=== PATIENT | female | born 1945 | race African-American/Black ===

== ENCOUNTER 2019-04-19 13:11 | Emergency (ER) | payer OTHER ==
[2019-04-19] MEDS ORDERED: ALBUTEROL 2.5 MG/3 ML NEB SOL ONE (14:36)
--- NOTE | 2019-04-19 14:46 | ER ---
Nurse's Notes [facility] Name: Kylah Oliver Age: 74 yrs Sex: Female : 1945 Arrival Date: 04/19/2019 Time: 13:14 Bed 8 Private MD: Diagnosis: Asthma Presentation: 04/19 13:22 Presenting complaint: Patient states: SOB on exertion since this morning. Pt states "I aa5 know it's my asthma flaring up but I haven't been able to get the correct connection for my nebulizer so I couldn't do my breathing treatment at home". Pt also c/o cough today. Denies chest pain. 13:22 Transition of care: patient was not received from another setting of care. Onset of aa5 symptoms was April 19, 2019. Risk Assessment: Do you want to hurt yourself or someone else? Patient reports no desire to harm self or others. Initial Sepsis Screen: Does the patient meet any 2 criteria? No. Patient's initial sepsis screen is negative. Does the patient have a suspected source of infection? No. Patient's initial sepsis screen is negative. Care prior to arrival: None. 13:22 Acuity: KAYLA 3 aa5 13:22 Method Of Arrival: Ambulatory aa5 Historical: - Allergies: 13:22 Imdur; aa5 13:22 Codeine; aa5 - PMHx: 13:22 Asthma; CHF; Hypertension; Atrial Fib; Thyroid problem; aa5 - PSHx: 13:22 Hysterectomy; Cholecystectomy; parathyroid removed; aa5 - Immunization history:: Flu vaccine is up to date. - Social history:: Smoking status: Patient/guardian denies using tobacco. - Ebola Screening: : No symptoms or risks identified at this time. Screenin:22 Abuse screen: Denies threats or abuse. Nutritional screening: No deficits noted. aa5 Tuberculosis screening: No symptoms or risk factors identified. Fall Risk None identified. Assessment: 13:22 General: Appears comfortable, Behavior is calm, cooperative. Pain: Denies pain. Neuro: aa5 Level of Consciousness is awake, alert, obeys commands, Oriented to person, place, time, situation. Cardiovascular: Heart tones S1 S2 present Pulses are 3+ in right radial artery and left radial artery Rhythm is regular. Respiratory: Reports shortness of breath on exertion Airway is patent Respiratory effort is even, unlabored, Respiratory pattern is regular, symmetrical, Breath sounds are clear bilaterally. GI: No signs and/or symptoms were reported involving the gastrointestinal system. : No signs and/or symptoms were reported regarding the genitourinary system. EENT: No signs and/or symptoms were reported regarding the EENT system. Derm: Skin is dry, Skin is normal, Skin temperature is warm. Musculoskeletal: Range of motion: intact in all extremities. 14:45 Reassessment: Pt states feeling better. Pt sitting up in bed. Respirations even an aa5 unlabored, skin is normal/warm/dry. . Respiratory: Breath sounds are clear bilaterally. Vital Signs: 13:22 BP 161 / 85; Pulse 60; Resp 18 S; Temp 98.1(O); Pulse Ox 100% on R/A; Weight 85.73 kg aa5 (R); Height 5 ft. 7 in. (170.18 cm) (R); Pain 0/10; 15:20 BP 131 / 78; Pulse 60; Resp 18 S; Temp 98.0(TE); Pulse Ox 99% on R/A; Pain 0/10; aa5 13:22 Body Mass Index 29.60 (85.73 kg, 170.18 cm) aa5 ED Course: 13:14 Patient arrived in ED. ss4 13:22 Arm band placed on Patient placed in an exam room, on a stretcher. aa5 13:22 Patient has correct armband on for positive identification. Placed in gown. Bed in low aa5 position. Call light in reach. Side rails up X 1. Adult w/ patient. Pulse ox on. NIBP on. 13:23 Charlene Infante, RN is Primary Nurse. aa5 13:24 Triage completed. aa5 13:44 Aroldo Srivastava PA is PHCP. jr8 13:44 Josue Acevedo MD is Attending Physician. jr8 15:30 Patient did not have IV access during this emergency room visit. aa5 15:30 No provider procedures requiring assistance completed. aa5 Administered Medications: 14:23 Drug: Albuterol 2.5 mg Route: Inhalation; aa5 14:45 Follow up: Response: No adverse reaction aa5 Outcome: 14:46 Discharge ordered by . jr8 15:30 Discharged to home ambulatory, with family. aa5 15:30 Condition: improved 15:30 Discharge instructions given to patient, Instructed on discharge instructions, follow up and referral plans. medication usage, Demonstrated understanding of instructions, follow-up care, medications, Prescriptions given X 3. 15:34 Patient left the ED. aa5 Signatures: Charlene Infante RN RN aa5 Aroldo Srivastava PA PA jr8 Isha Galindo ss4 Corrections: (The following items were deleted from the chart) 16:11 13:35 Triage completed. aa5 aa5 16:13 13:45 Reassessment: Pt states feeling better. Pt sitting up in bed. Respirations even aa5 an unlabored, skin is normal/warm/dry. . aa5 16:13 13:45 Respiratory: Breath sounds are clear bilaterally. aa5 aa5
--- NOTE | 2019-04-19 14:47 | EDPHYS ---
Physician Documentation [facility] Name: Kylah Oliver Age: 74 yrs Sex: Female : 1945 Arrival Date: 04/19/2019 Time: 13:14 Bed 8 Private MD: ED Physician Josue Acevedo HPI: 04/19 14:44 This 74 yrs old Black Female presents to ER via Ambulatory with complaints of Breathing jr8 Difficulty. 14:44 The patient has shortness of breath at rest. Onset: The symptoms/episode began/occurred jr8 gradually, 2 day(s) ago. Duration: The symptoms are intermittent. The patient's shortness of breath is aggravated by exertion. Associated signs and symptoms: The patient has no apparent associated signs or symptoms. Severity of symptoms: At their worst the symptoms were very mild in the emergency department the symptoms have improved. The patient has experienced similar episodes in the past, several times. The patient has not recently seen a physician. Came to ED because he she is in need of new nebulizer tubing. Has been having asthma attacks lately and has not been able to utilizer her machine at home. Out of inhaler as well . Historical: - Allergies: 13:22 Imdur; aa5 13:22 Codeine; aa5 - PMHx: 13:22 Asthma; CHF; Hypertension; Atrial Fib; Thyroid problem; aa5 - PSHx: 13:22 Hysterectomy; Cholecystectomy; parathyroid removed; aa5 - Immunization history:: Flu vaccine is up to date. - Social history:: Smoking status: Patient/guardian denies using tobacco. - Ebola Screening: : No symptoms or risks identified at this time. ROS: 14:44 Eyes: Negative for injury, pain, redness, and discharge, ENT: Negative for injury, jr8 pain, and discharge, Neck: Negative for injury, pain, and swelling, Cardiovascular: Negative for chest pain, palpitations, and edema, Abdomen/GI: Negative for abdominal pain, nausea, vomiting, diarrhea, and constipation, Back: Negative for injury and pain, MS/Extremity: Negative for injury and deformity, Skin: Negative for injury, rash, and discoloration, Neuro: Negative for headache, weakness, numbness, tingling, and seizure. 14:44 Respiratory: Positive for cough, shortness of breath, wheezing. Exam: 14:44 Eyes: Pupils equal round and reactive to light, extra-ocular motions intact. Lids and jr8 lashes normal. Conjunctiva and sclera are non-icteric and not injected. Cornea within normal limits. Periorbital areas with no swelling, redness, or edema. ENT: Nares patent. No nasal discharge, no septal abnormalities noted. Tympanic membranes are normal and external auditory canals are clear. Oropharynx with no redness, swelling, or masses, exudates, or evidence of obstruction, uvula midline. Mucous membranes moist. Neck: Trachea midline, no thyromegaly or masses palpated, and no cervical lymphadenopathy. Supple, full range of motion without nuchal rigidity, or vertebral point tenderness. No Meningismus. Cardiovascular: Regular rate and rhythm with a normal S1 and S2. No gallops, murmurs, or rubs. Normal PMI, no JVD. No pulse deficits. Respiratory: Lungs have equal breath sounds bilaterally, clear to auscultation and percussion. No rales, rhonchi or wheezes noted. No increased work of breathing, no retractions or nasal flaring. Abdomen/GI: Soft, non-tender, with normal bowel sounds. No distension or tympany. No guarding or rebound. No evidence of tenderness throughout. Back: No spinal tenderness. No costovertebral tenderness. Full range of motion. Skin: Warm, dry with normal turgor. Normal color with no rashes, no lesions, and no evidence of cellulitis. MS/ Extremity: Pulses equal, no cyanosis. Neurovascular intact. Full, normal range of motion. Neuro: Awake and alert, GCS 15, oriented to person, place, time, and situation. Cranial nerves II-XII grossly intact. Motor strength 5/5 in all extremities. Sensory grossly intact. Cerebellar exam normal. Normal gait. Vital Signs: 13:22 BP 161 / 85; Pulse 60; Resp 18 S; Temp 98.1(O); Pulse Ox 100% on R/A; Weight 85.73 kg aa5 (R); Height 5 ft. 7 in. (170.18 cm) (R); Pain 0/10; 15:20 BP 131 / 78; Pulse 60; Resp 18 S; Temp 98.0(TE); Pulse Ox 99% on R/A; Pain 0/10; aa5 13:22 Body Mass Index 29.60 (85.73 kg, 170.18 cm) aa5 MDM: 13:44 Patient medically screened. jr8 14:44 Data reviewed: vital signs, nurses notes, and as a result, I will discharge patient. jr8 Data interpreted: Pulse oximetry: on room air is 100 %. Interpretation: normal. Counseling: I had a detailed discussion with the patient and/or guardian regarding: the historical points, exam findings, and any diagnostic results supporting the discharge/admit diagnosis, the need for outpatient follow up, a family practitioner, to return to the emergency department if symptoms worsen or persist or if there are any questions or concerns that arise at home. Response to treatment: the patient's symptoms have markedly improved after treatment. 04/19 14:26 Order name: Urine Dipstick--Ancillary (enter results) eb Administered Medications: 14:23 Drug: Albuterol 2.5 mg Route: Inhalation; aa5 14:45 Follow up: Response: No adverse reaction aa5 Disposition: 04/19/19 14:46 Discharged to Home. Impression: Asthma. - Condition is Stable. - Discharge Instructions: Asthma, Acute Bronchospasm. - Prescriptions for Prednisone 20 mg Oral Tablet - take 1 tablet by ORAL route once daily for 5 days; 5 tablet. Albuterol Sulfate 2.5 mg /3 mL (0.083 %) Inhalation Solution for Nebulization - inhale 1 unit by NEBULIZATION route every 8 hours As needed; 1 box. Albuterol Sulfate 90 mcg/actuation - inhale 1-2 puff by INHALATION route every 4-6 hours; 1 Inhaler. - Medication Reconciliation Form, Thank You Letter, Antibiotic Education, Prescription Opioid Use form. - Follow up: Private Physician; When: 5 - 6 days; Reason: Recheck today's complaints, Continuance of care, Re-evaluation by your physician. - Problem is new. - Symptoms have improved. Addendum: 04/21/2019 08:13 Co-signature as Attending Physician, Josue Acevedo MD I agree with the assessment and k dr plan of care. Signatures: Dispatcher [employer] EDSD Josue Acevedo MD MD [facility] Charlene Infante RN RN aa5 Aroldo Srivastava PA PA jr8 Corrections: (The following items were deleted from the chart) 05/26 15:34 14:46 04/19/2019 14:46 Discharged to Home. Impression: Asthma. Condition is Stable. aa5 Forms are Medication Reconciliation Form, Thank You Letter, Antibiotic Education, Prescription Opioid Use. Follow up: Private Physician; When: 5 - 6 days; Reason: Recheck today's complaints, Continuance of care, Re-evaluation by your physician. Problem is new. Symptoms have improved. jr8
[2019-04-19 15:55] LABS: Urine Blood TRACE (NEG); Urine Glucose NEGATIVE (NEG); Urine Protein TRACE (NEG); Urine Specific Gravity 1.015 (1.005-1.030); Urine pH 5.5 (5.0-7.0)
== END 2019-04-19 15:34 | disposition home or self-care (01) ==
LOC: ER 13:11
DX: J45.909 Unspecified asthma, uncomplicated (principal); R06.02 Shortness of breath; I10 Essential (primary) hypertension; I48.91 Unspecified atrial fibrillation; Z88.5 Allergy status to narcotic agent
CPT/HCPCS: 81003; 99284

== ENCOUNTER 2019-06-29 22:04 | Inpatient (IN) | payer OTHER ==
--- OUTSIDE RECORDS SUMMARY | 2019-06-29 22:09 | XMS REPORT | Continuity of Care Document ---
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 left greater than right. Mild bilateral foraminal narrowing. Mild spinal stenosis. C5-C6: Moderate diffuse disc space narrowing. Anterior disc bulging. Broad- based posterior disc bulge/protrusion/osteophyte complex measuring a maximal AP dimension of approximately 3 mm. Uncal vertebra l joint hypertrophy. Mild to moderate facet arthropathy. Moderate to severe bilateral foraminal narrowing most pronounced medially. Mild spinal stenosis. C6-C7: Moderate diffuse disc space narrowing. Anterior disc bulging. Broad- based posterior disc bulge/protrusion/osteophyte complex measuring a maximal AP dimension of approximately 3 mm. Mild facet art hropathy. Moderate narrowing of the medial aspect of the right neural foramen. Moderate to severe left foraminal narrowing most pronounced medially. Mild spinal stenosis. C7-T1: Grade 1 anterolisthesis of C7 on T1. Broad-based posterior disc bulge/ protrusion measuring a maximal AP dimension of approximately 2 mm. Mild facet arthropathy. Mild narrowing of the medial aspec ts of both neural foramen. No significant spinal stenosis. T1-T2 and T2-T3: Broad-based posterior disc bulge/protrusion measuring a maximal AP dimension of approximately 2 mm. No significant foraminal narrowing or spinal stenosis. IMPRESSION: 1. Straightening of the normal cervical lordosis. 2. Grade 1 anterolisthesis of C3 on C4, C4 on C5 and C7 on T1. 3. [place] disc desiccation. 4. Cervical spondylosis with multilevel posterior disc bulging/protrusions, uncal vertebral joint hypertrophy, facet arthropathy, foraminal narrowing and spinal stenosis as described above. 5. Disc space narrowing at C5-C6 and C6-C7. 6. The cervical spinal cord demonstrates normal signal intensity. 7. Chronic sinusitis. 8. Enlarged thyroid gland with multiple lesions, incompletely assessed on this examination. Further evaluation may be obtained with a thyroid ultrasound. 9. Minimal right mastoiditis. SL: 15 Brain wo contrast MRA MRA BRAIN 06/27/2016 [facility] HISTORY: Weakness; COMPARISON: MRI brain dated 06/27/2016 TECHNIQUE: Magnetic resonance angiography time of flight of the [place] was performed without contrast. 3D reconstructed images were created. The petrous, cavernous, and supraclinoid portions of the internal carotid arteries are normal in contour and caliber. The anterior, middle, and posterior cerebral arteries are normal in shape. The basil ar artery is intact. There is no stenosis or branch occlusion. No aneurysm is identified. IMPRESSION: Normal [place]. No intracranial aneurysm or branch occlusion. SL: [id number] Neck wo contrast MRA Patient Name: ANA TREJO 06/27/2016 [facility] : 1945; Age: 71 years y/o Female MR: [id number] Study: Neck wo contrast MRA 06/27/2016 6:21 PM CDT Ordering Physician: Anderson Malloy DO Clinical Indication: Weakness; right sided numbness Comparison: None Technique: Magnetic resonance angiography of the neck was performed without gadolinium contrast with time of flight technique. 3-D maximum intensity projection images were obtained. FINDINGS: No hemodynamically significant stenosis identified to the visualized portions of either carotid or vertebral artery in the neck. There appears to be diffuse enlargement of the thyroid gland with patchy areas of increased signal on the gradient echo images in the superior right thyroid lobe and anterior left thyroid lobe. This is not well evaluated by this study. Recommend correlation with thyroid ultrasound. Any reported ICA stenoses directly reference the distal internal carotid diameter as the denominator for stenosis measurement. (NASCET criteria) SL: [id number]-PC Brain wo contrast MRI MRI BRAIN WITHOUT CONTRAST 06/27/2016 [facility] HISTORY: Right-sided numbness, right upper extremity weakness COMPARISON: CT head dated 06/27/2016 FINDINGS: There is a small focus of right frontotemporal encephalomalacia which corresponds to hypodensity seen on CT brain, likely sequela of prior infarct. Diffusion weighted imaging reveals no acute infarct. There is minimal microvascular chronic ischemic change in the deep white matter. No acute intracranial abnormality such as hemorrhage, hydrocephalus, extra- axial fluid collection, or mass lesion. The T2 vascular flow voids are preserved. Orbits are unremarkable. Moderate to severe diffuse pansinus opacification. IMPRESSION: 1. No acute intracranial abnormality. 2. Small focus of right frontotemporal encephalomalacia, likely old infarct. 3. Mild microvascular chronic ischemic change. 4. Pansinusitis. SL: [id number] Brain wo contrast CT EXAM: CT BRAIN WITHOUT CONTRAST 06/27/2016 [facility] DATE: 06/27/2016 3:53 PM CDT INDICATION: Weakness right sided paresthesias COMPARISON: None. TECHNIQUE: Routine axial CT images of the brain were obtained. IV contrast: None. DLP: mGy-cm FINDINGS: Low-density is present within the right temporal frontal lobe likely reflecting recent infarct. Aviles-white matter distinction is preserved. The ventricles are normal. The basal cisterns and sulci are normal in size. Marked atherosclerotic calcification of the distal internal carotid and vertebral arteries. Mild chronic inflammatory change of the paranasal sinus. Partial opacification of the mastoid air cells. IMPRESSION: 1. Low-density is present within the right temporal frontal lobe likely reflecting recent infarct. No definite acute intracranial hemorrhage detected. Dedicated MRI brain recommended for confirmation. Critical findings were called to Anderson Malloy DO on 06/27/2016 5: 07 PM CDT. If there is further concern for intracranial pathology or acute stroke, MRI of the brain may be performed for complete assessment. SL: [id number] Chest 1view DX Portable chest: The cardiac silhouette is mildly enlarged. There is mild pulmonary venous congestion. There is tracheal deviation to the right at the thoracic inlet consistent with goiter or upper media 06/27/2016 [facility] stinal mass. The lungs and pleural spaces are otherwise clear. There are no acute osseous abnormalities. [id number] Consultation Notes No Data Provided for This Section Discharge Summaries No Data Provided for This Section History and Physicals No Data Provided for This Section Vital Signs Vital Sign Value Date Comments Source Systolic (mm Hg) 134 01/16/2018 [facility] Diastolic (mm Hg) 76 01/16/2018 [facility] Temperature Oral (F) 98.4 F 01/16/2018 [facility] Heart Rate 72 01/16/2018 [facility] Respitory Rate 18 01/16/2018 [facility] Systolic (mm Hg) 137 01/16/2018 [facility] Diastolic (mm Hg) 88 01/16/2018 [facility] Temperature Oral (F) 98.2 F 01/16/2018 [facility] Heart Rate 70 01/16/2018 [facility] Respitory Rate 18 01/16/2018 [facility] Respitory Rate 18 01/16/2018 [facility] Temperature Oral (F) 98.4 F 01/16/2018 [facility] Heart Rate 67 01/16/2018 [facility] Systolic (mm Hg) 127 01/16/2018 [facility] Diastolic (mm Hg) 77 01/16/2018 [facility] BMI Calculated 24.96 01/12/2018 [facility] Weight 72.273 01/12/2018 [facility] Height 170.18 cm 01/12/2018 [facility] Temperature Oral (F) 97.9 F 01/12/2018 [facility] Respitory Rate 16 01/12/2018 [facility] Systolic (mm Hg) 127 01/12/2018 [facility] Diastolic (mm Hg) 68 01/12/2018 [facility] Systolic (mm Hg) 152 01/12/2018 [facility] Diastolic (mm Hg) 70 01/12/2018 [facility] Respitory Rate 18 01/12/2018 [facility] Respitory Rate 20 01/12/2018 [facility] Temperature Oral (F) 97.9 F 01/12/2018 [facility] Systolic (mm Hg) 147 01/12/2018 [facility] Diastolic (mm Hg) 83 01/12/2018 [facility] Temperature Oral (F) 98.1 F 01/12/2018 [facility] Heart Rate 57 01/12/2018 [facility] Weight 86.364 01/12/2018 [facility] BMI Calculated 29.82 01/12/2018 [facility] Height 170.18 cm 01/12/2018 [facility] Systolic (mm Hg) 157 06/29/2016 [facility] Diastolic (mm Hg) 86 06/29/2016 [facility] Heart Rate 54 06/29/2016 [facility] Respitory Rate 16 06/29/2016 [facility] Temperature Oral (F) 97.5 F 06/29/2016 [facility] Systolic (mm Hg) 130 06/29/2016 [facility] Diastolic (mm Hg) 79 06/29/2016 [facility] Heart Rate 54 06/29/2016 [facility] Respitory Rate 16 06/29/2016 [facility] Temperature Oral (F) 97.6 F 06/29/2016 [facility] Respitory Rate 16 06/29/2016 [facility] Heart Rate 59 06/29/2016 [facility] Temperature Oral (F) 97.9 F 06/29/2016 [facility] Systolic (mm Hg) 125 06/29/2016 [facility] Diastolic (mm Hg) 75 06/29/2016 [facility] Height 170.18 cm 06/28/2016 [facility] BMI Calculated 29.66 06/28/2016 [facility] Weight 85.909 06/28/2016 [facility] BMI Calculated 26.64 06/27/2016 [facility] Height 175.26 cm 06/27/2016 [facility] Weight 81.818 06/27/2016 [facility] Weight 86.364 06/22/2016 [facility] BMI Calculated 29.82 06/22/2016 [facility] Height 170.18 cm 06/22/2016 [facility] Encounters Location Location Encounter Encounter Reason Attending ADM DC Status Source Details Type Number For Provider Date Date Visit [facility] [id number] Alex 06/22 06/23 [facility] Norman /2015 [facility] [id number] Darnell 06/27 06/29 [facility] Zachariah /2015 [facility] Out[facility] Diag [id number] Eldon 09/24 09/25 [facility] Gaitz /2015 [facility] [id number] [place] 01/12 01/12 Gus Arias /2017 [facility] Inpatient [id number] Norberto Gan 01/14 01/16 Gus /2017 [facility] Procedures Procedure Code Date Perfomer Comments Source Ablation [id number] [facility] [id number] [facility]ste[facility] [id number] [facility] Ablation [id number] [facility] Breast [id number] [facility] [id number] [facility] [id number] [facility] [id number] [facility] Hysterectomy [id number] [facility] Assessment and Plan Assessment and Plan Date Source Extracted from:Title: Clinical Document 01/16/2018 [facility] Author: Norberto Gan MD Date: 01/16/18 Date of admission: 01/14/2018 Date of discharge: 01/16/2018 Discharge diagnoses 1. Elevated transaminitis 2. Chronic kidney disease stage IV 3. Atrial fibrillation Hospital course Patient presented with abdominal pain and was found to have elevated liver function test. She has had a history of cholecystectomy in the past. Cause for elevated liver function tests has been attribu ankita most likely due to medications particularly recent moderate increase in Tylenol intake recently. EGD was done which did not show any obstructive lesions within the biliary system. She was found to have much Schatzki's ring and some signs arthritis. Patient is instructed to avoid NSAIDs and Tylenol products. She will follow-up with Dr. Giron in approximately 1 week. Patient seen and examine d on the day of discharge. She was incidently found to have large goiter and mild compression on trachea. Patient has a history of hypothyroidism and currently has been off medications. Patient is in structed to follow-up with her primary care physician to recheck her thyroid panel and possibly resuming these medications. Patient has verbalized understanding. Discharge condition fair Discharge to home Activity as tolerated Please see discharge medicine reconcilliation form Renal diet. Extracted from:Title: Clinical Document Author: Danyelle Cantu MD Date: 01/16/18 Progress Daily [facility] Completed: , JAN 16, 2018, 11:44 by Danyelle Cantu MD RM: 105 - 1D, SE C1B ANA TREJO 72y (: 1944) F Attending: Norberto Gan MD Service: Internal Medicine Reason for Admission: SOB Working DRG: Respiratory signs and symptoms Code status: Full Code [Ordered] Current diet: Isolation: No Isolation/Standard Precautions Allergies: codeine, NKDA SUBJECTIVE pain in breast improved OBJECTIVE HEENT NOLBERTO Neck supple RS Equal AE b/l no added sounds CVS S1S2 normal no murmur P/A soft Nontender,not distended BS +ve no mass [employer] AAox3 NO FND Skin rt breast partial thickness wound 100 % pink with drainge moderate looks smaller and healing Ext no edema PP +ve ASSESSMENT and EXAM xrt burn with wound rt breast PLAN and TREATMENT will keep it covered with adaptic 4x4 and monitor Aquaphor to dry skin Advised her to follow up in wound clinic up on d/c DIAGNOSES and PROBLEMS Ready for Discharge (Yes/No)? Lina almanzar necessary (Yes/No): Line still necessary (Yes/No): 24hr Labs 01/16 0853 Glucose Lvl 94 BUN 68 H Creatinine Lvl 2.98 H Sodium Lvl 141 Potassium Lvl 4.5 Chloride Lvl 105 CO2 21 L AGAP 19.5 Calcium Lvl 9.2 eGFR 17 Total Protein 7.3 Albumin Lvl 2.6 L Bili Total 2.0 H Bili Direct 1.4 H Bili Indirect 0.6 Alk Phos 724 H AST 137 H ALT 131 H Globulin 4.7 H A/G Ratio 0.6 L Vitals Tmp(F) Pulse BP RR SpO2 FIO2 01/16 07:55 98.2 70 137/88 18 --- --- 01/16 04:25 98.4 67 127/77 18 --- --- 01/16 00:34 98.1 67 127/64 18 --- --- 01/15 20:10 97.9 64 118/68 18 --- --- 01/15 18:10 ---- 62 136/72 -- 99 --- 24 Hr Tmax: 98.4F (36.89c) at 01/16 04:25 Vital Signs are the last 5 in the past 48 hours. Date Wt(kg) Wt(lb) Ht(cm) Ht(in) Method 01/12 (initial) 72.27 159.00 Measured 01/12 170.18 67.00 Stated I&O Record In Out Bal 01/16 24hr Tot 240 0 240 01/15 24hr Tot 500 0 500 Medications (14) Active Scheduled Meds (11): 01/13/18 amLODIPine 5 mg PO Daily 01/15/18 apixaban (Eliquis) 2.5 mg PO Q12H 01/13/18 aspirin (aspirin 325 mg tablet, enteric coated) 325 mg PO Daily 01/12/18 atorvastatin (Lipitor) 10 mg PO Bedtime 01/13/18 cholecalciferol (Vitamin D3 1000 intl units oral tablet) 1,000 IntlUnit PO Daily 01/12/18 flecainide 50 mg PO Q12H 01/13/18 (Suspended) furosemide (Lasix) 20 mg IVP Daily 01/13/18 metoprolol (Toprol-XL 25 mg oral tablet, extended release) 25 mg PO Daily 01/14/18 non-formulary (patient's own EXEMESTANE 25MG) 1 tab PO Daily 01/14/18 non-formulary (NO nsaids, iv dye, nida-inhib. or arb per Dr Giron) MISC QSHIFT 01/15/18 pantoprazole 40 mg PO Before Breakfast Unscheduled Meds: None PRN Meds (3): 01/14/18 emollients, topical (Aquaphilic topical ointment) 1 appl TOP BID 01/12/18 fluticasone nasal (Flonase 0.05 mg/inh nasal spray) 1 spray NASAL BID 01/13/18 tramadol (tramadol 50 mg oral tablet) 50 mg PO Q12H One Time Meds: None Continuous Infusions: None Extracted from:Title: GI Consult * Author: Nelson Giron MD Date: 01/14/18 Impression and Plan IMPRESSION 1. Transaminitis with cholestasis- no clear evidence of biliary obstruction, no ductal dilation, s/p cholecystectomy - acute Hepatitis panel negative -? medication induced- pt reports history of moderate amount of tylenol consumption 2. Abdominal Pain- intermittenent, assoicated with eating 3. Nausea 4. Breast CA, s/p radiation therapy RECOMMENDATIONS 1. Monitor LFTs 2. Consents for EGD, alternatives risks and complications discussed 3. NPO after MN 4. PPI 5. Avoid NSAIDs. 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 Upon chart review, there is also a hx of pulmonary sarcoidosis, diagnosed in the 1980s, however, patient does not mention this. She presented with 1-2 week hx of SOB. She saw her PCP and was given a Z-pack with minimal improvement in symptoms Endorses orthopnea and a "sick feeling" She is on Xarelto for A fib. Patient was admitted for possible new onset CHF. Her labs reflect CKD, possibly JI and elevated LFTS, which could reflect hepaic congestion. RUQ U/S was unremarkable. CXR did not show pulmonary edema. She was given a dose of lasix in the ED Patient also complains of R breast radiation rock. She changes her dressing 3 times a day, but it is exquisitely tender and oozing as well. Review of Systems: as mentioned in HPI Past Medical History: Cervical spine painful on movement Atrial fibrillation Past Surgical History: Ablation Breast Hysterectomy Family History: Sister: Type 2 diabetes mellitus Grandparent: Type 2 diabetes mellitus Social History: Alcohol Details: Never Tobacco Details: Use: Never smoker. Tobacco smoke exposure: None. Did the Patient Smoke Cigarettes Anytime During the Last 365 Days? No. Cessation Counseling Provided? No. Substance Abuse Details: Use: None. Medications: Medications (14) Active Scheduled Meds (11): 01/13/18 amLODIPine 5 mg PO Daily 01/13/18 aspirin (aspirin 325 mg tablet, enteric coated) 325 mg PO Daily 01/12/18 atorvastatin (Lipitor) 10 mg PO Bedtime 01/13/18 cholecalciferol (Vitamin D3 1000 intl units oral tablet) 1,000 IntlUnit PO Daily 01/13/18 exemestane 25 mg PO Daily 01/12/18 flecainide 50 mg PO Q12H 01/13/18 furosemide (Lasix) 20 mg IVP Daily 01/12/18 heparin 5,000 unit SUB-Q Q8H 01/13/18 losartan 50 mg PO Daily 01/13/18 metoprolol (Toprol-XL 25 mg oral tablet, extended release) 25 mg PO Daily 01/13/18 paricalcitol (paricalcitol 1 mcg oral capsule) 1 microgram PO Daily Unscheduled Meds: None PRN Meds (1): 01/12/18 fluticasone nasal (Flonase 0.05 mg/inh nasal spray) 50 microgram NASAL BID One Time Meds (2): 01/12/18 (Completed) fentaNYL 25 microgram IVP ONCE 01/12/18 (Completed) furosemide (Lasix) 20 mg IVP ONCE Continuous Infusions: None Allergies (2) Active Reaction codeine None documented NKDA None documented Allergies: Physical Exam: Vitals Tmp(F) Pulse BP RR SpO2 FIO2 01/12 13:19 98.2 66 117/75 18 98 --- 24 Hr Tmax: 98.2F (36.78c) at 01/12 13:19 Vital Signs are the last 5 in the past 48 hours. General: Awake, alert, oriented x 3, NAD HEENT: PERRLA, EOMI. MMM and intact without erythema. No conjunctival injection. No scleral icterus. Neck: Supple, full ROM Heart: RRR, normal S1, S2. No murmurs, rubs, gallops Lungs: Clear to auscultation bilaterally. Symmetric chest wall expansion. Abdomen: Soft, non-tender to palpation, non-distended. Bowel sound present in all 4 quadrants. MSK: 5/5 strength in upper and lower extremities bilaterally. No peripheral edema. Skin: R breast desquamation of skin with serosanginous drainage Neuro: 5/5 muscle strength in all 4 extremities. CN II-XII grossly intact. Psych: Appropriate mood and affect. Lines, Tubes, and Drains: 01/12/2018 13:19 Peripheral Lines: Forearm Right 22 gauge Over the needle catheter Labs: Hct: 40.1 % (01/12/18 06:53:25) Hgb: 13.1 g/dL (01/12/18 06:53:25) MCH: 26.7 pg Low (01/12/18 06:53:25) MCHC: 32.7 g/dL (01/12/18 06:53:25) MCV: 81.7 fL (01/12/18 06:53:25) MPV: 8.4 fL (01/12/18 06:53:25) Platelet: 164 K/CMM (01/12/18 06:53:25) RBC: 4.91 M/CMM (01/12/18 06:53:25) RDW: 16.3 % High (01/12/18 06:53:25) WBC: 2.2 K/CMM Low (01/12/18 06:53:25) CO2: 23 mEq/L Low (01/12/18 07:21:07) Chloride Lvl: 108 mEq/L (01/12/18 07:21:07) Sodium Lvl: 138 mEq/L (01/12/18 07:21:07) Glucose Lvl: 95 mg/dL (01/12/18 07:21:07) Calcium Lvl: 9.5 mg/dL (01/12/18 07:21:07) Potassium Lvl: 4.3 mEq/L (01/12/18 07:21:07) BUN: 45 mg/dL High (01/12/18 07:21:07) AGAP: 11.3 mEq/L (01/12/18 07:21:07) Creatinine Lvl: 2.35 mg/dL High (01/12/18 07:21:07) Imaging: Reviewed Assessment/Plan: 1. Shortness of breath 2. CKD 3. R breast wounds 4. A fib 5, Elevated LFTs Plan: -check TTE -low dose IV lasix -continue home meds, Xarelto -wound care nurse consulted -RUQ U/S unremarkable, continue to monitor -if TTE is unrevealing, may need further workup for SOB. Consider CT chest to r/o pulmonary scarring, especially in the setting of prior radiation. Prophylaxis: xarelto Disposition: I anticipate 1 MN Melissa Price MD Hospitalist [facility] Providers Extracted from:Title: Teleneurology Follow up 06/29/2016 J[facility] Author: Haydee Moffett MD Date: 06/29/16 TELEMEDICINE NEUROLOGY - TELEPHONE FOLLOWUP 06/29/16 CC:transeint RS numbness HISTORY OF PRESENT ILLNESS: 71 year old with afib, renal insufficiency, recently diagnosed with breast cancer has not initiated treatment yet, HTN, presents with transient numbness of right side lasting 1 minute. Numbness progress ed over one minute from right thumb up to hand and arm and then including legs , no involvement of face. No neck pain or headache at that time, although she does have h/o cervical spine disease and will get neck pain intermittently and chronically. No LOC, no twitching/convulsions , no incontinence. This has happened before 2001 same numbness in arm and leg on right, was attribuated to C spine disease. HOME MEDS: metoprolol amlodapine Vit D Ana and flonase prn Lipitor 10mg daily had been on aspirin but held for breast surgery since 05/2016 Medications Scheduled Meds (10): 06/27/16 amLODIPine 5 mg PO BID 06/28/16 aspirin (aspirin 81 mg tablet, chewable) 324 mg PO Daily 06/27/16 atorvastatin (Lipitor) 10 mg PO Bedtime 06/28/16 cholecalciferol (Vitamin D3 1000 intl units oral tablet) 1,000 IntlUnit PO Daily 06/28/16 flecainide 50 mg PO Q8H 06/28/16 heparin 5,000 unit SUB-Q Q8H 06/28/16 metoprolol (Toprol-XL 25 mg oral tablet, extended release) 25 mg PO Daily 06/28/16 olmesartan (Benicar) 40 mg PO Daily 06/29/16 paricalcitol (paricalcitol 1 mcg oral capsule) 1 microgram PO Q-M-W-06/28/16 sodium chloride (Saline Flush 0.9%) 10 ml IVP Q12H Vitals and Temp: Vitals Tmp(F) Pulse BP RR SpO2 FIO2 06/28 07:00 97.9 56 144/82 17 99 --- 06/28 06:21 ---- --- ----- 16 96 21% 06/28 03:15 97.7 62 143/73 18 99 --- 06/28 01:15 ---- 66 150/83 -- --- --- 06/27 22:00 ---- --- ----- -- 93 --- 24 Hr Tmax: 97.9F (36.61c) at 06/28 07:00 Vital Signs are the last 5 in the past 48 hours. LABS: normal TSH, LDL 48, A1c 5.8 DIAGNOSTIC TESTS: MRI: no acute findings, chronic right frontal ischemic infarct, no hemorrhage MRA head and neck: no stenosis or large artery occlusion TTE 05/2016: normal EF, nl size atria, no PFO EEG: no seizure activity ASSESSMENT: 71 year old with afib and other vascular risk factors as well as new diagnosis of breast cancer, presents with transient episode of right arm and leg tingling. MRI neg for acute stroke. Likely TIA as pa tient was off of aspirin (TIA workup complete, recent TTE no abnormalities 2015) vs cervical spine disease vs seizure (concern in setting of numbness which travelled up arm over one minute). EEG unremarkable. No indication for AED at this time however patient should follow upwith a neurologist for mcfp monitoring. Cervical spine disease can be worked up as outpatient. PLAN: -Asprin 325mg PO daily. Ideally would anticoagulate due to CHADS2 score of at least 2 however patient has procedures planned for breast cancer workup and so defer to outpatient follow up to initial anti coagulation. Would at least continue aspirin until it is more definitive when the patient will have more procedures. -Continue home dose of Lipitor -Follow up with PCP for coordination of care regarding breast cancer -Patient to follow up with neurologist via PCP, per preference. No further recommendations from neurology. Please feel free to call with any questions. Haydee Moffett MD [facility], Neurology Call center [phone] Extracted from:Title: Teleneurology Consultation Author: Haydee Moffett MD Date: 06/28/16 TELEMEDICINE NEUROLOGY - CONSULTATION Date of Consult: 06/28/16 CC:transeint RS numbness HISTORY OF PRESENT ILLNESS: 71 year old with afib, renal insufficiency, recently diagnosed with breast cancer has not initiated treatment yet, HTN, presents with transient numbness of right side lasting 1 minute yesterday. Numbnes s progressed over one minute from right thumb up to hand and arm and then including legs, no involvement of face. No neck pain or headache at that time, although she does have h/o cervical spine disease and will get neck pain intermittently and chronically. No LOC, no twitching/convulsions, no incontinence This has happened before 2001 same numbness in arm and leg on right, was attribuated to C spine disease. The patient DENIES having had any nausea, vomiting, diplopia or vertigo. Pt also DENIES having neither any ataxia, weakness at arms or legs; describes having NO facial deficits, language difficulties nor reading/writing difficulties. PAST MEDICAL HISTORY: as above PAST SURGICAL HISTORY: hysterectomy, benign parotid tumor resection FAMILY MEDICAL HISTORY: mother and maternal grandmother of strokes age 80s SOCIAL HISTORY: , no tobacco illicit drugs or heavy alcohol HOME MEDS: metoprolol amlodapine Vit D Ana and flonase prn Lipitor 10mg daily had been on aspirin but held for breast surgery since 05/2016 ALLERGIES: codeine PHYSICAL EXAM: Vitals and Temp: Vitals Tmp(F) Pulse BP RR SpO2 FIO2 06/28 07:00 97.9 56 144/82 17 99 --- 06/28 06:21 ---- --- ----- 16 96 21% 06/28 03:15 97.7 62 143/73 18 99 --- 08/04 01:15 ---- 66 150/83 -- --- --- 06/27 22:00 ---- --- ----- -- 93 --- 24 Hr Tmax: 97.9F (36.61c) at 06/28 07:00 Vital Signs are the last 5 in the past 48 hours. AAO x3 , speech is fluent, able to repeat, follow commands and name EOMI, VFFTC, Face symmetric, sensation intact, no dysarthria, tongue midline Motor - no drift throughout Sensation- intact to light touch throughout Coordination: Normal FTN and HTS, no ataxia noted NIH Stroke Scale (NIHSS) 0 1a. Level of Consciousness; 0-alert 1-drowsy 2-stupor 0 1b. LOC Questions month and age; 0-both 1-one 2-neither 0 1c. LOC Commands open/close eyes, ui ux developer/release non-paretic hand; 0-both 1- one 2-neither 0 2. Best Gaze; 0-nl 1-partial 2-forced gaze 0 3. Visual Cordero; 0-No visual loss. 1-Partial hemianopia 2-Complete 3- Bilateral 0 4. Facial Palsy; 0-none 1-minor 2-partial 3-complete 0 5. Motor - R arm; 0-No drift 1-Drift 2-Some antigravity 3-No antigravity 4- No movement 0 6. Motor - R leg; 0-No drift 1-Drift 2-Some antigravity 3-No antigravity 4- No movement 0 7. Motor - L arm; 0-No drift 1-Drift 2-Some antigravity 3-No antigravity 4- No movement 0 8. Motor - L leg; 0-No drift 1-Drift 2-Some antigravity 3-No antigravity 4- No movement 0 9. Limb Ataxia; 0 absent 1 - 1limb 2 - 2 limbs 0 10. Sensory; 0-nl 1-partial loss 2-dense loss 0 11. Best Language; 0-nl 1-mild/mod 2-severe 3-mute 0 12. Dysarthria; 0-nl 1-mild/mod 2-severe x-untestable 0 13. Extinction and Inattention (formerly Neglect); 0-none 1-partial 2- complete TOTAL SCORE 0 Pre-morbid mRS 0 LABS: normal TSH, LDL 48, A1c 5.8 DIAGNOSTIC TESTS: MRI: no acute findings, chronic right frontal ischemic infarct, no hemorrhage MRA head and neck: no stenosis or large artery occlusion TTE 05/2016: normal EF, nl size atria, no PFO ASSESSMENT: 71 year old with afib and other vascular risk factors as well as new diagnosis of breast cancer, presents with transient episode of right arm and leg tingling. MRI neg for acute stroke. Likely TIA as pa tient was off of aspirin (TIA workup complete, recent TTE no abnormalities 2015) vs cervical spine disease vs seizure (concern in setting of numbness which travelled up arm over one minute). Pending E EG. Cervical spine disease can be worked up as outpatient. PLAN: -Asprin 325mg PO daily. Ideally would anticoagulate due to CHADS2 score of at least 2 however patient has procedures planned for breast cancer workup and so defer to outpatient follow up to initial anti coagulation. Would at least continue aspirin until it is more definitive when the patient will have more procedures. -Continue home dose of Lipitor -EEG pending -IF EEG with focal abnormality, would consider MRI with contrast (which can be done as outpatient if patient has neurology follow up) -PT/OT/ST -Follow up with PCP for coordination of care regarding breast cancer -Patient to follow up with neurologist via PCP, per preference. Discussed above with patient and primary nurse. Will continue to follow along please feel free to call with any interim questions. Haydee Moffett MD [facility], Neurology Call center [phone] Plan of Care No Data Provided for This Section Social History Social History Date Source Social History TypeResponse 06/28/2016 [facility] Substance Abuse Use: None. Alcohol Never Smoking Status Never smoker; Exposure to Tobacco Smoke None; Cigarette Smoking Last 365 Days No; Reg Smoking Cessation Counseling No Social History TypeResponse 06/28/2016 [place] Substance Abuse Use: None. Alcohol Never Smoking Status Never smoker; Exposure to Tobacco Smoke None; Cigarette Smoking Last 365 Days No; Reg Smoking Cessation Counseling No entered on: 01/12/18 Social History TypeResponse 06/28/2016 [facility] Substance Abuse Use: None. Alcohol Never Smoking Status Never smoker; Exposure to Tobacco Smoke None; Cigarette Smoking Last 365 Days No; Reg Smoking Cessation Counseling No entered on: 01/12/18 No data available for this 06/23/2016 [facility] section Family History No Data Provided for This Section Advance Directives No Data Provided for This Section Functional Status No Data Provided for This Section
--- OUTSIDE RECORDS SUMMARY | 2019-06-29 22:10 | XMS REPORT | Summary of Care ---
:1945 Author Organization [facility] Address [address] [place] [id number] Encounter HQ Pedror_almita(FIN) [id number] Date(s): 01/12/18 - 01/12/[address] [phone] Encounter Diagnosis Shortness of breath (Final) - 01/20/18 Essential (primary) hypertension (Final) - Discharge Disposition: Acute Care Attending Physician: Sanford Arias MD Vital Signs Most recent to oldest 1 2 3 [Reference Range]: Height 170.18 cm (01/12/18 5:56 AM) Temperature Oral [96.4-99.1 97.9 DegF 97.9 DegF 98.1 DegF DegF] (01/12/18 11:30 AM) (01/12/18 10:30 AM) (01/12/18 5:56 AM) Blood Pressure [90-140/60-90 127/68 mmHg 152/70 mmHg 147/83 mmHg mmHg] (01/12/18 11:30 AM) *HI* *HI* (01/12/18 11:00 AM) (01/12/18 10:30 AM) Respiratory Rate [14-20 16 BRMIN 18 BRMIN 20 BRMIN BRMIN] (01/12/18 11:30 AM) (01/12/18 11:00 AM) (01/12/18 10:30 AM) Peripheral Pulse Rate 57 bpm [60-100 bpm] *LOW* (01/12/18 5:56 AM) Weight 86.364 kg (01/12/18 5:56 AM) Body Mass Index 29.82 m2 (01/12/18 5:56 AM) Problem List Condition Effective Dates Status Health Status Informant Atrial fibrillation(Confirmed) Resolved Breast cancer(Confirmed)1 Active Cervical spine painful on Resolved movement(Confirmed)2 Hypertension(Confirmed) Active Renal disorder(Confirmed)3 Active 1dx in February [id number] disk w/paralysis in 2001, [id number] insufficiency stage 4 Allergies, Adverse Reactions, Alerts Substance Reaction Severity Status codeine1 Severe Active NKDA Active 1Severe nausea/vomiting Medications amLODIPine 5 mg, PO, Daily, 0 Refill(s) Start Date: 01/12/18 Stop Date: 01/16/18 Status: Discontinueddoxycycline hyclate 100 mg, PO, BID, 0 Refill(s) Start Date: 01/12/18 Stop Date: 01/16/18 Status: Discontinuedexemestane 25 mg, PO, Daily, take 1 tablet by mouth after meals once a day., 0 Refill(s) Start Date: 01/12/18 Stop Date: 01/16/18 Status: DiscontinuedfentaNYL 25 microgram, Route: IVP, ONCE, Dosing Weight 86.364, kg, Priority: STAT, Start date: 01/12/18 8:23:00 SALES OPERATIONS COORDINATOR, Stop date: 01/12/18 8:23:00 SALES OPERATIONS COORDINATOR Start Date: 01/12/18 Stop Date: 01/12/18 Status: CompletedLasix 20 mg, Route: IVP, Drug form: INJ, ONCE, Dosing Weight 86.364, kg, Priority: STAT, Start date: 01/12/18 10:05:00 SALES OPERATIONS COORDINATOR, Stop date: 01/12/18 10:05:00 SALES OPERATIONS COORDINATOR Start Date: 01/12/18 Stop Date: 01/12/18 Status: Completedlosartan 50 mg, PO, Daily, 0 Refill(s) Start Date: 01/12/18 Stop Date: 01/16/18 Status: DiscontinuedMultaq 200 mg, PO, BID, 0 Refill(s) Start Date: 01/12/18 Stop Date: 01/16/18 Status: DiscontinuedSaline Flush 0.9% 10 mL, Route: IVP, Drug Form: INJ, Dosing Weight 86.364, kg, PRN, PRN Line Flush , Start date: 01/12/18 6:03:00 SALES OPERATIONS COORDINATOR, Duration: 30 day, Stop date: 02/11/18 7:02: 00 CDT Notes: (Same as: BD Posiflush) Start Date: 01/12/18 Stop Date: 01/12/18 Status: Discontinuedtramadol 50 mg, PO, Q4-6H, PRN Pain, # 20 tab, 0 Refill(s) Start Date: 01/12/18 Stop Date: 01/16/18 Status: DiscontinuedXarelto 15 mg, PO, Daily, 0 Refill(s) Start Date: 01/12/18 Stop Date: 01/16/18 Status: Discontinued Results BLOOD BANK RESULTS Most recent to oldest [Reference Range]: 1 ABO/Rh A POS *Unknown* (01/12/18 6:37 AM) ELECTROLYTES Most recent to oldest [Reference Range]: 1 Sodium Lvl [135-145 mEq/L] 138 mEq/L (01/12/18 6:37 AM) Potassium Lvl [3.5-5.1 mEq/L] 4.3 mEq/L (01/12/18 6:37 AM) Chloride Lvl [95-109 mEq/L] 108 mEq/L (01/12/18 6:37 AM) CO2 [24-32 mEq/L] 23 mEq/L *LOW* (01/12/18 6:37 AM) AGAP [10.0-20.0 mEq/L] 11.3 mEq/L (01/12/18 6:37 AM) CHEM PANEL Most recent to oldest [Reference Range]: 1 Creatinine Lvl [0.50-1.40 mg/dL] 2.35 mg/dL *HI* (01/12/18 6:37 AM) eGFR 23 mL/min/1.73m2 1 *NA* (01/12/18 6:37 AM) BUN [7-22 mg/dL] 45 mg/dL *HI* (01/12/18 6:37 AM) B/C Ratio [6-25] 19 (01/12/18 6:37 AM) Glucose Lvl [70-99 mg/dL] 95 mg/dL (01/12/18 6:37 AM) Total Protein [6.4-8.4 g/dL] 7.2 g/dL (01/12/18 6:37 AM) Albumin Lvl [3.5-5.0 g/dL] 2.7 g/dL *LOW* (01/12/18 6:37 AM) Globulin [2.7-4.2 g/dL] 4.5 g/dL *HI* (01/12/18 6:37 AM) A/G Ratio [0.7-1.6] 0.6 *LOW* (01/12/18 6:37 AM) Calcium Lvl [8.5-10.5 mg/dL] 9.5 mg/dL (01/12/18 6:37 AM) ALT [0-65 unit/L] 148 unit/L *HI* (01/12/18 6:37 AM) AST [0-37 unit/L] 143 unit/L *HI* (01/12/18 6:37 AM) Alk Phos [39-136 unit/L] 700 unit/L *HI* (01/12/18 6:37 AM) Bili Total [0.2-1.3 mg/dL] 1.8 mg/dL *HI* (01/12/18 6:37 AM) Lipase Lvl [73-393 unit/L] 100 unit/L (01/12/18 6:37 AM) 1Result Comment: The eGFR is calculated using the CKD-EPI formula. In most young , healthy individualsthe eGFR will be >90 mL/min/1.73m2. The eGFR declines with age. An eGFR of 60-89 may be normal insome populations, particularly the elderly, for whom the CKD-EPI formula has not been extensively validated. Use of the eGFR is not recommended in the following populations: Individuals with unstable creatinine concentrations, including patients and those with serious co-morbid conditions. Patients with extremes in muscle mass or diet. The data above are obtained from the National Kidney Disease Education Program ( NKDEP) which additionally recommends that when the eGFR is used in patients with extremes of body mass index for purposesof drug dosing, the eGFR should be multiplied by the estimated BMI.CARDIAC ENZYMES Most recent to oldest [Reference Range]: 1 Total CK [12-191 unit/L] 96 unit/L (01/12/18 6:37 AM) CK MB [0.5-3.6 ng/mL] 1.8 ng/mL (01/12/18 6:37 AM) CK MB Index [0.0-2.5] 1.9 (01/12/18 6:37 AM) Troponin-I [0.00-0.40 ng/mL] <0.02 ng/mL (01/12/18 6:37 AM) proBNP [0-125 pg/mL] 3225 pg/mL *HI* (01/12/18 6:37 AM) HEMATOLOGY Most recent to oldest [Reference Range]: 1 WBC [3.7-10.4 K/CMM] 2.2 K/CMM *LOW* (01/12/18 6:37 AM) RBC [4.20-5.40 M/CMM] 4.91 M/CMM (01/12/18 6:37 AM) Hgb [12.0-16.0 g/dL] 13.1 g/dL (01/12/18 6:37 AM) Hct [36.0-48.0 %] 40.1 % (01/12/18 6:37 AM) MCV [80.0-98.0 fL] 81.7 fL (01/12/18 6:37 AM) MCH [27.0-31.0 pg] 26.7 pg *LOW* (01/12/18 6:37 AM) MCHC [32.0-36.0 g/dL] 32.7 g/dL (01/12/18 6:37 AM) RDW [11.5-14.5 %] 16.3 % *HI* (01/12/18 6:37 AM) MPV [7.4-10.4 fL] 8.4 fL (01/12/18 6:37 AM) Platelet [133-450 K/CMM] 164 K/CMM (01/12/18 6:37 AM) Segs [45.0-75.0 %] 51.9 % (01/12/18 6:37 AM) Lymphocytes [20.0-40.0 %] 30.2 % (01/12/18 6:37 AM) Monocytes [2.0-12.0 %] 16.2 % *HI* (01/12/18 6:37 AM) Eosinophils [0.0-4.0 %] 1.0 % (01/12/18 6:37 AM) Basophils [0.0-1.0 %] 0.7 % (01/12/18 6:37 AM) Segs-Bands # [1.5-8.1 K/CMM] 1.2 K/CMM *LOW* (01/12/18 6:37 AM) Lymphocytes # [1.0-5.5 K/CMM] 0.7 K/CMM *LOW* (01/12/18 6:37 AM) Monocytes # [0.0-0.8 K/CMM] 0.4 K/CMM (01/12/18 6:37 AM) D-Dimer 0.39 ug/mL FEU *NA* (01/12/18 10:19 AM) Immunizations Not Given Vaccine Date Status Refusal Reason pneumococcal 13-valent vaccine 06/28/16 Not Given Patient Refuses Procedures Procedure Date Related Diagnosis Body Site Status Ablation Completed Breast Completed Hysterectomy Completed Social History Social History Type Response Substance Abuse Use: None. Alcohol Never Smoking Status Never smoker; Exposure to Tobacco Smoke None; Cigarette Smoking Last 365 Days No; Reg Smoking Cessation Counseling No entered on: 01/12/18 Assessment and Plan No data available for this section
--- OUTSIDE RECORDS SUMMARY | 2019-06-29 22:10 | XMS REPORT | Summary of Care ---
:1945 Author Organization [facility] Address [id number] [place] [id number] Encounter HQ Lisa_almita(FIN) [id number] Date(s): 06/27/16 - 06/29/[address] [phone] Discharge Disposition: Home or Self Care Attending Physician: Darnell Soni MD Admitting Physician: Darnell Soni MD Vital Signs Most recent to oldest [Reference 1 2 3 Range]: Height 170.18 cm 175.26 cm (06/27/16 10:22 PM) (06/27/16 12:48 PM) Temperature Oral [96.4-99.1 97.5 DegF 97.6 DegF 97.9 DegF DegF] (06/29/16 4:00 PM) (06/29/16 12:00 PM) (06/29/16 3:45 AM) Blood Pressure [90-140/60-90 157/86 mmHg 130/79 mmHg 125/75 mmHg mmHg] *HI* (06/29/16 12:00 PM) (06/29/16 3:45 AM) (06/29/16 4:00 PM) Respiratory Rate [14-20 BRMIN] 16 BRMIN 16 BRMIN 16 BRMIN (06/29/16 4:00 PM) (06/29/16 12:00 PM) (06/29/16 7:52 AM) Peripheral Pulse Rate [60-100 54 bpm 54 bpm 59 bpm bpm] *LOW* *LOW* *LOW* (06/29/16 4:00 PM) (06/29/16 12:00 PM) (06/29/16 3:45 AM) Weight 85.909 kg 81.818 kg (06/27/16 10:22 PM) (06/27/16 12:48 PM) Body Mass Index 29.66 m2 26.64 m2 (06/27/16 10:22 PM) (06/27/16 12:48 PM) Problem List Condition Effective Dates Status Health Status Informant Atrial fibrillation(Confirmed) Resolved Breast cancer(Confirmed)1 Active Cervical spine painful on Resolved movement(Confirmed)2 Hypertension(Confirmed) Active 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 (Same as: Tylenol) Start Date: 06/27/16 Stop Date: 06/29/16 Status: Discontinuedalbuterol 0.083% inhalation solution 2.49 mg, 3 mL, Route: NEB, Drug form: SOLN, Q6H, Dosing Weight 81.818, kg, PRN as needed for wheezing, Start date: 06/27/16 19:07:00 CDT, Duration: 30 day, Stop date: 07/27/16 19:06:00 CDT Notes: SEE RT DOCUMENTATION (Same as: Proventil) Start Date: 06/27/16 Stop Date: 06/29/16 Status: DiscontinuedAllegra-D 12 Hour Allergy & Congestion 1 tab, PO, Q12H, 0 Refill(s) Start Date: 06/27/16 Status: OrderedAllegra-D 12 Hour Allergy & Congestion 1 tab, Route: PO, Dosing Weight 85.909, kg, Q12H, Start date: 06/29/16 21:00:00 CDT, Duration: 30 day, Stop date: 07/29/16 9:00:00 CDT Start Date: 06/29/16 Stop Date: 06/29/16 Status: DeletedamLODIPine 5 mg, PO, Daily, 0 Refill(s) Start Date: 06/27/16 Stop Date: 06/29/16 Status: DiscontinuedamLODIPine 5 mg, 1 tab, Route: PO, Drug form: TAB, BID, Dosing Weight 81.818, kg, Start date: 06/27/16 22:57:00CDT, Duration: 30 day, Stop date: 07/27/16 17:00:00 CDT Notes: (Same as: Anat) Start Date: 06/27/16 Stop Date: 06/29/16 Status: DiscontinuedamLODIPine 5 mg, PO, BID, 0 Refill(s) Start Date: 06/27/16 Status: OrderedamLODIPine 5 mg, Route: PO, BID, Dosing Weight 85.909, kg, Start date: 06/29/16 17:00:00 CDT, Duration: 30 day,Stop date: 07/29/16 9:00:00 CDT Start Date: 06/29/16 Stop Date: 06/29/16 Status: Deletedaspirin 325 mg tablet, enteric coated 325 mg=1 tab, PO, Daily, PRN Fever, # 30 tab, 0 Refill(s), Pharmacy: [facility] [id number] Start Date: 06/29/16 Stop Date: 07/29/16 Status: Orderedaspirin 81 mg tablet, chewable 324 mg, Route: CHEW, ONCE, Dosing Weight 81.818, kg, Priority: STAT, Start date : 06/27/16 17:32:00 CDT, Stop date: 06/27/16 17:32:00 CDT Start Date: 06/27/16 Stop Date: 06/27/16 Status: Completedaspirin 81 mg tablet, chewable 81 mg=1 tab, PO, Daily, tab, 0 Refill(s) Start Date: 06/27/16 Stop Date: 06/29/16 Status: Discontinuedaspirin 81 mg tablet, chewable 81 mg, 1 tab, Route: PO, Drug form: CHEWTAB, Daily, Dosing Weight 81.818, kg, Start date: 06/28/16 9:00:00 CDT, Duration: 30 day, Stop date: 07/27/16 9:00:00 CDT Start Date: 06/28/16 Stop Date: 06/27/16 Status: Canceledaspirin 81 mg tablet, chewable 324 mg, 4 tab, Route: PO, Drug form: CHEWTAB, Daily, Dosing Weight 81.818, kg, Start date: 06/28/16 9:00:00 CDT, Duration: 30 day, Stop date: 07/27/16 9:00:00 CDT Notes: Take with food. Start Date: 06/28/16 Stop Date: 06/29/16 Status: Discontinuedaspirin 81 mg tablet, chewable 81 mg, 1 tab, Route: PO, Drug form: CHEWTAB, Daily, Dosing Weight 85.909, kg, Start date: 06/30/16 9:00:00 CDT, Duration: 30 day, Stop date: 07/29/16 9:00:00 CDT Notes: Take with food. Start Date: 06/30/16 Stop Date: 06/29/16 Status: CanceledBenicar 40 mg, 2 tab, Route: PO, Drug form: TAB, Daily, Dosing Weight 81.818, kg, Start date: 06/28/16 9:00:00 CDT, Duration: 30 day, Stop date: 07/27/16 9:00:00 CDT Start Date: 06/28/16 Stop Date: 06/29/16 Status: DiscontinuedBenicar 40 mg oral tablet 40 mg=1 tab, PO, Daily, # 30 tab, 0 Refill(s) Start Date: 06/27/16 Status: Orderedcalcium gluconate + sodium chloride 0.9% INJ 50 mL 1,000 mg, 10 mL, Route: IVPB, ONCE, Dosing Weight 85.909, kg, Start date: 6:45:00 CDT, Stopdate: 06/28/16 6:45:00 CDT Notes: WASTE: F/P - Sink; E - Municipal Trash Bin Start Date: 06/28/16 Stop Date: 06/28/16 Status: CompletedClaritin 10 mg, 1 tab, Route: PO, Drug form: TAB, Q12H, Start date: 06/29/16 21:00:00 CDT , Duration: 30 day, Stop date: 07/29/16 9:00:00 CDT Notes: 1 hr before meals (Same as: Claritin) Start Date: 06/29/16 Stop Date: 06/29/16 Status: Canceleddocusate 100 mg, 1 cap, Route: PO, Drug form: CAP, BID, Dosing Weight 81.818, kg, PRN Constipation, Start date: 06/27/16 22:07:00 CDT, Duration: 30 day, Stop date: 22:06:00 CDT Notes: (Same as: Colace) (Do Not Crush) Start Date: 06/27/16 Stop Date: 06/29/16 Status: Discontinuedflecainide 50 mg, 1 tab, Route: PO, Drug form: TAB, Q8H, Dosing Weight 81.818, kg, Start date: 06/28/16 0:00:00CDT, Duration: 30 day, Stop date: 07/27/16 16:00:00 CDT Notes: (Same as: Tambocor) Start Date: 06/28/16 Stop Date: 06/29/16 Status: Discontinuedflecainide 50 mg oral tablet 50 mg=1 tab, PO, Q12H, # 180 tab, 0 Refill(s) Start Date: 06/27/16 Status: OrderedFlonase 0.05 mg/inh nasal spray 1 spray, NASAL, BID, PRN Congestion, # 16 gm, 0 Refill(s) Start Date: 06/27/16 Status: OrderedFlonase 0.05 mg/inh nasal spray 50 microgram, Route: NASAL, Drug Form: SPRY, Dosing Weight 85.909, kg, BID, PRN Congestion, Start date: 06/29/16 15:18:00 CDT, Duration: 30 day, Stop date: 03/10 15:17:00 CDT Notes: (Same as: Flonase) Start Date: 06/29/16 Stop Date: 06/29/16 Status: Discontinuedheparin 5,000 unit, 1 mL, Route: SUB-Q, Drug form: INJ, Q8H, Dosing Weight 81.818, kg, Start date: 06/28/16 0:00:00 CDT, Duration: 30 day, Stop date: 07/27/16 16:00: 00 CDT Notes: porcine heparin Start Date: 06/28/16 Stop Date: 06/29/16 Status: DiscontinuedLipitor 10 mg, 1 tab, Route: PO, Drug form: TAB, Bedtime, Dosing Weight 81.818, kg, Start date: 06/27/16 21:00:00 CDT, Duration: 30 day, Stop date: 07/26/16 21:00: 00 CDT Notes: (Same As: Lipitor) Start Date: 06/27/16 Stop Date: 06/29/16 Status: DiscontinuedLipitor 10 mg oral tablet 10 mg=1 tab, PO, Bedtime, # 30 tab, 0 Refill(s) Start Date: 06/27/16 Status: OrderedLopressor 12.5 mg, 0.5 tab, Route: PO, Drug form: TAB, ONCE, Dosing Weight 85.909, kg, Start date: 06/28/16 0:57:00 CDT, Stop date: 06/28/16 0:57:00 CDT Notes: (Same as: Lopressor) Start Date: 06/28/16 Stop Date: 06/28/16 Status: Completedmetoprolol 25 mg oral tablet, extended release 25 mg=1 tab, PO, Daily, # 30 tab, 0 Refill(s) Start Date: 06/27/16 Status: Orderedmorphine Sulfate 2 mg, 1 mL, Route: IVP, Drug form: INJ, Q4H, Dosing Weight 81.818, kg, PRN Pain Score 7-10, Start date: 06/27/16 22:07:00 CDT, Duration: 30 day, Stop date: 01/10 22:06:00 CDT Notes: (Same as:MORPhine Sulfate) Start Date: 06/27/16 Stop Date: 06/29/16 Status: Discontinuedondansetron 4 mg, 2 mL, Route: IVP, Drug form: INJ, Q6H, Dosing Weight 81.818, kg, PRN Nausea & Vomiting, Start date: 06/27/16 22:07:00 CDT, Duration: 30 day, Stop date: 07/27/16 22:06:00 CDT Notes: (Same as: Zofran) MEDICATION WASTE Product Size: 4 mgProduct Wasted: ___ mg Start Date: 06/27/16 Stop Date: 06/29/16 Status: Discontinuedparicalcitol 1 mcg oral capsule 1 microgram=1 cap, PO, Daily, takes on MWF, 0 Refill(s) Start Date: 06/27/16 Status: Orderedparicalcitol 1 mcg oral capsule 1 microgram, 1 cap, Route: PO, Drug form: CAP, Q-M-W-F, Dosing Weight 81.818, kg , Start date: 06/29/16 9:00:00 CDT, Duration: 30 day, Stop date: 07/27/16 9:00: 00 CDT Notes: (Same as: Tamplar) Start Date: 06/29/16 Stop Date: 06/29/16 Status: Discontinuedpneumococcal 13-valent vaccine 0.5 mL, Route: IM, Drug Form: INJ, Daily, Start date: 06/28/16 9:00:00 CDT, Duration: 1 doses or times, Stop date: 06/28/16 9:00:00 CDT Notes: Lightly roll vial (DO NOT SHAKE) before administration. (Same as: Prevnar 13) Start Date: 06/28/16 Stop Date: 06/28/16 Status: CompletedProAir HFA 1 - 2 puffs, PO, Q4H, PRN Wheezing / cough / shortness of breath, # 1 ea, 0 Refill(s) Start Date: 06/27/16 Stop Date: 07/22/16 Status: OrderedSaline Flush 0.9% 10 ml, Route: IVP, Drug Form: INJ, Dosing Weight 81.818, kg, PRN, PRN Line Flush , Start date: 06/27/16 22:06:00 CDT, Duration: 30 day, Stop date: 07/27/16 22:05 :00 CDT Notes: preservative free. Start Date: 06/27/16 Stop Date: 06/29/16 Status: DiscontinuedSaline Flush 0.9% 10 ml, Route: IVP, Drug Form: INJ, Dosing Weight 81.818, kg, Q12H, Start date: 06/28/16 9:00:00 CDT,Duration: 30 day, Stop date: 07/27/16 21:00:00 CDT Notes: preservative free. Start Date: 06/28/16 Stop Date: 06/29/16 Status: DiscontinuedSaline Flush 0.9% 10 mL, Route: IVP, Drug Form: INJ, Dosing Weight 81.818, kg, PRN, PRN Line Flush , Start date: 06/27/16 15:53:00 CDT, Duration: 30 day, Stop date: 07/27/16 15:52 :00 CDT Notes: (Same as: BD Posiflush) Start Date: 06/27/16 Stop Date: 06/29/16 Status: Discontinuedsodium chloride 0.9% 1000 ml INJ 1,000 mL 1,000 mL, Rate: 75 ml/hr, Infuse over: 13.3 hr, Route: IV, Dosing Weight 81.818 kg, Total Volume: 1,000, Start date: 06/27/16 22:07:00 CDT, Duration: 30 day, Stop date: 07/27/16 22:06:00 CDT Start Date: 06/27/16 Stop Date: 06/28/16 Status: DiscontinuedSudafed 60 mg, 1 tab, Route: PO, Drug form: TAB, Q12H, Start date: 06/29/16 21:00:00 CDT , Duration: 30 day, Stop date: 07/29/16 9:00:00 CDT Notes: (Same as: Sudafed) Start Date: 06/29/16 Stop Date: 06/29/16 Status: CanceledToprol-XL 25 mg oral tablet, extended release 25 mg, 1 tab, Route: PO, Drug form: ERTAB, Daily, Start date: 06/28/16 9:00:00 CDT, Duration: 30 day, Stop date: 07/27/16 9:00:00 CDT Notes: (Same as: Toprol XL) Do Not Crush Start Date: 06/28/16 Stop Date: 06/29/16 Status: DiscontinuedTylenol 650 mg, 20.3 mL, Route: PO, Drug form: LIQ, QID, Dosing Weight 81.818, kg, PRN Pain Score 1-3, Startdate: 06/27/16 19:07:00 CDT, Duration: 30 day, Stop date: 07/27/16 19:06:00 CDT Notes: Max qzkjtszqznill=[id number]/day (4 gm/day). (Same as: Tylenol) Start Date: 06/27/16 Stop Date: 06/29/16 Status: DiscontinuedVitamin D3 1000 intl units oral tablet 1,000 IntlUnit, 1 tab, Route: PO, Drug form: TAB, Daily, Dosing Weight 81.818, kg, Start date: 06/28/16 9:00:00 CDT, Duration: 30 day, Stop date: 07/27/16 9:00 :00 CDT Notes: Same as : Vitamin D3 Start Date: 06/28/16 Stop Date: 06/29/16 Status: DiscontinuedVitamin D3 1000 intl units oral tablet 1,000 IntlUnit=1 tab, PO, Daily, # 30 tab, 0 Refill(s) Start Date: 06/27/16 Status: Ordered Results ELECTROLYTES Most recent to oldest 1 2 3 [Reference Range]: Sodium Lvl [135-145 mEq/L] 142 mEq/L 147 mEq/L 139 mEq/L (06/29/16 7:23 AM) *HI* (06/27/16 5:20 PM) (06/28/16 5:21 AM) Potassium Lvl [3.5-5.1 mEq/L] 4.4 mEq/L 3.3 mEq/L 4.1 mEq/L (06/29/16 7:23 AM) *LOW* (06/27/16 5:20 PM) (06/28/16 5:21 AM) Chloride Lvl [95-109 mEq/L] 113 mEq/L 119 mEq/L 107 mEq/L *HI* *HI* (06/27/16 5:20 PM) (06/29/16 7:23 AM) (06/28/16 5:21 AM) CO2 [24-32 mEq/L] 24 mEq/L 19 mEq/L 25 mEq/L (06/29/16 7:23 AM) *LOW* (06/27/16 5:20 PM) (06/28/16 5:21 AM) AGAP [10.0-20.0 mEq/L] 9.4 mEq/L 12.3 mEq/L 11.1 mEq/L *LOW* (06/28/16 5:21 AM) (06/27/16 5:20 PM) (06/29/16 7:23 AM) CHEM PANEL Most recent to oldest 1 2 3 [Reference Range]: Creatinine Lvl [0.50-1.40 2.10 mg/dL 1.50 mg/dL 2.26 mg/dL mg/dL] *HI* *HI* *HI* (06/29/16 7:23 AM) (06/28/16 5:21 AM) (06/27/16 5:20 PM) eGFR 27 mL/min/1.73m2 1 40 mL/min/1.73m2 2 24 mL/min/1.73m2 3 *NA* *NA* *NA* (06/29/16 7:23 AM) (06/28/16 5:21 AM) (06/27/16 5:20 PM) BUN [7-22 mg/dL] 31 mg/dL 29 mg/dL 37 mg/dL *HI* *HI* *HI* (06/29/16 7:23 AM) (06/28/16 5:21 AM) (06/27/16 5:20 PM) B/C Ratio [6-25] 15 16 (06/29/16 7:23 AM) (06/27/16 5:20 PM) Glucose Lvl [70-99 mg/dL] 81 mg/dL 68 mg/dL 81 mg/dL (06/29/16 7:23 AM) *LOW* (06/27/16 5:20 PM) (06/28/16 5:21 AM) Total Protein [6.4-8.4 g/dL] 7.4 g/dL 8.6 g/dL (06/29/16 7:23 AM) *HI* (06/27/16 5:20 PM) Albumin Lvl [3.5-5.0 g/dL] 3.4 g/dL 4.1 g/dL *LOW* (06/27/16 5:20 PM) (06/29/16 7:23 AM) Globulin [2.7-4.2 g/dL] 4.0 g/dL 4.5 g/dL (06/29/16 7:23 AM) *HI* (06/27/16 5:20 PM) A/G Ratio [0.7-1.6] 0.8 0.9 (06/29/16 7:23 AM) (06/27/16 5:20 PM) Calcium Lvl [8.5-10.5 mg/dL] 8.9 mg/dL 6.6 mg/dL 4 9.2 mg/dL (06/29/16 7:23 AM) *CRIT* (06/27/16 5:20 PM) (06/28/16 5:21 AM) Magnesium Lvl [1.8-2.4 2.4 mg/dL mg/dL] (06/27/16 11:16 PM) ALT [0-65 unit/L] 14 unit/L 15 unit/L (06/29/16 7:23 AM) (06/27/16:20 PM) AST [0-37 unit/L] 13 unit/L 13 unit/L (06/29/16 7:23 AM) (06/27/16:20 PM) Alk Phos [39-136 unit/L] 71 unit/L 83 unit/L (06/29/16 7:23 AM) (06/27/16:20 PM) Bili Total [0.2-1.3 mg/dL] 0.4 mg/dL 0.4 mg/dL (06/29/16 7:23 AM) (06/27/16 5:20 PM) 1Result Comment: The eGFR is calculated using [...] eGFR should be multiplied by the estimated BMI.2Result Comment: The eGFR is calculated using the CKD-EPI formula. In most young, healthy individualsthe eGFR will be >90 mL/ min/1.73m2. The eGFR declines with age. An eGFR [...] eGFR should be multiplied by the estimated BMI.3Result Comment: The eGFR is calculated using the CKD-EPI formula. In most young, healthy individualsthe eGFR will be >90 mL/ min/1.73m2. The eGFR declines with age. An eGFR [...] eGFR should be multiplied by the estimated BMI.4Result Comment: Critical Result(s) called to Krissy at 06/28/2016 06:02 by tp. Read back OK.CARDIAC ENZYMES Most recent to oldest 1 2 3 [Reference Range]: Total CK [12-191 unit/L] 64 unit/L 63 unit/L 81 unit/L (06/28/16 11:00 AM) (06/28/16 5:21 AM) (06/27/16 11:16 PM) CK MB [0.5-3.6 ng/mL] 1.2 ng/mL 1.1 ng/mL 1.4 ng/mL (06/28/16 11:00 AM) (06/28/16 5:21 AM) (06/27/16 11:16 PM) CK MB Index [0.0-2.5] 1.9 1.7 1.7 (06/28/16 11:00 AM) (06/28/16 5:21 AM) (06/27/16 11:16 PM) Troponin-I [0.00-0.40 ng/mL] <0.02 ng/mL <0.02 ng/mL <0.02 ng/mL (06/28/16 11:00 AM) (06/28/16 5:21 AM) (06/27/16 11:16 PM) LIPIDS Most recent to oldest [Reference Range]: 1 2 3 CHD Risk [3.90-5.80] 1.67 *LOW* (06/28/16:21 AM) Chol [<=199 mg/dL] 139 mg/dL (06/28/16 5:21 AM) Trig [<=149 mg/dL] 39 mg/dL (06/28/16 5:21 AM) HDL [>=61 mg/dL] 83 mg/dL (06/28/16:21 AM) LDL (Calculated) [<=99 mg/dL] 48 mg/dL (06/28/16 5:21 AM) VLDL 8 *NA* (06/28/16:21 AM) SPECIAL CHEMISTRY Most recent to oldest [Reference Range]: 1 2 3 Hgb A1C [<=5.6 %] 5.8 % *HI* (06/28/16 5:21 AM) HEMATOLOGY Most recent to oldest [Reference Range]: 1 2 3 WBC [3.7-10.4 K/CMM] 3.7 K/CMM 4.8 K/CMM (06/28/16 5:21 AM) (06/27/16 5:20 PM) RBC [4.20-5.40 M/CMM] 3.92 M/CMM 4.89 M/CMM *LOW* (06/27/16 5:20 PM) (06/28/16 5:21 AM) Hgb [12.0-16.0 g/dL] 10.3 g/dL 12.8 g/dL *LOW* (06/27/16 5:20 PM) (06/28/16 5:21 AM) Hct [36.0-48.0 %] 32.7 % 41.0 % *LOW* (06/27/16 5:20 PM) (06/28/16 5:21 AM) MCV [80.0-98.0 fL] 83.2 fL 83.8 fL (06/28/16:21 AM) (06/27/16: PM) MCH [27.0-31.0 pg] 26.3 pg 26.2 pg *LOW* *LOW* (06/28/16: AM) (06/27/16: PM) MCHC [32.0-36.0 g/dL] 31.7 g/dL 31.3 g/dL *LOW* *LOW* (06/28/16: AM) (06/27/16: PM) RDW [11.5-14.5 %] 15.2 % 15.3 % *HI* *HI* (06/28/16: AM) (06/27/16: PM) Platelet [133-450 K/CMM] 130 K/CMM 173 K/CMM *LOW* (06/27/16:20 PM) (06/28/16: AM) MPV [7.4-10.4 fL] 7.4 fL 7.5 fL (06/28/16: AM) (06/27/16: PM) Segs [45.0-75.0 %] 46.0 % 55.2 % (06/28/16: AM) (06/27/16: PM) Lymphocytes [20.0-40.0 %] 26.6 % 22.2 % (06/28/16: AM) (06/27/16:20 PM) Monocytes [2.0-12.0 %] 13.0 % 9.7 % *HI* (06/27/16:20 PM) (06/28/16:21 AM) Eosinophils [0.0-4.0 %] 13.4 % 11.9 % *HI* *HI* (06/28/16:21 AM) (06/27/16:20 PM) Basophils [0.0-1.0 %] 1.0 % 1.0 % (06/28/16:21 AM) (06/27/16 5:20 PM) Segs-Bands # [1.5-8.1 K/CMM] 1.7 K/CMM 2.6 K/CMM (06/28/16 5:21 AM) (06/27/16 5:20 PM) Lymphocytes # [1.0-5.5 K/CMM] 1.0 K/CMM 1.1 K/CMM (06/28/16 5:21 AM) (06/27/16 5:20 PM) Monocytes # [0.0-0.8 K/CMM] 0.5 K/CMM 0.5 K/CMM (06/28/16 5:21 AM) (06/27/16 5:20 PM) Eosinophils # [0.0-0.5 K/CMM] 0.5 K/CMM 0.6 K/CMM (06/28/16 5:21 AM) *HI* (06/27/16 5:20 PM) PT [12.0-14.7 seconds] 12.9 seconds (06/27/16 5:20 PM) INR [0.85-1.17] 0.94 (06/27/16 5:20 PM) PTT [22.9-35.8 seconds] 18.4 seconds *LOW* (06/27/16 5:20 PM) Immunizations Not Given Vaccine Date Status Refusal Reason pneumococcal 13-valent vaccine 06/28/16 Not Given Patient Refuses Procedures Procedure Date Related Diagnosis Body Site Ablation Breast Hysterectomy Social History Social History Type Response Substance Abuse Use: None. Alcohol Never Smoking Status Never smoker; Exposure to Tobacco Smoke None; Cigarette Smoking Last 365 Days No; Reg Smoking Cessation Counseling No Assessment and Plan Extracted from: Title: Teleneurology Follow up Author: Haydee Moffett MD Date: 06/29/16 TELEMEDICINE NEUROLOGY - TELEPHONE FOLLOWUP 06/29/16 CC:krystal RS numbness HISTORY OF PRESENT ILLNESS: 71 [...] 1 mcg oral capsule) 1 microgram PO Q-M--06/28/16 sodium chloride (Saline Flush 0.9%) 10 ml [...] neg for acute stroke. Likely TIA as joyce hanna was off of aspirin (TIA workup complete, recent TTE no abnormalities 2015) vs cervical spine disease vs seizure (concern in setting of numbness which travelled up arm over one minute). EEG unremarkable. No indication for AED at this time however patient should follow upwith a neurologist for half-way monitoring. Cervical spine disease can be worked [...] call with any questions. Haydee Moffett MD Senior Software Development Manager, Neurology Call center [phone] Extracted from: Title: Teleneurology Consultation Author: Haydee Moffett MD Date: TELEMEDICINE NEUROLOGY - CONSULTATION Date of Consult: [...] 2-neither 0 1c. LOC Commands open/close eyes, student services counselor/release non-paretic hand; 0-both 1- one 2-neither 0 2. Best Gaze; 0-nl 1-partial 2-forced gaze 0 3. Visual Cordero; 0-No visual loss. 1-Partial hemianopia 2-Complete 3-Bilateral 0 4. Facial Palsy; 0-none 1-minor 2-partial [...] with any interim questions. Haydee Moffett MD Senior Software Development Manager, Neurology Call center [phone]
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
--- OUTSIDE RECORDS SUMMARY | 2019-06-29 22:10 | XMS REPORT | Summary of Care ---
:1945 Author Organization [facility] Address [address] [place] [id number]- Encounter HQ Pedror_almita(FIN) [id number] Date(s): 06/22/16 - 06/22/[address] [address]- [place] Discharge Disposition: Home or Self Care Attending Physician: Alex Austin MD Referring Physician: Alex Austin MD Vital Signs Most recent to oldest [Reference Range]: 1 Height 170.18 cm (06/22/16 8:15 AM) Weight 86.364 kg (06/22/16 8:15 AM) Body Mass Index 29.82 m2 (06/22/16 8:15 AM) Problem List No data available for this section Allergies, Adverse Reactions, Alerts Substance Reaction Severity Status NKDA Active Medications No data available for this section Results No data available for this section Immunizations No data available for this section Procedures No data available for this section Social History No data available for this section Assessment and Plan No data available for this section
--- OUTSIDE RECORDS SUMMARY | 2019-06-29 22:11 | XMS REPORT | Summary of Care ---
:1945 Author Organization [facility] [place] Address [address] [place], [place] [address]- Encounter HQ Encntr_alias(FIN) [id number] Date(s): 09/24/16 - 09/24/16 [facility] [address], [address] [place] [address]- [phone] Discharge Disposition: Home or Self Care Attending Physician: Eldon Mendieta MD Vital Signs No data available for this section Problem List Condition Effective Dates Status Health Status Informant Atrial fibrillation(Confirmed) Resolved Breast cancer(Confirmed)1 Active Cervical spine painful on Resolved movement(Confirmed)2 Hypertension(Confirmed) Active Renal disorder(Confirmed)3 Active 1dx in February [id number] disk w/paralysis in 2001, [id number] insufficiency stage 4 Allergies, Adverse Reactions, Alerts Substance Reaction Severity Status [email or web address] Severe Active NKDA Active 1Severe nausea/vomiting Medications No data available for this section Results No data available for this section Immunizations Not Given Vaccine Date Status Refusal Reason pneumococcal 13-valent vaccine 06/28/16 Not Given Patient Refuses Procedures Procedure Date Related Diagnosis Body Site Ablation Breast Hysterectomy Social History Social History Type Response Substance Abuse Use: None. Alcohol Never Smoking Status Never smoker; Exposure to Tobacco Smoke None; Cigarette Smoking Last 365 Days No; Reg Smoking Cessation Counseling No Assessment and Plan No data available for this section
[2019-06-30] MEDS ORDERED: MECLIZINE HCL 12.5 MG TAB ONE (00:27)
[2019-06-30 00:56] LABS: Absolute Lymphocytes (CBC) 0.6 K/uL (0.7-4.9); Basophils % 1.5 % (0-1.3); Hematocrit 37.9 % (36.0-45.0); Lymphocytes % 12.3 % (15.3-44.8); MPV 8.4 fL (7.6-11.3); RBC Red Blood Cell Count 4.56 M/uL (3.86-4.86)
[2019-06-30 01:19] LABS: ALT/SGPT 17 U/L (12-78); AST/SGOT 17 U/L (15-37); Albumin 3.8 g/dL (3.4-5.0); Alkaline Phosphatase 130 U/L (45-117); BUN Blood Urea Nitrogen 31 mg/dL (7-18); Bicarbonate 27 mmol/L (21-32); Bilirubin Total 0.3 mg/dL (0.2-1.0); Glucose Level 97 mg/dL (74-106); Lipase 77 U/L (73-393); Magnesium 2.6 mg/dL (1.8-2.4); Potassium 4.2 mmol/L (3.5-5.1); Protein, Total 7.7 g/dL (6.4-8.2); Sodium Level 144 mmol/L (136-145); Troponin (Emerg Dept Use Only) < 0.02 ng/mL (0.0-0.045)
[2019-06-30 02:01] LABS: Urine RBC <5 /HPF (NONE SEEN)
[2019-06-30 02:02] LABS: Urine Bacteria 20-50 /HPF (<20); Urine Culture Reflex Order REFLEXED
--- NOTE | 2019-06-30 05:11 | P.HP ---
Certification for Inpatient Patient admitted to: Observation With expected LOS: <2 Midnights Patient will require the following post-hospital care: None Practitioner: I am a practitioner with admitting privileges, knowledge of patient current condition, hospital course, and medical plan of care. Services: Services provided to patient in accordance with Admission requirements found in Title 42 Section 412.3 of the Code of Federal Regulations Patient History Date of Service: 06/30/19 Primary Care Provider: MARIANELA Luu Reason for admission: Dizziness, right arm numbness, left foot numbness History of Present Illness: 74-year-old female presented with multiple complaints including dizziness, right arm numbness and left foot numbness. Patient with history of chronic renal disease stage IV, atrial fibrillation on chronic anti coagulation, congestive heart failure, hyperlipidemia and history of breast cancer. Patient reported dizziness last night. This occurred around 6:00 p.m.. She started to have some dizziness as she was reaching out to take a picture down. When this occurred she started to have some right arm numbness and left foot numbness as well. She denied any chest pain, shortness of breath. She was off- balance slightly. She came to the ER for further evaluation. In the ER CT head and neck unremarkable as per ER physician. White count 5.0, hemoglobin 11.9. Troponin unremarkable. Sodium 144, potassium 4.2, BUN of 31, creatinine 2.25 with a GFR of 26. Glucose 97. Patient had asymptomatic bacteriuria. Due to her complaints patient was admitted for observation to further evaluate. When I saw the patient ER, she appeared comfortable. Patient without AFib at this time. Blood pressure stable. Patient reports having her PCP in [place], [place]. She also has her beauty advisor there. Several months ago she reported having a stress test and Holter monitor done which was unremarkable. This was done at [facility]. Patient did report that she may have over exerted herself yesterday. She saw her PCP at that time. Thereafter she went to [facility] and walked a good distance while shopping. Home medications list reviewed: Yes - Past Medical/Surgical History Diabetic: No -: Hypertension -: Hyperlipidemia -: Atrial fibrillation on chronic anti coagulation therapy -: CHF likely systolic -: Chronic renal disease stage IV -: History breast cancer -: Hysterectomy -: Parotid tumor removal -: Right breast lumpectomy -: Left breast lumpectomy Psychosocial/ Personal History: Patient is . - Family History Family History: Reviewed- Non-Contributory - Social History Smoking Status: Never smoker Alcohol use: No CD- Drugs: No Caffeine use: Yes Place of Residence: Home Review of Systems General: As per HPI Eyes: Unremarkable ENT: Unremarkable Respiratory: Unremarkable Cardiovascular: Light Headedness, As per HPI Gastrointestinal: Unremarkable Genitourinary: Unremarkable Musculoskeletal: Unremarkable Integumentary: Unremarkable Neurological: Numbness, As per HPI Lymphatics: Unremarkable Physical Examination - Physical Exam General: Alert, In no apparent distress, Oriented x3, Cooperative HEENT: Atraumatic, Normocephalic, PERRLA, Mucous membr. moist/pink Neck: Supple, No Thyromegaly Respiratory: Clear to auscultation bilaterally, Normal air movement Cardiovascular: Normal pulses, Regular rate/rhythm Gastrointestinal: Normal bowel sounds, Soft and benign, Non-distended, No tenderness, No masses, No rebound, No guarding Musculoskeletal: No erythema, No tenderness, No warmth Integumentary: No tenderness/swelling, No erythema, No warmth, No cyanosis Neurological: Normal speech, Normal strength at 5/5 x4 extr, Normal tone, Normal affect, Other (Mild numbness to the bottom of her left foot.) - Studies Laboratory Data (last 24 hrs) 06/30/19 00:40: Sodium 144, Potassium 4.2, BUN 31 H, Creatinine 2.25 H, Glucose 97, Magnesium 2.6 H, Total Bilirubin 0.3, AST 17, ALT 17, Alkaline Phosphatase 130 H, Lipase 77 06/30/19 00:40: WBC 5.0, Hgb 11.9 L, Hct 37.9, Plt Count 161 Assessment and Plan - Plan Impression: Presyncope etiology unknown Left foot numbness and right arm numbness suspect neuropathy Chronic atrial fibrillation on chronic anti coagulation therapy Hypertension Hyperlipidemia Chronic systolic CHF Chronic renal disease stage IV Asymptomatic bacteriuria Plan: Presyncope etiology unknown: Patient will be admitted for further evaluation. Will continue telemetry and cardiac enzymes. Will order echocardiogram, carotid Doppler and MRI of brain. Will consult cardiology for further evaluation. Will have physical therapy assess ambulation. Will continue with her home medication including Norvasc 5 mg daily, metoprolol XR 25 mg daily, Xarelto 15 mg daily, Crestor 10 mg daily, and Lasix 20 mg daily. If workup unremarkable likely discharge later today if cleared by cardiology. Daytime hospitalist team to continue management. Left foot numbness and right arm numbness suspect neuropathy: Will have physical therapy assess ambulation. Will continue as recommended above. Fall precautions in place. Chronic atrial fibrillation on chronic anti coagulation therapy: Continue with home medication of Xarelto 15 mg daily and metoprolol XR 25 mg daily. Hypertension: Continue with home medication of Norvasc 5 mg daily and metoprolol XR 25 mg daily. Will adjust accordingly. Hyperlipidemia: Continue home medication of Crestor mg daily. Will check fasting lipid panel. Chronic systolic CHF: This appears stable. Will continue with Lasix 20 mg daily. Will obtain echocardiogram. Chronic renal disease stage IV: This appears chronic. Will recommend nephrology evaluation as an outpatient. Asymptomatic bacteriuria: Urine shows some bacteria. She is without any symptoms. No need for treatment at this time. Discharge Plan: Home Plan to discharge in: 24 Hours - Advance Directives Does patient have a Living Will: No Does patient have a Durable POA for Healthcare: No - Code Status/Comfort Care Code Status Assessed: Yes (Patient is full code) Time Spent Managing Pts Care (In Minutes): 55
--- NOTE | 2019-06-30 05:14 | ER ---
Nurse's Notes [facility] Name: Kylah Oliver Age: 74 yrs Sex: Female : 1945 Arrival Date: 06/29/2019 Time: 22:09 Bed 30 Private MD: Diagnosis: Syncope and collapse;Chronic kidney disease (CKD) Presentation: 06/29 22:18 Presenting complaint: Patient states: dizziness after standing at 1800. pt c/o numbness ak1 to outside of left foot started tonight. pt with numbness to right bicep X2 months and tightness to right side of neck X2 months. pt with shuffling gait to wheelchair in lobby. Transition of care: patient was not received from another setting of care. Onset of symptoms was June 29, 2019. Risk Assessment: Do you want to hurt yourself or someone else? Patient reports no desire to harm self or others. Initial Sepsis Screen: Does the patient meet any 2 criteria? No. Patient's initial sepsis screen is negative. Does the patient have a suspected source of infection? No. Patient's initial sepsis screen is negative. Care prior to arrival: None. 22:18 Method Of Arrival: Ambulatory ak1 22:18 Acuity: KAYLA 3 ak1 Triage Assessment: 22:18 General: Appears in no apparent distress. Behavior is calm, cooperative. ak1 Historical: - Allergies: 22:21 Codeine; ak1 22:21 Imdur; ak1 22:21 Lyrica; ak1 - PMHx: 22:21 Asthma; Atrial Fib; CHF; Hypertension; Thyroid problem; breast cancer; ak1 - PSHx: 22:21 Hysterectomy; Cholecystectomy; parathyroid removed; shunts to left arm; ak1 - Immunization history:: Adult Immunizations unknown. - Social history:: Smoking status: Patient/guardian denies using tobacco. - Ebola Screening: : No symptoms or risks identified at this time. Screenin:06 Abuse screen: Denies threats or abuse. Denies injuries from another. Nutritional mg2 screening: No deficits noted. Tuberculosis screening: No symptoms or risk factors identified. Fall Risk Ambulatory Aid- None/Bed Rest/Nurse Assist (0 pts). Assessment: 23:11 General: Appears in no apparent distress. comfortable, Behavior is calm, cooperative. mg2 Pain: Denies pain. Neuro: Level of Consciousness is awake, alert, obeys commands, Oriented to person, place, time, situation, Reports dizziness, since 6 pm numbness in right foot and right arm. Cardiovascular: Capillary refill < 3 seconds Patient's skin is warm and dry. Respiratory: Airway is patent Respiratory effort is even, unlabored, Respiratory pattern is regular, symmetrical. GI: No signs and/or symptoms were reported involving the gastrointestinal system. : No signs and/or symptoms were reported regarding the genitourinary system. EENT: No signs and/or symptoms were reported regarding the EENT system. Derm: Skin is intact, is healthy with good turgor, Skin is pink, warm \T\ dry. normal. Musculoskeletal: Circulation, motion, and sensation intact. Capillary refill < 3 seconds. 06/30 00:15 Reassessment: Patient appears in no apparent distress at this time. Patient and/or rr5 family updated on plan of care and expected duration. Pain level reassessed. Patient is alert, oriented x 3, equal unlabored respirations, skin warm/dry/pink. 01:10 Reassessment: Patient appears in no apparent distress at this time. Patient is alert, rr5 oriented x 3, equal unlabored respirations, skin warm/dry/pink. awaiting for result. 02:10 Reassessment: assisted went to restroom dragging left leg noted. rr5 02:15 Reassessment: Patient appears in no apparent distress at this time. Patient is alert, rr5 oriented x 3, equal unlabored respirations, skin warm/dry/pink. sent to CT via wheelchair. vitally stable. 04:38 Reassessment: Patient and/or family updated on plan of care and expected duration. Pain bb level reassessed. Patient is alert, oriented x 3, equal unlabored respirations, skin warm/dry/pink. pt resting quietly, IV site intact, with no erythema or edema noted. Dr Giron at bedside for discussion of findings and recommendation pt to be admitted for observation. Pt and family verbalized understanding of and agree to plan of care, awaiting room assignment. 05:44 Reassessment: Patient is alert, oriented x 3, equal unlabored respirations, skin bb warm/dry/pink. IV site intact with no erythema or edema noted, report called to Esthela DE LA ROSA for [id number]. Vital Signs: 06/29 22:18 BP 174 / 75; Pulse 66; Resp 16; Temp 98.1; Pulse Ox 100% on R/A; Weight 88.45 kg (R); ak1 Height 5 ft. 6 in. (167.64 cm) (R); Pain 0/10; 23:13 BP 154 / 86; Pulse 59; Resp 18; Pulse Ox 100% on R/A; mg2 06/30 00:00 BP 155 / 75; Pulse 65; Resp 19; Pulse Ox 98% on R/A; rr5 01:00 BP 148 / 79; Pulse 74; Resp 17; Pulse Ox 100% on R/A; rr5 02:00 BP 161 / 81; Pulse 71; Resp 17; Pulse Ox 98% ; rr5 04:39 BP 152 / 79; Pulse 71; Resp 16 S; Temp 98.3(O); Pulse Ox 100% on R/A; bb 06/29 22:18 Body Mass Index 31.47 (88.45 kg, 167.64 cm) ak1 ED Course: 06/29 22:09 Patient arrived in ED. cl3 22:18 Arm band placed on Patient placed in waiting room, Patient notified of wait time. ak1 22:20 Triage completed. ak1 22:48 Nate Valenzuela, ESTRELLA is Primary Nurse. mg2 23:12 Patient has correct armband on for positive identification. security monitor on. Pulse mg2 ox on. NIBP on. Door closed. Warm blanket given. 23:24 Bhupinder Giron MD is Attending Physician. ps1 06/30 00:40 Inserted saline lock: 22 gauge in right antecubital area, using aseptic technique. rr5 Blood collected. 02:42 CT Head Brain wo Cont In Process Unspecified. EDMS 02:[address] In Process Unspecified. EDMS 04:40 No provider procedures requiring assistance completed. Patient admitted, IV remains in bb place. 05:13 Bhupinder Giron MD is Hospitalizing Provider. ps1 05:13 Shawn Barber DO is Hospitalizing Provider. ps1 Administered Medications: 00:30 Drug: Meclizine 25 mg Route: PO; rr5 01:26 Follow up: Response: No adverse reaction rr5 Outcome: 04:40 Instructed on the need for admit. bb 05:13 Decision to Hospitalize by Provider. ps1 05:44 Admitted to Tele accompanied by nurse, via wheelchair, room 424, with chart, Report bb called to Esthela DE LA ROSA 05:44 Condition: stable 05:54 Patient left the ED. jeri Signatures: Dispatcher [employer] Nu Calle RN RN bb Barb Warner RN RN ak1 Bhupinder Giron MD MD ps1 Nate Valenzuela RN RN mg2 Tommy Nickerson RN RN rr5 Keshia Beltran cl3 Corrections: (The following items were deleted from the chart) 05:44 04:39 BP 152 / 79; Pulse 71bpm; Resp 16bpm; Spontaneous; Pulse Ox 100% RA; bb jeri
--- NOTE | 2019-06-30 05:14 | EDPHYS ---
Physician Documentation [facility] Name: Kylah Oliver Age: 74 yrs Sex: Female : 1945 Arrival Date: 06/29/2019 Time: 22:09 Bed 30 Private MD: ED Physician Bhupinder Giron HPI: 06/30 04:27 This 74 yrs old Black Female presents to ER via Ambulatory with complaints of Numbness ps1 Of Arm, Dizziness. 04:27 pt has multiple medical problems. Notably CKD. Chronic. Not on dialysis. Had near ps1 syncopal event tonight while reaching over her head. She then sat down and then upon getting up again felt as though she was going to pass out. She has a history of CHF, afib. No CP or palpitations. . Historical: - Allergies: 06/29 22:21 Codeine; ak1 22:21 Imdur; ak1 22:21 Lyrica; ak1 - PMHx: 22:21 Asthma; Atrial Fib; CHF; Hypertension; Thyroid problem; breast cancer; ak1 - PSHx: 22:21 Hysterectomy; Cholecystectomy; parathyroid removed; shunts to left arm; ak1 - Immunization history:: Adult Immunizations unknown. - Social history:: Smoking status: Patient/guardian denies using tobacco. - Ebola Screening: : No symptoms or risks identified at this time. ROS: 06/30 04:27 Constitutional: Negative for fever, chills, and weight loss, Eyes: Negative for injury, ps1 pain, redness, and discharge, ENT: Negative for injury, pain, and discharge, Cardiovascular: Negative for chest pain, palpitations, and edema, Respiratory: Negative for shortness of breath, cough, wheezing, and pleuritic chest pain, Abdomen/GI: Negative for abdominal pain, nausea, vomiting, diarrhea, and constipation, MS/Extremity: Negative for injury and deformity, Skin: Negative for injury, rash, and discoloration, Psych: Negative for depression, anxiety, suicide ideation, homicidal ideation, and hallucinations. Neuro: Positive for near syncope. Exam: 04:27 Constitutional: This is a well developed, well nourished patient who is awake, alert, ps1 and in no acute distress. Head/Face: Normocephalic, atraumatic. Eyes: Pupils equal round and reactive to light, extra-ocular motions intact. Lids and lashes normal. Conjunctiva and sclera are non-icteric and not injected. Chest/axilla: Normal chest wall appearance and motion. Nontender with no deformity. No lesions are appreciated. Cardiovascular: Regular rate and rhythm. No gallops, murmurs, or rubs. Normal PMI, no JVD. No pulse deficits. Respiratory: Lungs have equal breath sounds bilaterally, clear to auscultation and percussion. No rales, rhonchi or wheezes noted. No increased work of breathing, no retractions or nasal flaring. Abdomen/GI: Soft, non-tender, with normal bowel sounds. No distension or tympany. No guarding or rebound. No evidence of tenderness throughout. Skin: Warm, dry with normal turgor. Normal color with no rashes, no lesions, and no evidence of cellulitis. MS/ Extremity: Pulses equal, no cyanosis. Neurovascular intact. Full, normal range of motion. Neuro: Awake and alert, GCS 15, oriented to person, place, time, and situation. Cranial nerves II-XII grossly intact. Sensory grossly intact. Vital Signs: 06/29 22:18 BP 174 / 75; Pulse 66; Resp 16; Temp 98.1; Pulse Ox 100% on R/A; Weight 88.45 kg (R); ak1 Height 5 ft. 6 in. (167.64 cm) (R); Pain 0/10; 23:13 BP 154 / 86; Pulse 59; Resp 18; Pulse Ox 100% on R/A; mg2 06/30 00:00 BP 155 / 75; Pulse 65; Resp 19; Pulse Ox 98% on R/A; rr5 01:00 BP 148 / 79; Pulse 74; Resp 17; Pulse Ox 100% on R/A; rr5 02:00 BP 161 / 81; Pulse 71; Resp 17; Pulse Ox 98% ; rr5 04:39 BP 152 / 79; Pulse 71; Resp 16 S; Temp 98.3(O); Pulse Ox 100% on R/A; bb 06/29 22:18 Body Mass Index 31.47 (88.45 kg, 167.64 cm) ak1 MDM: 06/29 23:45 Patient medically screened. ps1 06/30 00:20 Order name: CBC with Diff; Complete Time: 01:10 ps1 06/30 00:20 Order name: Lipase; Complete Time: 01:51 ps1 06/30 00:20 Order name: Magnesium; Complete Time: 01:51 ps1 06/30 00:20 Order name: Troponin (emerg Dept Use Only); Complete Time: 01:51 ps1 06/30 00:20 Order name: CMP; Complete Time: 01:51 ps1 06/30 01:26 Order name: Urine Microscopic Only; Complete Time: 02:05 rr5 06/29 23:28 Order name: EKG - Nurse/Tech; Complete Time: 23:28 mg2 08 00:20 Order name: EKG; Complete Time: 00:26 ps1 08 00:20 Order name: Cardiac monitoring; Complete Time: 00:25 ps1 06/30 00:53 Order name: Neck Angio CT ps1 06/30 00:53 Order name: CT Head Brain wo Cont ps1 06/30 02:04 Order name: Urine Culture EDMS 08 00:20 Order name: IV Saline Lock; Complete Time: 00:41 ps1 06/30 00:20 Order name: Labs collected and sent; Complete Time: 00:41 ps1 06/30 00:20 Order name: NPO; Complete Time: 00:25 ps1 06/30 00:20 Order name: O2 Per Protocol; Complete Time: 00:25 ps1 06/30 00:20 Order name: O2 Sat Monitoring; Complete Time: 00:25 ps1 06/30 00:20 Order name: Urine Dipstick-Ancillary (obtain specimen); Complete Time: 01:27 ps1 EC:22 Rate is 63 beats/min. Rhythm is regular. QRS [place] is Normal. DE interval is normal. QRS ps1 interval is prolonged. QT interval is normal. No Q waves. T waves are Normal. No ST changes noted. Clinical impression: RBBB, NSR. Administered Medications: 06/30 00:30 Drug: Meclizine 25 mg Route: PO; rr5 01:26 Follow up: Response: No adverse reaction rr5 Disposition: 06/30/19 05:13 Hospitalization ordered by Shawn Barber for Observation. Preliminary diagnosis are Syncope and collapse, Chronic kidney disease (CKD). - Bed requested for Telemetry/MedSurg (observation). - Status is Observation. bb - Condition is Stable. - Problem is new. - Symptoms have improved. UTI on Admission? No Signatures: Dispatcher [employer] EDMS Francine Hernandez RN RN mw Nu Moser RN RN bb Barb Warner RN RN ak1 Bhupinder Giron MD MD ps1 Nate Valenzuela RN RN mg2 Tommy Nickerson, RN RN rr5 Corrections: (The following items were deleted from the chart) 00:25 00:18 EKG - Nurse/Tech ordered. ps1 rr5 05:16 05:13 Hospitalization Ordered by Shawn Barber DO for Observation. Preliminary mw diagnosis is Syncope and collapse; Chronic kidney disease (CKD). Bed requested for Telemetry/MedSurg (observation). Status is Observation. Condition is Stable. Problem is new. Symptoms have improved. UTI on Admission? No. ps1 05:54 05:16 06/30/2019 05:13 Hospitalization Ordered by Shawn Barber DO for Observation. bb Preliminary diagnosis is Syncope and collapse; Chronic kidney disease (CKD). Bed requested for Telemetry/MedSurg (observation). Status is Observation. Condition is Stable. Problem is new. Symptoms have improved. UTI on Admission? No. mw
[2019-06-30] MEDS ORDERED: CETIRIZINE HCL 5 MG TABLET PO PRN (06:16)
[2019-06-30] MEDS ORDERED: ACETAMINOPHEN 500 MG TAB PO PRN (06:16)
[2019-06-30] MEDS ORDERED: METOPROLOL XL 25 MG TAB PO SCH (06:16)
[2019-06-30] MEDS ORDERED: ONDANSETRON 4 MG/2 ML VIAL IV PRN (06:16)
--- NOTE | 2019-06-30 07:35 | EKG ---
Test Date: 2019-06-29 Test Time: 23:22:18 Gas Brazer: MG MEASUREMENT RESULTS: Intervals: Rate: 63 AL: 128 QRSD: 142 QT: 482 QTc: 493 Moran: P: 58 AL: 128 QRS: -14 T: 4 INTERPRETIVE STATEMENTS: Normal sinus rhythm Right bundle branch block Abnormal ECG No previous ECG available for comparison Electronically Signed On 06-30-19 07:33:44 CDT by Diallo Theodore
[2019-06-30 08:00] LABS: CKMB Creatine Kinase MB 1.9 ng/mL (0.3-3.6); Creatine Phosphokinase 143 U/L (26-192); HDL Cholesterol 105 mg/dL (40-60); LDL Cholesterol, Calculated 59 (<130); Troponin I < 0.02 ng/mL (0.0-0.045)
[2019-06-30] MEDS ORDERED: FUROSEMIDE 20 MG TABLET PO SCH (09:00)
[2019-06-30] MEDS ORDERED: ANASTROZOLE 1 MG TAB PO SCH (09:00)
[2019-06-30] MEDS ORDERED: AMLODIPINE 5 MG TAB PO SCH (09:00)
--- NOTE | 2019-06-30 10:16 | RAD REPORT ---
EXAM DESCRIPTION: CT - Head Brain Wo Cont - 06/30/2019 6:11 am CLINICAL HISTORY: Near syncope COMPARISON: None available TECHNIQUE: Axial CT of the head obtained from the skull apex to the skull base without contrast. FINDINGS: No acute intracranial hemorrhage identified. No mass, mass effect, shift of the midline, a bnormal extra-axial fluid collection or CT evidence of acute ischemic change identified. The ventricu lar system and sulcal spaces are age appropriate. Scattered areas of hypodensity throughout the sup ratentorial white matter are nonspecific and may be related to chronic small vessel ischemic change. Minimal mucosal thickening of the paranasal sinuses. Mastoid air cells are well aerated. No skull f racture identified. Visualized orbits and globes are unremarkable. Atherosclerotic calcification of the intracranial internal carotid arteries. DLP: 896.8 mGy-cm IMPRESSION: 1. No acute intracranial abnormality by CT criteria. This exam was performed according to our departmental dose-optimization program, which includes autom ated exposure control, adjustment of the mA and/or kV according to patient size and/or use of iterati ve reconstruction technique. Electronically signed by: Jose F Blum 06/30/2019 3:37 AM CDT Due to temporary technical issues with the PACS/Fluency reporting system, reports are being signed by the in house radiologist as a courtesy to ensure prompt reporting. The interpreting radiologist is f ully responsible for the content of the report.
--- NOTE | 2019-06-30 10:18 | RAD REPORT ---
EXAM DESCRIPTION: CT - Neck Angio - 06/30/2019 6:11 am CLINICAL HISTORY: 74 years, Female, near syncope with neck extension COMPARISON: None. TECHNIQUE: Axial CTA images of the neck obtained following the uncomplicated intravenous administrat ion of 90 mL Omnipaque 350. 3-D/MIP reformatted images available. DLP: 344.2 mGycm FINDINGS: CTA head: In the anterior circulation, the intracranial internal carotid arteries have normal course and calibe r. The internal carotid arteries bifurcate into widely patent A1 and M1 segments of the anterior and middle cerebral arteries respectively. No evidence of flow-limiting stenosis, aneurysm, occlusion, or dissection in the anterior circulation. The anterior communicating artery is patent. In the posterior circulation, the intracranial vertebral arteries combine to form a widely patent bas ilar artery. The basilar artery bifurcates into widely patent P1 segments of the posterior cerebral a rtery. No evidence of stenosis, aneurysm, occlusion, or dissection in the posterior circulation. No definite acute intracranial abnormality identified. No acute abnormality of the osseous calvarium. Paranasal sinuses and mastoid air cells are well aerated. CTA NECK: The origin of the carotid arteries are not identified on this study. The right common carotid artery is widely patent and bifurcates into widely patent internal and exter nal carotid arteries. 0% stenosis by NASCET criteria. No evidence of occlusion or dissection. Mild no nflow-limiting atherosclerotic plaque at the carotid bulb. The left common carotid artery is widely patent and bifurcates into widely patent internal and training executive al carotid arteries. 0% stenosis by NASCET criteria. No evidence of occlusion or dissection. The cervical vertebral arteries are widely patent throughout their course. No evidence of occlusion, stenosis, or dissection. Enlarged heterogeneous thyroid. No apical pneumothorax. No acute osseous abnormalities. Multilevel de generative disc height narrowing, endplate spondylosis, uncovertebral spurring, and facet arthropathy throughout the visualized cervical spine. Atherosclerotic calcification of the visualized intracranial internal carotid arteries. No definite a bnormalities identified in the visualized intracranial vasculature however this study is not optimize d for visualization of these structures. Mucosal thickening of the paranasal sinuses. Mastoid air errol ls are relatively well aerated. IMPRESSION: 1. No evidence of stenosis, occlusion, or dissection involving the cervical carotid or v ertebral arteries. 2. Heterogeneous and enlarged thyroid. Recommend thyroid US. Reference: J Am April Radiol. 2015 Dec;12(2): 143-50 This exam was performed according to our departmental dose-optimization program, which includes autom ated exposure control, adjustment of the mA and/or kV according to patient size and/or use of iterati ve reconstruction technique. Electronically signed by: Jose F Blum 06/30/2019 4:16 AM CDT Due to temporary technical issues with the PACS/Fluency reporting system, reports are being signed by the in house radiologist as a courtesy to ensure prompt reporting. The interpreting radiologist is f ully responsible for the content of the report.
--- NOTE | 2019-06-30 10:34 | RAD REPORT ---
EXAM DESCRIPTION: MRI - Brain Wo Cont - 06/30/2019 9:47 am CLINICAL HISTORY: Syncope, right arm numbness, left foot numbness and weakness COMPARISON: CT head June 30 TECHNIQUE: Sagittal T1-weighted images were obtained along with axial PD, heavily T2-weighted and T2 -FLAIR images. Axial DWI and ADC mapping sequences were also obtained along with coronal heavily T2-w eighted images. FINDINGS: There is a small 6 x 2 mm focus of hyperintense signal on diffusion-weighted imaging at th e boundary between the posterior limb internal capsule on the right at the lateral margin of the thal amus. There is corresponding diminished signal on ADC mapping. Minimal hyperintense signal on T2 weig hted sequencing. This is a nonhemorrhagic acute CVA. This is in close proximity to sensory motor fibe rs in the posterior limb of the internal capsule and could explain left extremity CVA symptoms. No left-sided infarction changes that would explain acute right-sided symptoms. T2/IR signal abnormal ities present in the deep periventricular white matter adjacent to the occipital horn left lateral ve ntricle. This would be subacute to chronic ischemic change but not likely causing any extremity sympt oms in this location. There is T2/ IR signal abnormality involving the cortex along a sulcus in the right frontal parietal junction. This has a faint correlate on diffusion weighted sequencing but no ADC mapping hypointense signal. No volume loss. This could be an area of subacute infarction. There is no associated cortical edema or sulcal effacement. Scattered chronic ischemic changes are present in the cerebral white matter mild in degree. Atrophy i s minimal. There is no edema or shift of midline structures. No extra-axial fluid collections. Wisdom-matter/whit e matter junction is preserved. Signal voids are seen as a normal finding in the major intracranial v essels. No globe or orbital content abnormality. No sella or supra sella abnormality. Mastoid air cells and paranasal sinuses are clear. IMPRESSION: A small 6 x 2 millimeter focus of nonhemorrhagic acute CVA is present at the boundary be tween the posterior limb internal capsule and thalamus in the right cerebral hemisphere. This could explain acute onset of left extremity sensory motor symptoms. Cortical signal abnormality in the right cerebral frontal parietal junction. This could also explain right-sided symptoms that would be subacute to chronic. Subacute to chronic ischemic injury in the deep periventricular white matter adjacent to the occipita l horn left lateral ventricle. In this location, this would not explain right extremity symptoms. Minimal cerebral atrophy and minimal chronic ischemic change in the white matter of each cerebral hem isphere.
--- NOTE | 2019-06-30 10:51 | RAD REPORT ---
EXAM DESCRIPTION: US - CP - 06/30/2019 9:15 am CLINICAL HISTORY: Syncope COMPARISON: CT angio June 30 TECHNIQUE: Real-time sonographic evaluation of both carotid systems was performed. Wisdom scale and Do ppler interrogation were performed with waveform tracing bilaterally. FINDINGS: Normal high resistance waveforms are noted in both external carotid arteries. The common c arotid arteries and internal carotid arteries show normal low resistance waveforms. No significant plaque formation is seen. Peak systolic and end diastolic velocity values and the ICA/ CCA ratios are in the non-hemodynamically significant range. No dissection findings. Internal carotid arteries are tortuous. Antegrade flow seen in both vertebral arteries. Velocity values and ratios were recorded and are retained in the patient's imaging records. Incidental note made of an enlarged heterogeneous thyroid gland. No clearly distinguishable nodules. This is not a dedicated thyroid ultrasound study. IMPRESSION: No significant atherosclerotic changes noted. No evidence of a hemodynamically significant stenosis. Enlarged heterogeneous thyroid gland incompletely assessed on this study. Follow-up thyroid ultrasoun d study can be performed as clinical findings warrant.
--- NOTE | 2019-06-30 13:38 | CON ---
Date of Consultation: 06/30/[address] Roberts's service on 06/30/2019. Reason For Consultation: Presyncope, hypertension, dizziness, and arm pain. History Of Present Illness: Ms. Oliver is a 74-year-old black woman. She has a history of renal insu fficiency with a creatinine of 2.25. She has a shunt in her left arm, but no hemodialysis. Has had a history of breast cancer that is cured, hypothyroidism, hypertension, asthma, atrial fibrillation, congestive heart failure that is diastolic. She came in with an episode of dizziness and lightheaded ness when she actually bent down to hand her friend a picture. She complained of spinning sensation. Did not really have any chest pain per se. She has a right arm numbness, pain, that feels like a b and, that has been continuous for few days. Did not have any actual syncope. Denied PND, orthopnea, pedal edema, or palpitation. Denied any actual chest pain. Denied any nausea or vomiting or diapho resis. Denied any recent fever or chills or trauma. Allergies: SHE IS ALLERGIC TO CODEINE, NITROGLYCERIN, AND LYRICA. Review of Systems: Negative. Social History: Negative. Family History: Noncontributory. Medications: At home include amlodipine, metoprolol, and Xarelto. Physical Examination: General: She is very pleasant. No acute distress. Vital Signs: Stable. Sinus rhythm. Blood pressure was 152/79. HEENT: Negative. Neck: Supple with no bruit. Chest: Clear. CARDIAC: Reveals a regular rhythm and rate with an S4 gallop. Abdomen: Benign, but obese. Extremities: Revealed no clubbing, cyanosis, or edema. Skin: Dry and intact. Neurological: She was nonfocal. Pulses were present bilaterally in the distal extremities. Diagnostic Data: Her creatinine was 2.25. EKG showed LVH, nonspecific changes. Chest x-ray was neg ative. MRA of the carotid artery is pending. MRI of the brain is pending. Echocardiogram is pendin g. Impression And Plan: 1.Episodes of dizziness that could very well be orthostatic hypotension or benign positional vertigo . I doubt we are dealing with any cardiac issues. 2.Atypical right arm pain. She recently had a stress test that was negative in [place]. 3.Hypertension. 4.Atrial fibrillation, on metoprolol and Xarelto. 5.Chronic renal disease with a creatinine of 2.25, that is stable and no dialysis yet. 6.Chronic diastolic congestive heart failure, stable. 7.Asthma. 8.Hypothyroidism. 9.History of breast cancer that is cured. 10.Status post left arm arteriovenous shunt, in preparation for dialysis. We will wait and see what the echocardiogram, MRA of the carotid arteries, and MRI of the brain shows before making final deci sions. As stated earlier, I do not think this is a cardiac issue and I doubt that she has had a stro ke. If her above workup is negative, she can go home today. TERESA/MAGALY Voice ID: [id number] Report ID: [id number]
--- NOTE | 2019-06-30 14:13 | ECHO ---
HEIGHT: 5 ft 6 in WEIGHT: 193 lb 4.8 oz DATE OF STUDY: 06/30/[address]: Shawn Barber DO 2-DIMENSIONAL: YES M.MODE: YES DOPPLER: YES COLOR FLOW: YES TDS: NO PORTABLE: NO DEFINITY: NO BUBBLE STUDY: NO DIAGNOSIS: PRE SYNCOPE CARDIAC HISTORY: CATHERIZATION: NO SURGERY: NO PROSTHETIC VALVE: NO PACEMAKER: NO MEASUREMENTS (cm) DIASTOLIC (NORMALS) SYSTOLIC (NORMALS) IVSd 1.0 (0.6-1.2) LA Diam (1.9-4.0) LVEF 70% LVIDd 4.2 (3.5-5.7) LVIDs 2.6 (2.0-3.5) %FS 39% LVPWd 1.2 (0.6-1.2) Ao Diam 2.7 (2.0-3.7) 2 DIMENSIONAL ASSESSMENT: RIGHT ATRIUM: NORMAL LEFT ATRIUM: NORMAL RIGHT VENTRICLE: NORMAL LEFT VENTRICLE: NORMAL TRICUSPID VALVE: NORMAL MITRAL VALVE: MITRAL ANNULAR CALICIFICATION PULMONIC VALVE: NORMAL AORTIC VALVE: NORMAL PERICARDIAL EFFUSION: NONE AORTIC ROOT: NORMAL LEFT VENTRICULAR WALL MOTION: NORMAL DOPPLER/COLOR FLOW: MILD TRICUSPID REGURGITATION. COMMENTS: NORMAL LEFT VENTRICULAR SIZE AND FUNCTION. NO WALL MOTION ABNORMALITY. NO EFFUSION. MITRAL ANNULAR CALICIFICATION. TECHNOLOGIST: Brenna MATTHEWS
[2019-06-30] MEDS ORDERED: ASPIRIN EC 325 MG TABLET PO SCH (14:55)
[2019-06-30 16:15] LABS: Creatine Phosphokinase 176 U/L (26-192); Troponin I < 0.02 ng/mL (0.0-0.045)
[2019-06-30] MEDS ORDERED: RIVAROXABAN 15 MG TABLET PO SCH (17:00)
[2019-06-30] MEDS ORDERED: ROSUVASTATIN 10 MG TAB PO SCH (21:00)
--- NOTE | 2019-07-01 06:54 | DS ---
Date of Discharge: 06/30/2019 Consultants: Dr. Monte with Cardiology Discharge Diagnoses: 1. Presyncope. 2. Left foot numbness and right arm numbness. 3. Acute cerebrovascular accident. 4. Chronic atrial fibrillation, on Xarelto. 5. Hypertension. 6. Mixed hyperlipidemia. 7. Chronic systolic heart failure. 8. Chronic kidney disease, stage 4. 9. Asymptomatic bacteriuria. Hospital Course: The patient is a 74-year-old female who was admitted to the hospital for multiple complaints including dizziness, right arm heaviness, left lower extremity numbness, and tingling. The patient was outside the window for treatment with tPA. Her symptoms had somewhat improved. She was worked up for possible CVA. Her initial head CT and neck CTA were negative. MRI of the brain was done, which showed an acute CVA in the right frontoparietal junction as well as the border of the posterior limb internal capsule and thalamus in the right cerebral hemisphere. Patient was also found to have some subacute to chronic ischemic injury adjacent to the occipital horn, the left lateral ventricle, and some cortical signal abnormality in the right cerebral frontoparietal junction. Neurology was not available for consultation; therefore, the patient was transferred to [facility], accepted by neurologist, Dr. Esposito. The patient was seen by Cardiology, Dr. Monte for presyncopal episode. The patient does have atrial fibrillation and is anticoagulated. Echocardiogram was ordered. Carotid artery ultrasound did not show any hemodynamically significant stenosis. The patient's symptoms were still present. She was then transferred to [facility] once bed is available. Physical Examination: GENERAL: Awake, alert, and oriented x3. Elderly female, obese. CV: S1, S2. RESPIRATORY: Moving air well bilaterally. ABDOMEN: Abdomen is soft, nontender, nondistended. Positive bowel sounds. EXTREMITIES: No clubbing, cyanosis, or edema. NEURO: Strength is 5/5 bilateral upper extremities, 4/5 left upper extremity, 5 /5 right lower extremity. Speech is normal. No facial asymmetry. Decreased sensation to light touch in the left lower extremity. Total time spent transferring patient was 47 minutes. TO Voice ID: [id number] Report ID: [id number] [facility]
== END 2019-06-30 17:27 | disposition short-term general hospital (02) | DRG 65 ==
LOC: ER 22:04 → ERHOLD 06-30 04:56 → 4TH 06-30 05:49 → OBSVTOIN 06-30 14:07
PROVIDERS: ADMIT Family Medicine; ATTEND Family Medicine
DX: I63.9 Cerebral infarction, unspecified (principal); I13.0 Hypertensive heart and chronic kidney disease with heart failure and stage 1 through stage 4 chronic kidney disease, or unspecified chronic kidney disease; N18.4 Chronic kidney disease, stage 4 (severe); I50.22 Chronic systolic (congestive) heart failure; R20.2 Paresthesia of skin; R55 Syncope and collapse; G62.9 Polyneuropathy, unspecified; I48.2 Chronic atrial fibrillation; E78.5 Hyperlipidemia, unspecified; R82.71 Bacteriuria; E03.9 Hypothyroidism, unspecified; Z79.01 Long term (current) use of anticoagulants; Z85.3 Personal history of malignant neoplasm of breast
CPT/HCPCS: 36415; 70450; 70498; 70551; 80053; 80061; 81015; 82550; 82553; 83690; 83735; 84439; 84443; 84484; 85025; 87086; 87088; 93005; 93306; 93880; 99285; G0378; Q9967

== ENCOUNTER 2022-07-13 08:24 | Emergency (ER) | payer OTHER ==
--- OUTSIDE RECORDS SUMMARY | 2022-07-13 08:35 | XMS REPORT | Continuity of Care Document ---
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 03:41: Zofran) [place] 00 MEDICATION WASTE Product Size: 4 mg Product Wasted: ___ mg 11/26 NS No 1,000 mL, Memori a 1,000 mL 2-20 Rate: 70 l 16:06: ml/hr, Gus 00 Infuse over: 14.3 hr, Route: IV, Dosing Weight 72.273 kg, Total Volume: 1,000, Start date: 01/14/18 10:06:00 ASSET PROTECTION MANAGER, Duration: 22 hr, Stop date: 01/15/18 8:05:00 ASSET PROTECTION MANAGER, 1.86, m2 patient's No patient's Mem oria own 2-20 own l EXEMESTANE 15:00: EXEMESTANE H ermann 25MG 00 25MG, 1 tab, Drug form: MISC, Route: PO, Daily, 01/14/18 9:00:00 ASSET PROTECTION MANAGER, Duration: 30 day, Stop date: 02/12/18 9:00:00 CDT NO No NO Memoria nsaids, iv 2-20 nsaids, iv l dye, 14:00: dye, Gus nida-inhib. 00 nida-inhib. or arb per or arb per Dr Giron Dr Giron, ATTN:ESTRELLA - EDITH, Drug form: MISC, Route: MISC, TC, 01/14/18 8:00:00 ASSET PROTECTION MANAGER, Duration: 30 day, Stop date: 02/13/18 0:00:00 CDT Aquaphilic No Notes: Memor ia topical 2-20 (Same as: l ointment 13:59: Aquaphor) Herm yuridia tramadol No Notes: Not Mem oria hydrochlori 2-20 to exceed l de 50 MG 00:20: 400mg/day. Her mcmanus Oral Tablet 00 (Same As: Ultram) Acetaminoph No Notes: Zachary justino en 325 MG / 2-19 (Same as: l Hydrocodone 22:52: [place] Laura nn Bitartrate 00 325/5) Do 5 MG Oral not exceed Tablet 4gm/day of [[place] acetaminop 5/325] hen. Xarelto No Notes: Memoria 2-19 (Same as: l 15:00: Xarelto) Gus Administer with food paricalcito No 1 Memori a l 0.001 MG 2-19 microgram, l Oral 15:00: 1 cap, [place] Capsule 00 Route: PO, Drug form: CAP, Daily, Dosing Weight 72.273, kg, Start date: 01/13/18 9:00:00 ASSET PROTECTION MANAGER, Duration: 30 day, Stop date: 02/11/18 9:00:00 CDT 24 HR No Notes: Memoria Metoprolol 2-19 (Same as: l Tartrate 25 15:00: Toprol XL) [place] MG Extended 00 Do Not Release Crush Tablet [Toprol] Losartan No Notes: Memoria 2-19 (Same as: l 15:00: Cozaar) [place] exemestane No 25 mg, Memor ia 2-19 Route: PO, l 15:00: Daily, [place] 00 Dosing Weight 72.273, kg, Start date: 01/13/18 9:00:00 ASSET PROTECTION MANAGER, Duration: 30 day, Stop date: 02/11/18 9:00:00 CDT Vitamin D3 No Notes: Memor ia 1000 intl 2-19 Same as : l units oral 15:00: Vitamin D3 H ermann tablet 00 Aspirin 325 No Notes: (Do Memoria MG Enteric 2-19 Not Crush) l Coated 15:00: Do not [place] Tablet 00 crush or chew. Amlodipine No Notes: Memor ia 2-19 (Same as: l 15:00: Norvasc) Gus 00 Lasix No Notes: Memoria 2-19 (Same as: l 15:00: Lasix) [place] *ATTN RN No *ATTN RN Memor ia please 2-19 please l bring pt 06:00: bring pt Laura nn home med to 00 home med pharmacy to to be labeled* pharmacy to be labeled*, *ATTN RN, Drug form: MISC, Route: MISC, QSHIFT, 01/13/18 0:00:00 ASSET PROTECTION MANAGER, Duration: 30 day, Stop date: 02/11/18 16:00:00 CDT Flecainide No Notes: Memor ia 2-19 (Same as: l 03:00: Tambocor) [place] Lipitor No Notes: Memoria 2-19 (Same As: l 03:00: Lipitor) [place] Zofran No Notes: Memoria 2-19 (Same as: l 01:32: Zofran) [place] MEDICATION WASTE Product Size: 4 mg Product Wasted: ___ mg Fluticasone No Notes: Zachary justino propionate 2-18 (Same as: l 0.05 22:11: Flonase) [place] MG/ACTUAT 00 Metered Dose Nasal [place] [Flonase] heparin No Notes: Memoria 2-18 porcine l 22:00: heparin [place] 00 exemestane No 25 mg, PO, M emoria 2-18 Daily, l 19:35: take 1 [place] 00 tablet by mouth after meals once a day., 0 Refill(s) Tramadol No 50 mg, PO, Mem oria 2-18 Q4-6H, PRN l 19:35: Pain, # 20 [place] 00 tab, 0 Refill(s) doxycycline No 100 mg, Mem oria hyclate 2-18 PO, BID, 0 l 19:35: Refill(s) Losartan No 50 mg, PO, Mem oria 2-18 Daily, 0 l 19:28: Refill(s) Amlodipine No 5 mg, PO, Me moria 2-18 Daily, 0 l 19:28: Refill(s) Multaq No 200 mg, Memoria 2-18 PO, BID, 0 l 19:28: Refill(s) Xarelto No 15 mg, PO, Zachary justino 2-18 Daily, 0 l 19:28: Refill(s) Lasix No 20 mg, Memoria 2-18 Route: l 16:05: IVP, Drug form: INJ, ONCE, Dosing Weight 86.364, kg, Priority: STAT, Start date: 01/12/18 10:05:00 ASSET PROTECTION MANAGER, Stop date: 01/12/18 10:05:00 ASSET PROTECTION MANAGER Fentanyl No 25 Memoria 2-18 microgram, l 14:23: Route: IVP, ONCE, Dosing Weight 86.364, kg, Priority: STAT, Start date: 01/12/18 8:23:00 ASSET PROTECTION MANAGER, Stop date: 01/12/18 8:23:00 ASSET PROTECTION MANAGER Saline No Notes: Memoria Flush 0.9% 2-18 (Same as: l 12:03: BD Posiflush) Aspirin 81 No Notes: Memor ia MG Chewable 06-30 Take with l Tablet 14:00: food. Sudafed No Notes: Memoria 8-06 (Same as: l 02:00: Sudafed) Claritin No Notes: 1 Memor ia 8-06 hr before l 02:00: meals (Same as: Claritin) Ana-D No 1 tab, Memori a 12 Hour 8-06 Route: PO, l Allergy & 02:00: Dosing Joey Weight 85.909, kg, Q12H, Start date: 06/29/16 21:00:00 CDT, Duration: 30 day, Stop date: 07/29/16 9:00:00 CDT Amlodipine No 5 mg, Memori a 06-29 Route: PO, l 22:00: BID, Gus Dosing Weight 85.909, kg, Start date: 06/29/16 17:00:00 CDT, Duration: 30 day, Stop date: 07/29/16 9:00:00 CDT Aspirin 325 Yes 325 mg = 1 Memoria MG Enteric 06-29 tab, PO, l Coated 20:30: Daily, PRN Laura nn Tablet 00 Fever, # 30 tab, 0 Refill(s), [address] Notes: Memoria 0.05 mg/inh 06-29 (Same as: l nasal spray 20:18: Flonase) [place] rmann 00 paricalcito No Notes: Zachary justino l 0.001 MG 06-29 (Same as: l Oral 14:00: Zemplar) Gus Capsule 00 Streptococc No Notes: Zachary justino us 06-28 Lightly l pneumoniae 14:00: roll vial He rmann serotype 1 00 (DO NOT capsular SHAKE) antigen before diphtheria administra [id number] tion. protein (Same as: conjugate Prevnar vaccine / 13) Streptococc us pneumoniae serotype 14 capsular antigen diphtheria [id number] protein conjugate vaccine / Streptococc us pneumoniae serotype 18C capsular antigen d Vitamin D3 No Notes: Memor ia 1000 intl 06-28 Same as : l units oral 14:00: Vitamin D3 H ermann tablet 00 Saline No Notes: Memoria Flush 0.9% 06-28 preservati l 14:00: ve free. [place] 00 Benicar No 40 mg, 2 Memori a 06-28 tab, l 14:00: Route: PO, [place] Drug form: TAB, Daily, Dosing Weight 81.818, kg, Start date: 06/28/16 9:00:00 CDT, Duration: 30 day, Stop date: 07/27/16 9:00:00 CDT 24 HR No Notes: Memoria Metoprolol 06-28 (Same as: l Tartrate 25 14:00: Toprol XL) Gus MG Extended 00 Do Not Release Crush Tablet [Toprol] Aspirin 81 No 81 mg, 1 Mem oria MG Chewable 06-28 tab, l Tablet 14:00: Route: PO, Laura Drug form: CHEWTAB, Daily, Dosing Weight 81.818, kg, Start date: 06/28/16 9:00:00 CDT, Duration: 30 day, Stop date: 07/27/16 9:00:00 CDT Calcium No Notes: Memoria Gluconate 06-28 WASTE: F/P l 11:45: - Sink; E [place] [facility] Lopressor No Notes: Memori a 06-28 (Same as: l 05:57: Lopressor) heparin No Notes: Memoria 06-28 porcine l 05:00: heparin Flecainide No Notes: Memor ia 06-28 (Same as: l 05:00: Tambocor) Amlodipine Yes 5 mg, PO, Me moria 06-28 BID, 0 l 03:59: Refill(s) Amlodipine No Notes: Memor ia 06-28 (Same as: l 03:57: Norvasc) Sodium No 1,000 mL, Memori a Chloride 06-28 Rate: 75 l 0.154 03:07: ml/hr, Gus MEQ/ML 00 Infuse Injectable over: 13.3 Solution hr, Route: IV, Dosing Weight 81.818 kg, Total Volume: 1,000, Start date: 06/27/16 22:07:00 CDT, Duration: 30 day, Stop date: 07/27/16 22:06:00 CDT Acetaminoph No Notes: Do M emoria en 06-28 not exceed l 03:07: 4 gm/day. Gus 00 (Same as: Tylenol) Ondansetron No Notes: Zachary justino 06-28 (Same as: l 03:07: Zofran) MEDICATION WASTE Product Size: 4 mg Product Wasted: ___ mg Morphine No Notes: Memoria 06-28 (Same l 03:07: as:MORPhin [place] 00 e Sulfate) Docusate No Notes: Memoria 06-28 (Same as: l 03:07: Colace) [place] 00 (Do Not Crush) Saline No Notes: Memoria Flush 0.9% 06-28 preservati l 03:06: ve free. Gus 00 Lipitor No Notes: Memoria 06-28 (Same As: l 02:00: Lipitor) Tylenol No Notes: Max Zachary justino 06-28 acetaminop l 00:07: hen = [place] 4000mg/day (4 gm/day). (Same as: Tylenol) Albuterol No Notes: SEE Me moria 0.83 MG/ML 06-28 RT l Inhalant 00:07: DOCUMENTAT Her mcmanus Solution 00 ION (Same as: Proventil) Flonase Yes 1 spray, Memori a 0.05 mg/inh 06-27 NASAL, l nasal spray 22:48: BID, PRN He rm 00 Congestion , # 16 gm, 0 Refill(s) Ana-D Yes 1 tab, PO, Me moria 12 Hour 06-27 Q12H, 0 l Allergy & 22:48: Refill(s) Her mcmanus Congestion 00 ProAir HFA Yes 1 - 2 Memori a - puffs, PO, l 22:48: Q4H, PRN Wheezing / cough / shortness of breath, # 1 ea, 0 Refill(s) Vitamin D3 Yes 1,000 Memori a 1000 intl 06-27 IntlUnit = l units oral 22:47: 1 tab, PO, H ermann tablet 00 Daily, # 30 tab, 0 Refill(s) Amlodipine No 5 mg, PO, Me moria 8-03 Daily, 0 l 22:46: Refill(s) [place] 00 paricalcito Yes 1 Memori a l 0.001 MG 06-27 microgram l Oral 22:46: = 1 cap, [place] Capsule 00 PO, Daily, takes on MWF, 0 Refill(s) atorvastati Yes 10 mg = 1 M emoria n 10 MG 8-03 tab, PO, l Oral Tablet 22:46: Bedtime, # [place] [Lipitor] 00 30 tab, 0 Refill(s) Olmesartan Yes 40 mg = 1 Me moria medoxomil 8-03 tab, PO, l 40 MG Oral 22:45: Daily, # Her mcmanus Tablet 00 30 tab, 0 [Benicar] Refill(s) metoprolol Yes 25 mg = 1 Me moria 25 mg oral 8-03 tab, PO, l tablet, 22:45: Daily, # Joey n extended 00 30 tab, 0 release Refill(s) flecainide Yes 50 mg = 1 Me moria 50 mg oral 8-03 tab, PO, l tablet 22:44: Q12H, # [place] 00 180 tab, 0 Refill(s) Aspirin 81 No 81 mg = 1 Me moria MG Chewable 06-27 tab, PO, l Tablet 22:44: Daily, Gus 00 tab, 0 Refill(s) Aspirin 81 No 324 mg, Zachary justino MG Chewable 06-27 Route: l Tablet 22:32: CHEW, Gus 00 ONCE, Dosing Weight 81.818, kg, Priority: STAT, Start date: 06/27/16 17:32:00 CDT, Stop date: 06/27/16 17:32:00 CDT Saline No Notes: Memoria Flush 0.9% 06-27 (Same as: l 20:53: BD [place] 00 Posiflush) albuterol albuterol No albuterol [place] sulfate HFA sulfate HFA sulfate Family 90 90 HFA 90 Practic mcg/actuati mcg/actuati mcg/actuat e on aerosol on aerosol ion inhaler inhaler aerosol Inhale 1 Inhale 1 inhaler inhalation inhalation Inhale 1 every 4-6 every 4-6 inhalation hours by hours by every 4-6 inhalation inhalation hours by route as route as inhalation needed. needed. route as needed. amlodipine amlodipine No 1 Q1D amlodipine [place] 10 mg 10 mg 10 mg Family tablet Take tablet Take tablet Practic 1 tablet 1 tablet Take 1 e every day every day tablet by oral by oral every day route in route in by oral the the route in morning. morning. the morning. B12 Active B12 Active No B12 Active [facility] 1,000 mcg 1,000 mcg 1,000 mcg Family chewable chewable chewable Pra ctic tablet Take tablet Take tablet e by oral by oral Take by route. route. oral route. Baby Baby No 1 Q1D Baby [place] Aspirin 81 Aspirin 81 Aspirin 81 Family mg chewable mg chewable mg P ractic tablet Chew tablet Chew chewable e 1 tablet 1 tablet tablet every day every day Chew 1 by oral by oral tablet route. route. every day by oral route. Flonase Flonase No Flonase [facility] [facility] Allergy Allergy Allergy Family Relief as Relief as Relief as Practic needed needed needed e furosemide furosemide No furosemide [facility] 20 mg 20 mg 20 mg Family tablet Take tablet Take tablet Practic 1 tablet 1 tablet Take 1 e every day every day tablet by oral by oral every day route in route in by oral the the route in morning. morning. the morning. lactulose lactulose No 1packet Q1D lactulose [facility] 10 gram 10 gram (s) 10 gram Family oral packet oral packet oral P ractic Take 1 Take 1 packet e packet packet Take 1 every day every day packet by oral by oral every day route. route. by oral route. metoprolol metoprolol metoprolol [facility] succinate succinate succinate [facility] ER 50 mg ER 50 mg ER 50 mg Pra ctic tablet,exte tablet,exte tablet,ext e nded nded ended release 24 release 24 release 24 hr Take 1 hr Take 1 hr Take 1 tablet by tablet by tablet by oral route. oral route. oral route. rosuvastati rosuvastati No rosuvastat [facility] n 10 mg n 10 mg in 10 mg Famil y tablet Take tablet Take tablet Practic 10 mg every 10 mg every Take 10 mg e day by oral day by oral every day route at route at by oral bedtime. bedtime. route at bedtime. Xarelto 15 Xarelto 15 No Xarelto 15 [place] mg tablet mg tablet mg tablet Family 15 mg by 15 mg by 15 mg by Pra ctic oral route. oral route. oral e route. Zyrtec as Zyrtec as No Zyrtec as [place] needed needed needed Family Practic e Immunizations Ordered Immunization Filled Immunization Date Status Commen ts Source Name Name COVID-19, mRNA, COVID-19, mRNA, 2022-03-20 Completed [facility] LNP-S, PF, 100 LNP-S, PF, 100 00:00:00 Practi ce mcg/0.5 mL dose mcg/0.5 mL dose (Moderna) (Moderna) influenza, influenza, 2021-08-25 Completed [facility] Family injectable, injectable, 00:00:00 Practice quadrivalent quadrivalent COVID-19, mRNA, COVID-19, mRNA, 2021-08-25 Completed [facility] LNP-S, PF, 100 LNP-S, PF, 100 00:00:00 Practi ce mcg/0.5 mL dose mcg/0.5 mL dose (Moderna) (Moderna) COVID-19, mRNA, COVID-19, mRNA, 2021-01-24 Completed [facility] LNP-S, PF, 100 LNP-S, PF, 100 00:00:00 Practi ce mcg/0.5 mL dose mcg/0.5 mL dose (Moderna) (Moderna) COVID-19, mRNA, COVID-19, mRNA, 2020-12-20 Completed [facility] LNP-S, PF, 100 LNP-S, PF, 100 00:00:00 Practi ce mcg/0.5 mL dose mcg/0.5 mL dose (Moderna) (Moderna) influenza, high-dose, influenza, high-dose, 2020-09-01 Completed [facility] Family quadrivalent quadrivalent 00:00:00 Practice influenza, influenza, 2019-10-19 Completed [facility] injectable, injectable, 00:00:00 Practice quadrivalent quadrivalent Pneumococcal 2019-02-[address] [facility] Conjugate (Prevnar) 00:00:00 [facility] 13-Valent pneumococcal pneumococcal 2019-02-19 Completed [facility] johnna conjugate PCV 13 conjugate PCV 13 00:00:00 Pr actice Influenza TIV (IM) 2018-09-[address] [facility] 00:00[facility]00 [facility] influenza, seasonal, influenza, seasonal, 2018-09-13 Completed [facility] injectable, injectable, 00:00:00 Practice preservative free preservative free Pneumococcal 2018-08-[address] [facility] Polysaccharide 00:00:00 Medical Ce nter (Pneumovax) pneumococcal pneumococcal 2018-08-15 Completed [facility] polysaccharide PPV23 polysaccharide PPV23 00:00:00 Practice Hep A-Hep B Hep A-Hep B 2018-06-20 Completed [facility] 00:00:00 Practice pneumococcal pneumococcal 2016-10-30 Completed [facility] johnna conjugate PCV 13 conjugate PCV 13 00:00:00 Pr actice Vital Signs Vital Name Observation Time Observation Value Comments Source Systolic blood 2022-04-18 01:00:00 175 mm[Hg] Univer sity of pressure [facility] Diastolic blood 2022-04-18 01:00:00 95 mm[Hg] Unive rsity [facility] Heart rate 2022-04-18 01:00:00 62 /min [facility] Respiratory rate 2022-04-18 01:00:00 20 /min [facility] Oxygen saturation in 2022-04-18 01:00:00 99 /min [facility] Arterial blood by [facility] Pulse oximetry Branch Body temperature 2022-04-17 23:16:00 35.78 [facility] [facility] 2022-04-17 23:16:00 167.6 cm [facility] Body weight 2022-04-17 23:16:00 83.915 kg [facility] BMI 2022-04-17 23:16:00 29.86 kg/m2 [facility] BP Diastolic 2022-03-22 00:00:00 82 mm[Hg] [facility] Height 2022-03-22 00:00:00 66 [in_i] [facility] BMI (Body Mass 2022-03-22 00:00:00 29.9 kg/m2 [facility] BP Systolic 2022-03-22 00:00:00 131 mm[Hg] [facility] Body Weight 2022-03-22 00:00:00 185 [lb_av] [facility] BP Diastolic 2022-03-02 00:00:00 86 mm[Hg] [facility] Height 2022-03-02 00:00:00 66 [in_i] [facility] BMI (Body Mass 2022-03-02 00:00:00 30.2 kg/m2 [facility] BP Systolic 2022-03-02 00:00:00 155 mm[Hg] [facility] Body Weight 2022-03-02 00:00:00 187 [lb_av] [facility] BP Diastolic 2022-01-08 00:00:00 70 mm[Hg] [facility] Height 2022-01-08 00:00:00 66 [in_i] [facility] BMI (Body Mass 2022-01-08 00:00:00 30.8 kg/m2 [facility] BP Systolic 2022-01-08 00:00:00 143 mm[Hg] [facility] Body Weight 2022-01-08 00:00:00 191 [lb_av] [facility] BP Diastolic 2022-01-01 00:00:00 83 mm[Hg] [facility] Height 2022-01-01 00:00:00 66 [in_i] [facility] BMI (Body Mass 2022-01-01 00:00:00 30.7 kg/m2 [facility] BP Systolic 2022-01-01 00:00:00 150 mm[Hg] [facility] Body Weight 2022-01-01 00:00:00 190 [lb_av] [facility] BP Diastolic 2021-12-18 00:00:00 99 mm[Hg] [facility] Height 2021-12-18 00:00:00 66 [in_i] [facility] BMI (Body Mass 2021-12-18 00:00:00 31.3 kg/m2 [facility] BP Systolic 2021-12-18 00:00:00 174 mm[Hg] [facility] Body Weight 2021-12-18 00:00:00 194.2 [lb_av] [facility] BP Diastolic 2021-11-28 00:00:00 80 mm[Hg] [facility] Height 2021-11-28 00:00:00 66 [in_i] [facility] BMI (Body Mass 2021-11-28 00:00:00 31.3 kg/m2 [facility] BP Systolic 2021-11-28 00:00:00 140 mm[Hg] [facility] Body Weight 2021-11-28 00:00:00 194 [lb_av] [facility] BP Diastolic 2021-11-06 00:00:00 81 mm[Hg] [facility] Height 2021-11-06 00:00:00 66 [in_i] [facility] BMI (Body Mass 2021-11-06 00:00:00 31.3 kg/m2 [facility] BP Systolic 2021-11-06 00:00:00 144 mm[Hg] [facility] Body Weight 2021-11-06 00:00:00 194 [lb_av] [facility] Height 2021-10-26 00:00:00 66 [in_i] [facility] BMI (Body Mass 2021-10-26 00:00:00 31.5 kg/m2 [facility] Body Weight 2021-10-26 00:00:00 195 [lb_av] [facility] BP Diastolic 2021-07-25 00:00:00 75 mm[Hg] [facility] Height 2021-07-25 00:00:00 66 [in_i] [facility] BMI (Body Mass 2021-07-25 00:00:00 31.2 kg/m2 [facility] BP Systolic 2021-07-25 00:00:00 137 mm[Hg] [facility] Body Weight 2021-07-25 00:00:00 193 [lb_av] [facility] BP Diastolic 2021-07-19 00:00:00 84 mm[Hg] [facility] Height 2021-07-19 00:00:00 66 [in_i] [facility] BMI (Body Mass 2021-07-19 00:00:00 31.6 kg/m2 [facility] BP Systolic 2021-07-19 00:00:00 138 mm[Hg] [facility] Body Weight 2021-07-19 00:00:00 195.8 [lb_av] [facility] BP Diastolic 2021-05-22 00:00:00 73 mm[Hg] [facility] Height 2021-05-22 00:00:00 66 [in_i] [facility] BMI (Body Mass 2021-05-22 00:00:00 31.1 kg/m2 [facility] BP Systolic 2021-05-22 00:00:00 127 mm[Hg] [facility] Body Weight 2021-05-22 00:00:00 192.4 [lb_av] [facility] WEIGHT 2021-05-13 21:30:00 88.905 kg WEIGHT 2021-05-13 21:30:00 88.905 kg BP Diastolic 2021-04-17 00:00:00 83 mm[Hg] [facility] Height 2021-04-17 00:00:00 66 [in_i] [facility] BMI (Body Mass 2021-04-17 00:00:00 30.8 kg/m2 [facility] BP Systolic 2021-04-17 00:00:00 163 mm[Hg] [facility] Body Weight 2021-04-17 00:00:00 191 [lb_av] [facility] BP Diastolic 2021-02-14 00:00:00 86 mm[Hg] [facility] Height 2021-02-14 00:00:00 66 [in_i] [facility] BMI (Body Mass 2021-02-14 00:00:00 31.5 kg/m2 [facility] BP Systolic 2021-02-14 00:00:00 155 mm[Hg] [facility] Body Weight 2021-02-14 00:00:00 195 [lb_av] [facility] BP Diastolic 2020-11-01 00:00:00 86 mm[Hg] [facility] Height 2020-11-01 00:00:00 66 [in_i] [facility] BMI (Body Mass 2020-11-01 00:00:00 31.3 kg/m2 [facility] BP Systolic 2020-11-01 00:00:00 156 mm[Hg] [facility] Body Weight 2020-11-01 00:00:00 194 [lb_av] [facility] BP Diastolic 2020-09-20 00:00:00 76 mm[Hg] [facility] Height 2020-09-20 00:00:00 66 [in_i] [facility] BMI (Body Mass 2020-09-20 00:00:00 31.3 kg/m2 [facility] BP Systolic 2020-09-20 00:00:00 130 mm[Hg] [facility] Body Weight 2020-09-20 00:00:00 194 [lb_av] [facility] BP Diastolic 2020-06-20 00:00:00 80 mm[Hg] [facility] Height 2020-06-20 00:00:00 66 [in_i] [facility] BMI (Body Mass 2020-06-20 00:00:00 31.2 kg/m2 [facility] BP Systolic 2020-06-20 00:00:00 120 mm[Hg] [facility] Body Weight 2020-06-20 00:00:00 193 [lb_av] [facility] BP Diastolic 2020-01-28 00:00:00 76 mm[Hg] [facility] Height 2020-01-28 00:00:00 66 [in_i] [facility] BMI (Body Mass 2020-01-28 00:00:00 31.2 kg/m2 [facility] BP Systolic 2020-01-28 00:00:00 137 mm[Hg] [facility] Body Weight 2020-01-28 00:00:00 193 [lb_av] [facility] BP Diastolic 2019-10-27 00:00:00 80 mm[Hg] [facility] Height 2019-10-27 00:00:00 66 [in_i] [facility] BMI (Body Mass 2019-10-27 00:00:00 31.5 kg/m2 [facility] BP Systolic 2019-10-27 00:00:00 126 mm[Hg] [facility] Body Weight 2019-10-27 00:00:00 195 [lb_av] [facility] BP Diastolic 2019-08-27 00:00:00 68 mm[Hg] [facility] Height 2019-08-27 00:00:00 66 [in_i] [facility] BMI (Body Mass 2019-08-27 00:00:00 31.1 kg/m2 [facility] BP Systolic 2019-08-27 00:00:00 102 mm[Hg] [facility] Body Weight 2019-08-27 00:00:00 192.6 [lb_av] [facility] Systolic blood 2019-08-14 21:28:00 135 mm[Hg] [facility] pressure Medicine Diastolic blood 2019-08-14 21:28:00 78 mm[Hg] [facility] Medicine Heart rate 2019-08-14 21:28:00 64 /min [facility] Body temperature 2019-08-14 21:28:00 36.67 [place] [facility] Respiratory rate 2019-08-14 21:28:00 16 /min [facility] Body height 2019-08-14 21:28:00 170.2 cm [facility] Body weight 2019-08-14 21:28:00 87.544 kg [facility] BMI 2019-08-14 21:28:00 30.23 kg/m2 [facility] Systolic blood 2019-08-14 21:28:00 135 mm[Hg] [facility] Heart pressure Medicine Diastolic blood 2019-08-14 21:28:00 78 mm[Hg] [facility] Medicine Heart rate 2019-08-14 21:28:00 64 /min [facility] Body temperature 2019-08-14 21:28:00 36.67 [facility] Respiratory rate 2019-08-14 21:28:00 16 /min [facility] [place] Body height 2019-08-14 21:28:00 170.2 cm [facility] Body weight 2019-08-14 21:28:00 87.544 kg [facility] BMI 2019-08-14 21:28:00 30.23 kg/m2 [facility] Systolic blood 2019-08-13 16:44:00 152 mm[Hg] [facility] Heart pressure Medicine Diastolic blood 2019-08-13 16:44:00 80 mm[Hg] [facility] Medicine Heart rate 2019-08-13 16:44:00 62 /min [facility] Respiratory rate 2019-08-13 16:44:00 18 /min [facility] Body height 2019-08-13 16:44:00 170.2 cm [facility] Body weight 2019-08-13 16:44:00 86.728 kg [facility] BMI 2019-08-13 16:44:00 29.95 kg/m2 [facility] Oxygen saturation in 2019-08-13 16:44:00 98 /min [facility] Heart Arterial blood by Medicine Pulse oximetry Systolic blood 2019-08-13 16:44:00 152 mm[Hg] [facility] Heart pressure Medicine Diastolic blood 2019-08-13 16:44:00 80 mm[Hg] [facility] Medicine Heart rate 2019-08-13 16:44:00 62 /min [facility] Respiratory rate 2019-08-13 16:44:00 18 /min [facility] Body height 2019-08-13 16:44:00 170.2 cm [facility] Body weight 2019-08-13 16:44:00 86.728 kg [facility] BMI 2019-08-13 16:44:00 29.95 kg/m2 [facility] Oxygen saturation in 2019-08-13 16:44:00 98 /min [facility] Heart Arterial blood by Medicine Pulse oximetry BP Diastolic 2019-08-05 00:00:00 74 mm[Hg] [facility] Height 2019-08-05 00:00:00 66 [in_i] [facility] BMI (Body Mass 2019-08-05 00:00:00 31 kg/m2 [facility] BP Systolic 2019-08-05 00:00:00 128 mm[Hg] [facility] Body Weight 2019-08-05 00:00:00 191.8 [lb_av] [facility] BP Diastolic 2019-07-16 00:00:00 70 mm[Hg] [facility] Height 2019-07-16 00:00:00 66 [in_i] [facility] BMI (Body Mass 2019-07-16 00:00:00 31 kg/m2 [facility] BP Systolic 2019-07-16 00:00:00 110 mm[Hg] [facility] Body Weight 2019-07-16 00:00:00 192 [lb_av] [facility] BP Diastolic 2019-06-17 00:00:00 70 mm[Hg] [facility] Height 2019-06-17 00:00:00 66 [in_i] [facility] BMI (Body Mass 2019-06-17 00:00:00 30.8 kg/m2 [facility] BP Systolic 2019-06-17 00:00:00 130 mm[Hg] [facility] Body Weight 2019-06-17 00:00:00 190.8 [lb_av] [facility] Systolic blood 2021-05-13 23:02:00 168 mm[Hg] [facility] Diastolic blood 2021-05-13 23:02:00 71 mm[Hg] [facility] Heart rate 2021-05-13 23:02:00 71 /min [facility] Respiratory rate 2021-05-13 23:02:00 20 /min [facility] Oxygen saturation in 2021-05-13 23:02:00 100 /min [facility] Arterial blood by Medical Ce nter Pulse oximetry Body temperature 2021-05-13 21:30:00 36.72 Yuko [facility] Body weight 2021-05-13 21:30:00 88.905 kg [facility] BMI 2021-05-13 21:30:00 30.70 kg/m2 [facility] Systolic (mm Hg) 2018-01-16 17:46:00 [facility] [place] Diastolic (mm Hg) 2018-01-16 17:46:00 [facility] [place] Temperature Oral (F) 2018-01-16 17:46:00 98.4 F [facility] [place] Heart Rate 2018-01-16 17:46:00 [facility] Respitory Rate 2018-01-16 17:46:00 [facility] Systolic (mm Hg) 2018-01-16 13:55:00 Zachary [facility] [place] Diastolic (mm Hg) 2018-01-16 13:55:00 [facility] [place] Temperature Oral (F) 2018-01-16 13:55:00 98.2 F [facility] [place] Heart Rate 2018-01-16 13:55:00 [facility] Respitory Rate 2018-01-16 13:55:00 [facility] Respitory Rate 2018-01-16 10:25:00 [facility] Temperature Oral (F) 2018-01-16 10:25:00 98.4 F [facility] [place] Heart Rate 2018-01-16 10:25:00 [facility] [place] Systolic (mm Hg) 2018-01-16 10:25:00 Zachary [facility] Diastolic (mm Hg) 2018-01-16 10:25:00 [facility] [place] BMI Calculated 2018-01-12 20:57:00 [facility] [place] Weight 2018-01-12 20:57:00 [facility] Height 2018-01-12 20:57:00 170.18 cm [facility] [place] Temperature Oral (F) 2018-01-12 17:30:00 97.9 F [facility] [place] Respitory Rate 2018-01-12 17:30:00 [facility] [place] Systolic (mm Hg) 2018-01-12 17:30:00 Zachary [facility] Diastolic (mm Hg) 2018-01-12 17:30:00 [facility] Systolic (mm Hg) 2018-01-12 17:00:00 Zach[facility] Diastolic (mm Hg) 2018-01-12 17:00:00 Mem [facility] Respitory Rate 2018-01-12 17:00:00 [facility] Respitory Rate 2018-01-12 16:30:00 [facility] Temperature Oral (F) 2018-01-12 16:30:00 97.9 F [facility] Systolic (mm Hg) 2018-01-12 16:30:00 [facility] [place] Diastolic (mm Hg) 2018-01-12 16:30:00 Mem [facility] Temperature Oral (F) 2018-01-12 11:56:00 98.1 F [facility] [place] Heart Rate 2018-01-12 11:56:00 [facility] Weight 2018-01-12 11:56:00 [facility] BMI Calculated 2018-01-12 11:56:00 [facility] Height 2018-01-12 11:56:00 170.18 cm [facility] Systolic (mm Hg) 2016-06-29 21:00:00 [facility] [place] Diastolic (mm Hg) 2016-06-29 21:00:00 [facility] [place] Heart Rate 2016-06-29 21:00:00 [facility] Respitory Rate 2016-06-29 21:00:00 [facility] [place] Temperature Oral (F) 2016-06-29 21:00:00 97.5 F [facility] Systolic (mm Hg) 2016-06-29 17:00:00 [facility] Diastolic (mm Hg) 2016-06-29 17:00:00 Mem [facility] Heart Rate 2016-06-29 17:00:00 [facility] [place] Respitory Rate 2016-06-29 17:00:00 [facility] [place] Temperature Oral (F) 2016-06-29 17:00:00 97.6 F [facility] [place] Respitory Rate 2016-06-29 12:52:00 [facility] Heart Rate 2016-06-29 08:45:00 [facility] Temperature Oral (F) 2016-06-29 08:45:00 97.9 F [facility] [place] Systolic (mm Hg) 2016-06-29 08:45:00 Zachary riasintia Gus Diastolic (mm Hg) 2016-06-29 08:45:00 Mem orial [facility] Height 2016-06-28 03:22:00 170.18 cm [facility] BMI Calculated 2016-06-28 03:22:00 [facility] Weight 2016-06-28 03:22:00 [facility] [place] BMI Calculated 2016-06-27 17:48:00 [facility] [place] Height 2016-06-27 17:48:00 175.26 cm [facility] [place] Weight 2016-06-27 17:48:00 [facility] Weight 2016-06-22 13:15:00 [facility] BMI Calculated 2016-06-22 13:15:00 [facility] Height 2016-06-22 13:15:00 170.18 cm [facility] Procedures Procedure Date / Time Performing Clinician Source Performed COMP. METABOLIC PANEL 2022-04-17 23:56:00 BledsoePhilip monge [facility] ([id number]) [facility] [place] CBC WITH DIFF 2022-04-17 23:56:00 Philip Bledsoe [facility] NOTICE OF PRIVACY 2022-04-17 22:58:46 Doctor Unassigned, [facility] PRACTICES [facility] CONSENT/REFUSAL FOR 2022-04-17 22:58:23 Doctor Unassigned, [facility] DIAGNOSIS AND TREATMENT [facility] [place] spirometry, pre and post 2021-07-19 00:00:00 [facility] bronchodilation Practice COMPREHENSIVE METABOLIC 2021-05-13 22:12:00 Chris Leone [facility] PANEL Center CBC W/PLT COUNT & AUTO 2021-05-13 22:12:[address] [facility] DIFFERENTIAL Center B-TYPE NATRIURETIC FACTOR 2021-05-13 22:12:00 Chris Leone [facility] (BNP) Center RAPID TROPONIN I 2021-05-13 22:12:00 Chris Leone [facility] CBC W/PLT COUNT & AUTO 2021-05-13 22:12:00 Chris Leone I [facility] Center XR CHEST 2 VIEWS 2021-05-13 22:05:00 Chris Leone [facility] Colonoscopy & Polypectomy 2019-12-03 00:00:[address] [facility] bone density 2019-10-27 00:00:00 [facility] francisco javier Practice Biopsy of Thyroid 2019-06-12 00:00:00 [facility] Thomas oropeza [facility] Cancer Surgery 2019-04-25 00:00:00 [facility] ly Practice Breast Surgery 2016-09-25 00:00:00 [facility] ly Practice Breast Surgery 2015-11-25 00:00:00 [facility] Practice Cardiac Ablation Using 2004-11-25 00:00:00 [place] [facility] Fluoroscopy Guidance Practice Shunt Accessory 2003-11-25 00:00:00 [facility] Practice Parotidectomy 1998-11-25 00:00:00 [facility] Practice Hysterectomy 1968-11-25 00:00:00 [facility] Practice Cholecystectomy 1967-11-25 00:00:00 [facility] Practice Bilateral Tubal Ligation 1965-11-25 00:00:[address] [facility] Ablation [facility] Breast [facility] Hysterectomy [facility] Eye [facility] Gastrointestinal Surgery [facility] Hysterectomy (Total) [facility] Thyroid Surgery [facility] Tubal Ligation [facility] Plan of Care Planned Activity Planned Date Details Comments Source Future Scheduled 2021-07-26 INFLUENZA VACCINE (#1) [facility] 00:[facility]:00 [code = INFLUENZA VACCINE Ma dical Center (#1)] Future Scheduled 2020-11-[address] [facility] 00:00:00 (12+) [code = DEPRESSION Med ical Center SCREENING (12+)] Future Scheduled 2020-11-25 FALLS RISK SCREENING [facility] 00:00:00 [code = FALLS RISK Medical C enter SCREENING] Future Scheduled 2012-11-26 MEDICARE ANNUAL WELLNESS [facility] 00:00:00 (YEAR 2 or FIRST YEAR if Med ical Center no IPPE) [code = MEDICARE ANNUAL WELLNESS (YEAR 2 or FIRST YEAR if no IPPE)] Future Scheduled 1994 SHINGLES VACCINES ([address] [facility] 00:00:00 2) [code = [facility] VACCINES (1 of 2)] Future Scheduled 1963 DTAP/TDAP/TD VACCINES ([address] [facility] 00:00:00 - Tdap) [code = Medical Cent er DTAP/TDAP/TD VACCINES (1 - Tdap)] Future Scheduled 1956 COVID-19 VACCINE (1) [facility] 00:00:00 [code = COVID-19 VACCINE [facility] (1)] Future Scheduled ELECTROCARDIOGRAM [employer] [facility] COMPLETE [code = 02065] of M edicine Future Scheduled COLON CANCER SCREENING: [facility] College Test COLONOSCOPY [code = COLON of Medicine CANCER SCREENING: COLONOSCOPY] Future Scheduled MAMMOGRAM ANNUAL [code = [employer] [facility] MAMMOGRAM ANNUAL] of Medicin e Future Scheduled MEDICARE AWV [code = [place] [employer] [facility] MEDICARE AWV] of Medicine Future Scheduled TETANUS SHOT (ADULT) [place] [employer] Test [code = TETANUS SHOT of Medi cine (ADULT)] Future Scheduled BMI FOLLOW UP PLAN [code [employer] [facility] = BMI FOLLOW UP PLAN] of Med icine Future Scheduled FALL SCREEN [code = FALL [facility] College Test SCREEN] of Medicine Future Scheduled OSTEOPOROSIS SCREENING [employer] [facility] [code = OSTEOPOROSIS of Medi cine SCREENING] Future Scheduled PREVNAR >= 65 (PCV13) [employer] [facility] [code = PREVNAR >= 65 of Med icine (PCV13)] Future Scheduled FLU VACCINE > 6 MONTHS [employer] [facility] [code = FLU VACCINE > 6 of edicine MONTHS] Future Scheduled COLON CANCER SCREENING: [facility] Test COLONOSCOPY [code = COLON of Medicine CANCER SCREENING: COLONOSCOPY] Future Scheduled MAMMOGRAM ANNUAL [code = [facility] Test MAMMOGRAM ANNUAL] of Medicin e Future Scheduled MEDICARE AWV [code = [place] [employer] Test MEDICARE AWV] of Medicine Future Scheduled TETANUS SHOT (ADULT) [place] [employer] Test [code = TETANUS SHOT of Medi cine (ADULT)] Future Scheduled BMI FOLLOW UP PLAN [code [employer] [facility] = BMI FOLLOW UP PLAN] of Med icine Future Scheduled FALL SCREEN [code = FALL [facility] College Test SCREEN] of Medicine Future Scheduled OSTEOPOROSIS SCREENING [employer] [facility] [code = OSTEOPOROSIS of Medi cine SCREENING] Future Scheduled PREVNAR >= 65 (PCV13) [employer] Test [code = PREVNAR >= 65 of Med icine (PCV13)] Future Scheduled FLU VACCINE > 6 MONTHS [employer] [facility] [code = FLU VACCINE > 6 of M edicine MONTHS] Future Appointment 2023-03-22 Jair Nichols [facility] 11:45:[address], [place] [address] Future Appointment 2022-09-20 Jair Nichols [facility] 11:45:[address], [place] [address] Instructions [facility] Encounters Start End Encounter Admission Attending Care Care Encounter Source Date/Time Date/Time Type Type Clinicians Facility Department ID 2022-01-03 Inpatient Liya [facility] [id number] [facility] 11:00:00 Tiago 50 2021-09-20 Inpatient Liya [facility] [id number] [facility] 10:30:00 Tiago 45 2021-08-30 Inpatient [facility] [id number] [facility] 14:25:00 13392 [facility] 2020-04-21 Inpatient Liya [facility] MAMMO [id number] 09:02:00 Liya [facility] 2022-07-16 2022-07-[address] YEUNG [id number] 11:30:00 11:30:00 TAY Zhuol brian 2022-07-13 2022-07-[address] YEUNG [id number] 00:00:00 00:00:00 TAY Alanisybol brian 2022-07-12 2022-07-[address] CROSS [id number] 00:00:00 00:00:00 MAMIE torres 2022-07-11 2022-07-[address] YEUNG [id number] 00:00:00 00:00:00 TAY Seybol brian 2022-07-09 2022-07-09 [place] [address], [facility] [id number] 14:00:00 16:00:00 Chair MEDICAL [id number] Se ybold AND [id number] DIAGNOSTI [id number] C CENTER 0 2022-07-09 2022-07-[address] CROSS [id number] 00:00:00 00:00:00 MAMIE Seybol d 2022-07-09 2022-07-[address] RODRIGUEZ [id number] Ct 00:00:00 00:00:00 KARIN Seybol d 2022-07-07 2022-07-07 Office BETSEY Berrios DONN [id number] 11:15:00 11:30:00 Visit Suzi Israel MEDICAL 350.1.13.13 Seybold DIAGNOSTI 1.2.7.2.686 [place] [id number] 2022-07-06 2022-07-[address] CROSS [id number] 00:00:00 00:00:00 MAMIE Seybol d 2022-07-04 2022-07-[address] RODRIGUEZ [id number] 14:15:00 14:15:00 Seybol d 2022-07-04 2022-07-04 Outpatient 2, RTC CT RODRIGUEZ [id number] [address] 12:00:00 12:00:00 Seybol d 2022-07-03 2022-07-[address] CROSS [id number] 00:00:00 00:00:00 MAMIE Seybol d 2022-07-03 2022-07-03 Outpatient ANDREW BRENDA RODRIGUEZ [id number] 00:00:00 00:00:00 Seybol d 2022-07-02 2022-07-[address] RODRIGUEZ [id number] 12:55:00 12:55:00 Seybol d 2022-07-02 2022-07-[address] RODRIGUEZ [id number] 12:15:00 12:15:00 Seybol d 2022-07-02 2022-07-[address] RODRIGUEZ [id number] 11:55:00 11:55:00 Seybol d 2022-07-02 2022-07-02 Office EV Yeung [id number] 10:30:00 11:15:00 Visit Tay Ferguson 350.1.13.13 S eybold [id number] [id number] 2022-06-27 2022-06-[address] BROWN [id number] 00:00:00 00:00:00 TRIANDA Seybol d 2022-06-22 2022-06-[address] BROWN [id number] 00:00:00 00:00:00 TRIANDA Seybol d 2022-06-21 2022-06-[address] YEUNG [id number] 00:00:00 00:00:00 TAY Seybol d 2022-06-20 2022-06-[address] PAZ [id number] 14:00:00 14:00:00 JINU Seybol d 2022-06-20 2022-06-[address] YEUNG [id number] 00:00:00 00:00:00 TAY Seybol d 2022-06-06 2022-06-06 Office Anjana EV [id number] 11:15:00 11:30:00 Visit Tay Ferguson 350.1.13.13 S eybold [id number] [id number] 2022-06-04 2022-06-[address] LYONS [id number] 00:00:00 00:00:00 MONICA Zhuo ld 2022-05-21 2022-05-21 Outpatient Maryann VFP VFP [id number] [facility] 00:00:00 00:00:00 [id number] Family Practic e 2022-04-17 2022-04-17 Emergency [facility] [id number] Univers 18:17:00 21:01:00 Philip MEJIA 350.1.13.10 i ty of [place] 4.2.7.2.686 [facility] [id number] [facility] 084 Branch 2022-04-17 2022-04-17 Emergency X LADI, [facility] ERT [id number] Univers 18:17:00 21:01:00 PHILIP de león of [facility] 2022-04-17 2022-04-17 Orders Doctor KENYA [id number] [place] [address] 00:00:00 00:00:00 Only Unassigned, NORBERTO 350.1.13.10 ity of [facility] [id number] [facility] [id number] [facility] 009 Branch 2022-04-12 2022-04-12 Outpatient Mohamud-Gor_M_ VFP VFP [id number] [facility] 00:00:00 00:00:00 MARLENY Family Practic e 2022-04-05 2022-04-05 Outpatient Mohamud-Gor_M VFP VFP [id number] [facility] 08:29:00 08:29:00 [id number] Family Practic e 2022-03-23 2022-03-23 Outpatient Mohamud-Gor_M VFP VFP [id number] [facility] 06:16:00 06:16:00 [id number] Family Practic e 2022-03-23 2022-03-23 Outpatient Mohamud-Gor_M VFP VFP [id number] [facility] 06:16:00 06:16:00 [id number] Family Practic e 2022-03-22 2022-03-22 Outpatient Mohamud-Gor_M VFP VFP [id number] [facility] 04:00:00 04:00:00 [id number] Family Practic e 2022-03-22 2022-03-22 Rachael O VFP [place] - [id number] [facility] 00:00:00 00:00:00 Nori [facility] Dora mcintyre MD: [id number] Medical - Prac tic Shadow VM_GABRIELU_Jay e [address]atinum [facility], [address], [place] [address] , Ph. 2022-03-19 2022-03-19 Outpatient Mohamud-Gor_M VFP VFP [id number] [facility] 04:38:00 04:38:00 Family Practic e 2022-03-06 2022-03-06 Outpatient Mohamud-Gor_M VFP VFP [id number] [facility] 11:41:00 11:41:00 [id number] Family Practic e 2022-03-06 2022-03-06 Outpatient Mohamud-Gor_M_ VFP VFP [id number] [facility] 11:41:00 11:41:00 MARLENY 32726 Family Practic e 2022-03-06 2022-03-06 Outpatient Mohamud-Gor_M_ VFP VFP [id number] [facility] 11:41:00 11:41:00 MARLENY [id number] Family Practic e 2022-03-02 2022-03-02 Outpatient Mohamud-Gor_M VFP VFP [id number] [facility] 04:24:00 04:24:00 Family Practic e 2022-03-02 2022-03-02 Ronnalyn VFP [place] - [id number] [facility] 00:00:00 00:00:00 Amrik, [facility] Famil y 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 2022-02-27 2022-02-[address] [facility] [id number] [address] [place] [address] 00:00:00 00:00:[address] KRIS [address] 2022-01-18 2022-01-18 Outpatient Mohamud-Gor_M VFP VFP [id number] [facility] 12:15:00 12:15:00 Family Practic e 2022-01-18 2022-01-18 Outpatient Mohamud-Gor_M VFP VFP [id number] [facility] 12:15:00 12:15:00 Family Practic e 2022-01-18 2022-01-18 Outpatient Mohamud-Gor_M_ VFP VFP [id number] [facility] 12:15:00 12:15:00 MARLENY [id number] Family Practic e 2022-01-10 2022-01-10 Outpatient Mohamud-Gor_M_ VFP VFP [id number] [facility] 03:48:00 03:48:00 SERENAGDNU Family Practic e 2022-01-09 2022-01-09 Outpatient Mohamud-Gor_M VFP VFP [id number] [facility] 06:43:00 06:43:00 Family Practic e 2022-01-08 2022-01-08 Outpatient Mohamud-Gor_M VFP VFP [id number] [facility] 11:40:00 11:40:00 Family Practic e 2022-01-08 2022-01-08 Ronnalyn VFP [place] - [id number] [facility] 00:00:00 00:00:00 Amrik, [facility] F[facility] y RADIO BOARD OPERATOR ANNOUNCER: [id number] Medical - Prac tic Shadow VM_HOU_Shad e [facility] [address] [address] , Ph. 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 2021-12-28 2021-12-28 Terese VFP [place] - [id number] V illage 00:00:00 00:00:00 Corona: [facility] Family [id number], VM_HOU_Care e [address], [place] [address] , Ph. 2021-12-21 2021-12-21 Outpatient Mohamud-Gor_M VFP VFP [id number] [facility] 12:11:00 12:11:00 Family Practic e 2021-12-19 2021-12-19 Outpatient Mohamud-Gor_M VFP VFP [id number] [facility] 05:08:00 05:08:00 Family Practic e 2021-12-19 2021-12-19 Outpatient Mohamud-Gor_M_ VFP VFP [id number] [facility] 05:08:00 05:08:00 MARLENY Family Practic e 2021-12-18 2021-12-18 Outpatient Mohamud-Gor_M VFP VFP [id number] [facility] 05:17:00 05:17:00 Family Practic e 2021-12-18 2021-12-18 Avni Keith VFP [place] - [id number] [facility] 00:00:00 00:00:00 MD Manuela: [facility] y [address] [facility]_HOU_East e , [address], ([facility]) [place] [address] , Ph. 2021-12-13 2021-12-13 Terese VFP [place] - [id number] V illage 00:00:00 00:00:00 Pranay: [facility] [id number] [facility], VM_HOU_Care e [address], [place] [address] , Ph. 2021-12-01 2021-12-01 Outpatient Mohamud-Gor_M VFP VFP [id number] [facility] 12:05:00 12:05:00 Family Practic e 2021-12-01 2021-12-01 Outpatient Mohamud-Gor_M_ VFP VFP [id number] [facility] 12:05:00 12:05:00 MARLENY Family Practic e 2021-11-28 2021-11-28 Outpatient Mohamud-Gor_M VFP VFP [id number] [facility] 05:14:00 05:14:00 Family Practic e 2021-11-28 2021-11-28 Carol VFP [place] - [id number] [facility] 00:00:00 [facility]:00[facility], RADIO BOARD OPERATOR ANNOUNCER: Medical - Pra ctic [id number] [address] VM_HOU_Bray e Lana s [facility], Suite ([facility]) [address], [place] [address] , Ph. 2021-11-21 2021-11-21 Outpatient Mohamud-Gor_M VFP VFP [id number] [facility] 05:07:00 05:07:00 [id number] Family Practic e 2021-11-16 2021-11-16 Outpatient Mohamud-Gor_M_ VFP VFP [id number] [facility] 01:38:00 01:38:00 MARLENY [id number] Family Practic e 2021-11-09 2021-11-09 Terese VFP [place] - [id number] V illage 00:00:00 00:00:00 Pranay: [facility] [address] Maryann Medical - Prac tic [facility], VM_HOU_Care e [address], [place] [address] , Ph. 2021-11-07 2021-11-07 Outpatient Mohamud-Gor_M VFP VFP [id number] [facility] 05:32:00 05:32:00 [id number] Family Practic e 2021-11-07 2021-11-07 Outpatient Mohamud-Gor_M_ VFP VFP 493 [facility]202 [facility] 05:32:00 05:32:00 MARLENY [id number] Family Practic e 2021-11-06 2021-11-06 Outpatient Mohamud-Gor_M VFP VFP [id number] [facility] 03:45:00 03:45:00 [id number] Family Practic e 2021-11-06 2021-11-06 Rachael O VFP [place] - [id number] [facility] 00:00:00 00:00:00 Nori [facility] Dora mcintyre MD: [id number] Medical - Prac tic Shadow VM_HOU_Shad e [address], [address], [place] [address] , Ph. 2021-10-26 2021-10-26 Outpatient Sudireddy_R VFP VFP 493 [facility]202 [facility] 03:44:00 03:44:00 [id number] Family Practic e 2021-10-26 2021-10-26 Outpatient Mohamud-Gor_M_ VFP VFP [address] [place] [address] 03:44:00 03:44:00 MARLENY 06308 Family Practic e 2021-10-26 2021-10-26 Kerrieyn VFP [place] - [id number] [facility] 00:00:00 00:00:00 Bela Rowley y RADIO BOARD OPERATOR ANNOUNCER: 6122 Medical [facility] VM_HOU_East e [address], [address] [place] [address], ([facility]) [place] [address] , Ph. 2021-10-25 2021-10-25 Outpatient Sudireddy_R VFP VFP [address] [place] [address] 06:48:00 06:48:00 00131 Family Practic e 2021-10-12 2021-10-12 Terese VFP [place] - [id number] V illage 00:00:00 00:00:00 Pranay: [facility] Family [address] [place] [address], VM_HOU_Care e [address], [place] [address] , Ph. 2021-10-03 2021-10-03 Outpatient Mohamud-Gor_M_ VFP VFP [address] [place] [address] 01:16:00 01:16:00 MARLENY 07411 Family Practic e 2021-10-03 2021-10-03 Outpatient Sudireddy_R VFP VFP [address] [place] [address] 01:16:00 01:16:00 99164 Family Practic e 2021-09-21 2021-09-21 Terese VFP [place] - [id number] V illage 00:00:00 00:00:00 [facility] Family [address] [place] [address], VM_HOU_Care e [address], [place] [address] , Ph. 2021-08-30 2021-08-30 Emergency EM George, [facility] TRAY [id number] 37386 [facility] 14:25:00 15:54:00 Nickie Zelaya [facility] 2021-07-31 2021-07-31 Outpatient Sudireddy_R VFP VFP [address] [place] [address] 06:45:00 06:45:00 26885 Family Practic e 2021-07-312021-07-31 Outpatient Cade-Cesar_M_ VFP VFP 493 [facility] 06:45:00 06:45:00 [facility] 65518 Family Practic e 2021-07-26 2021-07-26 Outpatient Mohamud-Cesar_M_ VFP VFP 493 [facility] 02:57:00 02:57:00 [facility] 50906 Family Practic e 2021-07-25 2021-07-25 Outpatient Sudireddy_R VFP VFP 493 [facility] 01:44:00 01:44:00 80454 Family Practic e 2021-07-25 2021-07-25 Rachael O VFP [place] - [id number] [facility] 00:00:00 00:00:00 [facility] Dora mcintyre MD: [id number] Medical - Prac tic Shadow VM_HOU_Shad e [facility], [address] [address] , Ph. 2021-07-20 2021-07-20 Outpatient Sudireddy_R VFP VFP [address] [place] [address] 03:44:00 03:44:00 96749 Family Practic e 2021-07-20 2021-07-20 Outpatient Sudireddy_R VFP VFP [address] [place] [address] 03:44:00 03:44:00 21505 Family Practic e 2021-07-20 2021-07-20 Outpatient Mohamud-Cesar_M_ VFP VFP [address] [place] [address] 03:44:00 03:44:00 [facility] 37310 Family Practic e 2021-07-19 2021-07-19 Outpatient Sudireddy_R VFP VFP [address] [place] [address] 04:20:00 04:20:00 01284 Family Practic e 2021-07-19 2021-07-19 Deidra N VFP [place] - [id number] V illage 00:00:00 00:00:00 SUDHEER Colindres: [facility] [address] Medical - Practi c Shadow VM_HOU_Shad e [facility], [facility] [address] [address] , Ph. 2021-06-30 2021-06-30 Outpatient Sudireddy_R VFP VFP 493 [facility] 11:40:00 11:40:00 08989 Family Practic e 2021-06-13 2021-06-13 Outpatient Sudireddy_R VFP VFP 493 [facility] 06:35:00 06:35:00 09224 Family Practic e 2021-05-24 2021-05-24 Outpatient Adejumo_K VFP VFP [id number] [facility] 08:33:00 08:33:00 40103 Family Practic e 2021-05-22 2021-05-22 Outpatient Adejumo_K VFP VFP [id number] [facility] 04:54:00 04:54:00 77296 Family Practic e 2021-05-22 2021-05-22 Rachael O VFP [place] - [id number] [facility] 00:00:00 00:00:00 [facility] Fami francisco javier MD: [id number] Medical - Prac tic Shadow VM_HOU_Shad e [employer] ow [facility], [address], [place] [address] , Ph. 2021-05-18 2021-05-18 Terese VFP [place] - [id number] V illage 00:00:00 00:00:00 Pranay: [facility] Family [address], VM_HOU_Care e [address], [place] [address] , Ph. 2021-05-17 2021-05-17 Outpatient Adejumo_K VFP VFP [id number] [facility] 12:21:00 12:21:00 94885 Family Practic e 2021-05-13 2021-05-13 Emergency ER Vasu Chris [facility] [id number] [facility] 21:46:00 23:06:00 [facility] 2021-05-13 2021-05-13 Emergency ER SLE Emergency [id number] [facility] 21:12:00 21:12:00 2021-05-13 2021-05-13 Travel [facility] [id number] [facility] 00:00:[facility] 00:00:00 [facility] 2021-04-20 2021-04-20 Outpatient Cade-Cesar_M_ VFP VFP 493 [facility] 11:10:00 11:10:00 [facility] 26197 Family Practic e 2021-04-20 2021-04-20 Outpatient Mohamud-Gor_M_ VFP VFP 493 [facility] 11:10:00 11:10:00 [facility] 33574 Family Practic e 2021-04-17 2021-04-17 Outpatient Adejumo_K VFP VFP [id number] [facility] 01:24:00 01:24:00 53298 Family Practic e 2021-04-17 2021-04-17 Rachael O VFP [place] - [id number] [facility] 00:00:00 00:00:00 Nori, [facility] Dora mcintyre MD: 04129 Medical - Prac tic Shadow VM_DEEP_Inobrian e [facility], [address], [place] [address] , Ph. 2021-04-11 2021-04-11 Outpatient Adejumo_K VFP VFP [id number] [facility] 01:08:00 01:08:00 92691 Family Practic e 2021-04-11 2021-04-11 Outpatient Mohamud-Gor_M_ VFP VFP 493 [facility] 01:08:00 01:08:00 [facility] 34897 Family Practic e 2021-03-06 2021-03-06 Outpatient Adejumo_K VFP VFP [id number] [facility] 04:41:00 04:41:00 44458 Family Practic e 2021-02-28 2021-02-28 Outpatient Adejumo_K VFP VFP [id number] [facility] 09:44:00 09:44:00 94018 Family Practic e 2021-02-16 2021-02-16 Outpatient Adejumo_K VFP VFP [id number] [facility] 09:59:00 09:59:00 64693 Family Practic e 2021-02-16 2021-02-16 Outpatient Mohamud-Gor_M_ VFP VFP 493 [facility] 09:59:00 09:59:00 SERENA 83450 Family Practic e 2021-02-14 2021-02-14 Outpatient Adejumo_K VFP VFP [id number] [facility] 03:51:00 03:51:00 94411 Family Practic e 2021-02-14 2021-02-14 Rachael O VFP [place] - [id number] [facility] 00:00:00 00:00:00 [facility] Nawafariadne mcintyre MD: 06136 Medical - Prac tic Shadow [facility], [address] [address] , Ph. 2020-12-07 2020-12-07 Outpatient Liya, [facility] [id number] [facility] 11:30:00 11:30:00 Tiago 99 2020-11-02 2020-11-02 Outpatient Mohamud-Gor_M_ VFP VFP [address] [place] [address] 10:07:00 10:07:00 [facility] 78508 Family Practic e 2020-11-02 2020-11-02 Outpatient Mohamud-Gor_M_ VFP VFP [address] [place] [address] 10:07:00 10:07:00 SERENA 13426 Family Practic e 2020-11-01 2020-11-01 Outpatient Mohamud-Gor_M_ VFP VFP [address] [place] [address] 12:52:00 12:52:00 [facility] 44790 Family Practic e 2020-11-01 2020-11-01 Rachael O VFP [place] - [id number] [facility] 00:00:00 00:00:00 [facility] Nawafariadne mcintyre MD: 6122 Medical - Pract ic [place] VM_HOU_East e , [place] [address], ([facility]) [place] [address] , Ph. 2020-10-28 2020-10-28 Outpatient Adejumo_K VFP VFP [id number] [facility] 02:51:00 02:51:00 88120 Family Practic e 2020-10-28 2020-10-28 Outpatient Mohamud-Gor_M_ VFP VFP [address] [place] [address] 02:51:00 02:51:00 SERENA 31059 Family Practic e 2020-09-30 2020-09-30 Outpatient Adejumo_K VFP VFP [address] [place] [address] 03:57:00 03:57:00 47319 Family Practic e 2020-09-30 2020-09-30 Outpatient Mohamud-Gor_M_ VFP VFP [address] [place] [address] 03:57:00 03:57:00 WAG 69573 Family Practic e 2020-09-20 2020-09-20 Outpatient Adejumo_K VFP VFP [address] [place] [address] 03:35:00 03:35:00 31183 Family Practic e 2020-09-20 2020-09-20 Outpatient Adejumo_K VFP VFP [address] [place] [address] 03:35:00 03:35:00 82160 Family Practic e 2020-09-20 2020-09-20 Ariane VFP [place] - [id number] [facility] 00:00:00 00:00:00 [facility], Medical - Pract henrik MD: [id number] JENNIF[address]_Ha[address] [facility], [address] [place] [address] , Ph. 2020-08-05 2020-08-05 Outpatient Adejumo_K VFP VFP [address] [place] [address] 12:58:00 12:58:00 11333 Family Practic e 2020-06-26 2020-06-26 Outpatient Adejumo_K VFP VFP [address] [place] [address] 02:40:00 02:40:00 51499 Family Practic e 2020-06-24 2020-06-24 Outpatient Mohamud-Gor_M_ VFP VFP [address] [place] [address] 08:16:00 08:16:00 HARPAL 85135 Family Practic e 2020-06-24 2020-06-24 Outpatient Mohamud-Gor_M_ VFP VFP [address] [place] [address] 08:16:00 08:16:00 WAG 26658 Family Practic e 2020-06-20 2020-06-20 Outpatient Adejumo_K VFP VFP [address] [place] [address] 04:31:00 04:31:00 82282 Family Practic e 2020-06-20 2020-06-20 Ariane VFP [place] - [id number] [facility] 00:00:00 00:00:00 [facility] Medical - Pract henrik MD: [address] [facility], [address], [place] [address] , Ph. 2020-06-17 2020-06-17 Outpatient Adejumo_K VFP VFP [id number] [facility] 11:28:00 11:28:00 83115 Family Practic e 2020-03-05 2020-03-05 Outpatient Cade-Cesar_M_ VFP VFP [address] [place] [address] 11:47:00 11:47:00 [facility] 92324 Family Practic e 2020-02-01 2020-02-01 Outpatient Mohamud-Gor_M_ VFP VFP [address] [place] [address] 01:34:00 01:34:00 [place] [address] Family Practic e 2020-01-28 2020-01-28 Outpatient Cade-Cesar_M_ VFP VFP [address] [place] [address] 04:33:00 04:33:00 [facility] 41233 Family Practic e 2020-01-28 2020-01-28 Rachael O VFP [place] - [id number] [facility] 00:00:00 00:00:00 [facility] Dora mcintyre MD: 6122 Medical - Pract ic [facility]_HOU_East e , [place] [address], ([place] [address] , Ph. 2020-01-01 2020-01-01 Outpatient Adejumo_K VFP VFP [address] 01:18:00 01:18:00 39150 Family Practic e 2019-12-23 2019-12-23 Outpatient Adejumo_K VFP VFP [address] 09:21:00 09:21:00 59862 Family Practic e 2019-12-04 2019-12-06 [facility] [id number] 17:05:38 05:59:59 Message r Primary 01 [facility] 2019-10-27 2019-10-27 Ariane VFP [place] - [id number] [facility] 00:00:00 00:00:00 [facility] Adonis, Medical - Pract henrik MD: [address] [facility], [place] [address], [place] [address] , Ph. 2019-08-27 2019-08-27 [facility] [place] - [id number] [facility] 00:00:00 00:00:00 [facility] Family Adonis, Family Practic MD: 18720 Practice - e [facility] [address], [place] [address] , Ph. 2019-08-14 2019-08-14 Office Mansoor, BCM [id number] [facility] 15:44:22 16:49:58 Visit Darren K AMBULATOR [id number] College Y 0.2.7.2.686 of [id number] [facility] 335 e 2019-08-14 2019-08-14 Office Husseingregory, BCM [id number] 15:44:22 16:49:58 Visit Darren K AMBULATOR [id number] Y 0.2.7.2.686 [id number] [facility] 2019-08-13 2019-08-13 Office Yariel, BCM 1.2.840.[id number] [place] [address] 10:42:04 11:02:04 Visit Isabel AMBULATOR 350.1.13.21 College Y 0.2.7.2.686 of [id number] [facility] 315 e 2019-08-13 2019-08-13 Office Yariel, BCM [id number] 10:42:04 11:02:04 Visit Isabel AMBULATOR 350.1.13.21 Y 0.2.7.2.686 [id number] [facility] 2019-08-05 2019-08-05 [facility] [place] - [id number] [facility] 00:00:00 00:00:00 [facility] Family Adonis, Family Practic MD: 9430 Melba - rachel Sylvester [facility] [address], [place] [address] , Ph. 2019-07-16 2019-07-16 [facility] [place] - [id number] [facility] 00:00:00 00:00:00 [facility] Adonis, Family Practic : 9430 Practice - e [place], [facility] [address], [place] [address] , Ph. 2019-06-17 2019-06-17 Ariane [facility] [place] - [id number] [facility] 00:00:00 00:00:00 [facility] Adonis, Family Practic MD: 9430 Practice - e [place], [facility] [address], [place] [address] , Ph. 2018-01-14 2018-01-16 Inpatient nullFlavo [facility] [id number] Memoria 18:30:00 19:41:[address] [facility] 2018-01-12 2018-01-12 Emergency nullFlavo [facility] [address]7400 Memoria 11:30:00 18:30:00 r Gus 02 [facility] 2017-11-04 2017-11-04 Outpatient [facility] [id number] [address] 09:08:00 09:08:00 [facility] 2017-08-08 2017-08-08 Outpatient [facility] [id number] [address] 12:11:00 12:11:00 [facility] 2016-09-24 2016-09-25 Outpt Diag nullFlavo [facility] [address]992 [id number] Memoria 22:24:00 04:59:00 Services r [facility] 00 [facility] 2016-06-27 2016-06-29 Inpatient nullFlavo [facility] [address]74[address] 99029 Memoria 17:47:00 22:27:00 r [place] 01 [facility] 2016-06-22 2016-06-23 Outpatient nullFlavo [facility] 3429 [id number] Memoria 13:07:00 04:59:00 r [place] 00 [facility] Results Test Description Test Time Test Comments Results Result Comments Source COMP. METABOLIC PANEL (32877) 2022-04-18 00:19:41 Test Item Value Reference Range Interpretation Comme nts NA (test code = 5139127708) 140 mmol/L 135-145 K (test code = 4300567518) 4.5 mmol/L 3.5-5.0 CL (test code = 0735982169) 106 mmol/L 98-108 CO2 TOTAL (test code = 9293697877) 24 mmol/L 23-31 AGAP (test code = 8870259330) 2-16 BUN (test code = 5034011399) 31 mg/dL 7-23 H GLUCOSE (test code = 2664204329) 116 mg/dL 70-110 H CREATININE (test code = 2.17 mg/dL 0.50-1.04 H 2573121478) TOTAL BILI (test code = 0.5 mg/dL 0.1-1.6 9107512304) CALCIUM (test code = 4146228657) 9.3 mg/dL 8.6-10.6 T PROTEIN (test code = 0012980150) 7.0 g/dL 6.3-8.2 ALBUMIN (test code = 9895685701) 4.2 g/dL 3.5-5.0 ALK PHOS (test code = 5928702444) 74 U/L 34-122 ALTv (test code = 1742-6) 11 U/L 5-35 AST(SGOT) (test code = 1513060641) 22 U/L 13-40 eGFR (test code = 8732826012) mL/min/1.73m2 MARIVEL (test code = MARIVEL) Association of Glomerular Filtration Rate (GFR) and Staging of Kidney Disease* + +-------- + ------+| GFR (mL/min/1.73 m2) ?| With Kidney Damage ?| ?Without Kidney Damage+ +-- + +| ?>90 ?| ?Stage one ?| ? Normal ?+ +------- + -------+| ?60-89 ?| ?Stage two ?| ? Decreased GFR ? + +-------- + ------+| ?30-59 ?| ?Stage three ?| ? Stage three ? + +-------- + ------+| ?15-29 ?| ?Stage four ? | ? Stage four ?+ +------- + -------+| ?<15 (or dialysis) ? ?| ?Stage five ? | ? Stage five ?+ +------- + -------+ *Each stage assumes the associated GFR level has been in effect for at least three months. ?Stages 1 to 5, with or without kidney disease, indicate chronic kidney disease. Notes: Determination of stages one and two (with eGFR >59mL/min/1.73 m2) requires estimation of kidney damage for at least three months as defined by structural or functional abnormalities of the kidney, manifested by either:Pathological abnormalities or Markers of kidney damage (including abnormalities in the composition of the blood or urine or abnormalities in imaging tests). Lab Interpretation (test code = Abnormal 04281-6) [facility] WITH [id number] 00:15:00 Test Item Value Reference Range Interpretation Comments WBC (test code = See_Comment L [Automated 6690-2) message] The sy stem which generated this result transmitted reference range : 4.30 - 11.10 10*3/?L. The reference range was not used to interpret this result as normal/abnormal . RBC (test code = See_Comment [Automated 789-8) message] The sy stem which generated this result transmitted reference range : 3.93 - 5.25 10*6/?L. The reference range was not used to interpret this result as normal/abnormal . HGB (test code = 11.3 g/dL 11.6-15.0 L 718-7) HCT (test code = 37.3 % 35.7-45.2 4544-3) MCV (test code = 82.3 fL 80.6-95.5 787-2) MCH (test code = 24.9 pg 25.9-32.8 L 785-6) MCHC (test code = 30.3 g/dL 31.6-35.1 L 786-4) RDW-SD (test code = 46.3 fL 39.0-49.9 93903-9) RDW-CV (test code = 15.4 % 12.0-15.5 788-0) PLT (test code = See_Comment [Automated 777-3) message] The sy stem which generated this result transmitted reference range : 166 - 358 10*3/ ?L. The reference r heidi was not used to interpret this result as normal/abnormal . MPV (test code = 10.8 fL 9.5-12.9 39063-0) NRBC/100 WBC (test See_Comment [Automat ed code = 1284228649) message] The system which generated this result transmitted reference range : 0.0 - 10.0 /100 WBCs. The refer ence range was not u sed to interpret th is result as normal/abnormal . NRBC x10^3 (test code <0.01 See_Comment [Auto mated = 6242103378) message] The s ystem which generated this result transmitted reference range : 10*3/?L. The reference range was not used to interpret this result as normal/abnormal . GRAN MAT (NEUT) % 43.1 % (test code = 770-8) IMM GRAN % (test code 0.00 % = 9326715217) LYMPH % (test code = 34.8 % 736-9) MONO % (test code = 11.8 % 5905-5) EOS % (test code = 9.3 % 713-8) BASO % (test code = 1.0 % 706-2) GRAN MAT x10^3(ANC) 1.72 10*3/uL 1.88-7.09 L (test code = 2008832078) IMM GRAN x10^3 (test <0.03 0.00-0.06 code = 4420824909) LYMPH x10^3 (test code 1.39 10*3/uL 1.32-3.29 = 731-0) MONO x10^3 (test code 0.47 10*3/uL 0.33-0.92 = 742-7) EOS x10^3 (test code = 0.37 10*3/uL 0.03-0.39 711-2) BASO x10^3 (test code 0.04 10*3/uL 0.01-0.07 = 704-7) Lab Interpretation Abnormal (test code = 87994-8) [facility] W Auto Differential panel - Blood 2021-11-07 00:00:00 Test Item Value Reference Range Interpretation Comments WBC (test code = WBC) 4.64 x10*3/?L 4.00-11.00 RBC (test code = RBC) 4.85 10*12/L 3.93-5.22 hemoglobin (test code = 12.00 g/dL 11.20-15.70 hemoglobin) hematocrit (test code = 41.2 % 34.1-44.9 hematocrit) MCV (test code = MCV) 84.9 fL 80.0-100.0 MCH (test code = MCH) 24.7 pg 25.6-32.2 L MCHC (test code = MCHC) 29.1 g/dL 32.2-35.5 L RDW-SD (test code = RDW-SD) 48.9 fL 36.4-46.3 H platelet count (test code = 192.0 k/uL 150.0-400.0 platelet count) MPV (test code = MPV) 11.8 fL 7.5-11.5 H neut% (test code = neut%) 57.2 % 34.0-71.1 lymph% (test code = lymph%) 22.8 % 19.3-51.7 mon% (test code = mon%) 11.2 % 4.7-12.5 eos% (test code = eos%) 8.0 % 0.7-5.8 H baso% (test code = baso%) 0.4 % 0.1-1.2 neut# (test code = neut#) 2.7 x10*3/?L 1.6-6.1 lymph# (test code = lymph#) 1.1 x10*3/?L 1.2-3.7 L mon# (test code = mon#) 0.5 x10*3/?L 0.2-0.9 eos# (test code = eos#) 0.37 x10*3/?L 0.04-0.36 H baso# (test code = baso#) 0.02 x10*3/?L 0.01-0.08 [facility], [id number] 00:00:00 Test Item Value Reference Range Interpretation Comments ferritin (test code = ferritin) 140.46 NG/mL 4.63-204.00 iron, total (test code = iron, 52 mcg/dL 45-160 total) transferrin (test code = 223 mg/dL 173-360 transferrin) total iron binding capacity 319 mcg/dL 250-450 (calculated) (test code = total iron binding capacity (calculated)) % saturation (test code = % 16.3 % 11.0-50.0 saturation) [facility] - [id number] 00:00:00 Test Item Value Reference Range Interpretation Comments WBC (test code = WBC) 4.64 x10*3/?L 4.00-11.00 RBC (test code = RBC) 4.85 10*12/L 3.93-5.22 hemoglobin (test code = 12.00 g/dL 11.20-15.70 hemoglobin) hematocrit (test code = 41.2 % 34.1-44.9 hematocrit) MCV (test code = MCV) 84.9 fL 80.0-100.0 MCH (test code = MCH) 24.7 pg 25.6-32.2 L MCHC (test code = MCHC) 29.1 g/dL 32.2-35.5 L RDW-SD (test code = RDW-SD) 48.9 fL 36.4-46.3 H platelet count (test code = 192.0 k/uL 150.0-400.0 platelet count) MPV (test code = MPV) 11.8 fL 7.5-11.5 H neut% (test code = neut%) 57.2 % 34.0-71.1 lymph% (test code = lymph%) 22.8 % 19.3-51.7 mon% (test code = mon%) 11.2 % 4.7-12.5 eos% (test code = eos%) 8.0 % 0.7-5.8 H baso% (test code = baso%) 0.4 % 0.1-1.2 neut# (test code = neut#) 2.7 x10*3/?L 1.6-6.1 lymph# (test code = lymph#) 1.1 x10*3/?L 1.2-3.7 L mon# (test code = mon#) 0.5 x10*3/?L 0.2-0.9 eos# (test code = eos#) 0.37 x10*3/?L 0.04-0.36 H baso# (test code = baso#) 0.02 x10*3/?L 0.01-0.08 [facility] + TIBC + ferritin, [id number] 00:00:00 Test Item Value Reference Range Interpretation Comments ferritin (test code = ferritin) 140.46 NG/mL 4.63-204.00 iron, total (test code = iron, 52 mcg/dL 45-160 total) transferrin (test code = 223 mg/dL 173-360 transferrin) total iron binding capacity 319 mcg/dL 250-450 (calculated) (test code = total iron binding capacity (calculated)) % saturation (test code = % 16.3 % 11.0-50.0 saturation) [facility] Auto Differential panel - [id number] 00:00:00 Test Item Value Reference Range Interpretation Comments WBC (test code = WBC) 4.64 x10*3/?L 4.00-11.00 RBC (test code = RBC) 4.85 10*12/L 3.93-5.22 hemoglobin (test code = 12.00 g/dL 11.20-15.70 hemoglobin) hematocrit (test code = 41.2 % 34.1-44.9 hematocrit) MCV (test code = MCV) 84.9 fL 80.0-100.0 MCH (test code = MCH) 24.7 pg 25.6-32.2 L MCHC (test code = MCHC) 29.1 g/dL 32.2-35.5 L RDW-SD (test code = RDW-SD) 48.9 fL 36.4-46.3 H platelet count (test code = 192.0 k/uL 150.0-400.0 platelet count) MPV (test code = MPV) 11.8 fL 7.5-11.5 H neut% (test code = neut%) 57.2 % 34.0-71.1 lymph% (test code = lymph%) 22.8 % 19.3-51.7 mon% (test code = mon%) 11.2 % 4.7-12.5 eos% (test code = eos%) 8.0 % 0.7-5.8 H baso% (test code = baso%) 0.4 % 0.1-1.2 neut# (test code = neut#) 2.7 x10*3/?L 1.6-6.1 lymph# (test code = lymph#) 1.1 x10*3/?L 1.2-3.7 L mon# (test code = mon#) 0.5 x10*3/?L 0.2-0.9 eos# (test code = eos#) 0.37 x10*3/?L 0.04-0.36 H baso# (test code = baso#) 0.02 x10*3/?L 0.01-0.08 [facility] [id number] 00:00:00 Test Item Value Reference Range Interpretation Comments ferritin (test code = ferritin) 140.46 NG/mL 4.63-204.00 iron, total (test code = iron, 52 mcg/dL 45-160 total) transferrin (test code = 223 mg/dL 173-360 transferrin) total iron binding capacity 319 mcg/dL 250-450 (calculated) (test code = total iron binding capacity (calculated)) % saturation (test code = % 16.3 % 11.0-50.0 saturation) [facility] - [id number] 00:00:00 Test Item Value Reference Range Interpretation Comments WBC (test code = WBC) 4.64 x10*3/?L 4.00-11.00 RBC (test code = RBC) 4.85 10*12/L 3.93-5.22 hemoglobin (test code = 12.00 g/dL 11.20-15.70 hemoglobin) hematocrit (test code = 41.2 % 34.1-44.9 hematocrit) MCV (test code = MCV) 84.9 fL 80.0-100.0 MCH (test code = MCH) 24.7 pg 25.6-32.2 L MCHC (test code = MCHC) 29.1 g/dL 32.2-35.5 L RDW-SD (test code = RDW-SD) 48.9 fL 36.4-46.3 H platelet count (test code = 192.0 k/uL 150.0-400.0 platelet count) MPV (test code = MPV) 11.8 fL 7.5-11.5 H neut% (test code = neut%) 57.2 % 34.0-71.1 lymph% (test code = lymph%) 22.8 % 19.3-51.7 mon% (test code = mon%) 11.2 % 4.7-12.5 eos% (test code = eos%) 8.0 % 0.7-5.8 H baso% (test code = baso%) 0.4 % 0.1-1.2 neut# (test code = neut#) 2.7 x10*3/?L 1.6-6.1 lymph# (test code = lymph#) 1.1 x10*3/?L 1.2-3.7 L mon# (test code = mon#) 0.5 x10*3/?L 0.2-0.9 eos# (test code = eos#) 0.37 x10*3/?L 0.04-0.36 H baso# (test code = baso#) 0.02 x10*3/?L 0.01-0.08 [facility], [id number] 00:00:00 Test Item Value Reference Range Interpretation Comments ferritin (test code = ferritin) 140.46 NG/mL 4.63-204.00 iron, total (test code = iron, 52 mcg/dL 45-160 total) transferrin (test code = 223 mg/dL 173-360 transferrin) total iron binding capacity 319 mcg/dL 250-450 (calculated) (test code = total iron binding capacity (calculated)) % saturation (test code = % 16.3 % 11.0-50.0 saturation) [facility] 2000 [facility] - Serum or Plasma 2021-07-26 11:37:00 Test Item Value Reference Range Interpretation Comments ALT (test code = ALT) 8 U/L 0-55 AST (test code = AST) 19 U/L 5-34 BUN (test code = BUN) 33.4 mg/dL 9.8-25.0 H alk phos (test code = alk 98 unit/L 40-150 phos) glucose (test code = 87 mg/dL 70-99 glucose) albumin (test code = 4.2 g/dL 3.4-5.1 albumin) creatinine (test code = 2.16 mg/dL 0.57-1.11 H creatinine) eGFR non- 22 mL/min/1.73m2 A (test code = eGFR non-) total bilirubin (test code = 0.5 mg/dL 0.2-1.2 total bilirubin) eGFR - 27 mL/min/1.73m2 A (test code = eGFR - ) sodium (test code = sodium) 142 mEq/L 135-145 potassium (test code = 4.4 mEq/L 3.5-5.3 potassium) chloride (test code = 108 mmol/L 98-110 chloride) total protein (test code = 7.7 g/dL 6.1-8.2 total protein) calcium (test code = 10.1 mg/dL 8.4-10.4 calcium) CO2 (test code = CO2) 24.5 mmol/L 20.0-32.0 anion gap (test code = anion 10 calc gap) [facility]/Hemoglobin.total in [id number] 11:33:00 Test Item Value Reference Range Interpretation Comments Hemoglobin A1c/Hemoglobin.total in 5.7 % 1.0-5.7 Blood (test code = 4548-4) average blood glucose (calculation) 117 mg/dL (test code = average blood glucose (calculation)) [facility] Auto Differential panel - [id number] 11:17:00 Test Item Value Reference Range Interpretation Comments WBC (test code = WBC) 3.70 x10*3/?L 4.00-11.00 L RBC (test code = RBC) 5.27 10*12/L 3.93-5.22 H hemoglobin (test code = 13.00 g/dL 11.20-15.70 hemoglobin) hematocrit (test code = 44.3 % 34.1-44.9 hematocrit) MCV (test code = MCV) 84.1 fL 80.0-100.0 MCH (test code = MCH) 24.7 pg 25.6-32.2 L MCHC (test code = MCHC) 29.3 g/dL 32.2-35.5 L RDW-SD (test code = RDW-SD) 48.2 fL 36.4-46.3 H platelet count (test code = 179.0 k/uL 150.0-400.0 platelet count) MPV (test code = MPV) 11.1 fL 7.5-11.5 neut% (test code = neut%) 50.5 % 34.0-71.1 lymph% (test code = lymph%) 33.5 % 19.3-51.7 mon% (test code = mon%) 9.2 % 4.7-12.5 eos% (test code = eos%) 5.7 % 0.7-5.8 baso% (test code = baso%) 0.8 % 0.1-1.2 neut# (test code = neut#) 1.9 x10*3/?L 1.6-6.1 lymph# (test code = lymph#) 1.2 x10*3/?L 1.2-3.7 mon# (test code = mon#) 0.3 x10*3/?L 0.2-0.9 eos# (test code = eos#) 0.21 x10*3/?L 0.04-0.36 baso# (test code = baso#) 0.03 x10*3/?L 0.01-0.08 [facility] CenterParathyrin.intact [Mass/volume] in Serum or Plasma 2021-05-23 20:53:00 Test Item Value Reference Range Interpretation Comments parathyroid hormone, intact (test 90 pg/mL 14-64 H code = parathyroid hormone, intact) [facility]Basic [facility] 2000 panel - Serum or [id number] 15:47:00 Test Item Value Reference Range Interpretation Comments BUN (test code = BUN) 31.3 mg/dL 9.8-25.0 H glucose (test code = 80 mg/dL 70-99 glucose) creatinine (test code = 2.50 mg/dL 0.57-1.11 H creatinine) eGFR non- 19 mL/min/1.73m2 A (test code = eGFR non-) eGFR - 23 mL/min/1.73m2 A (test code = eGFR - ) sodium (test code = sodium) 141 mEq/L 135-145 potassium (test code = 4.4 mEq/L 3.5-5.3 potassium) chloride (test code = 108 mmol/L 98-110 chloride) calcium (test code = 9.4 mg/dL 8.4-10.4 calcium) CO2 (test code = CO2) 26.0 mmol/L 20.0-32.0 anion gap (test code = anion 7 calc gap) [facility] CenterUrinalysis complete W Reflex Culture panel - Urine 2021-05-23 06:38:00 Test Item Value Reference Range Interpretation Comments color (test code = yellow yellow color) appearance (test code clear clear = appearance) specific gravity 1.009 1.001-1.035 (test code = specific gravity) pH (test code = pH) > or = 8.5 5.0-8.0 A glucose (test code = negative negative glucose) bilirubin (test code negative negative = bilirubin) ketones (test code = negative negative ketones) occult blood (test negative negative code = occult blood) protein (test code = 1+ negative A protein) nitrite (test code = negative negative nitrite) leukocyte esterase negative negative (test code = leukocyte esterase) WBC (test code = WBC) none seen See_Comment [Auto mated message] The system [employer] generated this result transmitted ref erence range: < or = 5 . The reference range was not used to int erpret this result as normal/abnormal . RBC (test code = RBC) none seen See_Comment [Auto mated message] The system [employer] generated this result transmitted ref erence range: < or = 2 . The reference range was not used to int erpret this result as normal/abnormal . squamous epithelial 6-10 See_Comment A [Automa ankita message] cells (test code = The syste m which squamous epithelial generate d this result cells) transmitted ref erence range: < or = 5 . The reference range was not used to int erpret this result as normal/abnormal . bacteria (test code = none seen none seen bacteria) hyaline cast (test none seen none seen code = hyaline cast) [facility] CenterBacteria identified in Urine by [id number] 06:38:00Reflexive Urine CultureVillGreater Regional HealthCBC with platelet count + automated [id number] 22:50:00 Test Item Value Reference Range Interpretation Comments WBC (test code = 6690-2) 3.0 See_Comment L [A utomated message] The system [employer] generated this result transmitted ref erence range: 4.0 - 10 .0 K/L. The refe rence range was not u sed to interpret this result as normal/abnor mal. RBC (test code = 789-8) 4.65 See_Comment [Au tomated message] The system [employer] generated this result transmitted ref erence range: 4.00 - 5 .00 M/L. The refe rence range was not u sed to interpret this result as normal/abnor mal. MCHC (test code = 786-4) 31.5 See_Comment L [A utomated message] The system [employer] generated this result transmitted ref erence range: 32.0 - 3 6.0 GM/DL. The refe rence range was not u sed to interpret this result as normal/abnor mal. Hematocrit (test code = 37.4 % 36.0-45.0 4544-3) MCV (test code = 787-2) 80.6 fL 82.0-99.0 L MCH (test code = 785-6) 25.3 pg 27.0-33.0 L RDW (test code = 788-0) 16.3 % 10.3-14.2 H Platelets (test code = 181 See_Comment [Aut omated message] 777-3) The system [employer] generated this result transmitted ref erence range: 150 - 43 0 K/CU MM. The referen ce range was not u sed to interpret this result as normal/abnor mal. MPV (test code = 8.6 fL 6.5-10.5 79892-9) % Neutros (test code = 40 % 429) % Lymphs (test code = 37 % 430) % Monos (test code = 12 % 431) % Eos (test code = 432) 6 % % Baso (test code = 437) 6 % # Neutros (test code = 1.19 See_Comment L [Aut omated message] 670) The system [employer] generated this result transmitted ref erence range: 1.80 - 8 .00 K/L. The refe rence range was not u sed to interpret this result as normal/abnor mal. # Lymphs (test code = 1.08 See_Comment L [Auto mated message] 414) The system [employer] generated this result transmitted ref erence range: 1.48 - 4 .50 K/L. The refe rence range was not u sed to interpret this result as normal/abnor mal. # Monos (test code = 0.34 See_Comment [Autom ated message] 415) The system [employer] generated this result transmitted ref erence range: 0.00 - 1 .30 K/L. The refe rence range was not u sed to interpret this result as normal/abnor mal. # Eos (test code = 416) 0.18 See_Comment [Au tomated message] The system [employer] generated this result transmitted ref erence range: 0.00 - 0 .50 K/L. The refe rence range was not u sed to interpret this result as normal/abnor mal. # Baso (test code = 417) 0.17 See_Comment [A utomated message] The system [employer] generated this result transmitted ref erence range: 0.00 - 0 .20 K/L. The refe rence range was not u sed to interpret this result as normal/abnor mal. Lab Interpretation (test Abnormal code = 60225-4) [facility]2021-[facility]-13 22:50:00 Test Item Value Reference Range Interpretation Comments Rapid Troponin I (test <0.05 See_Comment \\Tria ge Meter [id number]\\ code = 1483) [Automated mess age] The system [employer] generated this result transmitted ref erence range: <0.05 ng /mL. The reference r heidi was not used to interpret this result as normal/abnor mal. Lab Interpretation (test Normal code = 28095-0) [facility] W/PLT COUNT & AUTO [id number] 22:50:00 Test Item Value Reference Range Interpretation Comments WHITE BLOOD CELL COUNT (BEAKER) 3.0 K/ L 4.0-10.0 L (test code = 775) RED BLOOD CELL COUNT (BEAKER) 4.65 M/ L 4.00-5.00 (test code = 761) HEMOGLOBIN (BEAKER) (test code = 11.8 GM/DL 12.0-15.0 L 410) HEMATOCRIT (BEAKER) (test code = 37.4 % 36.0-45.0 411) MEAN CORPUSCULAR VOLUME (BEAKER) 80.6 fL 82.0-99.0 L (test code = 753) MEAN CORPUSCULAR HEMOGLOBIN 25.3 pg 27.0-33.0 L (BEAKER) (test code = 751) MEAN CORPUSCULAR HEMOGLOBIN CONC 31.5 GM/DL 32.0-36.0 L (BEAKER) (test code = 752) RED CELL DISTRIBUTION WIDTH 16.3 % 10.3-14.2 H (BEAKER) (test code = 412) PLATELET COUNT (BEAKER) (test 181 K/CU MM 150-430 code = 756) MEAN PLATELET VOLUME (BEAKER) 8.6 fL 6.5-10.5 (test code = 754) NEUTROPHILS RELATIVE PERCENT 40 % (BEAKER) (test code = 429) LYMPHOCYTES RELATIVE PERCENT 37 % (BEAKER) (test code = 430) MONOCYTES RELATIVE PERCENT 12 % (BEAKER) (test code = 431) EOSINOPHILS RELATIVE PERCENT 6 % (BEAKER) (test code = 432) BASOPHILS RELATIVE PERCENT 6 % (BEAKER) (test code = 437) NEUTROPHILS ABSOLUTE COUNT 1.19 K/ L 1.80-8.00 L (BEAKER) (test code = 670) LYMPHOCYTES ABSOLUTE COUNT 1.08 K/ L 1.48-4.50 L (BEAKER) (test code = 414) MONOCYTES ABSOLUTE COUNT (BEAKER) 0.34 K/ L 0.00-1.30 (test code = 415) EOSINOPHILS ABSOLUTE COUNT 0.18 K/ L 0.00-0.50 (BEAKER) (test code = 416) BASOPHILS ABSOLUTE COUNT (BEAKER) 0.17 K/ L 0.00-0.20 (test code = 417) RAPID TROPONIN [id number] 22:50:00 Test Item Value Reference Range Interpretation Comments RAPID TROPONIN I < ng/mL <0.05 \\Triage Met er [id number]\\ (BEAKER) (test code = 1483) B-type natriuretic [id number] 22:40:00 Test Item Value Reference Range Interpretation Comments BNP (test code = 07166-5) 441 pg/mL 0-100 H \\T riage Meter [id number]\\ Lab Interpretation (test Abnormal code = 88717-6) [facility] (BNP[facility]2021-05-13 22:40:00 Test Item Value Reference Range Interpretation Comments B-TYPE NATRIURETIC 441 pg/mL 0-100 H \\Triage M eter PEPTIDE (BEAKER) (test M7847 1\\ code = 700) Comprehensive metabolic [id number] 22:37:00 Test Item Value Reference Range Interpretation Comments Protein, Total (test 7.3 See_Comment [Autom ated code = 2885-2) message] The system which generated this result transmitted reference range : 6.0 - 8.5 gm/dL . The reference r heidi was not used to interpret this result as normal/abnormal . Albumin (test code = 4.2 g/dL 3.5-5.0 82685-2) Alkaline Phosphatase 117 U/L 30-115 H (test code = 6768-6) Total Bilirubin (test 0.4 mg/dL 0.1-1.2 code = 1975-2) Sodium (test code = 140 meq/L 957-591 7253-2) Potassium (test code = 4.3 meq/L 3.6-5.5 2823-3) Chloride (test code = 107 meq/L 98-106 H 2075-0) CO2 (test code = 29 meq/L 24-32 2028-9) BUN (test code = 32 mg/dL 10-26 H 3094-0) Creatinine (test code = 2.54 mg/dL 0.50-1.20 H 2160-0) Glucose (test code = 122 mg/dL 70-110 H 2345-7) Calcium (test code = 9.4 mg/dL 8.5-10.5 05351-7) AST (test code = 23 U/L 5-40 1920-8) ALT (test code = 11 U/L 5-50 1742-6) EGFR (test code = 22 mL/min/1.73 [place] [address]-3) NOT ACCURATE CREATININE CLEARANCE IN PREDICTING GLOMERULAR FILTRATION RATE . ESTIMATED GFR I S NOT APPLICABLE FOR DIALYSIS PATIEN TS. Lab Interpretation Abnormal (test code = 70883-2) [facility] [id number] 22:37:00 Test Item Value Reference Range Interpretation Comments TOTAL PROTEIN 7.3 gm/dL 6.0-8.5 (BEAKER) (test code = 770) ALBUMIN (BEAKER) 4.2 g/dL 3.5-5.0 (test code = 1145) ALKALINE PHOSPHATASE 117 U/L 30-115 H (BEAKER) (test code = 346) BILIRUBIN TOTAL 0.4 mg/dL 0.1-1.2 (BEAKER) (test code = 377) SODIUM (BEAKER) (test 140 meq/L 135-148 code = 381) POTASSIUM (BEAKER) 4.3 meq/L 3.6-5.5 (test code = 379) CHLORIDE (BEAKER) 107 meq/L 98-106 H (test code = 382) CO2 (BEAKER) (test 29 meq/L 24-32 code = 355) BLOOD UREA NITROGEN 32 mg/dL 10-26 H (BEAKER) (test code = 354) CREATININE (BEAKER) 2.54 mg/dL 0.50-1.20 H (test code = 358) GLUCOSE RANDOM 122 mg/dL 70-110 H (BEAKER) (test code = 652) CALCIUM (BEAKER) 9.4 mg/dL 8.5-10.5 (test code = 697) AST (SGOT) (BEAKER) 23 U/L 5-40 (test code = 353) ALT (SGPT) (BEAKER) 11 U/L 5-50 (test code = 347) EGFR (BEAKER) (test 22 mL/min/1.73 ESTIMA ANKITA GFR IS code = 1092) sq m NOT ACCURATE CREATININE CLEARANCE IN PREDICTING GLOMERULAR FILTRATION RATE . ESTIMATED GFR I S NOT APPLICABLE FOR DIALYSIS PATIEN TS. RAD, CHEST, 2 [id number] 22:37:00Referring: Dr. Sho Allen for exam:- >SHORTNESS OF BREATHShould this be performed at the bedside?->No [facility] : 1945 Sex: FFINAL REPORT CLINICAL HISTORY: Shortness of breath Two views of the chest are submitted. COMPARISON:08/31/2019 The cardiac silhouette is at the upper limits of normal for size. Thereis atherosclerotic calcification of the elongated aorta. There is no focal consolidation, pleural effusion, pneumothorax or evidence of overt pulmonary edema. There is no acute bony abnormality. Surgical clips overlie the left axilla. IMPRESSION: No acute abnormality. Signed: Maribell Matos MDReport Verified Date/Time: 05/13/2021 22:37:16 MG Bone Density Dexa [id number] 12:55:13Patient: ANA OLIVER Date/Time06/06/2020 12:18 CDTReason for ExamM85.50 Z79.811ReportLocation code: R 16HISTORY: M85.50 Z79.811COMPARISON: 11/04/2017FINDINGS:Right femoral neck bone mineral density: 0.7918 g/cm2, ( previously 0.8414 g/cm2), T score is -1.82, Z-score is not available. According to WHO classification, findings are osteopenic.Right hip total bone mineral de nsity: 0.7635 g/cm2 ( previously 0.7955 g/cm2) , T score is -2.27, Z-score is not available. According to WHO classification, findings are osteopenic.Lumbar spine total bone mineral density: 1.187 g/cm2 ( previously 1.209 g/cm2), , T score is -1.08, Z-score is not available. According to WHO classification, findings are osteopenic.Impression:Bone mineralization by WHO Classification is osteopenia, the fracture risk is increased.Compared to the 2017 exam, there is decreased bone density measured at all sites.The World Health Organization established that osteoporosis occurs at -2.5 SD below peak bone mass. In addition, osteopenia occurs at -1.0 SD to -2.5 SD below peak bone mass. Low bone mass is the single most accurate predictor for fracture risk. Final Dictated by: MD Abraham, Rosita FDictated DT/TM: 06/06/2020 12:53 pmSigned by: MD Rosario Eniola FSigned (Electronic Signature): 06/06/2020 12:55 pmMG Mammo Digital Diagnostic [id number] 13:51:32Patient: ANA OLIVER Date/Time09/30/2019 12:15 CSTReason for ExamC50.311 C50.412ReportClinical history: History of bilateral breast cancer status post bilateral lumpectomy.Location: R16.FINDINGS: A 3-D digital bilateral diagnostic mammogram is performed and interpreted with computer aided detection . Comparison is made with previous studies, most recent dated September 29, 2018. There are scattered fibroglandular densities within the breasts. There are stable post lumpectomy changes bilaterally. Persistent mild cutaneous thickening is seen of the left breast. There are benign-appearing calcifications.IMPRESSION:1. There is no mammographic evidence of malignancy in thispatient status post bilateral lumpectomy. Bilateral breast ultrasound performed today demonstrates benign findings.2. BI-RADS 2-benign findings. Normal screening interval. Final Dictated by: MD Pool, SharonandDictated DT/TM: 09/30/2019 12:27 pmSigned by: MD Pool, SharonandSigned (Electronic Signature): 09/30/2019 1:51 pmUS Breast Complete [id number] 13:50:33Patient: ANA OLIVER Date/Time09/30/2019 13:12 CSTReason for ExamC50.311 C50.412ReportCLINICAL HISTORY: History of bilateral breast cancer status post bilateral lumpectomyLocation: R16.FINDINGS: A unilateral left breast ultrasound examination is performed utilizing real time clark scale sonographic evaluation. The entire breast including all four quadrants , left axilla,and retroareolar region are evaluated.Comparison is made with previous study dated September 29, 2018 as well as previous mammograms including mammogram performed today.Diffuse superficial edema of the left breast is again noted as on the prior study. No focal cystic or solid lesions.IMPRESSION:1. Thereis diffuse stable superficial edema of the left breast.2. BI-RADS 2-benign findings. Normal screening interval.CLINICAL HISTORY: History of bilateral breast cancer status post bilateral lumpectomyLocation: R16.FINDINGS: A unilateral right breast ultrasound examination is performed utilizing real time clark scale sonographic evaluation. The entire breast including all four quadrants , right axilla, andretroareolar region are evaluated.Comparison is made with previous study dated September 29, 2018 as well as previous mammograms including mammogram performed today. 5 mm cyst at the 9:00 axis I cm from the nipple measures smaller compared to the prior study. No other cystic or solid lesions are identified.IMPRESSION:1. 5 mm cyst at the 9:00 axis of the right breast measures smaller compared to the previous study.2. BI- RADS 2-benign findings. Normal screening interval. Final Dictated by: MD Pool, SharonandDictated DT/TM: 09/30/2019 1:46 pmSigned by: MD Pool, RolandSigned (Electronic Signature): 09/30/2019 1:50 pmUS Breast Complete Left 2019-09-30 13:50:33Patient: ANA OLIVER Date/Time09/30/2019 13:12 CSTReason for ExamC50.311 C50.412ReportCLINICAL HISTORY: History of bilateral breast cancer status post bilateral lumpectomy Location: R16.FINDINGS: A unilateral left breast ultrasound examination is performed utilizing real time clark scale sonographic evaluation. The entire breast including all four quadrants , left axilla,and retroareolar region are evaluated.Comparison is made with previous study dated September 29, 2018 as well as previous mammograms including mammogram performed today.Diffuse superficial edema of the left breast is again noted as on the prior study. No focal cystic or solid lesions.IMPRESSION:1. Thereis diffuse stable superficial edema of the left breast.2. BI-RADS 2-benign findings. Normal screening interval.CLINICAL HISTORY: History of bilateral breast cancer status post bilateral lumpectomyLocation: R16.FINDINGS: A unilateral right breast ultrasound examination is performed utilizing real time clark scale sonographic evaluation. The entire breast including all four quadrants , right axilla, andretroareolar region are evaluated.Comparison is made with previous study dated September 29, 2018 as well as previous mammograms including mammogram performed today. 5 mm cyst at the 9:00 axis I cm from the nipple measures smaller compared to the prior study. No other cystic or solid lesions are identified.IMPRESSION:1. 5 mm cyst at the 9:00 axis of the right breast measures smaller compared to the prev ious study.2. BI-RADS 2-benign findings. Normal screening interval. Final Dictated by: MD Pool, SharonandDictated DT/TM: 09/30/2019 1:46 pmSigned by: MD Pool, RolandSigned (Electronic Signature): 09/30/2019 1:50 pmRAPID TROPONIN [id number] 11:13:00 Test Item Value Reference Range Interpretation Comments RAPID TROPONIN I (BEAKER) (test code < ng/mL <0.05 = 1483) RAPID [id number] 11:13:00 Test Item Value Reference Range Interpretation Comments RAPID CKMB (BEAKER) (test code = 1.1 ng/mL 0.0-4.3 1482) RAPID [id number] 11:13:00 Test Item Value Reference Range Interpretation Comments RAPID MYOGLOBIN (BEAKER) (test code 260 ng/mL <107 H = 2237) B-TYPE NATRIURETIC FACTOR (BNP)2019-08-31 11:09:00 Test Item Value Reference Range Interpretation Comments B-TYPE NATRIURETIC PEPTIDE (BEAKER) 250 pg/mL 0-100 H (test code = 700) [id number] 11:09:00 Test Item Value Reference Range Interpretation Comments PROTIME (BEAKER) (test code = 12.7 seconds 9.8-12.0 H 759) INR (BEAKER) (test code = 370) 1.2 <=5.9 PARTIAL THROMBOPLASTIN TIME 29.5 seconds 25.8-34.5 (BEAKER) (test code = 760) RECOMMENDED COUMADIN/WARFARIN INR THERAPY RANGESSTANDARD DOSE: 2.0 - 3.0 Includes: PROPHYLAXIS for venous thrombosis, systemic embolization; TREATMENT for venous thrombosis and/or pulmonary embolus.HIGH RISK: Target INR is 2.5-3.5 for patients with mechanical heart valves.BASIC METABOLIC [id number] 11:05:00 Test Item Value Reference Range Interpretation Comments SODIUM (BEAKER) 142 meq/L 135-148 (test code = 381) POTASSIUM (BEAKER) 4.0 meq/L 3.6-5.5 (test code = 379) CHLORIDE (BEAKER) 109 meq/L 98-106 H (test code = 382) CO2 (BEAKER) (test 28 meq/L 24-32 code = 355) BLOOD UREA NITROGEN 31 mg/dL 10-26 H (BEAKER) (test code = 354) CREATININE (BEAKER) 2.36 mg/dL 0.50-1.20 H (test code = 358) GLUCOSE RANDOM 91 mg/dL 70-110 (BEAKER) (test code = 652) CALCIUM (BEAKER) 10.0 mg/dL 8.5-10.5 (test code = 697) EGFR (BEAKER) (test 24 mL/min/1.73 ESTIMA ANKITA GFR IS code = 1092) sq m NOT ACCURATE CREATININE CLEARANCE IN PREDICTING GLOMERULAR FILTRATION RATE . ESTIMATED GFR I S NOT APPLICABLE FOR DIALYSIS PATIEN TS. [id number] 11:05:00 Test Item Value Reference Range Interpretation Comments MAGNESIUM (BEAKER) (test code = 2.4 mg/dL 1.5-3.0 627) CBC W/PLT COUNT & AUTO [id number] 10:56:00 Test Item Value Reference Range Interpretation Comments WHITE BLOOD CELL COUNT (BEAKER) 3.8 K/ L 4.0-10.0 L (test code = 775) RED BLOOD CELL COUNT (BEAKER) 4.45 M/ L 4.00-5.00 (test code = 761) HEMOGLOBIN (BEAKER) (test code = 11.6 GM/DL 12.0-15.0 L 410) HEMATOCRIT (BEAKER) (test code = 35.9 % 36.0-45.0 L 411) MEAN CORPUSCULAR VOLUME (BEAKER) 80.7 fL 82.0-99.0 L (test code = 753) MEAN CORPUSCULAR HEMOGLOBIN 26.0 pg 27.0-33.0 L (BEAKER) (test code = 751) MEAN CORPUSCULAR HEMOGLOBIN CONC 32.3 GM/DL 32.0-36.0 (BEAKER) (test code = 752) RED CELL DISTRIBUTION WIDTH 15.5 % 10.3-14.2 H (BEAKER) (test code = 412) PLATELET COUNT (BEAKER) (test 180 K/CU MM 150-430 code = 756) MEAN PLATELET VOLUME (BEAKER) 8.1 fL 6.5-10.5 (test code = 754) NEUTROPHILS RELATIVE PERCENT 47 % (BEAKER) (test code = 429) LYMPHOCYTES RELATIVE PERCENT 33 % (BEAKER) (test code = 430) MONOCYTES RELATIVE PERCENT 11 % (BEAKER) (test code = 431) EOSINOPHILS RELATIVE PERCENT 9 % (BEAKER) (test code = 432) BASOPHILS RELATIVE PERCENT 0 % (BEAKER) (test code = 437) NEUTROPHILS ABSOLUTE COUNT 1.79 K/ L 1.80-8.00 L (BEAKER) (test code = 670) LYMPHOCYTES ABSOLUTE COUNT 1.24 K/ L 1.48-4.50 L (BEAKER) (test code = 414) MONOCYTES ABSOLUTE COUNT (BEAKER) 0.42 K/ L 0.00-1.30 (test code = 415) EOSINOPHILS ABSOLUTE COUNT 0.32 K/ L 0.00-0.50 (BEAKER) (test code = 416) BASOPHILS ABSOLUTE COUNT (BEAKER) 0.02 K/ L 0.00-0.20 (test code = 417) RAD, CHEST, 2 [id number] 10:40:00Referring: Dr. Sho Allen for exam:->dyspneaFINAL REPORT INDICATION: dyspnea COMPARISON: February 19, 2019 TECHNIQUE: Frontal and lateral views of the chest. FINDINGS: Lungs and pleura: Clear lungs. No effusion.Heart and mediastinum: Normal heart size. Unremarkable mediastinal contours.Osseous structures: No acute abnormality.Additional findings: None. IMPRESSION: No acute intrathoracic abnormality. Signed: JR Garcias Robert MDReport Verified Date/Time: 08/31/2019 10:40:09 Reading Location: [facility] Reading Room BASIC METABOLIC [id number] 08:07:00 Test Item Value Reference Range Interpretation Comments SODIUM (BEAKER) 144 meq/L 136-145 (test code = 381) POTASSIUM (BEAKER) 3.9 meq/L 3.5-5.1 Specimen slightly (test code = 379) hemolyzed CHLORIDE (BEAKER) 109 meq/L 98-107 H (test code = 382) CO2 (BEAKER) (test 26 meq/L 22-29 code = 355) BLOOD UREA NITROGEN 27 mg/dL 7-21 H (BEAKER) (test code = 354) CREATININE (BEAKER) 2.05 mg/dL 0.57-1.25 H Specimen slightly (test code = 358) hemolyzed GLUCOSE RANDOM 73 mg/dL 70-105 (BEAKER) (test code = 652) CALCIUM (BEAKER) 9.2 mg/dL 8.4-10.2 (test code = 697) EGFR (BEAKER) (test 29 mL/min/1.73 ESTIMA ANKITA GFR IS code = 1092) sq m NOT ACCURATE CREATININE CLEARANCE IN PREDICTING GLOMERULAR FILTRATION RATE . ESTIMATED GFR I S NOT APPLICABLE FOR DIALYSIS PATIEN TS. CBC W/PLT COUNT & AUTO [id number] 07:48:00 Test Item Value Reference Range Interpretation Comments WHITE BLOOD CELL COUNT (BEAKER) 3.7 10*3/uL 3.5-10.5 (test code = 775) RED BLOOD CELL COUNT (BEAKER) 4.37 10*6/uL 3.93-5.22 (test code = 761) HEMOGLOBIN (BEAKER) (test code = 11.5 g/dL 11.2-15.7 410) HEMATOCRIT (BEAKER) (test code = 37.3 % 34.1-44.9 411) MEAN CORPUSCULAR VOLUME (BEAKER) 85.4 fL 79.4-94.8 (test code = 753) MEAN CORPUSCULAR HEMOGLOBIN 26.3 pg 25.6-32.2 (BEAKER) (test code = 751) MEAN CORPUSCULAR HEMOGLOBIN CONC 30.8 g/dL 32.2-35.5 L (BEAKER) (test code = 752) RED CELL DISTRIBUTION WIDTH 14.8 % 11.7-14.4 H (BEAKER) (test code = 412) PLATELET COUNT (BEAKER) (test 183 10*3/uL 150-450 code = 756) MEAN PLATELET VOLUME (BEAKER) 11.0 fL 9.0-12.3 (test code = 754) NEUTROPHILS RELATIVE PERCENT 44 % (BEAKER) (test code = 429) LYMPHOCYTES RELATIVE PERCENT 36 % (BEAKER) (test code = 430) MONOCYTES RELATIVE PERCENT 13 % (BEAKER) (test code = 431) EOSINOPHILS RELATIVE PERCENT 7 % (BEAKER) (test code = 432) BASOPHILS RELATIVE PERCENT 1 % (BEAKER) (test code = 437) NEUTROPHILS ABSOLUTE COUNT 1.61 10*3/uL 1.56-6.13 (BEAKER) (test code = 670) LYMPHOCYTES ABSOLUTE COUNT 1.32 10*3/uL 1.18-3.74 (BEAKER) (test code = 414) MONOCYTES ABSOLUTE COUNT 0.47 10*3/uL 0.24-0.36 H (BEAKER) (test code = 415) EOSINOPHILS ABSOLUTE COUNT 0.25 10*3/uL 0.04-0.36 (BEAKER) (test code = 416) BASOPHILS ABSOLUTE COUNT 0.03 10*3/uL 0.01-0.08 (BEAKER) (test code = 417) IMMATURE GRANULOCYTES-RELATIVE 0 % 0-1 PERCENT (BEAKER) (test code = 2801) COMPREHENSIVE METABOLIC [id number] 06:08:00 Test Item Value Reference Range Interpretation Comments TOTAL PROTEIN 6.7 gm/dL 6.0-8.3 (BEAKER) (test code = 770) ALBUMIN (BEAKER) 4.1 g/dL 3.5-5.0 (test code = 1145) ALKALINE PHOSPHATASE 105 U/L 40-150 (BEAKER) (test code = 346) BILIRUBIN TOTAL 0.4 mg/dL 0.2-1.2 (BEAKER) (test code = 377) SODIUM (BEAKER) (test 143 meq/L 136-145 code = 381) POTASSIUM (BEAKER) 3.6 meq/L 3.5-5.1 (test code = 379) CHLORIDE (BEAKER) 108 meq/L 98-107 H (test code = 382) CO2 (BEAKER) (test 26 meq/L 22-29 code = 355) BLOOD UREA NITROGEN 23 mg/dL 7-21 H (BEAKER) (test code = 354) CREATININE (BEAKER) 2.27 mg/dL 0.57-1.25 H (test code = 358) GLUCOSE RANDOM 92 mg/dL 70-105 (BEAKER) (test code = 652) CALCIUM (BEAKER) 9.2 mg/dL 8.4-10.2 (test code = 697) AST (SGOT) (BEAKER) 9 U/L 5-34 (test code = 353) ALT (SGPT) (BEAKER) 15 U/L 6-55 (test code = 347) EGFR (BEAKER) (test 25 mL/min/1.73 ESTIMA ANKITA GFR IS code = 1092) sq m NOT ACCURATE CREATININE CLEARANCE IN PREDICTING GLOMERULAR FILTRATION RATE . ESTIMATED GFR I S NOT APPLICABLE FOR DIALYSIS PATIEN TS. CBC W/PLT COUNT & AUTO [id number] 05:50:00 Test Item Value Reference Range Interpretation Comments WHITE BLOOD CELL COUNT (BEAKER) 4.3 K/ L 3.5-10.5 (test code = 775) RED BLOOD CELL COUNT (BEAKER) 4.65 M/ L 3.93-5.22 (test code = 761) HEMOGLOBIN (BEAKER) (test code = 12.1 GM/DL 11.2-15.7 410) HEMATOCRIT (BEAKER) (test code = 39.9 % 34.1-44.9 411) MEAN CORPUSCULAR VOLUME (BEAKER) 85.8 fL 79.4-94.8 (test code = 753) MEAN CORPUSCULAR HEMOGLOBIN 26.0 pg 25.6-32.2 (BEAKER) (test code = 751) MEAN CORPUSCULAR HEMOGLOBIN CONC 30.3 GM/DL 32.2-35.5 L (BEAKER) (test code = 752) RED CELL DISTRIBUTION WIDTH 15.1 % 11.7-14.4 H (BEAKER) (test code = 412) PLATELET COUNT (BEAKER) (test 174 K/CU MM 150-450 code = 756) MEAN PLATELET VOLUME (BEAKER) 9.9 fL 9.4-12.3 (test code = 754) NEUTROPHILS RELATIVE PERCENT 52 % (BEAKER) (test code = 429) LYMPHOCYTES RELATIVE PERCENT 28 % (BEAKER) (test code = 430) MONOCYTES RELATIVE PERCENT 12 % (BEAKER) (test code = 431) EOSINOPHILS RELATIVE PERCENT 7 % (BEAKER) (test code = 432) BASOPHILS RELATIVE PERCENT 1 % (BEAKER) (test code = 437) NEUTROPHILS ABSOLUTE COUNT 2.27 K/ L 1.56-6.13 (BEAKER) (test code = 670) LYMPHOCYTES ABSOLUTE COUNT 1.20 K/ L 1.18-3.74 (BEAKER) (test code = 414) MONOCYTES ABSOLUTE COUNT (BEAKER) 0.52 K/ L 0.24-0.36 H (test code = 415) EOSINOPHILS ABSOLUTE COUNT 0.31 K/ L 0.04-0.36 (BEAKER) (test code = 416) BASOPHILS ABSOLUTE COUNT (BEAKER) 0.02 K/ L 0.01-0.08 (test code = 417) IMMATURE GRANULOCYTES-RELATIVE 0 % 0-1 PERCENT (BEAKER) (test code = 2801) [id number] 11:42:00 Test Item Value Reference Range Interpretation Comments RPR SCREEN (BEAKER) (test code = Nonreactive Nonreactive 420) HEMOGLOBIN [id number] 06:14:00 Test Item Value Reference Range Interpretation Comments HEMOGLOBIN A1C (BEAKER) (test code = 6.1 % 4.3-6.1 368) VITAMIN B12 AND [id number] 02:44:00 Test Item Value Reference Range Interpretation Comments VITAMIN B12 (BEAKER) (test code = 402 pg/mL 213-816 774) FOLATE (BEAKER) (test code = 362) 10.7 ng/mL >=7.0 TSH/FREE T4 IF [id number] 22:51:00 Test Item Value Reference Range Interpretation Comments THYROID STIMULATING HORMONE 1.02 uIU/mL 0.35-4.94 (BEAKER) (test code = 772) BASIC METABOLIC [id number] 22:34:00 Test Item Value Reference Range Interpretation Comments SODIUM (BEAKER) 141 meq/L 136-145 (test code = 381) POTASSIUM (BEAKER) 3.9 meq/L 3.5-5.1 (test code = 379) CHLORIDE (BEAKER) 106 meq/L 98-107 (test code = 382) CO2 (BEAKER) (test 24 meq/L 22-29 code = 355) BLOOD UREA NITROGEN 29 mg/dL 7-21 H (BEAKER) (test code = 354) CREATININE (BEAKER) 2.28 mg/dL 0.57-1.25 H (test code = 358) GLUCOSE RANDOM 132 mg/dL 70-105 H (BEAKER) (test code = 652) CALCIUM (BEAKER) 10.2 mg/dL 8.4-10.2 (test code = 697) EGFR (BEAKER) (test 25 mL/min/1.73 ESTIMA ANKITA GFR IS code = 1092) sq m NOT ACCURATE CREATININE CLEARANCE IN PREDICTING GLOMERULAR FILTRATION RATE . ESTIMATED GFR I S NOT APPLICABLE FOR DIALYSIS PATIEN TS. LIPID [id number] 22:31:00 Test Item Value Reference Range Interpretation Comments TRIGLYCERIDES (BEAKER) (test code = 52 mg/dL 540) CHOLESTEROL (BEAKER) (test code = 178 mg/dL 631) HDL CHOLESTEROL (BEAKER) (test code 87 mg/dL = 976) LDL CHOLESTEROL CALCULATED (BEAKER) 81 mg/dL (test code = 633) Triglyceride Reference Range: Low Risk <150 Borderline 150-199 High Risk 200- 499 Very High Risk >=500Cholesterol Reference Range: Low Risk <200 Borderline 200-239 High Risk >240HDL Cholesterol Reference Range: Low Risk >=60 High Risk <40LDL Cholesterol Reference Range: Optimal <100 Near Optimal 100-129 Borderline 130-159 High 160-189 Very High >=190CBC W/PLT COUNT & AUTO [id number] 22:15:00 Test Item Value Reference Range Interpretation Comments WHITE BLOOD CELL COUNT (BEAKER) 4.6 K/ L 3.5-10.5 (test code = 775) RED BLOOD CELL COUNT (BEAKER) 4.57 M/ L 3.93-5.22 (test code = 761) HEMOGLOBIN (BEAKER) (test code = 11.8 GM/DL 11.2-15.7 410) HEMATOCRIT (BEAKER) (test code = 38.2 % 34.1-44.9 411) MEAN CORPUSCULAR VOLUME (BEAKER) 83.6 fL 79.4-94.8 (test code = 753) MEAN CORPUSCULAR HEMOGLOBIN 25.8 pg 25.6-32.2 (BEAKER) (test code = 751) MEAN CORPUSCULAR HEMOGLOBIN CONC 30.9 GM/DL 32.2-35.5 L (BEAKER) (test code = 752) RED CELL DISTRIBUTION WIDTH 15.0 % 11.7-14.4 H (BEAKER) (test code = 412) PLATELET COUNT (BEAKER) (test 170 K/CU MM 150-450 code = 756) MEAN PLATELET VOLUME (BEAKER) 10.4 fL 9.4-12.3 (test code = 754) NUCLEATED RED BLOOD CELLS 0 /100 WBC 0-0 (BEAKER) (test code = 413) NEUTROPHILS RELATIVE PERCENT 61 % (BEAKER) (test code = 429) LYMPHOCYTES RELATIVE PERCENT 24 % (BEAKER) (test code = 430) MONOCYTES RELATIVE PERCENT 10 % (BEAKER) (test code = 431) EOSINOPHILS RELATIVE PERCENT 4 % (BEAKER) (test code = 432) BASOPHILS RELATIVE PERCENT 0 % (BEAKER) (test code = 437) NEUTROPHILS ABSOLUTE COUNT 2.79 K/ L 1.56-6.13 (BEAKER) (test code = 670) LYMPHOCYTES ABSOLUTE COUNT 1.11 K/ L 1.18-3.74 L (BEAKER) (test code = 414) MONOCYTES ABSOLUTE COUNT (BEAKER) 0.47 K/ L 0.24-0.36 H (test code = 415) EOSINOPHILS ABSOLUTE COUNT 0.18 K/ L 0.04-0.36 (BEAKER) (test code = 416) BASOPHILS ABSOLUTE COUNT (BEAKER) 0.02 K/ L 0.01-0.08 (test code = 417) IMMATURE GRANULOCYTES-RELATIVE 0 % 0-1 PERCENT (BEAKER) (test code = 2801) US, [id number] 12:07:00Referring: Dr. Sho Allen for Exam:- >thyroid noduleFINAL REPORT EXAM: Thyroid UltrasoundINDICATION: thyroid nodule COMPARISON: Thyroid ultrasound 06/07/2012 TECHNIQUE: Transverse and sagittal images were obtained of the thyroid gland. FINDINGS: Thyroid gland:Size: Right lobe: 6.8 x 3.5 x 3.6 cm, increased in sizeLeft lobe: 7.5 x 3.4 x 3.9 cm, increased in size Isthmus: 1.3 cm, increased in sizeAppearance: Heterogeneous echotexturewithout increased vascularityMasses/Nodules: Right lobe: 4.7 x 3.2 x 4.3 cm solid (2 pts) nodule in the mid/inferior pole with smooth margin (0 pts), [id number]-zitm-wljj (0 pts), isoechoic (1 pt), and no calcifications (0 pts). Previously 2.0 cm. TR3c (>2.5 cm), Mildly Suspicious: FNA. Left lobe: 1 x 0.7 x 0.9 cm solid (2 pts) nodule in the superior pole with smooth margin (0 pts), qnuak-sjct-jiux (0 pts), hypoechoic (2 pts), and no calcifications (0 pts). Previously 3.0 cm. TR4b (1.0- 1.5 cm), Moderately Suspicious: Follow at 1, 2, 3, 5 years. Parathyroid:No focal parathyroid masses. 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 TR3c (>2.5 cm), Mildly Suspicious: FNA. A 1 cm left upper lobe nodule. TR4b (1.0-1.5 cm), Moderately Suspicious: Follow at 1, 2, 3, 5 years. TI-RADS Lexicon:TR1, Benign: No FNATR2, Not Suspicious: No FNA.TR3a (<1.5 cm): No follow-up.TR3b (1.5-2.5 cm), Mildly Suspicious: Follow at 1, 3, 5 years.TR3c (>2.5 cm), Mildly Suspicious: FNA.TR4a (<1.0 cm): No follow-up.TR4b (1.0-1.5 cm), Moderately Suspicious: Follow at 1, 2, 3, 5 years.TR4c (>1.5 cm), Moderately Suspicious: FNA.TR5a (<0.5 cm): No follow-up.TR5b (0.5-1.0 cm), Highly Suspicious: Follow at 1, 2, 3, 4, 5 years.TR5c (>1.0 cm), Highly Suspicious: FNA.*Rebiopsy if new suspicious features *No recommendation at this time for significant interval growth. Nodule Characteristics:*Benign features: cystic, hyperechoic, comet-tail artifact, complete halo*Minor suspicious features: solid, hypoechoic, other calcifications*Major suspicious features: microcalcifications, marked hypoechoic (less than strap muscle), suspicious lymph nodes, taller than wide, lobulated or ill-defined margins. Literature:ACR Thyroid Imaging, Reporting and Data System (TI-RADS): WhitePaper of the ACR TI-RADS Committee. J Am April Radiol 2017. Signed: Lora Collier MDReportVerified Date/Time: 03/12/2019 12:07:28 Reading Location: [facility] Reading Room [address] [place] [address] RAD, CHEST, 2 VIEWS 2019-02-19 15:02:00Referring: Dr. Sho Allen for Exam:->hx of atrial fibFINAL REPORT TECHNIQUE: Frontal and lateral views of the chest. INDICATION: hx of atrial fib. COMPARISON: Radiograph from 01/24/2018. FINDINGS: LINES/TUBES: None. LUNGS: The lungs are well inflated and clear. No consolidation or pulmonary edema. PLEURA: No pleural effusion or pneumothorax. HEART AND MEDIASTINUM: The cardiomediastinal silhouette is mildly enlarged. Mild calcification of the aortic arch. SOFT TISSUES AND BONES: Prior left axillary dissection. IMPRESSION: Mild cardiomegaly. No acute intrathoracic abnormality. Signed: Alessandra Arceo MDReport Verified Date/Time: 02/19/2019 15:02:54 Reading Location: [address] Radiology Reading Room PET, CARDIAC PERFUSION MULTIPLE STUDIES, REST AND [id number] 16:15:00Referring: Dr. Sho Zapata Reason for Exam:- >Atherosclerotic heart disease of [place] coronary artery with unspecified angina pectoris [I25.119] Chest pain, unspecified [R07.9]FINAL REPORT PROCEDURE: Rest/Stress MYOCARDIAL PERFUSION PET with regadenoson\\XA 9\\ CPT CODE: 62368 INDICATION: atherosclerotic heart disease of [place] coronary artery with unspecified angina pectoris HISTORY: Cardiac risk factors: Hypertension, hyperlipidemia. Other cardiovascularhistory: Cardia myopathy, atrial fibrillation. Recent cardiac symptoms: Syncope. Current cardiovascular- related medications: Multaq, Xarelto, metoprolol, Lasix, Norvasc, rosuvastatin. PROTOCOL: Limitedlow-dose CT imaging was performed for attenuation correction. 40.1 mCi of Rb-82 chloride was injected iv at rest, and gated PET (positron emission tomography) images were obtained. Subsequently, 40.0 mCi of Rb-82 chloride was injected iv at expected peak pharmacologic effect, and gated PET images wereobtained. PRELIMINARY STRESS TEST DATA FROM NONINVASIVE CARDIOLOGY: Pharmacologic stress was by 10-second iv infusion of 0.4 mg of regadenoson. Radiotracer was injected 30 seconds after start of stress. Heart rate was 71 beats/min at rest and 83 beats/min (56% of MPHR) at tracer injection. BP was 112/72 mmHg at rest and 188/38 mmHg at tracer injection. Stress was stopped for predetermined endpoint. The patient experienced dyspnea; treatment was not required. Preliminary ECG evaluation revealed sinusrhythm at rest and no ischemic changes with stress. (Final ECG interpretation and other stress and mo nitoring data are reported separately by Cardiology.) IMAGING FINDINGS: Study quality is good. Images obtained after rest and stress injections show normal LV activity. LV and RV volumes appear normal.Gated images obtained at rest and with stress show normal LV wall motion and thickening. LVEF at rest is 65%. LVEF at stress is 66%. IMPRESSION: 1. Normal study. 2. Appropriate pharmacologic stress. 3.Normal myocardial perfusion. 4. Normal resting LV function. No deterioration of function is noted with pharmacologic stress. 5. Normal extracardiac tracer distribution. 6. Compared to previous [facility] study on 21 February 2018, no changes noted. Signed: Suzi Davis MDReport Verified Date/Time: 12/10/201816:15:01 Reading Location: [address] Reading Room [facility] METABOLIC [id number] 14:38:00 Test Item Value Reference Range Interpretation Comments SODIUM (BEAKER) 143 meq/L 136-145 (test code = 381) POTASSIUM (BEAKER) 4.4 meq/L 3.5-5.1 (test code = 379) CHLORIDE (BEAKER) 108 meq/L 98-107 H (test code = 382) CO2 (BEAKER) (test 30 meq/L 22-29 H code = 355) BLOOD UREA NITROGEN 40 mg/dL 7-21 H (BEAKER) (test code = 354) CREATININE (BEAKER) 2.48 mg/dL 0.57-1.25 H (test code = 358) GLUCOSE RANDOM 83 mg/dL 70-105 (BEAKER) (test code = 652) CALCIUM (BEAKER) 9.9 mg/dL 8.4-10.2 (test code = 697) EGFR (BEAKER) (test 23 mL/min/1.73 ESTIMA ANKITA GFR IS code = 1092) sq m NOT ACCURATE CREATININE CLEARANCE IN PREDICTING GLOMERULAR FILTRATION RATE . ESTIMATED GFR I S NOT APPLICABLE FOR DIALYSIS PATIEN TS. HEPATIC FUNCTION [id number] 14:25:00 Test Item Value Reference Range Interpretation Comments TOTAL PROTEIN (BEAKER) (test code = 7.4 gm/dL 6.0-8.3 770) ALBUMIN (BEAKER) (test code = 1145) 4.0 g/dL 3.5-5.0 BILIRUBIN TOTAL (BEAKER) (test code 0.5 mg/dL 0.2-1.2 = 377) BILIRUBIN DIRECT (BEAKER) (test 0.2 mg/dL 0.1-0.5 code = 706) ALKALINE PHOSPHATASE (BEAKER) (test 135 U/L 40-150 code = 346) AST (SGOT) (BEAKER) (test code = 33 U/L 5-34 353) ALT (SGPT) (BEAKER) (test code = 25 U/L 6-55 347) CBC W/PLT COUNT & AUTO [id number] 13:35:00 Test Item Value Reference Range Interpretation Comments WHITE BLOOD CELL COUNT (BEAKER) 3.6 K/ L 3.5-10.5 (test code = 775) RED BLOOD CELL COUNT (BEAKER) 4.33 M/ L 3.93-5.22 (test code = 761) HEMOGLOBIN (BEAKER) (test code = 11.7 GM/DL 11.2-15.7 410) HEMATOCRIT (BEAKER) (test code = 38.8 % 34.1-44.9 411) MEAN CORPUSCULAR VOLUME (BEAKER) 89.6 fL 79.4-94.8 (test code = 753) MEAN CORPUSCULAR HEMOGLOBIN 27.0 pg 25.6-32.2 (BEAKER) (test code = 751) MEAN CORPUSCULAR HEMOGLOBIN CONC 30.2 GM/DL 32.2-35.5 L (BEAKER) (test code = 752) RED CELL DISTRIBUTION WIDTH 14.4 % 11.7-14.4 (BEAKER) (test code = 412) PLATELET COUNT (BEAKER) (test 168 K/CU MM 150-450 code = 756) MEAN PLATELET VOLUME (BEAKER) 11.1 fL 9.4-12.3 (test code = 754) NUCLEATED RED BLOOD CELLS 0 /100 WBC 0-0 (BEAKER) (test code = 413) NEUTROPHILS RELATIVE PERCENT 57 % (BEAKER) (test code = 429) LYMPHOCYTES RELATIVE PERCENT 22 % (BEAKER) (test code = 430) MONOCYTES RELATIVE PERCENT 16 % (BEAKER) (test code = 431) EOSINOPHILS RELATIVE PERCENT 4 % (BEAKER) (test code = 432) BASOPHILS RELATIVE PERCENT 1 % (BEAKER) (test code = 437) NEUTROPHILS ABSOLUTE COUNT 2.08 K/ L 1.56-6.13 (BEAKER) (test code = 670) LYMPHOCYTES ABSOLUTE COUNT 0.80 K/ L 1.18-3.74 L (BEAKER) (test code = 414) MONOCYTES ABSOLUTE COUNT (BEAKER) 0.58 K/ L 0.24-0.36 H (test code = 415) EOSINOPHILS ABSOLUTE COUNT 0.14 K/ L 0.04-0.36 (BEAKER) (test code = 416) BASOPHILS ABSOLUTE COUNT (BEAKER) 0.02 K/ L 0.01-0.08 (test code = 417) IMMATURE GRANULOCYTES-RELATIVE 0 % 0-1 PERCENT (BEAKER) (test code = 2801) MG Mammo Digital Diagnostic [id number] 14:58:31Patient: VARSHA OLIVERN REX Date/Time09/29/2018 11:28 CSTReason for ExamC50.4 12ReportLocation R 16EXAMS:- BILATERAL MAMMOGRAM WITH CAD, DIAGNOSTIC- LEFT BREAST ULTRASOUND COMPLETE- RIGHT BREAST ULTRASOUND COMPLETEHISTORY: 73 year-old female who presents for reevaluation. Right breast cancer status post partial mastectomy and radiation 2015. Left breast cancer status post partial mastectomy and radiation 2016.COMPARISON: Multiple mammograms dating as far back as 08/30/2011 mostrecent prior dated 05/12/2018MAMMOGRAM:CC , ML AND MLO views of both breasts. Spot compression CC andMLO views of both breasts.The breasts are heterogeneously dense which may obscure small masses.No evidence of new dominant mass, asymmetry, architectural distortion or suspicious microcalcifications is seen.Diffuse skin and trabecular thickening involving the left breast persists.ULTRASOUND:Technique:Complete survey of the left breast with survey of the left axilla obtained. Complete survey of the right breast with survey of the right axilla obtained. Real-time images of breasts performed by the radiologist as well.Left breast: Diffuse skin thickening. Diffuse edema interspersed between the fibroglandular tissues. No discrete mass. Stable 2:00 axis scar. No axillary lymphadenopathy.Right breast: Stable cyst at the 9:00 axis 1 cm from the nipple measures 7 x 3 x 4 mm. No discrete mass or lymphadenopathy.PHYSICAL EXAM:Diffuse skin discoloration involve both breast. Patchy areas of hypopigmentation involve both breasts (post radiation changes). Left breast is edematous.IMPRESSION:1. No mammographic or mammographic evidence of malignancy in either breast.2. Persistent interstitial edema throughout the left breast. Patient states this is improving. Compatible with posttreatment change.RECOMMENDATIONS: FOLLOW-UP MAMMOGRAM AND BILATERAL BREAST ULTRASOUND IN ONE YEAR IN THE ABSENCE OF CLINICAL FINDINGS.Exam Date/Time09/29/2018 11:28 CSTReportBI-RADS CATEGORY: 2: Benign Final Dictated by: Nicki Almaraz MD, Eniola FDictated DT/TM: 09/29/2018 2:46 pmSigned by: Nicki Almaraz MD, EniolaFSigned (Electronic Signature): 09/29/2018 2:58 pmUS Breast Complete [id number] 14:58:31Patient: ANA OLIVER Date/Time09/29/2018 13:34 CSTReason for ExamC50.412ReportLocation R 16EXAMS:- BILATERAL MAMMOGRAM WITH CAD, DIAGNOSTIC- LEFT BREAST ULTRASOUND COMPLETE- RIGHT BREAST ULTRASOUND COMPLETEHISTORY: 73 year-old female who presents for reevaluation. Right breast cancer status post partial mastectomy and radiation 2015. Left breast cancer status post partial mastectomy and radiation 2017.COMPARISON: Multiple mammograms dating as far back as 08/30/2011 mostrecent prior dated 05/12/2018MAMMOGRAM:CC , ML AND MLO views of both breasts. Spot compression CC andMLO views of both breasts.The breasts are heterogeneously dense which may obscure small masses.No evidence of new dominant mass, asymmetry, architectural distortion or suspicious microcalcifications is seen.Diffuse skin and trabecular thickening involving the left breast persists.ULTRASOUND:Technique:Complete survey of the left breast with survey of the left axilla obtained. Complete survey of the right breast with survey of the right axilla obtained. Real-time images of breasts performed by the radiologist as well.Left breast: Diffuse skin thickening. Diffuse edema interspersed between the fibroglandular tissues. No discrete mass. Stable 2:00 axis scar. No axillary lymphadenopathy.Right breast: Stable cyst at the 9:00 axis 1 cm from the nipple measures 7 x 3 x 4 mm. No discrete mass or lymphadenopathy.PHYSICAL EXAM:Diffuse skin discoloration involve both breast. Patchy areas of hypopigmentation involve both breasts (post radiation changes). Left breast is edematous.IMPRESSION:1. No mammographic or mammographic evidence of malignancy in either breast.2. Persistent interstitial edema throughout the left breast. Patient states this is improving. Compatible with posttreatment change.RECOMMENDATIONS: FOLLOW-UP MAMMOGRAM AND BILATERAL BREAST ULTRASOUND IN ONE YEAR IN THE ABSENCE OF CLINICAL FINDINGS.Exam Date/Time09/29/2018 13:34 CSTReportBI-RADS CATEGORY: 2: Benign Final Dictated by: Nicki Almaraz MD, Rosita FDictated DT/TM: 09/29/2018 2:46 pmSigned by: Nicki Almaraz MD, EthanaFSigned (Electronic Signature): 09/29/2018 2:58 pmUS Breast Complete [id number] 14:58:31Patient: ANA OLIVER Date/Time09/29/2018 13:34 CSTReason for ExamC50.412ReportLocation R 16EXAMS:- BILATERAL MAMMOGRAM WITH CAD, DIAGNOSTIC- LEFT BREAST ULTRASOUND COMPLETE- RIGHT BREAST ULTRASOUND COMPLETEHISTORY: 73 year-old female who presents for reevaluation. Right breast cancer status post partial mastectomy and radiation 2016. Left breast cancer status post partial mastectomy and radiation 2017.COMPARISON: Multiple mammograms dating as far back as 08/30/2011 mostrecent prior dated 05/12/2018MAMMOGRAM:CC , ML AND MLO views of both breasts. Spot compression CC andMLO views of both breasts.The breasts are heterogeneously dense which may obscure small masses.No evidence of new dominant mass, asymmetry, architectural distortion or suspicious microcalcifications is seen.Diffuse skin and trabecular thickening involving the left breast persists.ULTRASOUND:Technique:Complete survey of the left breast with survey of the left axilla obtained. Complete survey of the right breast with survey of the right axilla obtained. Real-time images of breasts performed by the radiologist as well.Left breast: Diffuse skin thickening. Diffuse edema interspersed between the fibroglandular tissues. No discrete mass. Stable 2:00 axis scar. No axillary lymphadenopathy.Right breast: Stable cyst at the 9:00 axis 1 cm from the nipple measures 7 x 3 x 4 mm. No discrete mass or lymphadenopathy.PHYSICAL EXAM:Diffuse skin discoloration involve both breast. Patchy areas of hypopigmentation involve both breasts (post radiation changes). Left breast is edematous.IMPRESSION:1. No mammographic or mammographic evidence of malignancy in either breast.2. Persistent interstitial edema throughout the left breast. Patient states this is improving. Compatible with posttreatment change.RECOMMENDATIONS: FOLLOW-UP MAMMOGRAM AND BILATERAL BREAST ULTRASOUND IN ONE YEAR IN THE ABSENCE OF CLINICAL FINDINGS.Exam Date/Time09/29/2018 13:34 CSTReportBI-RADS CATEGORY: 2: Benign Final Dictated by: Nicki Almaraz MD, Rosita FDictated DT/TM: 09/29/2018 2:46 pmSigned by: Nicki Almaraz MD, Aliviaigned (Electronic Signature): 09/29/2018 2:58 pmUS Breast Limited [id number] 10:34:11Patient: ANA OLIVER Date/Time05/12/2018 09:47 CDTReason for ExamC50.412ReportMG Mammo Digital Diagnostic Left, US Breast Limited LeftC50.412.Dictation Location: [id number] Information: 73-year-old female with history of left breast cancer diagnosed in 2016 status post lumpectomy and radiation therapy, presents for follow- upTechnique: Left digital mammogram with computer assisted diagnosis. Left CC, MLO, XCCL, ML views were obtained. Left CC and ML spot compression views were obtained.Comparison: Prior mammograms dating back to 04/10/2016Findings:The breasts are heterogeneously dense, which may obscure small masses. Scar markers were placed on the left breast, overlying stable postsurgical changes. There is left breast skin thickening and trabecular prominence compatiblewith postradiation changes. There are a few scattered benign type calcifications in the left breast.There are no suspicious masses or microcalcifications.Left breast ultrasound:Subsequent left breast ultrasound was performed utilizing a high frequency linear array transducer and targeted to the areasof concern.- 4:00, 5 cm from the nipple, postsurgical scar- Skin thickeningIMPRESSION:Stable post treatment changes in the left breast. The patient is due for annual bilateral mammogram and complete bilateral breast ultrasound July 2018.The patient was informed of the findings and recommendationsat the time of the examination.ACR BI-RADS CATEGORY: 3-PROBABLY BENIGNRECOMMENDATION: FOLLOW UP BILATERAL MAMMOGRAM AND BILATERAL BREAST ULTRASOUND 2017. Final Dictated by: MD Heard Daisha ADictated DT/TM: 05/12/2018 9:59 amSigned by: MD Heard Daisha ASigned (Electronic Signature): 05/12/2018 10:34 amMG Mammo Digital Diagnostic [id number] 10:34:11Patient: ANA OLIVER Date/Time05/12/2018 08:14 CDTReason for ExamC50.412ReportMG Mammo Digital Diagnostic Left, US Breast Limited LeftC50.412.Dictation Location: [id number] Information: 73-year-old female with history of left breast cancer diagnosed in 2016 status post lumpectomy and radiation therapy, presents for follow-upTechnique: Left digital mammogram with computer assisted diagnosis. Left CC, MLO, XCCL, ML views were obtained. Left CC and ML spot compression views were obtained.Comparison: Prior mammograms dating back to 04/10/2016Findings:The breasts are heterogeneously dense, which may obscure small masses. Scar markers were placed on the left breast, overlying stable postsurgical changes. There is left breast skin thickening and trabecular prominence compatiblewith postradiation changes. There are a few scattered benign type calcifications in the left breast.There are no suspicious masses or microcalcifications.Left breast ultrasound:Subsequent left breast ultrasound was performed utilizing a high frequency linear array transducer and targeted to the areasof concern.- 4:00, 5 cm from the nipple, postsurgical scar- Skin thickeningIMPRESSION:Stable post treatment changes in the left breast. The patient is due for annual bilateral mammogram and complete bilateral breast ultrasound July 2018.The patient was informed of the findings and recommendationsat the time of the examination.ACR BI-RADS CATEGORY: 3-PROBABLY BENIGNRECOMMENDATION: FOLLOW UP BILATERAL MAMMOGRAM AND BILATERAL BREAST ULTRASOUND 2017. Final Dictated by: MD Heard Daisha ADictated DT/TM: 05/12/2018 9:59 amSigned by: MD Heard Daisha ASigned (Electronic Signature): 05/12/2018 10:34 amHEPATIC FUNCTION [id number] 10:25:00 Test Item Value Reference Range Interpretation Comments TOTAL PROTEIN (BEAKER) (test code = 7.0 gm/dL 6.0-8.3 770) ALBUMIN (BEAKER) (test code = 1145) 3.7 g/dL 3.5-5.0 BILIRUBIN TOTAL (BEAKER) (test code 1.2 mg/dL 0.2-1.2 = 377) BILIRUBIN DIRECT (BEAKER) (test 0.8 mg/dL 0.1-0.5 H code = 706) ALKALINE PHOSPHATASE (BEAKER) (test 289 U/L 40-150 H code = 346) AST (SGOT) (BEAKER) (test code = 67 U/L 5-34 H 353) ALT (SGPT) (BEAKER) (test code = 59 U/L 6-55 H 347) TISSUE [id number] 15:39:00Surgical Pathology Report Case: [id number] Authorizing Provider: Angela Pederson MD Collected: 03/31/2018 1605 Ordering Location: [facility] Radiology Angio Received: 03/31/2018 1605 Pathologist: Jamey Mccullough MD Specimen: Biopsy, Liver LIVER, TRANSJUGULAR NEEDLE BIOPSIES- CHOLESTATIC HEPATITIS- MILD STEATOSIS- SEE COMMENT Signing Pathologist Direct Phone Line: [phone] signed by Jamey Mccullough MD on 04/07/2018 at 3:39 PMThe liver biopsy shows a biliary pattern of injury. This could be secondary to drug induced liver injury or due to biliary obstruction. Per EPIC note, the patient is on exemastane, which has been reported to cause cholestatic hepatitis (see reference). Clinical correlation is recommended. Griffin T, et al. Severe prolonged cholestatic hepatitis caused by exemestane. Breast Cancer Res Treat. 2009;121(3):789-91.91280, 82721 A6Rsfzsrah liver enzymes Transjugular liver biopsy Received in formalin labeled with the patient's information only are three light-mclaughlin cores of soft tissue ranging in length from 1.5 cm to 2.0 cm, entirely submitted in cassette A1. DB/ew Section shows multiple variably sized cores of liver parenchyma with greater than 10 portal tracts andis adequate for evaluation. The portal tracts show cholangiolar proliferation with associated neutrophilic infiltration and mild to moderate chronic lymphoplasmacytic inflammation. No significant interface hepatitis is noted. The bile ducts are preserved and show focally marked bile duct damage and neutrophilic infiltration. Rare focus of lymphocytic cholangitis is seen. Rare portal lipogranuloma is seen. The lobules show focal bile infarcts. There is mild steatosis, predominantly small droplet typeinvolving about about 10% of liver parenchyma. No ballooning degeneration is seen. Iron stain is negative. No hyaline globules are seen on PASD stain. Trichrome stain shows mild portal fibrosis.Specialstains: trichrome, reticulin, iron and PAS with diastaseMADHU, TRANSCATHETER [id number] 11:45:00Referring: Dr. Sho ZapataSpecify Organ:- >LiverReason for Exam:->Mixed pattern of liver enzyme elevation. Suspected DILI or sarcoidosisFINAL REPORT Transjugular liver biopsy. History: Mixed pattern of liver enzyme elevation. Modality: Fluoroscopy. SEDATION: Moderate sedation was administered 1 mg of Versed and 50 mcg of fentanyl IV was used for moderate sedation monitored under my direction. Total intraservice time of sedation was 30 minutes. The patient's vital signs were monitored throughout the procedure and recorded in the patient's medical record by the nurse sedation. Heel Varnisher: Dread Prajapati MD. Football Pad Repairer: Jovany Aguilar DO. Approach: Right internal jugular vein Estimated blood loss: < 5 cc. Specimen: 3 19-gauge core specimens placed within formalin and sent to pathology. Reference air kerma (Ka, r): 111 mGy Fluoroscopy time: 7.1 min Technique: Informed written consent was obtained. Discussion of risks, benefits, and alternatives were made with the patient. The patient expressed understandin g and agreed to proceed. A universal timeout was performed prior to starting the procedure. All elements maximal sterile barrier technique was utilized for this procedure, including utilization of sterile scrub solution for skin prep, a large sterile sheet to cover the areas of the patient that were not prepped, and hand hygiene, mask, head covering, and sterile gown for performing radiologist and scrub technologist. Ultrasound evaluation showed a patent and compressible right right internal jugularvein, which was punctured under direct real-time ultrasound guidance with a micropuncture needle. Anultrasound image was saved to PACS. A 0.018 inch wire was placed through the needle into the right atrium. A 4 Swiss micropuncture sheath was placed. A 0.035 inch J-wire was placed through the micropuncture sheath and the sheath was exchanged for a 9 Swiss sheath. A 5 Swiss angled tip catheter was used to select the right hepatic vein. Venogram was performed. Pressures were obtained through the catheter with measurements as follows: wedged hepatic - 11 mmHg, free hepatic - 8, and right atrium - 1. A long metal reinforced 7 Swiss sheath was placed through the 9 Swiss sheath into the right hepatic vein. A long 19-gauge core biopsy needle was then placed through sheath with 3 core samples obtained within the liver. The needle and sheath were removed. Hemostasis was obtained with manual compression. The patient tolerated the procedure well and left the department in the same condition. Findings: Venogram demonstrates patent right hepatic vein and intrahepatic IVC. Impression: Successful, uncomplicated transjugular liver biopsy, using fluoroscopic guidance and conscious sedation. HVPG 3 mmHg. Signed: Dread Prajapati MDReport Verified Date/Time: 04/04/2018 11:45:58 Reading Location: [facility] Diagnostic Imaging Reading Room - [place] [id number] 1120 U/S, ABDOMINAL, [id number] 17:50:00Referring: Dr. Sho Allen for Exam:->abnormal liver enzyme, rule out bile duct dilatationFINAL REPORT Abdominal ultrasound dated 03/31/2018 Clinical information:abnormal liver enzyme, rule out bile duct dilatation Comment: Real-time transabdominal ultrasound was performed. Liver is normal in size and measures 14.9 cm in length. The echogenicity of the liver is normal. No focal lesion is noted in the liver. Spleen is normal in size without focal abnormality. Gallbladderis surgically absent. No biliary dilatation is seen. Common bile duct measures 6 mm in diameter. Main portal vein measures 11 mm in diameter. Pancreas is visualized and unremarkable. Right kidney measures 7.7 x 4.4 x 4.1 cm. Left kidney measures 8.5 x 3.8 x 3.6 cm. Echogenicity of both kidney is increased. No hydronephrosis or solid mass seen in either kidney. No cyst is seen in the either kidney. Noascites is present in the abdomen. Abdominal aorta is normal in caliber. IVC and Hepatic veins are pa tent. Impression: 1. Small echogenic kidneys suggestive of renal parenchymal disease. 2. Status postcholecystectomy.3. Otherwise unremarkable abdominal ultrasound. Signed: Micha Reaves MDReport Verified Date/Time: 03/31/2018 17:50:37 Reading Location: [facility] [id number] Ultrasound Reading Room COMPREHENSIVE METABOLIC PANEL 2018-03-31 09:56:00 Test Item Value Reference Range Interpretation Comments TOTAL PROTEIN 7.3 gm/dL 6.0-8.3 (BEAKER) (test code = 770) ALBUMIN (BEAKER) 3.8 g/dL 3.5-5.0 (test code = 1145) ALKALINE PHOSPHATASE 295 U/L 40-150 H (BEAKER) (test code = 346) BILIRUBIN TOTAL 1.7 mg/dL 0.2-1.2 H (BEAKER) (test code = 377) SODIUM (BEAKER) (test 141 meq/L 136-145 code = 381) POTASSIUM (BEAKER) 4.1 meq/L 3.5-5.1 (test code = 379) CHLORIDE (BEAKER) 104 meq/L 98-107 (test code = 382) CO2 (BEAKER) (test 23 meq/L 22-29 code = 355) BLOOD UREA NITROGEN 50 mg/dL 7-21 H (BEAKER) (test code = 354) CREATININE (BEAKER) 2.92 mg/dL 0.57-1.25 H (test code = 358) GLUCOSE RANDOM 79 mg/dL 70-105 (BEAKER) (test code = 652) CALCIUM (BEAKER) 9.8 mg/dL 8.4-10.2 (test code = 697) AST (SGOT) (BEAKER) 49 U/L 5-34 H (test code = 353) ALT (SGPT) (BEAKER) 77 U/L 6-55 H (test code = 347) EGFR (BEAKER) (test 19 mL/min/1.73 ESTIMA ANKITA GFR IS code = 1092) sq m NOT ACCURATE CREATININE CLEARANCE IN PREDICTING GLOMERULAR FILTRATION RATE . ESTIMATED GFR I S NOT APPLICABLE FOR DIALYSIS PATIEN TS. PT/[id number] 09:43:00 Test Item Value Reference Range Interpretation Comments PROTIME (BEAKER) (test code = 13.4 seconds 11.7-14.7 759) INR (BEAKER) (test code = 370) 1.0 <=5.9 PARTIAL THROMBOPLASTIN TIME 25.6 seconds 22.5-36.0 (BEAKER) (test code = 760) RECOMMENDED COUMADIN/WARFARIN INR THERAPY RANGESSTANDARD DOSE: 2.0 - 3.0 Includes: PROPHYLAXIS for venous thrombosis, systemic embolization; TREATMENT for venous thrombosis and/or pulmonary embolus.HIGH RISK: Target INR is 2.5-3.5 for patients with mechanical heart valves.PLATELET [id number] 09:27:00 Test Item Value Reference Range Interpretation Comments PLATELET COUNT (BEAKER) (test 188 K/CU MM 150-450 code = 756) MITOCHONDRIA M2 ANTIBODY (IGG)2018-03-31 09:02:00 Test Item Value Reference Range Interpretation Comments SCAN RESULT (test code = 3073020) HEPATITIS B SURFACE [id number] 19:58:00 Test Item Value Reference Range Interpretation Comments HEPATITIS B SURFACE ANTIBODY < mIU/mL <8.0 (BEAKER) (test code = 647) HEPATITIS B SURFACE [id number] 19:56:00 Test Item Value Reference Range Interpretation Comments HEPATITIS B SURFACE ANTIGEN (2) Nonreactive Nonreactive (BEAKER) (test code = 2585) IRON, TIBC, % SAT. (WITHOUT FERRITIN)2018-03-24 19:30:00 Test Item Value Reference Range Interpretation Comments IRON (BEAKER) (test code = 547) 113 ug/dL 40-160 TOTAL IRON BINDING CAPACITY 366 ug/dL 250-450 (BEAKER) (test code = 769) IRON % SATURATION (2) (BEAKER) 31 % 20-55 (test code = 2590) CARCINOEMBRYONIC ANTIGEN (CEA)2018-03-24 18:06:00 Test Item Value Reference Range Interpretation Comments CARCINOEMBRYONIC ANTIGEN (BEAKER) 4.8 ng/mL 0.0-5.0 (test code = 685) [id number] 18:06:00 Test Item Value Reference Range Interpretation Comments FERRITIN (BEAKER) (test code = 361) 257 ng/mL 5-275 ALPHA FETOPROTEIN (AFP), TUMOR [id number] 17:44:00 Test Item Value Reference Range Interpretation Comments ALPHA-FETOPROTEIN (BEAKER) (test 2.0 ng/mL <10.0 code = 1094) HEPATITIS B CORE ANTIBODY, [id number] 17:44:00 Test Item Value Reference Range Interpretation Comments HEPATITIS B CORE TOTAL ANTIBODY Nonreactive Nonreactive (BEAKER) (test code = 497) HEPATITIS A ANTIBODY, [id number] 17:44:00 Test Item Value Reference Range Interpretation Comments HEPATITIS A IGG ANTIBODY (BEAKER) Nonreactive Nonreactive (test code = 2797) [id number] 17:40:00 Test Item Value Reference Range Interpretation Comments ALPHA-1 ANTITRYPSIN (BEAKER) 152.80 mg/dL 90.00-200.00 (test code = 502) COMPREHENSIVE METABOLIC [id number] 17:31:00 Test Item Value Reference Range Interpretation Comments TOTAL PROTEIN 7.7 gm/dL 6.0-8.3 (BEAKER) (test code = 770) ALBUMIN (BEAKER) 3.9 g/dL 3.5-5.0 (test code = 1145) ALKALINE PHOSPHATASE 287 U/L 40-150 H (BEAKER) (test code = 346) BILIRUBIN TOTAL 1.7 mg/dL 0.2-1.2 H (BEAKER) (test code = 377) SODIUM (BEAKER) (test 143 meq/L 136-145 code = 381) POTASSIUM (BEAKER) 4.5 meq/L 3.5-5.1 (test code = 379) CHLORIDE (BEAKER) 104 meq/L 98-107 (test code = 382) CO2 (BEAKER) (test 27 meq/L 22-29 code = 355) BLOOD UREA NITROGEN 59 mg/dL 7-21 H (BEAKER) (test code = 354) CREATININE (BEAKER) 3.21 mg/dL 0.57-1.25 H (test code = 358) GLUCOSE RANDOM 84 mg/dL 70-105 (BEAKER) (test code = 652) CALCIUM (BEAKER) 10.0 mg/dL 8.4-10.2 (test code = 697) AST (SGOT) (BEAKER) 117 U/L 5-34 H (test code = 353) ALT (SGPT) (BEAKER) 107 U/L 6-55 H (test code = 347) EGFR (BEAKER) (test 17 mL/min/1.73 ESTIMA ANKITA GFR IS code = 1092) sq m NOT ACCURATE CREATININE CLEARANCE IN PREDICTING GLOMERULAR FILTRATION RATE . ESTIMATED GFR I S NOT APPLICABLE FOR DIALYSIS PATIEN TS. GAMMA GLUTAMYL TRANSFERASE (GGT)2018-03-24 17:29:00 Test Item Value Reference Range Interpretation Comments GAMMA GLUTAMYL TRANSFERASE (BEAKER) 1161 U/L 9-64 H (test code = 364) BILIRUBIN, [id number] 17:29:00 Test Item Value Reference Range Interpretation Comments BILIRUBIN DIRECT (BEAKER) (test 1.2 mg/dL 0.1-0.5 H code = 706) [id number] 17:13:00 Test Item Value Reference Range Interpretation Comments PARTIAL THROMBOPLASTIN TIME 22.9 seconds 22.5-36.0 (BEAKER) (test code = 760) PROTHROMBIN [id number] 17:12:00 Test Item Value Reference Range Interpretation Comments PROTIME (BEAKER) (test code = 21.6 seconds 11.7-14.7 H 759) INR (BEAKER) (test code = 370) 1.9 <=5.9 RECOMMENDED COUMADIN/WARFARIN INR THERAPY RANGESSTANDARD DOSE: 2.0 - 3.0 Includes: PROPHYLAXIS for venous thrombosis, systemic embolization; TREATMENT for venous thrombosis and/or pulmonary embolus.HIGH RISK: Target INR is 2.5-3.5 for patients with mechanical heart valves.CBC W/PLT COUNT & AUTO [id number] 17:03:00 Test Item Value Reference Range Interpretation Comments WHITE BLOOD CELL COUNT (BEAKER) 4.5 K/ L 3.5-10.5 (test code = 775) RED BLOOD CELL COUNT (BEAKER) 4.42 M/ L 3.93-5.22 (test code = 761) HEMOGLOBIN (BEAKER) (test code = 12.0 GM/DL 11.2-15.7 410) HEMATOCRIT (BEAKER) (test code = 39.8 % 34.1-44.9 411) MEAN CORPUSCULAR VOLUME (BEAKER) 90.0 fL 79.4-94.8 (test code = 753) MEAN CORPUSCULAR HEMOGLOBIN 27.1 pg 25.6-32.2 (BEAKER) (test code = 751) MEAN CORPUSCULAR HEMOGLOBIN CONC 30.2 GM/DL 32.2-35.5 L (BEAKER) (test code = 752) RED CELL DISTRIBUTION WIDTH 14.3 % 11.7-14.4 (BEAKER) (test code = 412) PLATELET COUNT (BEAKER) (test 282 K/CU MM 150-450 code = 756) MEAN PLATELET VOLUME (BEAKER) 10.5 fL 9.4-12.3 (test code = 754) NUCLEATED RED BLOOD CELLS 0 /100 WBC 0-0 (BEAKER) (test code = 413) NEUTROPHILS RELATIVE PERCENT 67 % (BEAKER) (test code = 429) LYMPHOCYTES RELATIVE PERCENT 17 % (BEAKER) (test code = 430) MONOCYTES RELATIVE PERCENT 14 % (BEAKER) (test code = 431) EOSINOPHILS RELATIVE PERCENT 0 % (BEAKER) (test code = 432) BASOPHILS RELATIVE PERCENT 1 % (BEAKER) (test code = 437) NEUTROPHILS ABSOLUTE COUNT 3.04 K/ L 1.56-6.13 (BEAKER) (test code = 670) LYMPHOCYTES ABSOLUTE COUNT 0.75 K/ L 1.18-3.74 L (BEAKER) (test code = 414) MONOCYTES ABSOLUTE COUNT (BEAKER) 0.63 K/ L 0.24-0.36 H (test code = 415) EOSINOPHILS ABSOLUTE COUNT 0.02 K/ L 0.04-0.36 L (BEAKER) (test code = 416) BASOPHILS ABSOLUTE COUNT (BEAKER) 0.04 K/ L 0.01-0.08 (test code = 417) IMMATURE GRANULOCYTES-RELATIVE 1 % 0-1 PERCENT (BEAKER) (test code = 2801) BASIC METABOLIC [id number] 14:56:00 Test Item Value Reference Range Interpretation Comments SODIUM (BEAKER) 141 meq/L 136-145 (test code = 381) POTASSIUM (BEAKER) 3.4 meq/L 3.5-5.1 L (test code = 379) CHLORIDE (BEAKER) 100 meq/L 98-107 (test code = 382) CO2 (BEAKER) (test 23 meq/L 22-29 code = 355) BLOOD UREA NITROGEN 55 mg/dL 7-21 H (BEAKER) (test code = 354) CREATININE (BEAKER) 3.97 mg/dL 0.57-1.25 H (test code = 358) GLUCOSE RANDOM 84 mg/dL 70-105 (BEAKER) (test code = 652) CALCIUM (BEAKER) 9.8 mg/dL 8.4-10.2 (test code = 697) EGFR (BEAKER) (test 13 mL/min/1.73 ESTIMA ANKITA GFR IS code = 1092) sq m NOT ACCURATE CREATININE CLEARANCE IN PREDICTING GLOMERULAR FILTRATION RATE . ESTIMATED GFR I S NOT APPLICABLE FOR DIALYSIS PATIEN TS. Specimen slightly ictericB-TYPE NATRIURETIC FACTOR (BNP)2018-02-27 14:49:00 Test Item Value Reference Range Interpretation Comments B-TYPE NATRIURETIC PEPTIDE (BEAKER) 308 pg/mL 0-100 H (test code = 700) [id number] 14:41:00 Test Item Value Reference Range Interpretation Comments MAGNESIUM (BEAKER) (test code = 2.4 mg/dL 1.6-2.6 627) PET, CARDIAC PERFUSION MULTIPLE STUDIES, REST AND [id number] 16:14:00 Reason for exam:->chronic chest pain, SOB, cardiac sarcoidosis and Heart failureFINAL REPORT PROCEDURE: Rest/Stress MYOCARDIAL PERFUSION PET with regadenoson\\XA9\\ CPT CODE: 07603 INDICATION: Chest pain HISTORY: Cardiac risk factors: Hypertension, hyperlipidemia, CKD. Other cardiovascular history: CAD, cardiac sarcoidosis, atrial fibrillation, VT status post ablation. Recent cardiac symptoms: Heart failure. Current cardiovascular- related medications: Norvasc,Cozaar, metoprolol, Lasix, Xarelto. PROTOCOL: Limited low-dose CT imaging was performed for attenuation correction. 40.2 mCi of Rb-82 chloride was injected iv at rest, and gated PET (positron emission t omography) images were obtained. Subsequently, 40.1 mCi of Rb-82 chloride was injected iv at expected peak pharmacologic effect, and gated PET images were obtained. PRELIMINARY STRESS TEST DATA FROM NONINVASIVE CARDIOLOGY: Pharmacologic stress was by 10-second iv infusion of 0.4 mg of regadenoson. Radi otracer was injected 30 seconds after start of stress. Heart rate was 107 beats/min at rest and 114 beats/min (77% of MPHR) at tracer injection. BP was 138/67 mmHg at rest and 92/42 mmHg at tracer injection. Stress was stopped for predetermined endpoint. The patient experienced dyspnea, lightheadedness; treatment was 125 mg IV aminophylline. Preliminary ECG evaluation revealed sinus bradycardia with right bundle branch block at rest and no ischemic changes with stress. (Final ECG interpretation and other stress and monitoring data are reported separately by Cardiology.) IMAGING FINDINGS: Study quality is fair with reconstruction artifact. Images obtained after rest and stress injections show normal LV activity. LV and RV volumes appear normal. Gated images obtained at rest and with stress show normal LV wall motion and thickening. LVEF at rest is 52%. LVEF at stress is 56%. IMPRESSION: 1. Normalstudy. 2. Appropriate pharmacologic stress. 3. Normal myocardial perfusion. 4. Normal resting LV func tion. No deterioration of function is noted with pharmacologic stress. 5. Normal extracardiac tracerdistribution. 6. The previous [facility] SPECT study on June 19, 2002, was also reported normal. NONINVASIVE RISK STRATIFICATION: The above findings are considered low risk (<1% annual mortality rate) based on the following criterion:- Normal or small myocardial perfusion defect at rest or with stress(JACC. 2012;59(9):857-22.) Signed: John Serna MDReport Verified Date/Time: 02/21/2018 16:14:33 Reading Location: [address] Reading [facility] HEMOGLOBIN [id number] 11:29:00 Test Item Value Reference Range Interpretation Comments HEMOGLOBIN A1C (BEAKER) (test code = 5.4 % 4.3-6.1 368) CBC W/PLT COUNT & AUTO [id number] 07:33:00 Test Item Value Reference Range Interpretation Comments WHITE BLOOD CELL COUNT (BEAKER) 2.7 K/ L 3.5-10.5 L (test code = 775) RED BLOOD CELL COUNT (BEAKER) 4.13 M/ L 3.93-5.22 (test code = 761) HEMOGLOBIN (BEAKER) (test code = 11.1 GM/DL 11.2-15.7 L 410) HEMATOCRIT (BEAKER) (test code = 36.6 % 34.1-44.9 411) MEAN CORPUSCULAR VOLUME (BEAKER) 88.6 fL 79.4-94.8 (test code = 753) MEAN CORPUSCULAR HEMOGLOBIN 26.9 pg 25.6-32.2 (BEAKER) (test code = 751) MEAN CORPUSCULAR HEMOGLOBIN CONC 30.3 GM/DL 32.2-35.5 L (BEAKER) (test code = 752) RED CELL DISTRIBUTION WIDTH 15.9 % 11.7-14.4 H (BEAKER) (test code = 412) PLATELET COUNT (BEAKER) (test 214 K/CU MM 150-450 code = 756) MEAN PLATELET VOLUME (BEAKER) 10.8 fL 9.4-12.3 (test code = 754) NUCLEATED RED BLOOD CELLS 0 /100 WBC 0-0 (BEAKER) (test code = 413) IMMATURE GRANULOCYTES-RELATIVE 1 % 0-1 PERCENT (BEAKER) (test code = 2801) (MANUAL DIFFERENTIAL)2018-02-21 07:33:00 Test Item Value Reference Range Interpretation Comments NEUTROPHILS - REL (DIFF) (BEAKER) 66 % (test code = 1359) LYMPHOCYTES - REL (DIFF) (BEAKER) 10 % (test code = 1360) MONOCYTES - REL (DIFF) (BEAKER) 14 % (test code = 1361) EOSINOPHILS - REL (DIFF) (BEAKER) 9 % (test code = 1362) BASOPHILS - REL (DIFF) (BEAKER) 1 % (test code = 1363) NEUTROPHILS - ABS (DIFF) (BEAKER) 1.78 K/ L 1.80-8.00 L (test code = 1365) LYMPHOCYTES - ABS (DIFF) (BEAKER) 0.27 K/ L 1.48-4.50 L (test code = 1366) MONOCYTES - ABS (DIFF) (BEAKER) 0.38 K/ L 0.00-1.30 (test code = 1367) EOSINOPHILS - ABS (DIFF) (BEAKER) 0.24 K/ L 0.00-0.50 (test code = 1368) BASOPHILS - ABS (DIFF) (BEAKER) 0.03 K/ L 0.00-0.20 (test code = 1369) TOTAL COUNTED (BEAKER) (test code = 100 1351) WBC MORPHOLOGY (BEAKER) (test code Normal = 487) PLT MORPHOLOGY (BEAKER) (test code Normal = 486) RBC MORPHOLOGY (BEAKER) (test code Normal = 762) CALCIUM, [id number] 07:29:00 Test Item Value Reference Range Interpretation Comments CALCIUM IONIZED (BEAKER) (test 1.04 mmol/L 1.12-1.27 L code = 698) PH, BLOOD (BEAKER) (test code = 7.36 1810) TSH/FREE T4 IF [id number] 06:36:00 Test Item Value Reference Range Interpretation Comments THYROID STIMULATING HORMONE 1.01 uIU/mL 0.35-4.94 (BEAKER) (test code = 772) COMPREHENSIVE METABOLIC [id number] 06:25:00 Test Item Value Reference Range Interpretation Comments TOTAL PROTEIN 6.6 gm/dL 6.0-8.3 (BEAKER) (test code = 770) ALBUMIN (BEAKER) 3.3 g/dL 3.5-5.0 L (test code = 1145) ALKALINE PHOSPHATASE 378 U/L 40-150 H (BEAKER) (test code = 346) BILIRUBIN TOTAL 1.9 mg/dL 0.2-1.2 H (BEAKER) (test code = 377) SODIUM (BEAKER) (test 141 meq/L 136-145 code = 381) POTASSIUM (BEAKER) 4.0 meq/L 3.5-5.1 (test code = 379) CHLORIDE (BEAKER) 107 meq/L 98-107 (test code = 382) CO2 (BEAKER) (test 22 meq/L 22-29 code = 355) BLOOD UREA NITROGEN 39 mg/dL 7-21 H (BEAKER) (test code = 354) CREATININE (BEAKER) 2.95 mg/dL 0.57-1.25 H (test code = 358) GLUCOSE RANDOM 99 mg/dL 70-105 (BEAKER) (test code = 652) CALCIUM (BEAKER) 9.6 mg/dL 8.4-10.2 (test code = 697) AST (SGOT) (BEAKER) 71 U/L 5-34 H (test code = 353) ALT (SGPT) (BEAKER) 70 U/L 6-55 H (test code = 347) EGFR (BEAKER) (test 19 mL/min/1.73 ESTIMA ANKITA GFR IS code = 1092) sq m NOT ACCURATE CREATININE CLEARANCE IN PREDICTING GLOMERULAR FILTRATION RATE . ESTIMATED GFR I S NOT APPLICABLE FOR DIALYSIS PATIEN TS. URIC [id number] 06:21:00 Test Item Value Reference Range Interpretation Comments URIC ACID (BEAKER) (test code = 9.3 mg/dL 2.6-7.2 H 773) [id number] 06:21:00 Test Item Value Reference Range Interpretation Comments PHOSPHORUS (BEAKER) (test code = 4.4 mg/dL 2.3-4.7 604) LIPID [id number] 06:21:00 Test Item Value Reference Range Interpretation Comments TRIGLYCERIDES (BEAKER) (test code = 80 mg/dL 540) CHOLESTEROL (BEAKER) (test code = 292 mg/dL 631) HDL CHOLESTEROL (BEAKER) (test code 75 mg/dL = 976) LDL CHOLESTEROL CALCULATED (BEAKER) 201 mg/dL (test code = 633) Triglyceride Reference Range: Low Risk <150 Borderline 150-199 High Risk 200- 499 Very High Risk >=500Cholesterol Reference Range: Low Risk <200 Borderline 200-239 High Risk >240HDL Cholesterol Reference Range: Low Risk >=60 High Risk <40LDL Cholesterol Reference Range: Optimal <100 Near Optimal 100-129 Borderline 130-159 High 160-189 Very High >=190MAGNESIUM 2018-02-21 06:10:00 Test Item Value Reference Range Interpretation Comments MAGNESIUM (BEAKER) 2.5 mg/dL 1.6-2.6 Specimen slightly (test code = 627) hemolyzed HEPATITIS PANEL, [id number] 00:50:00 Test Item Value Reference Range Interpretation Comments HEPATITIS A IGM ANTIBODY (BEAKER) Nonreactive Nonreactive (test code = 498) HEPATITIS B CORE IGM ANTIBODY Nonreactive Nonreactive (BEAKER) (test code = 645) HEPATITIS C ANTIBODY (BEAKER) Nonreactive Nonreactive (test code = 367) HEPATITIS B SURFACE ANTIGEN (2) Nonreactive Nonreactive (BEAKER) (test code = 2585) U/S, RENAL, [id number] 12:30:00Reason for Exam:->n17.9Reason for Exam:->n18.4FINAL REPORT TECHNIQUE: Grayscale ultrasound of the kidneys and bladder. INDICATION: 72-year-old woman with acute on chronic kidney failure. COMPARISON: Abdomen ultrasound 02/25/2014, abdomen and pelvis CT 03/15/2011. FINDINGS: RIGHT KIDNEY: The right kidney is mildly echogenic and me asures 9.4 cm. Cortical thickness measures 1 cm. No solid mass lesions. 1.1 x 1.1 x 1.1 cm cyst in the upper pole. No hydronephrosis. Renal artery and vein are patent. LEFT KIDNEY: The left kidney is mildly echogenic and measures 8 cm. Cortical thickness measures 1.1 cm. No solid mass lesions. No hydronephrosis. Renal artery and vein are patent. BLADDER: Unremarkable. IMPRESSION:No hydronephrosis. Medical renal disease bilaterally. Signed: Kuldip Vragas MDReport Verified Date/Time: 02/13/2018 12:30:24 Reading Location: [address] Radiology Reading Room URINALYSIS W/ [id number] 13:46:00 Test Item Value Reference Range Interpretation Comments COLOR (BEAKER) (test code = Yellow 470) CLARITY (BEAKER) (test code = Clear 469) SPECIFIC GRAVITY UA (BEAKER) 1.010 1.001-1.035 (test code = 468) PH UA (BEAKER) (test code = 6.0 5.0-8.0 467) PROTEIN UA (BEAKER) (test code Trace Negative A = 464) GLUCOSE UA (BEAKER) (test code Negative Negative = 365) KETONES UA (BEAKER) (test code Negative Negative = 371) BILIRUBIN UA (BEAKER) (test Negative Negative code = 462) BLOOD UA (BEAKER) (test code = Trace Negative A 461) NITRITE UA (BEAKER) (test code Negative Negative = 465) LEUKOCYTE ESTERASE UA (BEAKER) Trace Negative A (test code = 466) UROBILINOGEN UA (BEAKER) (test 0.2 mg/dL 0.2-1.0 code = 463) BACTERIA (BEAKER) (test code = None Seen 517) RBC UA-MANUAL (BEAKER) (test None Seen /HPF code = 1659) WBC UA-MANUAL (BEAKER) (test <5 /HPF code = 1661) SQUAMOUS EPITHELIAL MANUAL <5 /HPF (BEAKER) (test code = 1663) SOURCE(BEAKER) (test code = 2795) CBC W/PLT COUNT & AUTO [id number] 06:22:00 Test Item Value Reference Range Interpretation Comments WHITE BLOOD CELL COUNT 2.3 K/ L 4.0-10.0 L (BEAKER) (test code = 775) RED BLOOD CELL COUNT 3.69 M/ L 4.00-5.00 L (BEAKER) (test code = 761) HEMOGLOBIN (BEAKER) 10.1 GM/DL 12.0-15.0 L (test code = 410) HEMATOCRIT (BEAKER) 30.4 % 36.0-45.0 L (test code = 411) MEAN CORPUSCULAR VOLUME 82.2 fL 82.0-99.0 (BEAKER) (test code = 753) MEAN CORPUSCULAR 27.4 pg 27.0-33.0 HEMOGLOBIN (BEAKER) (test code = 751) MEAN CORPUSCULAR 33.4 GM/DL 32.0-36.0 HEMOGLOBIN CONC (BEAKER) (test code = 752) RED CELL DISTRIBUTION 16.1 % 10.3-14.2 H WIDTH (BEAKER) (test code = 412) PLATELET COUNT (BEAKER) 203 K/CU MM 150-430 (test code = 756) MEAN PLATELET VOLUME 8.6 fL 6.5-10.5 (BEAKER) (test code = 754) NEUTROPHILS RELATIVE % Manual diff needed PERCENT (BEAKER) (test code = 429) LYMPHOCYTES RELATIVE % Manual diff needed PERCENT (BEAKER) (test code = 430) MONOCYTES RELATIVE % Manual di ff needed PERCENT (BEAKER) (test code = 431) EOSINOPHILS RELATIVE % Manual diff needed PERCENT (BEAKER) (test code = 432) BASOPHILS RELATIVE % Manual di ff needed PERCENT (BEAKER) (test code = 437) NEUTROPHILS ABSOLUTE K/ L 1.80-8.00 COUNT (BEAKER) (test code = 670) LYMPHOCYTES ABSOLUTE K/ L 1.48-4.50 COUNT (BEAKER) (test code = 414) MONOCYTES ABSOLUTE K/ L 0.00-1.30 COUNT (BEAKER) (test code = 415) EOSINOPHILS ABSOLUTE K/ L 0.00-0.50 COUNT (BEAKER) (test code = 416) BASOPHILS ABSOLUTE K/ L 0.00-0.20 COUNT (BEAKER) (test code = 417) (MANUAL DIFFERENTIAL)2018-01-25 06:22:00 Test Item Value Reference Range Interpretation Comments NEUTROPHILS - REL (DIFF) (BEAKER) 63 % (test code = 1359) LYMPHOCYTES - REL (DIFF) (BEAKER) 19 % (test code = 1360) MONOCYTES - REL (DIFF) (BEAKER) 12 % (test code = 1361) EOSINOPHILS - REL (DIFF) (BEAKER) 6 % (test code = 1362) NEUTROPHILS - ABS (DIFF) (BEAKER) 1.45 K/ L 1.80-8.00 L (test code = 1365) LYMPHOCYTES - ABS (DIFF) (BEAKER) 0.44 K/ L 1.48-4.50 L (test code = 1366) MONOCYTES - ABS (DIFF) (BEAKER) 0.28 K/ L 0.00-1.30 (test code = 1367) EOSINOPHILS - ABS (DIFF) (BEAKER) 0.14 K/ L 0.00-0.50 (test code = 1368) TOTAL COUNTED (BEAKER) (test code = 100 1351) WBC MORPHOLOGY (BEAKER) (test code Normal = 487) PLT MORPHOLOGY (BEAKER) (test code Normal = 486) ANISOCYTOSIS (BEAKER) (test code = 1+ few 961) TROPONIN [id number] 06:02:00 Test Item Value Reference Range Interpretation Comments TROPONIN I (BEAKER) (test code = 397) < ng/mL 0.00-0.15 Troponin I (TnI) levels must be interpreted in the context of the presenting symptoms and the clinical findings. Elevated TnI levels indicate myocardial damage, but are not specific for ischemic heart disease. Elevated TnI levels are seen in patients with other cardiac conditions (including myocarditis and congestive heart failure), and slight TnI elevations occur in patients with other conditions, including sepsis, renal failure, acidosis, acute neurological disease, and persistent tachyarrhythmia.CREATINE KINASE (CK), TOTAL AND MB 2018-01-25 06:01:00 Test Item Value Reference Range Interpretation Comments CREATINE KINASE TOTAL (BEAKER) 48 U/L 25-235 (test code = 380) CREATINE KINASE-MB (BEAKER) (test 1.3 ng/mL 0.0-4.9 code = 750) CREATINE KINASE-MB INDEX (BEAKER) 2.7 % (test code = 395) CK-MB Reference Range:<5 Normal5-10 Borderline>10 AbnormalBASIC METABOLIC [id number] 05:53:00 Test Item Value Reference Range Interpretation Comments SODIUM (BEAKER) 144 meq/L 135-148 (test code = 381) POTASSIUM (BEAKER) 4.0 meq/L 3.6-5.5 (test code = 379) CHLORIDE (BEAKER) 111 meq/L 98-106 H (test code = 382) CO2 (BEAKER) (test 22 meq/L 20-29 code = 355) BLOOD UREA NITROGEN 20 mg/dL 10-26 (BEAKER) (test code = 354) CREATININE (BEAKER) 2.30 mg/dL 0.50-1.20 H (test code = 358) GLUCOSE RANDOM 81 mg/dL 70-110 (BEAKER) (test code = 652) CALCIUM (BEAKER) 9.5 mg/dL 8.5-10.5 (test code = 697) EGFR (BEAKER) (test 25 mL/min/1.73 ESTIMA ANKITA GFR IS code = 1092) sq m NOT ACCURATE CREATININE CLEARANCE IN PREDICTING GLOMERULAR FILTRATION RATE . ESTIMATED GFR I S NOT APPLICABLE FOR DIALYSIS PATIEN TS. CBC W/PLT COUNT & AUTO [id number] 22:57:00 Test Item Value Reference Range Interpretation Comments WHITE BLOOD CELL COUNT (BEAKER) 2.7 K/ L 4.0-10.0 L (test code = 775) RED BLOOD CELL COUNT (BEAKER) 3.86 M/ L 4.00-5.00 L (test code = 761) HEMOGLOBIN (BEAKER) (test code = 10.6 GM/DL 12.0-15.0 L 410) HEMATOCRIT (BEAKER) (test code = 32.0 % 36.0-45.0 L 411) MEAN CORPUSCULAR VOLUME (BEAKER) 82.9 fL 82.0-99.0 (test code = 753) MEAN CORPUSCULAR HEMOGLOBIN 27.3 pg 27.0-33.0 (BEAKER) (test code = 751) MEAN CORPUSCULAR HEMOGLOBIN CONC 32.9 GM/DL 32.0-36.0 (BEAKER) (test code = 752) RED CELL DISTRIBUTION WIDTH 15.0 % 10.3-14.2 H (BEAKER) (test code = 412) PLATELET COUNT (BEAKER) (test 186 K/CU MM 150-430 code = 756) MEAN PLATELET VOLUME (BEAKER) 8.8 fL 6.5-10.5 (test code = 754) (MANUAL DIFFERENTIAL)2018-01-24 22:57:00 Test Item Value Reference Range Interpretation Comments NEUTROPHILS - REL (DIFF) (BEAKER) 77 % (test code = 1359) LYMPHOCYTES - REL (DIFF) (BEAKER) 13 % (test code = 1360) MONOCYTES - REL (DIFF) (BEAKER) 8 % (test code = 1361) EOSINOPHILS - REL (DIFF) (BEAKER) 2 % (test code = 1362) NEUTROPHILS - ABS (DIFF) (BEAKER) 2.08 K/ L 1.80-8.00 (test code = 1365) LYMPHOCYTES - ABS (DIFF) (BEAKER) 0.35 K/ L 1.48-4.50 L (test code = 1366) MONOCYTES - ABS (DIFF) (BEAKER) 0.22 K/ L 0.00-1.30 (test code = 1367) EOSINOPHILS - ABS (DIFF) (BEAKER) 0.05 K/ L 0.00-0.50 (test code = 1368) TOTAL COUNTED (BEAKER) (test code = 100 1351) WBC MORPHOLOGY (BEAKER) (test code Normal = 487) PLT MORPHOLOGY (BEAKER) (test code Normal = 486) RBC MORPHOLOGY (BEAKER) (test code Normal = 762) [id number] 22:13:00 Test Item Value Reference Range Interpretation Comments PROTIME (BEAKER) (test code = 10.1 seconds 9.3-12.0 759) INR (BEAKER) (test code = 370) 0.9 <=5.9 PARTIAL THROMBOPLASTIN TIME 25.4 seconds 23.0-35.0 (BEAKER) (test code = 760) RECOMMENDED COUMADIN/WARFARIN INR THERAPY RANGESSTANDARD DOSE: 2.0 - 3.0 Includes: PROPHYLAXIS for venous thrombosis, systemic embolization; TREATMENT for venous thrombosis and/or pulmonary embolus.HIGH RISK: Target INR is 2.5-3.5 for patients with mechanical heart valves.RAD, CHEST, 1 VIEW, NON [id number] 22:11:00Reason for exam:->SHORTNESS OF BREATHShould this be performed at the bedside?->NoFINAL REPORT Exam: Chest one view. Clinical history: SHORTNESS OF BREATH Comparison: Chest radiograph 02/25/2014. Technique: A single frontal view of the chest was obtained. Findings: The heart is mildly enlarged. The aorta is uncoiled. There is no focal pulmonary consolidation, pleu ral effusion or pneumothorax. There is no pulmonary edema. There are surgical clips in the left axilla. Impression:No focal pulmonary consolidation.Mild cardiomegaly. Uncoiled aorta. Signed: Kimi Sanders MDReport Verified Date/Time: 01/24/2018 22:11:24 Reading Location: [address] Reading Room B-TYPE NATRIURETIC FACTOR (BNP)2018-01-24 22:09:00 Test Item Value Reference Range Interpretation Comments B-TYPE NATRIURETIC PEPTIDE (BEAKER) 917 pg/mL 0-100 H (test code = 700) TROPONIN [id number] 22:06:00 Test Item Value Reference Range Interpretation Comments TROPONIN I (BEAKER) (test code = 397) < ng/mL 0.00-0.15 Troponin I (TnI) levels must be interpreted in the context of the presenting symptoms and the clinical findings. Elevated TnI levels indicate myocardial damage, but are not specific for ischemic heart disease. Elevated TnI levels are seen in patients with other cardiac conditions (including myocarditis and congestive heart failure), and slight TnI elevations occur in patients with other conditions, including sepsis, renal failure, acidosis, acute neurological disease, and persistent tachyarrhythmia.CREATINE KINASE (CK), TOTAL AND MB 2018-01-24 22:05:00 Test Item Value Reference Range Interpretation Comments CREATINE KINASE TOTAL (BEAKER) 61 U/L 25-235 (test code = 380) CREATINE KINASE-MB (BEAKER) (test 1.3 ng/mL 0.0-4.9 code = 750) CREATINE KINASE-MB INDEX (BEAKER) 2.1 % (test code = 395) CK-MB Reference Range:<5 Normal5-10 Borderline>10 AbnormalBASIC METABOLIC [id number] 21:57:00 Test Item Value Reference Range Interpretation Comments SODIUM (BEAKER) 141 meq/L 135-148 (test code = 381) POTASSIUM (BEAKER) 4.7 meq/L 3.6-5.5 Specimen slightly (test code = 379) hemolyzed CHLORIDE (BEAKER) 110 meq/L 98-106 H (test code = 382) CO2 (BEAKER) (test 21 meq/L 20-29 code = 355) BLOOD UREA NITROGEN 22 mg/dL 10-26 (BEAKER) (test code = 354) CREATININE (BEAKER) 2.50 mg/dL 0.50-1.20 H Specimen slightly (test code = 358) hemolyzed GLUCOSE RANDOM 131 mg/dL 70-110 H (BEAKER) (test code = 652) CALCIUM (BEAKER) 9.3 mg/dL 8.5-10.5 (test code = 697) EGFR (ANTIONE) (test 23 mL/min/1.73 ESTIMA ANKITA GFR IS code = 1092) sq m NOT ACCURATE CREATININE CLEARANCE IN PREDICTING GLOMERULAR FILTRATION RATE . ESTIMATED GFR I S NOT APPLICABLE FOR DIALYSIS PATIEN CHEM [id number] 14:53:00 Test Item Value Reference Range Interpretation Comments eGFR (test code = eGFR) 17 [facility]2018-02-22 14:53:00 Test Item Value Reference Range Interpretation Comments Potassium Lvl (test code = Potassium 4.5 3.5-5.1 Lvl) [facility]2018-02-22 14:53:00 Test Item Value Reference Range Interpretation Comments Chloride Lvl (test code = Chloride Lvl) 105 95-109 [facility] [id number] 14:53:00 Test Item Value Reference Range Interpretation Comments Sodium Lvl (test code = Sodium Lvl) 141 135-145 [facility] [id number] 14:53:00 Test Item Value Reference Range Interpretation Comments Creatinine Lvl (test code = Creatinine 2.98 0.50-1.40 Lvl) [facility]2018-02-22 14:53:00 Test Item Value Reference Range Interpretation Comments BUN (test code = BUN) 68 7-22 [facility]2018-02-22 14:53:00 Test Item Value Reference Range Interpretation Comments Calcium Lvl (test code = Calcium Lvl) 9.2 8.5-10.5 [facility] [id number] 14:53:00 Test Item Value Reference Range Interpretation Comments AGAP (test code = AGAP) 19.5 10.0-20.0 [facility]2018-02-22 14:53:00 Test Item Value Reference Range Interpretation Comments Glucose Lvl (test code = Glucose Lvl) 94 70-99 [facility] [id number] 14:53:00 Test Item Value Reference Range Interpretation Comments CO2 (test code = CO2) 21 24-32 [facility] [id number] 14:53:00 Test Item Value Reference Range Interpretation Comments Alk Phos (test code = Alk Phos) 724 39-136 [facility] [id number] 14:53:00 Test Item Value Reference Range Interpretation Comments AST (test code = AST) 137 See_Comment [Auto mated message] The system which ge nerated this result transmit ankita reference range : <=37. The reference range was not used to interpr et this result as js l/abnormal. [facility]2018-02-22 14:53:00 Test Item Value Reference Range Interpretation Comments Total Protein (test code = Total 7.3 6.4-8.4 Protein) [facility]2018-02-22 14:53:00 Test Item Value Reference Range Interpretation Comments Albumin Lvl (test code = Albumin Lvl) 2.6 3.5-5.0 [place] [id number] 14:53:00 Test Item Value Reference Range Interpretation Comments ALT (test code = ALT) 131 See_Comment [Auto mated message] The system which ge nerated this result transmit ankita reference range : <=65. The reference range was not used to interpr et this result as js l/abnormal. [facility]2018-02-22 14:53:00 Test Item Value Reference Range Interpretation Comments Bili Indirect (test 0.6 See_Comment [Automa ankita message] The code = Bili Indirect) system which generated this result tra nsmitted reference range : <=1.0. The reference r heidi was not used to int erpret this result as normal/abnormal . [facility]2018-02-22 14:53:00 Test Item Value Reference Range Interpretation Comments A/G Ratio (test code = A/G Ratio) 0.6 1 0.7-1.6 [facility]2018-02-22 14:53:00 Test Item Value Reference Range Interpretation Comments Bili Direct (test code 1.4 See_Comment [Aut omated message] The = Bili Direct) system which generated this result tra nsmitted reference range : <=0.3. The reference r heidi was not used to int erpret this result as js l/abnormal. [facility]2018-02-22 14:53:00 Test Item Value Reference Range Interpretation Comments Bili Total (test code = Bili Total) 2.0 0.2-1.3 [facility]2018-02-22 14:53:00 Test Item Value Reference Range Interpretation Comments Globulin (test code = Globulin) 4.7 2.7-4.2 [facility]2018-02-21 11:00:00 Test Item Value Reference Range Interpretation Comments eGFR (test code = eGFR) 16 [facility]2018-02-21 11:00:00 Test Item Value Reference Range Interpretation Comments Sodium Lvl (test code = Sodium Lvl) 139 135-145 [facility]2018-02-21 11:00:00 Test Item Value Reference Range Interpretation Comments Creatinine Lvl (test code = Creatinine 3.23 0.50-1.40 Lvl) [facility]2018-02-21 11:00:00 Test Item Value Reference Range Interpretation Comments Potassium Lvl (test code = Potassium 4.4 3.5-5.1 Lvl) [facility]2018-02-21 11:00:00 Test Item Value Reference Range Interpretation Comments Chloride Lvl (test code = Chloride Lvl) 107 95-109 [facility]2018-02-21 11:00:00 Test Item Value Reference Range Interpretation Comments Glucose Lvl (test code = Glucose Lvl) 85 70-99 [facility]2018-02-21 11:00:00 Test Item Value Reference Range Interpretation Comments BUN (test code = BUN) 73 7-22 [facility]2018-02-21 11:00:00 Test Item Value Reference Range Interpretation Comments CO2 (test code = CO2) 23 24-32 [facility]2018-02-21 11:00:00 Test Item Value Reference Range Interpretation Comments Calcium Lvl (test code = Calcium Lvl) 8.9 8.5-10.5 [facility]2018-02-21 11:00:00 Test Item Value Reference Range Interpretation Comments AGAP (test code = AGAP) 13.4 10.0-20.0 [facility]2018-02-20 10:52:00 Test Item Value Reference Range Interpretation Comments A/G Ratio (test code = A/G Ratio) 0.6 1 0.7-1.6 [facility]2018-02-20 10:52:00 Test Item Value Reference Range Interpretation Comments Bili Indirect (test 0.8 See_Comment [Automa ankita message] The code = Bili Indirect) system which generated this result tra nsmitted reference range : <=1.0. The reference r heidi was not used to int erpret this result as normal/abnormal . [facility]2018-02-20 10:52:00 Test Item Value Reference Range Interpretation Comments Bili Total (test code = Bili Total) 1.8 0.2-1.3 [facility]2018-02-20 10:52:00 Test Item Value Reference Range Interpretation Comments Alk Phos (test code = Alk Phos) 682 39-136 [facility]2018-02-20 10:52:00 Test Item Value Reference Range Interpretation Comments Globulin (test code = Globulin) 4.1 2.7-4.2 [facility]2018-02-20 10:52:00 Test Item Value Reference Range Interpretation Comments Bili Direct (test code 1.0 See_Comment [Aut omated message] The = Bili Direct) system which generated this result tra nsmitted reference range : <=0.3. The reference r heidi was not used to int erpret this result as js l/abnormal. [facility]2018-02-20 10:52:00 Test Item Value Reference Range Interpretation Comments AST (test code = AST) 121 See_Comment [Auto mated message] The system which ge nerated this result transmit ankita reference range : <=37. The reference range was not used to interpr et this result as js l/abnormal. [facility]2018-02-20 10:52:00 Test Item Value Reference Range Interpretation Comments Total Protein (test code = Total 6.5 6.4-8.4 Protein) [facility]2018-02-20 10:52:00 Test Item Value Reference Range Interpretation Comments ALT (test code = ALT) 129 See_Comment [Auto mated message] The system which ge nerated this result transmit ankita reference range : <=65. The reference range was not used to interpr et this result as js l/abnormal. [facility]2018-02-20 10:52:00 Test Item Value Reference Range Interpretation Comments Albumin Lvl (test code = Albumin Lvl) 2.4 3.5-5.0 [facility]2018-02-20 10:34:00 Test Item Value Reference Range Interpretation Comments eGFR (test code = eGFR) 13 [facility]2018-02-20 10:34:00 Test Item Value Reference Range Interpretation Comments CO2 (test code = CO2) 22 24-32 [facility]2018-02-20 10:34:00 Test Item Value Reference Range Interpretation Comments Calcium Lvl (test code = Calcium Lvl) 9.3 8.5-10.5 [facility]2018-02-20 10:34:00 Test Item Value Reference Range Interpretation Comments Potassium Lvl (test code = Potassium 4.3 3.5-5.1 Lvl) [facility]2018-02-20 10:34:00 Test Item Value Reference Range Interpretation Comments Chloride Lvl (test code = Chloride Lvl) 105 95-109 [facility]2018-02-20 10:34:00 Test Item Value Reference Range Interpretation Comments Sodium Lvl (test code = Sodium Lvl) 141 135-145 [facility]2018-02-20 10:34:00 Test Item Value Reference Range Interpretation Comments Creatinine Lvl (test code = Creatinine 3.74 0.50-1.40 Lvl) [facility]2018-02-20 10:34:00 Test Item Value Reference Range Interpretation Comments BUN (test code = BUN) 76 7-22 [facility]2018-02-20 10:34:00 Test Item Value Reference Range Interpretation Comments Glucose Lvl (test code = Glucose Lvl) 93 70-99 [facility]2018-02-20 10:34:00 Test Item Value Reference Range Interpretation Comments AGAP (test code = AGAP) 18.3 10.0-20.0 [id number] 10:34:00 Test Item Value Reference Range Interpretation Comments MCHC (test code = MCHC) 32.2 32.0-36.0 [facility] [id number] 10:34:00 Test Item Value Reference Range Interpretation Comments RDW (test code = RDW) 16.4 11.5-14.5 [facility] [id number] 10:34:00 Test Item Value Reference Range Interpretation Comments Platelet (test code = Platelet) 152 133-450 [facility] [id number] 10:34:00 Test Item Value Reference Range Interpretation Comments MPV (test code = MPV) 8.4 7.4-10.4 [facility] [id number] 10:34:00 Test Item Value Reference Range Interpretation Comments RBC (test code = RBC) 4.64 4.20-5.40 [facility] [id number] 10:34:00 Test Item Value Reference Range Interpretation Comments WBC (test code = WBC) 2.5 3.7-10.4 [facility] [id number] 10:34:00 Test Item Value Reference Range Interpretation Comments MCV (test code = MCV) 82.1 80.0-98.0 [facility] Cent[id number] 10:34:00 Test Item Value Reference Range Interpretation Comments Hgb (test code = Hgb) 12.3 12.0-16.0 [facility] [id number] 10:34:00 Test Item Value Reference Range Interpretation Comments Hct (test code = Hct) 38.1 36.0-48.0 [facility] CenterRevpjcnFATOSWPXQP2627-54-25 10:34:00 Test Item Value Reference Range Interpretation Comments MCH (test code = MCH) 26.4 pg 27.0-31.0 [facility] CenterCjwubshEGULKHIUDL6076-99-60 10:34:00 Test Item Value Reference Range Interpretation Comments Monocytes (test code = Monocytes) 28.7 2.0-12.0 [facility] CenterZvohwcjOCMFEUGAFE8734-45-89 10:34:00 Test Item Value Reference Range Interpretation Comments Eosinophils (test code = 2.8 See_Comment [A utomated message] The Eosinophils) system which ge nerated this result tra nsmitted reference range : <=4.0. The reference r heidi was not used to int erpret this result as normal/abnormal . [facility] CenterRlbytfgDIOUCLQPNB4103-90-82 10:34:00 Test Item Value Reference Range Interpretation Comments Basophils (test code = 0.9 See_Comment [Aut omated message] The Basophils) system which ge nerated this result tra nsmitted reference range : <=1.0. The reference r heidi was not used to int erpret this result as normal/abnormal . [facility] CenterDwwcngnANJRWVXFNQ6355-23-70 10:34:00 Test Item Value Reference Range Interpretation Comments Segs-Bands # (test code = Segs-Bands #) 1.2 1.5-8.1 [facility] CenterXzwdqvxOOOJQQKRAI0650-58-15 10:34:00 Test Item Value Reference Range Interpretation Comments Lymphocytes # (test code = Lymphocytes 0.5 1.0-5.5 #) [facility] CenterUrngtjjFOCHQFWCYW4749-40-82 10:34:00 Test Item Value Reference Range Interpretation Comments Eosinophils # (test code 0.1 See_Comment [A utomated message] The = Eosinophils #) system whic h generated this result tra nsmitted reference range : <=0.5. The reference r heidi was not used to int erpret this result as normal/abnormal . [facility] CenterFeitdxxPCCUYAUKPC4560-04-58 10:34:00 Test Item Value Reference Range Interpretation Comments Monocytes # (test code 0.7 See_Comment [Aut omated message] The = Monocytes #) system which generated this result tra nsmitted reference range : <=0.8. The reference r heidi was not used to int erpret this result as normal/abnormal . [facility] CenterYoifoihWAPJKJZJBB7964-94-17 10:34:00 Test Item Value Reference Range Interpretation Comments Segs (test code = Segs) 48.3 45.0-75.0 [facility] CenterIxwtnpgSZCFWUKTYA4902-71-93 10:34:00 Test Item Value Reference Range Interpretation Comments Lymphocytes (test code = Lymphocytes) 19.3 20.0-40.0 [facility] AND [id number] 10:02:55 Test Item Value Reference Range Interpretation Comments UA Leuk Est (test code Trace *ABN*(01/14/18 = UA Leuk Est) 4:02 AM) [facility] [id number] 10:02:55 Test Item Value Reference Range Interpretation Comments UA Sq Epi (test code = UA Sq Occasional /LPF Epi) [facility] AND [id number] 10:02:55 Test Item Value Reference Range Interpretation Comments UA RBC (test code = 1 See_Comment [Automa ankita message] The UA RBC) system which ge nerated this result transmit ankita reference range : <=2. The reference range was not used to interpr et this result as js l/abnormal. [facility] AND [id number] 10:02:55 Test Item Value Reference Range Interpretation Comments UA WBC (test code = 5 See_Comment [Automa ankita message] The UA WBC) system which ge nerated this result transmit ankita reference range : <=5. The reference range was not used to interpr et this result as js l/abnormal. [facility] AND [id number] 10:02:55 Test Item Value Reference Range Interpretation Comments UA Bacteria (test code = UA Occasional /HPF Bacteria) [facility] AND [id number] 10:02:55 Test Item Value Reference Range Interpretation Comments UA Color (test code = UA Color) Barb [facility] AND [id number] 10:02:55 Test Item Value Reference Range Interpretation Comments UA Spec Grav (test code = UA Spec 1.014 1 Grav) [facility] AND [id number] 10:02:55 Test Item Value Reference Range Interpretation Comments UA pH (test code = UA pH) 5.0 1 5.0-8.0 [facility] AND [id number] 10:02:55 Test Item Value Reference Range Interpretation Comments UA Turbidity (test code = Clear (01/14/18 4:02 UA Turbidity) AM) [facility] AND [id number] 10:02:55 Test Item Value Reference Range Interpretation Comments UA Protein (test code = UA Protein) 30 mg/dL [facility] AND [id number] 10:02:55 Test Item Value Reference Range Interpretation Comments UA Glucose (test code = UA Negative mg/dL Glucose) [facility] AND [id number] 10:02:55 Test Item Value Reference Range Interpretation Comments UA Bili (test code = Negative *NA*(01/14/18 UA Bili) 4:02 AM) [facility] AND [id number] 10:02:55 Test Item Value Reference Range Interpretation Comments UA Ketones (test code = UA Negative mg/dL Ketones) [facility] AND [id number] 10:02:55 Test Item Value Reference Range Interpretation Comments UA Blood (test code = Negative (01/14/18 4:02 UA Blood) AM) [facility] AND [id number] 10:02:55 Test Item Value Reference Range Interpretation Comments UA Nitrite (test code Negative (01/14/18 4:02 = UA Nitrite) AM) [facility] AND [id number] 10:02:55 Test Item Value Reference Range Interpretation Comments UA Urobilinogen (test code = UA 4.0 0.1-1.0 Urobilinogen) [facility] [id number] 10:02:55 Test Item Value Reference Range Interpretation Comments U Sodium (test code = U Sodium) 23 [facility]2018-02-20 10:02:55 Test Item Value Reference Range Interpretation Comments U Creatinine (test code = U 163.00 Creatinine) [facility]2018-02-19 10:05:00 Test Item Value Reference Range Interpretation Comments Magnesium Lvl (test code = Magnesium 2.5 1.8-2.4 Lvl) [facility]2018-02-19 10:05:00 Test Item Value Reference Range Interpretation Comments Phosphorus (test code = Phosphorus) 4.3 2.5-4.5 [facility]2018-02-19 10:05:00 Test Item Value Reference Range Interpretation Comments B/C Ratio (test code = B/C Ratio) 19 1 6-25 [facility]2018-02-19 10:05:00 Test Item Value Reference Range Interpretation Comments Globulin (test code = Globulin) 3.7 2.7-4.2 [facility]2018-02-19 10:05:00 Test Item Value Reference Range Interpretation Comments Albumin Lvl (test code = Albumin Lvl) 2.6 3.5-5.0 [facility]2018-02-19 10:05:00 Test Item Value Reference Range Interpretation Comments Total Protein (test code = Total 6.3 6.4-8.4 Protein) [facility]2018-02-19 10:05:00 Test Item Value Reference Range Interpretation Comments Bili Total (test code = Bili Total) 2.4 0.2-1.3 [facility]2018-02-19 10:05:00 Test Item Value Reference Range Interpretation Comments Alk Phos (test code = Alk Phos) 613 39-136 [facility]2018-02-19 10:05:00 Test Item Value Reference Range Interpretation Comments AST (test code = AST) 109 See_Comment [Auto mated message] The system which ge nerated this result transmit ankita reference range : <=37. The reference range was not used to interpr et this result as js l/abnormal. [facility]2018-02-19 10:05:00 Test Item Value Reference Range Interpretation Comments ALT (test code = ALT) 126 See_Comment [Auto mated message] The system which ge nerated this result transmit ankita reference range : <=65. The reference range was not used to interpr et this result as js l/abnormal. [facility]2018-02-19 10:05:00 Test Item Value Reference Range Interpretation Comments A/G Ratio (test code = A/G Ratio) 0.7 1 0.7-1.6 [facility] CenterQccmyclDAWWTGXANZ5500-25-51 10:05:00 Test Item Value Reference Range Interpretation Comments MPV (test code = MPV) 8.7 7.4-10.4 [facility] CenterEadqxsvFCEDERAZMN0964-01-04 10:05:00 Test Item Value Reference Range Interpretation Comments MCH (test code = MCH) 26.7 pg 27.0-31.0 [facility] CenterBqhifjgATBJUXVSEE2866-21-26 10:05:00 Test Item Value Reference Range Interpretation Comments Platelet (test code = Platelet) 149 133-450 [facility] CenterCfpdnucKUAPOAUTDB2887-40-77 10:05:00 Test Item Value Reference Range Interpretation Comments MCHC (test code = MCHC) 32.7 32.0-36.0 [facility] CenterXielifcYFNKRQQTJJ9056-38-32 10:05:00 Test Item Value Reference Range Interpretation Comments RDW (test code = RDW) 16.2 11.5-14.5 [facility] CenterLacjwmaPHGJVCMDUC1424-88-34 10:05:00 Test Item Value Reference Range Interpretation Comments Hct (test code = Hct) 39.0 36.0-48.0 [facility] CenterLxjnkuzAYJSWWOWSG2139-75-78 10:05:00 Test Item Value Reference Range Interpretation Comments MCV (test code = MCV) 81.5 80.0-98.0 [facility] CenterCzujfcoKKBRFOUWRJ2065-51-58 10:05:00 Test Item Value Reference Range Interpretation Comments WBC (test code = WBC) 2.7 3.7-10.4 [facility] CenterZsfmihoIGXPNHYPCJ5526-95-96 10:05:00 Test Item Value Reference Range Interpretation Comments Hgb (test code = Hgb) 12.8 12.0-16.0 [facility] CenterSwbknqvUDXVHPMCTJ4201-70-70 10:05:00 Test Item Value Reference Range Interpretation Comments RBC (test code = RBC) 4.79 4.20-5.40 [facility] CenterAfyigvjNTLZQJOFTC2068-47-08 10:05:00 Test Item Value Reference Range Interpretation Comments Lymphocytes (test code = Lymphocytes) 14.8 20.0-40.0 [facility] CenterWujxyjrFWREASSYCQ5123-41-15 10:05:00 Test Item Value Reference Range Interpretation Comments Plt Morph (test code = Normal (01/13/18 4:05 Plt Morph) AM) [facility] CenterOfivqgwZMWJLRQQXR7493-28-50 10:05:00 Test Item Value Reference Range Interpretation Comments Segs (test code = Segs) 50.8 45.0-75.0 [facility] CenterIhzblnyEZZVLKZDVV1679-27-17 10:05:00 Test Item Value Reference Range Interpretation Comments RBC Morph (test code = Normal (01/13/18 4:05 RBC Morph) AM) [facility] CenterYitogfmDCIEUAFHZE6944-74-58 10:05:00 Test Item Value Reference Range Interpretation Comments Eosinophils # (test code 0.1 See_Comment [A utomated message] The = Eosinophils #) system whic h generated this result tra nsmitted reference range : <=0.5. The reference r heidi was not used to int erpret this result as normal/abnormal . [facility] CenterZpgasqpETPZNAUOWX6098-38-01 10:05:00 Test Item Value Reference Range Interpretation Comments Monocytes # (test code 0.8 See_Comment [Aut omated message] The = Monocytes #) system which generated this result tra nsmitted reference range : <=0.8. The reference r heidi was not used to int erpret this result as normal/abnormal . [facility] CenterQrpiysnDVLBRMVPWY0794-05-11 10:05:00 Test Item Value Reference Range Interpretation Comments Segs-Bands # (test code = Segs-Bands #) 1.4 1.5-8.1 [facility] CenterGikyyorYYFUUGUURI1438-37-01 10:05:00 Test Item Value Reference Range Interpretation Comments Basophils (test code = 1.1 See_Comment [Aut omated message] The Basophils) system which ge nerated this result tra nsmitted reference range : <=1.0. The reference r heidi was not used to int erpret this result as normal/abnormal . [facility] FallsBemkscfVKUAFSZTIP4875-82-37 10:05:00 Test Item Value Reference Range Interpretation Comments Eosinophils (test code = 2.3 See_Comment [A utomated message] The Eosinophils) system which ge nerated this result tra nsmitted reference range : <=4.0. The reference r heidi was not used to int erpret this result as normal/abnormal . [facility] FallsFnxelmpZLPHFSTPUJ5076-72-68 10:05:00 Test Item Value Reference Range Interpretation Comments Monocytes (test code = Monocytes) 31.0 2.0-12.0 [facility] FallsLqhknbqVBNMRIKTNL2246-60-31 10:05:00 Test Item Value Reference Range Interpretation Comments Lymphocytes # (test code = Lymphocytes 0.4 1.0-5.5 #) [facility] FallsVtthsvtKMODRKTNPY2932-60-21 10:05:00 Test Item Value Reference Range Interpretation Comments Hep Bs Ag (test code Negative *NA*(01/13/18 = Hep Bs Ag) 4:05 AM) [facility]ps[facility]vtFMGPKGRWAE4473-36-56 10:05:00 Test Item Value Reference Range Interpretation Comments Hep C Ab (test code = Negative *NA*(01/13/18 Hep C Ab) 4:05 AM) [facility]neYliwqybINZEUKIXSX9535-41-06 10:05:00 Test Item Value Reference Range Interpretation Comments Hep B Core IgM (test Negative *NA*(01/13/18 code = Hep B Core 4:05 AM) IgM) [facility]nePtokzwkCEVIJHXJAA6154-19-04 10:05:00 Test Item Value Reference Range Interpretation Comments Hep A IgM (test code Negative *NA*(01/13/18 = Hep A IgM) 4:05 AM) [facility]neBzgywiqMBVHWRVEKO7092-00-83 16:19:00 Test Item Value Reference Range Interpretation Comments D-Dimer (test code = D-Dimer) 0.39 [facility] YYSIADZ2328-71-97 12:37:00 Test Item Value Reference Range Interpretation Comments ABO/Rh (test code = ABO/Rh) A POS [facility]neannCARDIAC [id number] 12:37:00 Test Item Value Reference Range Interpretation Comments CK MB (test code = CK MB) 1.8 0.5-3.6 [facility] [employer]2018-02-18 12:37:00 Test Item Value Reference Range Interpretation Comments Troponin-I (test code no gt See_Comment [Auto mated message] The = Troponin-I) system which g enerated this result transmit ankita reference range : <=0.40. The reference r heidi was not used to interpr et this result as js l/abnormal. [facility] [employer]2018-02-18 12:37:00 Test Item Value Reference Range Interpretation Comments Total CK (test code = Total CK) 96 12-191 [facility] [employer]2018-02-18 12:37:00 Test Item Value Reference Range Interpretation Comments CK MB Index (test 1.9 1 See_Comment [Automate d message] The code = CK MB Index) system [facility] generated this result transmit ankita reference range : <=2.5. The reference range was not used to interpr et this result as js l/abnormal. [facility] [employer]2018-02-18 12:37:00 Test Item Value Reference Range Interpretation Comments proBNP (test code = 3225 See_Comment [Automa ankita message] The proBNP) system which ge nerated this result tra nsmitted reference range : <=125. The reference r heidi was not used to int erpret this result as js l/abnormal. [employer]2018-02-18 12:37:00 Test Item Value Reference Range Interpretation Comments eGFR (test code = eGFR) 23 [facility] [employer]2018-02-18 12:37:00 Test Item Value Reference Range Interpretation Comments Globulin (test code = Globulin) 4.5 2.7-4.2 [facility] [employer]2018-02-18 12:37:00 Test Item Value Reference Range Interpretation Comments A/G Ratio (test code = A/G Ratio) 0.6 1 0.7-1.6 [facility] [employer]2018-02-18 12:37:00 Test Item Value Reference Range Interpretation Comments B/C Ratio (test code = B/C Ratio) 19 1 6-25 [facility] [employer]2018-02-18 12:37:00 Test Item Value Reference Range Interpretation Comments AGAP (test code = AGAP) 11.3 10.0-20.0 [facility]8-02-18 12:37:00 Test Item Value Reference Range Interpretation Comments Alk Phos (test code = Alk Phos) 700 39-136 [facility]2018-02-18 12:37:00 Test Item Value Reference Range Interpretation Comments Bili Total (test code = Bili Total) 1.8 0.2-1.3 [facility]2018-02-18 12:37:00 Test Item Value Reference Range Interpretation Comments AST (test code = AST) 143 See_Comment [Auto mated message] The system which ge nerated this result transmit ankita reference range : <=37. The reference range was not used to interpr et this result as js l/abnormal. [facility]2018-02-18 12:37:00 Test Item Value Reference Range Interpretation Comments ALT (test code = ALT) 148 See_Comment [Auto mated message] The system which ge nerated this result transmit ankita reference range : <=65. The reference range was not used to interpr et this result as js l/abnormal. [facility]2018-02-18 12:37:00 Test Item Value Reference Range Interpretation Comments Chloride Lvl (test code = Chloride Lvl) 108 95-109 [facility]2018-02-18 12:37:00 Test Item Value Reference Range Interpretation Comments Glucose Lvl (test code = Glucose Lvl) 95 70-99 [facility]2018-02-18 12:37:00 Test Item Value Reference Range Interpretation Comments Potassium Lvl (test code = Potassium 4.3 3.5-5.1 Lvl) [facility]2018-02-18 12:37:00 Test Item Value Reference Range Interpretation Comments Creatinine Lvl (test code = Creatinine 2.35 0.50-1.40 Lvl) [facility]2018-02-18 12:37:00 Test Item Value Reference Range Interpretation Comments BUN (test code = BUN) 45 7-22 [facility]2018-02-18 12:37:00 Test Item Value Reference Range Interpretation Comments Sodium Lvl (test code = Sodium Lvl) 138 135-145 [facility]2018-02-18 12:37:00 Test Item Value Reference Range Interpretation Comments CO2 (test code = CO2) 23 24-32 [facility]2018-02-18 12:37:00 Test Item Value Reference Range Interpretation Comments Calcium Lvl (test code = Calcium Lvl) 9.5 8.5-10.5 [facility]2018-02-18 12:37:00 Test Item Value Reference Range Interpretation Comments Total Protein (test code = Total 7.2 6.4-8.4 Protein) [facility]2018-02-18 12:37:00 Test Item Value Reference Range Interpretation Comments Albumin Lvl (test code = Albumin Lvl) 2.7 3.5-5.0 [facility]2018-02-18 12:37:00 Test Item Value Reference Range Interpretation Comments Lipase Lvl (test code = Lipase Lvl) 100 73-393 [facility] CenterAohmdykCGDREKHTRH4429-98-42 12:37:00 Test Item Value Reference Range Interpretation Comments MPV (test code = MPV) 8.4 7.4-10.4 [facility] CenterFsbyozhKCBDBLSWIH1797-96-55 12:37:00 Test Item Value Reference Range Interpretation Comments RBC (test code = RBC) 4.91 4.20-5.40 [facility] CenterYyxadrtLJDKKTTBXD8254-01-18 12:37:00 Test Item Value Reference Range Interpretation Comments WBC (test code = WBC) 2.2 3.7-10.4 [facility] CenterEvhjeezWNGBUQKPGB4359-11-60 12:37:00 Test Item Value Reference Range Interpretation Comments Hct (test code = Hct) 40.1 36.0-48.0 [facility] CenterCrdnozhGKRTABDESX8711-78-16 12:37:00 Test Item Value Reference Range Interpretation Comments Hgb (test code = Hgb) 13.1 12.0-16.0 [facility] CenterYzhafecCBCCAJDZYZ5247-35-59 12:37:00 Test Item Value Reference Range Interpretation Comments MCH (test code = MCH) 26.7 pg 27.0-31.0 [facility] CenterIbfundcYKLXCNURGB2490-91-16 12:37:00 Test Item Value Reference Range Interpretation Comments MCV (test code = MCV) 81.7 80.0-98.0 [facility] CenterHfxxkbhPVUUXATAZR8224-54-43 12:37:00 Test Item Value Reference Range Interpretation Comments Platelet (test code = Platelet) 164 133-450 [facility] CenterQittnewYILNELVMQA7750-58-65 12:37:00 Test Item Value Reference Range Interpretation Comments RDW (test code = RDW) 16.3 11.5-14.5 [facility] CenterGqzwbzfDHIONJGDAP6730-70-37 12:37:00 Test Item Value Reference Range Interpretation Comments MCHC (test code = MCHC) 32.7 32.0-36.0 [facility] CenterEeuecfpAXFQHJERQO8008-90-88 12:37:00 Test Item Value Reference Range Interpretation Comments Monocytes (test code = Monocytes) 16.2 2.0-12.0 [facility] CenterHzzxwevFRQYDKAWPA7007-12-53 12:37:00 Test Item Value Reference Range Interpretation Comments Eosinophils (test code = 1.0 See_Comment [A utomated message] The Eosinophils) system which ge nerated this result tra nsmitted reference range : <=4.0. The reference r heidi was not used to int erpret this result as normal/abnormal . [facility] CenterEvhxnygDDMUESZEBK9845-65-54 12:37:00 Test Item Value Reference Range Interpretation Comments Basophils (test code = 0.7 See_Comment [Aut omated message] The Basophils) system which ge nerated this result tra nsmitted reference range : <=1.0. The reference r heidi was not used to int erpret this result as normal/abnormal . [facility] CenterKojxtgfVFYWUHVIMB7615-78-70 12:37:00 Test Item Value Reference Range Interpretation Comments Segs (test code = Segs) 51.9 45.0-75.0 [facility] CenterXyhdxewZPMJPDLWBZ1468-12-54 12:37:00 Test Item Value Reference Range Interpretation Comments Lymphocytes (test code = Lymphocytes) 30.2 20.0-40.0 [facility] CenterIthkacbIGGGUYBWQW6258-45-72 12:37:00 Test Item Value Reference Range Interpretation Comments Lymphocytes # (test code = Lymphocytes 0.7 1.0-5.5 #) [facility] CenterVgmuxfhHWLWVWMXYZ2021-18-57 12:37:00 Test Item Value Reference Range Interpretation Comments Monocytes # (test code 0.4 See_Comment [Aut omated message] The = Monocytes #) system which generated this result tra nsmitted reference range : <=0.8. The reference r heidi was not used to int erpret this result as normal/abnormal . [facility] CenterHbcqooeAEYNDBRAEB5568-28-52 12:37:00 Test Item Value Reference Range Interpretation Comments Segs-Bands # (test code = Segs-Bands #) 1.2 1.5-8.[address] [facility] BONE DENSITY (DXA)-[id number] 10:03:39Location code: [place] 16HISTORY: C50.412: MALIG NEOPLASM OF UPPER-OUTER QUADRANT OF LEFT FEMALEBREASTCOMPARISON: 01/19/2014FINDINGS: Right femoral neck bone mineral density: 0.841 g/cm2, T score is -1.5,Z-score is not available. According to WHO classification, findings areosteopenic.Right hip total bone mineral density: 0.795 g/cm2, T score is -2.0,Z-score is not available. According to WHO classification, findings areosteopenic.Lumbar spine total bone mineral density: 1.209 g/cm2, T score is -0.9,Z-score is not available. According to WHO classification, findings arenormal. Impression:Bone mineralization by WHO Classification is osteopenia. Total bonemineral density has increased in the right hip and decreased in thelumbar spine compared to the prior exam in 2013.The World Health Organization established that osteoporosis occurs at-2.5 SD below peak bone mass. In addition, osteopenia occurs at -1.0 SDto -2.5 SD below peak bone mass. Low bone mass is the single mostaccurate predictor for fracture risk.[facility] XR EXAM BREAST [id number] 15:18:07M[facility] XR EXAM BREAST SPECIMENLOCATION: R16 INDICATION: D48.62: NEOPLASM OF UNCERTAIN BEHAVIOR OF LEFT BREASTCOMPARISON: NoneFINDINGS AND IMPRESSION:Specimen radiography demonstrates an intact wire and the biopsy clip ofinterest. Please see the operative report for additional details.MAMM PERQ DEV BREAST 1ST DOYLZD-[id number] 09:27:44 [facility] MAMMO DIAGNOSTIC UNI W/CAD-RIGHT, MAMM PERQ DEV BREAST 1STSTRTCT- RIGHTLOCATION: R16 HISTORY: Thepatient is referred for localization of a biopsy clip in the rightbreast.Informed consent was obtained which included a discussion of risks andbenefits.Using mammographic guidance, aseptic technique and local anesthesia with1% lidocaine, a 9 cm Kopans wire was placed in the right breast, using amedialapproach. Mammographic views (including CC and ML projections)confirm appropriate positioning. The patient tolerated the procedurewithout difficulty. Post localization images were delivered to Dr.Elizabeth Bustamante prior to surgery.IMPRESSION: Right breast localization.[facility] MAMMO DIAGNOSTIC UNI W/PMT-[id number] 09:27:44MAM MAMMO DIAGNOSTIC UNI W/CAD-RIGHT, MAMM PERQ DEV BREAST 1STSTRTCT-RIGHTLOCATION: R16 HISTORY: The patient is referred for localization of a biopsy clip in the rightbreast.Informed consent was obtained which included a discussion of risks andbenefits.Using mammographic guidance, aseptic technique and local anesthesia with1% lidocaine, a 9 cm Kopans wire was placed in the right breast, using amedialapproach. Mammographic views (including CC and ML projections)confirm appropriate positioning. The patient tolerated the procedurewithout difficulty. Post localization images were delivered to Dr.Elizabeth Bustamante prior to surgery.IMPRESSION: Right breast localization.US BREAST [id number] 16:11:37MAM MAMMO DIAGNOSTIC MARYANN W/CAD, US BREAST COMPLETE-LEFT, US BREASTCOMPLETE-[id number]: MALIG NEOPLASM OF UPPER-OUTER QUADRANT OF LEFT FEMALE BREAST.Dictation Location: [id number] Information: 72-year-old female with history of left breastcancer status post lumpectomy and radiation therapy as well as high riskright breast biopsy (Intraductal papilloma with atypia)Technique: Bilateral digital mammogram with computer assisted diagnosis. Bilateral CC, MLO and ML views were obtained. A supplemental leftXCCL. Left CC and ML spot compression views were obtained.Comparison: Prior mammograms dating back to 04/10/2016 view was obtainedFindings: The breasts are heterogeneously dense, which may obscure small masses. A scar marker was placed on the upper outer left breast, overlyingpost surgical changes. There is skin thickening and significanttrabecular prominence throughout the left breast compatible with postradiation changes. Redemonstrated is a biopsy clip in the lower innerright breast, in the region of biopsy-proven papilloma with atypia. Additional stable nodules are noted in the right breast.Bilateral breast ultrasound:Subsequent bilateral breast ultrasound was performed utilizing a highfrequency linear array transducer. All 4 quadrants, axilla, andretroareolar of both breasts were evaluated. RIGHT BREAST:- 4:00, 10 cm from the nipple, 9 x 5 x 7 mm complicated cyst within theskin- 5:00, 3 cm from the nipple, previously noted biopsy-proven papillomawith atypia is not well visualized- 9:00, 1 cm from the nipple, 8 x 3 x 4 mm simple cyst- 9:00, 5 cm from the nipple, focally dilated duct- Axilla, lymph node morphology- Retroareolar, mildly dilated ductLEFT BREAST:- Subcutaneous edema and extensive skin thickening.IMPRESSION: 1. Post treatment changes in the left breast. Follow-up left mammogramand left breast ultrasound is recommended in 6 months to ensurestability.2. Biopsy-proven papillomawith atypia in the right breast at 5:00, 3cm from the nipple. Surgical excision is recommended.Findings and recommendations were discussed with Dr. Tiago antoine on 08/08/2017 at 4:00 PM.ACR BI-RADS CATEGORY: 4a-SUSPICIOUS RECOMMENDATION: SURGICAL CONSULTATION FOR RIGHT BREAST ATYPICALPAPILLOMA. FOLLOW-UP LEFT MAMMOGRAM AND LEFT BREAST ULTRASOUND IN 6MONTHS.US BREAST [id number] 16:11:37MAM MAMMO DIAGNOSTIC MARYANN W/CAD, US BREAST COMPLETE-LEFT, US BREASTCOMPLETE-[id number]: MALIG NEOPLASM OF UPPER-OUTER QUADRANT OF LEFT FEMALE BREAST.Dictation Location: [id number] Information: 72-year-old female with history of left breastcancer status post lumpectomy and radiation therapy as well as high riskright breast biopsy (Intraductal papilloma with atypia)Technique: Bilateral digital mammogram with computer assisted diagnosis. Bilateral CC, MLO and ML views were obtained. A supplemental lef tXCCL. Left CC and ML spot compression views were obtained.Comparison: Prior mammograms dating back to 04/10/2016 view was obtainedFindings: The breasts are heterogeneously dense, which may obscure small masses. A scar marker was placed on the upper outer left breast, overlyingpost surgical changes. There is skin thickening and significanttrabecular prominence throughout the left breast compatible with postradiation changes. Redemonstrated is a biopsy clip in the lower innerright breast, in the region of biopsy-proven papilloma with atypia. Additional stable nodules are noted in the right breast.Bilateral breast ultrasound:Subsequent bilateral breast ultrasound was performed utilizing a highfrequency linear array transducer. All 4 quadrants, axilla, andretroareolar of both breasts were evaluated. RIGHT BREAST:- 4:00, 10 cm from the nipple, 9 x 5 x 7 mm complicated cyst within theskin- 5:00, 3 cm from the nipple, previously noted biopsy-proven papillomawith atypia is not well visualized- 9:00, 1 cm from the nipple, 8 x 3 x 4 mm simple cyst- 9:00, 5 cm from the nipple, focally dilated duct- Axilla, lymph node morphology- Retroareolar, mildly dilated ductLEFT BREAST:- Subcutaneous edema and extensive skin thickening.IMPRESSION: 1. Post treatment changes in the left breast. Follow-up left mammogramand left breast ultrasound is recommended in 6 months to ensurestability.2. Biopsy-proven papillomawith atypia in the right breast at 5:00, 3cm from the nipple. Surgical excision is recommended.Findings and recommendations were discussed with Dr. Tiago antoine on 08/08/2017 at 4:00 PM.ACR BI-RADS CATEGORY: 4a- SUSPICIOUS RECOMMENDATION: SURGICAL CONSULTATION FOR RIGHT BREAST ATYPICALPAPIL CORRIE. FOLLOW-UP LEFT MAMMOGRAM AND LEFT BREAST ULTRASOUND IN 6MONTHS.[facility] MAMMO DIAGNOSTIC MARYANN [id number] 16:11:37MAM MAMMO DIAGNOSTIC MARYANN W/CAD, US BREAST COMPLETE-LEFT, US BREASTCOMPLETE-[id number]: MALIG NEOPLASM OF UPPER-OUTER QUADRANT OF LEFT FEMALE BREAST.Dictation Location: [id number] Information: 72-year-old female with history of left breastcancer status post lumpectomy and radiation therapy as well as high riskright breast biopsy (Intraductal papilloma with atypia)Technique: Bilateral digital mammogram with computer assisted diagnosis. Bilateral CC, MLO and ML views were obtained. A supplemental lef tXCCL. Left CC and ML spot compression views were obtained.Comparison: Prior mammograms dating back to 04/10/2016 view was obtainedFindings: The breasts are heterogeneously dense, which may obscure small masses. A scar marker was placed on the upper outer left breast, overlyingpost surgical changes. There is skin thickening and significanttrabecular prominence throughout the left breast compatible with postradiation changes. Redemonstrated is a biopsy clip in the lower innerright breast, in the region of biopsy-proven papilloma with atypia. Additional stable nodules are noted in the right breast.Bilateral breast ultrasound:Subsequent bilateral breast ultrasound was performed utilizing a highfrequency linear array transducer. All 4 quadrants, axilla, andretroareolar of both breasts were evaluated. RIGHT BREAST:- 4:00, 10 cm from the nipple, 9 x 5 x 7 mm complicated cyst within theskin- 5:00, 3 cm from the nipple, previously noted biopsy-proven papillomawith atypia is not well visualized- 9:00, 1 cm from the nipple, 8 x 3 x 4 mm simple cyst- 9:00, 5 cm from the nipple, focally dilated duct- Axilla, lymph node morphology- Retroareolar, mildly dilated ductLEFT BREAST:- Subcutaneous edema and extensive skin thickening.IMPRESSION: 1. Post treatment changes in the left breast. Follow-up left mammogramand left breast ultrasound is recommended in 6 months to ensurestability.2. Biopsy-proven papillomawith atypia in the right breast at 5:00, 3cm from the nipple. Surgical excision is recommended.Findings and recommendations were discussed with Dr. Tiago antoine on 08/08/2017 at 4:00 PM.ACR BI-RADS CATEGORY: 4a- SUSPICIOUS RECOMMENDATION: SURGICAL CONSULTATION FOR RIGHT BREAST ATYPICALPAPIL CORRIE. FOLLOW-UP LEFT MAMMOGRAM AND LEFT BREAST ULTRASOUND IN 6MONTHS.CHEM PANEL 2016-06-29 12:23:49 Test Item Value Reference Range Interpretation Comments A/G Ratio (test code = A/G Ratio) 0.8 0.7-1.6 [facility] TIKI.VN [id number] 12:23:49 Test Item Value Reference Range Interpretation Comments eGFR (test code = eGFR) 27 [facility] TIKI.VN [id number] 12:23:49 Test Item Value Reference Range Interpretation Comments Globulin (test code = Globulin) 4.0 2.7-4.2 [facility] TIKI.VN [id number] 12:23:49 Test Item Value Reference Range Interpretation Comments Potassium Lvl (test code = Potassium 4.4 3.5-5.1 Lvl) [facility]2016-08-05 12:23:49 Test Item Value Reference Range Interpretation Comments CO2 (test code = CO2) 24 24-32 [facility]2016-08-05 12:23:49 Test Item Value Reference Range Interpretation Comments Calcium Lvl (test code = Calcium Lvl) 8.9 8.5-10.5 [facility]2016-08-05 12:23:49 Test Item Value Reference Range Interpretation Comments Chloride Lvl (test code = Chloride Lvl) 113 95-109 [facility]2016-08-05 12:23:49 Test Item Value Reference Range Interpretation Comments ASPARTATE TRANSAMINASE 13 See_Comment [Aut omated message] (test code = ASPARTATE The s ystem which TRANSAMINASE) generated this result transmitted ref erence range: <=37. Th e reference range was not used to interpr et this result as normal/abnormal . [facility]2016-08-05 12:23:49 Test Item Value Reference Range Interpretation Comments Bili Total (test code = Bili Total) 0.4 0.2-1.3 [facility]2016-08-05 12:23:49 Test Item Value Reference Range Interpretation Comments Total Protein (test code = Total 7.4 6.4-8.4 Protein) [facility]2016-08-05 12:23:49 Test Item Value Reference Range Interpretation Comments B/C Ratio (test code = B/C Ratio) 15 6-25 [facility]2016-08-05 12:23:49 Test Item Value Reference Range Interpretation Comments AGAP (test code = AGAP) 9.4 10.0-20.0 [facility]2016-08-05 12:23:49 Test Item Value Reference Range Interpretation Comments Creatinine Lvl (test code = Creatinine 2.10 0.50-1.40 Lvl) [facility]2016-08-05 12:23:49 Test Item Value Reference Range Interpretation Comments BUN (test code = BUN) 31 7-22 [facility]2016-08-05 12:23:49 Test Item Value Reference Range Interpretation Comments Sodium Lvl (test code = Sodium Lvl) 142 135-145 [facility]2016-08-05 12:23:49 Test Item Value Reference Range Interpretation Comments Albumin Lvl (test code = Albumin Lvl) 3.4 3.5-5.0 [facility] TIKI.VN [id number] 12:23:49 Test Item Value Reference Range Interpretation Comments Alk Phos (test code = Alk Phos) 71 39-136 [facility] TIKI.VN [id number] 12:23:49 Test Item Value Reference Range Interpretation Comments Glucose Lvl (test code = Glucose Lvl) 81 70-99 [facility] TIKI.VN [id number] 12:23:49 Test Item Value Reference Range Interpretation Comments ALANINE AMINOTRANSFERASE 14 See_Comment [A utomated message] (test code = ALANINE The sys tem which AMINOTRANSFERASE) generated this result transmitted ref erence range: <=65. Th e reference range was not used to int erpret this result as normal/abnormal . [facility] [employer]2016-08-04 16:00:27 Test Item Value Reference Range Interpretation Comments CK-MB INDEX (test 1.9 See_Comment [Automate d message] The code = CK-MB INDEX) system [facility] generated this result transmit ankita reference range : <=2.5. The reference range was not used to interpr et this result as js l/abnormal. [facility] [employer]2016-08-04 16:00:27 Test Item Value Reference Range Interpretation Comments CK MB (test code = CK MB) 1.2 0.5-3.6 [facility] [employer]2016-08-04 16:00:27 Test Item Value Reference Range Interpretation Comments Total CK (test code = Total CK) 64 12-191 [facility] [employer]2016-08-04 16:00:27 Test Item Value Reference Range Interpretation Comments Troponin-I (test code no gt See_Comment [Auto mated message] The = Troponin-I) system which g enerated this result transmit ankita reference range : <=0.40. The reference r heidi was not used to interpr et this result as js l/abnormal. [employer]2016-08-04 10:21:00 Test Item Value Reference Range Interpretation Comments CK-MB INDEX (test 1.7 See_Comment [Automate d message] The code = CK-MB INDEX) system [facility] generated this result transmit ankita reference range : <=2.5. The reference range was not used to interpr et this result as js l/abnormal. [facility] [employer] TCRannCARHello ChairAC [id number] 10:21:00 Test Item Value Reference Range Interpretation Comments CK MB (test code = CK MB) 1.1 0.5-3.6 [facility] ICT ServicesAC [id number] 10:21:00 Test Item Value Reference Range Interpretation Comments Troponin-I (test code no gt See_Comment [Auto mated message] The = Troponin-I) system which g enerated this result transmit ankita reference range : <=0.40. The reference r heidi was not used to interpr et this result as js l/abnormal. [facility] [employer] [id number] 10:21:00 Test Item Value Reference Range Interpretation Comments Total CK (test code = Total CK) 63 12-191 [facility] TIKI.VN [id number] 10:21:00 Test Item Value Reference Range Interpretation Comments eGFR (test code = eGFR) 40 [facility] TIKI.VN [id number] 10:21:00 Test Item Value Reference Range Interpretation Comments Calcium Lvl (test code = Calcium Lvl) 6.6 8.5-10.5 [facility] TIKI.VN [id number] 10:21:00 Test Item Value Reference Range Interpretation Comments AGAP (test code = AGAP) 12.3 10.0-20.0 [facility] TIK[employer].VN [id number] 10:21:00 Test Item Value Reference Range Interpretation Comments Potassium Lvl (test code = Potassium 3.3 3.5-5.1 Lvl) [facility] TIKI.VN [id number] 10:21:00 Test Item Value Reference Range Interpretation Comments Chloride Lvl (test code = Chloride Lvl) 119 95-109 [facility] TIKI.VN [id number] 10:21:00 Test Item Value Reference Range Interpretation Comments CO2 (test code = CO2) 19 24-32 [facility] [id number] 10:21:00 Test Item Value Reference Range Interpretation Comments Glucose Lvl (test code = Glucose Lvl) 68 70-99 [facility] TIKI.VN [id number] 10:21:00 Test Item Value Reference Range Interpretation Comments BUN (test code = BUN) 29 7-22 [facility]2016-08-04 10:21:00 Test Item Value Reference Range Interpretation Comments Creatinine Lvl (test code = Creatinine 1.50 0.50-1.40 Lvl) [facility]2016-08-04 10:21:00 Test Item Value Reference Range Interpretation Comments Sodium Lvl (test code = Sodium Lvl) 147 135-145 [id number] 10:21:00 Test Item Value Reference Range Interpretation Comments Monocytes # (test code 0.5 See_Comment [Aut omated message] The = Monocytes #) system which generated this result tra nsmitted reference range : <=0.8. The reference r heidi was not used to int erpret this result as normal/abnormal . [facility] CenterTcwotgcFHKWQXFBES7419-54-23 10:21:00 Test Item Value Reference Range Interpretation Comments Eosinophils # (test code 0.5 See_Comment [A utomated message] The = Eosinophils #) system whic h generated this result tra nsmitted reference range : <=0.5. The reference r heidi was not used to int erpret this result as normal/abnormal . [facility] [id number] 10:21:00 Test Item Value Reference Range Interpretation Comments Segs-Bands # (test code = Segs-Bands #) 1.7 1.5-8.1 [facility] [id number] 10:21:00 Test Item Value Reference Range Interpretation Comments Lymphocytes # (test code = Lymphocytes 1.0 1.0-5.5 #) [facility] [id number] 10:21:00 Test Item Value Reference Range Interpretation Comments Eosinophils (test code = 13.4 See_Comment [A utomated message] The Eosinophils) system which ge nerated this result tra nsmitted reference range : <=4.0. The reference r heidi was not used to int erpret this result as normal/abnormal . [facility] CenterFvwgsavJCPMRPIHUR5701-39-29 10:21:00 Test Item Value Reference Range Interpretation Comments Lymphocytes (test code = Lymphocytes) 26.6 20.0-40.0 [facility] CenterLbqxhlfGAEEPJUIRU4732-82-64 10:21:00 Test Item Value Reference Range Interpretation Comments Basophils (test code = 1.0 See_Comment [Aut omated message] The Basophils) system which ge nerated this result tra nsmitted reference range : <=1.0. The reference r heidi was not used to int erpret this result as normal/abnormal . [facility] CenterBcildjrDZUUGPCUXF5367-31-48 10:21:00 Test Item Value Reference Range Interpretation Comments Monocytes (test code = Monocytes) 13.0 2.0-12.0 [facility] CenterTnotnifXYOZJWULOH9904-15-50 10:21:00 Test Item Value Reference Range Interpretation Comments Segs (test code = Segs) 46.0 45.0-75.0 [facility] [id number] 10:21:00 Test Item Value Reference Range Interpretation Comments WBC X 10x3 (test code = WBC X 10x3) 3.7 3.7-10.4 [facility] CenterVwtomkaFXHCQYHDSJ7958-45-44 10:21:00 Test Item Value Reference Range Interpretation Comments MCHC (test code = MCHC) 31.7 32.0-36.0 [facility] CenterUissolfDJHNTDISGP2219-18-72 10:21:00 Test Item Value Reference Range Interpretation Comments RDW (test code = RDW) 15.2 11.5-14.5 [facility] CenterVouqkxbKABWPXMQEK0011-86-28 10:21:00 Test Item Value Reference Range Interpretation Comments Platelet (test code = Platelet) 130 133-450 [facility] CenterHshjqwjALXUDOQBTC0799-03-05 10:21:00 Test Item Value Reference Range Interpretation Comments MPV (test code = MPV) 7.4 7.4-10.4 [facility] CenterCngqnjpCHDBYJXGOC5522-32-93 10:21:00 Test Item Value Reference Range Interpretation Comments RBC X 10x6 (test code = RBC X 10x6) 3.92 4.20-5.40 [facility] CenterGfhhfgmVMMWCHKUKK6245-06-64 10:21:00 Test Item Value Reference Range Interpretation Comments MCV (test code = MCV) 83.2 80.0-98.0 [facility] CenterRkfnemsDXPFJKYUJF9219-75-10 10:21:00 Test Item Value Reference Range Interpretation Comments Hgb (test code = Hgb) 10.3 12.0-16.0 [facility] CenterGcigefwJAPQCVZCPZ8284-66-15 10:21:00 Test Item Value Reference Range Interpretation Comments MCH (test code = MCH) 26.3 pg 27.0-31.0 [facility] FallsUarksvuKZVRAOXAFP4063-06-35 10:21:00 Test Item Value Reference Range Interpretation Comments Hct (test code = Hct) 32.7 36.0-48.0 [facility] [id number] 10:21:00 Test Item Value Reference Range Interpretation Comments VLDL (test code = VLDL) 8 [facility] [id number] 10:21:00 Test Item Value Reference Range Interpretation Comments LDL (Calculated) (test code = LDL 48 (Calculated)) [facility] [id number] 10:21:00 Test Item Value Reference Range Interpretation Comments Chol (test code = Chol) 139 [facility] CleburnePauellaRSPSJT8926-49-47 10:21:00 Test Item Value Reference Range Interpretation Comments Trig (test code = Trig) 39 [facility] CleburneHxbgqeoNNZNID5813-62-94 10:21:00 Test Item Value Reference Range Interpretation Comments HDL (test code = HDL) 83 [facility] CleburneCtfnjnxKTBYTA5828-60-36 10:21:00 Test Item Value Reference Range Interpretation Comments CHD Risk (test code = CHD Risk) 1.67 3.90-5.80 [facility] FallsSPECIAL [id number] 10:21:00 Test Item Value Reference Range Interpretation Comments Hgb A1C (test code = Hgb A1C) 5.8 [facility] Cle[facility]neannCARDIAC [id number] 04:16:00 Test Item Value Reference Range Interpretation Comments CK-MB INDEX (test 1.7 See_Comment [Automate d message] The code = CK-MB INDEX) system [facility] generated this result transmit ankita reference range : <=2.5. The reference range was not used to interpr et this result as js l/abnormal. [facility] CleburneannCARDIAC [id number] 04:16:00 Test Item Value Reference Range Interpretation Comments CK MB (test code = CK MB) 1.4 0.5-3.6 [facility] Cle[facility]neannCARDIAC [id number] 04:16:00 Test Item Value Reference Range Interpretation Comments Troponin-I (test code no gt See_Comment [Auto mated message] The = Troponin-I) system which g enerated this result transmit ankita reference range : <=0.40. The reference r heidi was not used to interpr et this result as js l/abnormal. [facility] FallsCARDIAC [id number] 04:16:00 Test Item Value Reference Range Interpretation Comments Total CK (test code = Total CK) 81 12-191 [facility] [id number] 04:16:00 Test Item Value Reference Range Interpretation Comments Magnesium Lvl (test code = Magnesium 2.4 1.8-2.4 Lvl) [facility] [id number] 22:20:00 Test Item Value Reference Range Interpretation Comments Glucose Lvl (test code = Glucose Lvl) 81 70-99 [facility] [id number] 22:20:00 Test Item Value Reference Range Interpretation Comments Creatinine Lvl (test code = Creatinine 2.26 0.50-1.40 Lvl) [facility] [id number] 22:20:00 Test Item Value Reference Range Interpretation Comments Chloride Lvl (test code = Chloride Lvl) 107 95-109 [facility] TIKI.VN [id number] 22:20:00 Test Item Value Reference Range Interpretation Comments Sodium Lvl (test code = Sodium Lvl) 139 135-145 [facility] [id number] 22:20:00 Test Item Value Reference Range Interpretation Comments BUN (test code = BUN) 37 7-22 [facility] [id number] 22:20:00 Test Item Value Reference Range Interpretation Comments Potassium Lvl (test code = Potassium 4.1 3.5-5.1 Lvl) [facility] [id number] 22:20:00 Test Item Value Reference Range Interpretation Comments AGAP (test code = AGAP) 11.1 10.0-20.0 [facility] [id number] 22:20:00 Test Item Value Reference Range Interpretation Comments CO2 (test code = CO2) 25 24-32 [facility] [id number] 22:20:00 Test Item Value Reference Range Interpretation Comments Total Protein (test code = Total 8.6 6.4-8.4 Protein) [facility] [id number] 22:20:00 Test Item Value Reference Range Interpretation Comments ASPARTATE TRANSAMINASE 13 See_Comment [Aut omated message] (test code = ASPARTATE The s ystem which TRANSAMINASE) generated this result transmitted ref erence range: <=37. Th e reference range was not used to interpr et this result as normal/abnormal . [facility]2016-08-03 22:20:00 Test Item Value Reference Range Interpretation Comments Calcium Lvl (test code = Calcium Lvl) 9.2 8.5-10.5 [facility]2016-08-03 22:20:00 Test Item Value Reference Range Interpretation Comments Bili Total (test code = Bili Total) 0.4 0.2-1.3 [facility]2016-08-03 22:20:00 Test Item Value Reference Range Interpretation Comments B/C Ratio (test code = B/C Ratio) 16 6-25 [facility]2016-08-03 22:20:00 Test Item Value Reference Range Interpretation Comments Globulin (test code = Globulin) 4.5 2.7-4.2 [facility]2016-08-03 22:20:00 Test Item Value Reference Range Interpretation Comments eGFR (test code = eGFR) 24 [facility]2016-08-03 22:20:00 Test Item Value Reference Range Interpretation Comments A/G Ratio (test code = A/G Ratio) 0.9 0.7-1.6 [facility]2016-08-03 22:20:00 Test Item Value Reference Range Interpretation Comments Alk Phos (test code = Alk Phos) 83 39-136 [facility]2016-08-03 22:20:00 Test Item Value Reference Range Interpretation Comments Albumin Lvl (test code = Albumin Lvl) 4.1 3.5-5.0 [facility]2016-08-03 22:20:00 Test Item Value Reference Range Interpretation Comments ALANINE AMINOTRANSFERASE 15 See_Comment [A utomated message] (test code = ALANINE The sys tem which AMINOTRANSFERASE) generated this result transmitted ref erence range: <=65. Th e reference range was not used to int erpret this result as normal/abnormal . [facility]UVHWCLG9324-[facility] 22:20:00 Test Item Value Reference Range Interpretation Comments aPTT (test code = aPTT) 18.4 s 22.9-35.8 [facility] CenterLdujvyiYFLEFNXGQR2895-48-70 22:20:00 Test Item Value Reference Range Interpretation Comments PROTIME (test code = PROTIME) 12.9 s 12.0-14.7 [facility] CenterQwsxjvzRKECEZZCDZ0357-58-71 22:20:00 Test Item Value Reference Range Interpretation Comments INR (test code = INR) 0.94 0.85-1.17 [facility]PpamhnvGFATYMYSIW8266-35-85 22:20:00 Test Item Value Reference Range Interpretation Comments MPV (test code = MPV) 7.5 7.4-10.4 [facility] CenterWprwghxPWROGUXAKR7635-62-08 22:20:00 Test Item Value Reference Range Interpretation Comments RDW (test code = RDW) 15.3 11.5-14.5 [facility] CenterUjmiaxtITNZOHHVHZ9568-80-79 22:20:00 Test Item Value Reference Range Interpretation Comments MCHC (test code = MCHC) 31.3 32.0-36.0 [facility] CenterZsftamvDXSFKGWQUX8720-32-79 22:20:00 Test Item Value Reference Range Interpretation Comments Platelet (test code = Platelet) 173 133-450 [facility] CenterUjodmesBIOPZUGDQU8559-07-16 22:20:00 Test Item Value Reference Range Interpretation Comments WBC X 10x3 (test code = WBC X 10x3) 4.8 3.7-10.4 [facility] CenterQcngepsCMZUFEVFUV4654-82-49 22:20:00 Test Item Value Reference Range Interpretation Comments RBC X 10x6 (test code = RBC X 10x6) 4.89 4.20-5.40 [facility] CenterZginqiqUFWBGKWSWR8362-35-84 22:20:00 Test Item Value Reference Range Interpretation Comments MCV (test code = MCV) 83.8 80.0-98.0 [facility] CenterTpuywqoEINLDWDZAM2980-44-62 22:20:00 Test Item Value Reference Range Interpretation Comments MCH (test code = MCH) 26.2 pg 27.0-31.0 [facility] CenterJmoeeyfQWOVEWSSLD4467-93-47 22:20:00 Test Item Value Reference Range Interpretation Comments Hct (test code = Hct) 41.0 36.0-48.0 [facility] CenterBhewdsdMBIBKGWSKM3285-00-46 22:20:00 Test Item Value Reference Range Interpretation Comments Hgb (test code = Hgb) 12.8 12.0-16.0 [facility] CenterYujndtqJBLOYXXHLI3256-40-97 22:20:00 Test Item Value Reference Range Interpretation Comments Eosinophils # (test code 0.6 See_Comment [A utomated message] The = Eosinophils #) system [facility] generated this result tra nsmitted reference range : <=0.5. The reference r heidi was not used to int erpret this result as normal/abnormal . [facility] CenterDtxjkofESFIOLTBCK8071-61-07 22:20:00 Test Item Value Reference Range Interpretation Comments Monocytes # (test code 0.5 See_Comment [Aut omated message] The = Monocytes #) system which generated this result tra nsmitted reference range : <=0.8. The reference r heidi was not used to int erpret this result as normal/abnormal . [facility] CenterFpmlvrbZSOLDWXPYK2128-53-84 22:20:00 Test Item Value Reference Range Interpretation Comments Segs-Bands # (test code = Segs-Bands #) 2.6 1.5-8.1 [facility] CenterGayogklFCWWYMAEHW6770-64-80 22:20:00 Test Item Value Reference Range Interpretation Comments Basophils (test code = 1.0 See_Comment [Aut omated message] The Basophils) system which ge nerated this result tra nsmitted reference range : <=1.0. The reference r heidi was not used to int erpret this result as normal/abnormal . [facility] CenterGuucradYMIOTKWWIC2170-78-08 22:20:00 Test Item Value Reference Range Interpretation Comments Lymphocytes # (test code = Lymphocytes 1.1 1.0-5.5 #) [facility] CenterAfshadpHZKCBETHXC5200-71-55 22:20:00 Test Item Value Reference Range Interpretation Comments Segs (test code = Segs) 55.2 45.0-75.0 [facility] CenterZpsqlawUGZXQYLCIH8941-44-17 22:20:00 Test Item Value Reference Range Interpretation Comments Lymphocytes (test code = Lymphocytes) 22.2 20.0-40.0 [facility] CenterOyubyjkMGZCESMSDR2432-23-57 22:20:00 Test Item Value Reference Range Interpretation Comments Monocytes (test code = Monocytes) 9.7 2.0-12.0 [facility] CenterFlpvxlrLTPLHMHZLP6231-61-34 22:20:00 Test Item Value Reference Range Interpretation Comments Eosinophils (test code = 11.9 See_Comment [A utomated message] The Eosinophils) system which ge nerated this result tra nsmitted reference range : <=4.0. The reference r heidi was not used to int erpret this result as normal/abnormal . 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 COMPARISON: Mammogram from 01/03/2022 SONOGRAPHIC FINDINGS: No discrete mass or cyst. No axillary lymphadenopathy. Mild residual skin and trabecular thickening seen in the scar area around 2:00 axis. IMPRESSION: BI-RADS CATEGORY 2: BENIGN RECOMMENDATIONS: Continue annual screening Electronically signed by: Rosita Almaraz MD 01/03/2022 11:00 PM [facility] Benign Dictated By: Rosita Rosario MD 01/03/22 1257 Signed By: Rosita Rosario MD 01/03/22 1257 TD/TT: 01/03/22 1257 Tech: [facility] cc: [id number]; [id number]* Tiago Nickerson MD; Rachael Guerrero [facility] Diag Juanita, CAD, Adam BI (p) [address] [address] Patient Name: Ana Oliver Medical Record#: [id number] Address: [address] [place] [address] City/State/Zip: [place] [address]: Tiago Nickerson MD Insurance: [employer]ed o /Age/Sex: 1945/76/F 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 ML views of each breast COMPARISON: Multiple prior mammograms with most recent dated 09/20/2021 DENSITY: There are scattered areas of fibroglandular density FINDINGS: Stable bilateral breast scars with surgical clipsseen within the right breast. Mild bilateral wall thickening in the left breast is chronic. No new mass or suspicious microcatheter patient's. Left breast ultrasound from same day demonstrates no acutefindings. IMPRESSION: BI-RADS CATEGORY 2: BENIGN RECOMMENDATIONS: Continue annual screening A secondreading of the examination was performed using computer-aided detection. Information is entered intoa reminder system for a target due date for the next mammogram. Thank you for allowing us to participate in your patient's care. The results and recommendations were sent to the patient by mail. 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 COMPARISON: Mammogram from same day SONOGRAPHIC FINDINGS: No evidence of dominant mass, cyst or area of disturbed echotexture. No retroareolar ductal ectasia is seen. No axillary lymphadenopathy. Targeted ultrasound of the area of residual mild discomfort at 5:00 axis demonstrates no discrete lesions. IMPRESSION: BI-RADS CATEGORY 2: BENIGN RECOMMENDATIONS: Return to annual screening, next due 11/2021. Electronically signed by: Rosita Almaraz MD 09/20/2021 12:21 PM CDT Benign Dictated By: Rosita Rosario MD 09/20/21 1142 Gracie d By: Rosita Rosario MD 09/20/21 1142 TD/TT: 09/20/21 114 Tech: [id number] cc: BRODY; [id number]* Tiago Nickerson MD; Rachael Guerrero [facility] Diag Juanita, CAD, Adam RT (p) [facility] [address] [place] [address] Patient Name: Ana Oliver Medical Record#: [id number] Address: [address] [place] [address] City/State/Zip: [place] [address]: Tiago Nickerson MD Insurance: [employer]ed o /Age/Sex: 1945/76/F 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/Reg Date: 09/20/[address]: Tiago Nickerson MD Location: [facility]/ PCP: Rachael Goldstein MD Date of Service:09/20/21 Order (s): MM Diag Juanita, CAD, Adam RT (p) CPT Code: Report Number: [id number] Reason forExam: N64.4 EXAMINATION: MM Diag Juanita, CAD, Adam RT (p) CLINICAL INDICATION: Female, 76 years old with N64.4 TECHNIQUE: Right breast digital 2-D and 3-D tomosynthesis spot compression CC and MLO views.ML view of right breast COMPARISON: Multiple prior mammograms, most recent dated 12/07/2020 DENSITY: T here are scattered areas of fibroglandular density FINDINGS: Stable right breast scar. No evidence of new dominant mass or suspicious microcalcifications. Specifically, no periareolar mass is seen. IMPRESSION: BI-RADS CATEGORY 2: BENIGN RECOMMENDATIONS: Return to annual screening, next due 11/2021. A second reading of the examination was performed using computer-aided detection. Information is enteredinto a reminder system for a target due date for the next mammogram. Thank you for allowing us to participate in your patient's care. The results and recommendations were sent to the patient by mail. Electronically signed by: Rosita Almaraz MD 09/20/2021 11:45 AM CDT Benign Dictated By: Rosita Rosario MD 09/20/211039 Signed By: Rosita Rosario MD TD/TT: 09/20/21 104 Tech: [facility] cc: [id number]; [id number]* Tiago Nickerson MD; Rachael Guerrero MD"
[2022-07-13] MEDS ORDERED: ACETAMINOPHEN 500 MG TAB ONE (09:10)
[2022-07-13 09:29] LABS: Absolute Lymphocytes (CBC) 0.9 K/uL (0.7-4.9); Lymphocytes % 23.4 % (15.3-44.8); MCV 77.9 fL (80-100); MPV 7.6 fL (7.6-11.3); RBC Red Blood Cell Count 4.88 M/uL (3.86-4.86)
--- NOTE | 2022-07-13 09:47 | RAD REPORT ---
EXAM DESCRIPTION: CT - Head Brain Wo Cont - 07/13/2022 9:23 am CLINICAL HISTORY: Headache, new or worsening COMPARISON: Head Brain Wo Cont dated 06/30/2019 TECHNIQUE: All CT scans are performed using dose optimization technique as appropriate and may inclu de automated exposure control or mA/KV adjustment according to patient size. FINDINGS: No intracranial hemorrhage, hydrocephalus or extra-axial fluid collection.No areas of brai n edema or evidence of midline shift. Paranasal sinus thickening. The calvarium is intact. IMPRESSION: No acute intracranial abnormality.
[2022-07-13] MEDS ORDERED: HYDROCODONE/APAP 5/325 MG TAB ONE (09:59)
[2022-07-13 10:04] LABS: Protime INR 1.23
[2022-07-13 10:10] LABS: Magnesium 2.4 mg/dL (1.8-2.4); Potassium 4.3 mmol/L (3.5-5.1)
--- NOTE | 2022-07-13 10:11 | RAD REPORT ---
EXAM DESCRIPTION: RAD - Foot Left 3 View - 07/13/2022 9:51 am CLINICAL HISTORY: PAIN COMPARISON: No comparisons FINDINGS/IMPRESSION: No acute fracture. No malalignment. No significant focal degenerative changes. Osteopenia.
--- NOTE | 2022-07-13 10:53 | RAD REPORT ---
EXAM DESCRIPTION: US - Extremity Venous Uni Ltd - 07/13/2022 10:47 am CLINICAL HISTORY: Pain COMPARISON: None. TECHNIQUE: Real-time sonographic evaluation of the left lower extremity deep venous system was perfo rmed. FINDINGS: Normal compressibility, flow augmentation, phasic flow and spontaneous flow is identified in the left lower extremity deep venous system. No intraluminal filling defects seen. IMPRESSION: No DVT in the left lower extremity.
[2022-07-13 11:19] LABS: Urine Blood Negative (Negative); Urine Glucose Negative (Negative); Urine Protein 2+ (Negative); Urine pH 6.5 (5.0-7.0)
--- NOTE | 2022-07-13 11:41 | EDPHYS ---
Physician Documentation [facility] Name: Kylah Oliver Age: 77 yrs Sex: Female : 1945 Arrival Date: 07/13/2022 Time: 08:25 Bed 20 Private MD: NATTY Physician Arturo Perdue HPI: 07/13 09:00 This 77 yrs old Black Female presents to ER via Ambulatory with complaints of Foot Pain.cp 09:00 The patient presents with pain, that is acute. The complaints affect the lateral aspect cp of left foot. Context: resulted from an unknown cause, the patient can fully bear weight, the patient is able to ambulate, with mild difficulty, Problem is a result from a previous injury: No. Onset: The symptoms/episode began/occurred yesterday. Associated signs and symptoms: Pertinent positives: numbness, of the medial aspect left lower leg, Pertinent negatives injury, deformity. Treatment prior to arrival includes: no previous treatment. Severity of symptoms: in the emergency department the symptoms are unchanged, despite home interventions. 09:00 Patient also c/o elevated blood pressure this morning prior to taking blood pressure cp medications. Patient c/o headache. Historical: - Allergies: 08:34 Codeine; ss 08:34 Imdur; ss - Home Meds: 08:45 hydralazine 50 mg Oral tab [Active]; olmesartan 40 mg oral tab 1 tab once daily ss [Active]; furosemide 20 mg Oral tab 1 tab once daily [Active]; Xarelto 15 mg oral tab 1 tab once daily [Active]; Flonase Nasal [Active]; metoprolol succinate 25 mg oral Tb24 1 tab twice a day [Active]; rosuvastatin 10 mg oral tab 1 tab once daily [Active]; losartan 100 mg oral tab 1 tab once daily [Active]; Albuterol Inhl [Active]; Zyrtec Oral [Active]; - PMHx: 08:34 Asthma; Atrial Fib; breast cancer; CHF; Hypertension; Thyroid problem; ss - Immunization history:: Client reports receiving the 2nd dose of the Covid vaccine. - Social history:: Smoking status: Patient denies any tobacco usage or history of. ROS: 09:05 Constitutional: Negative for body aches, chills, fever, poor PO intake. cp 09:05 Eyes: Negative for injury, pain, redness, and discharge. cp 09:05 Neck: Negative for pain with movement, pain at rest, stiffness. 09:05 Cardiovascular: Negative for chest pain, edema, palpitations. 09:05 Respiratory: Negative for cough, shortness of breath, wheezing. 09:05 Abdomen/GI: Negative for abdominal pain, nausea, vomiting, and diarrhea. 09:05 MS/extremity: Positive for pain, paresthesias, of the left lower leg and left foot. 09:05 Neuro: Positive for headache, Negative for altered mental status, weakness. 09:05 All other systems are negative. Exam: 09:10 Constitutional: The patient appears in no acute distress, alert, awake, cp non-diaphoretic, non-toxic, well developed, well nourished. 09:10 Head/Face: Normocephalic, atraumatic. cp 09:10 Eyes: Periorbital structures: appear normal, Pupils: equal, round, and reactive to light and accomodation, Extraocular movements: intact throughout, Conjunctiva: normal, no exudate, no injection, Sclera: no appreciated abnormality, Lids and lashes: appear normal, bilaterally. 09:10 ENT: External ear(s): are unremarkable, Ear canal(s): are normal, TM's: dullness, bilaterally, Nose: is normal, Mouth: Lips: moist, Oral mucosa: pink and intact, moist, Posterior pharynx: Airway: no evidence of obstruction, patent. 09:10 Neck: ROM/movement: is normal, is supple, without pain, no range of motions limitations. 09:10 Chest/axilla: Inspection: normal. 09:10 Cardiovascular: Rate: normal, Rhythm: regular. 09:10 Respiratory: the patient does not display signs of respiratory distress, Respirations: normal, no use of accessory muscles, no retractions, labored breathing, is not present, Breath sounds: are clear throughout, no decreased breath sounds, no stridor, no wheezing. 09:10 Abdomen/GI: Inspection: abdomen appears normal, Palpation: abdomen is soft and non-tender, in all quadrants. 09:10 Back: pain, is absent, ROM is normal. 09:10 Musculoskeletal/extremity: Extremities: noted in the lateral aspect of left foot: pain, tenderness, ROM: full active range of motion, in the left foot, Pulses: noted to be 2+ in the left dorsalis pedis artery. 09:10 Skin: cellulitis, is not appreciated, no rash present. 09:10 Neuro: Orientation: to person, place \T\ time. Mentation: is normal, Motor: moves all fours, strength is normal, Sensation: is normal. 09:17 ECG was reviewed by the Attending Physician. cp Vital Signs: 08:30 BP 189 / 89; Pulse 72; Resp 16; Temp 98.6(O); Pulse Ox 100% on R/A; Weight 81.19 kg; ss Height 5 ft. 6 in. (167.64 cm); Pain 8/10; 09:53 BP 173 / 74; Pulse 80; Resp 16; mb8 10:12 BP 164 / 70; Pulse 60; Resp 16; Pulse Ox 100% ; mb8 08:30 Body Mass Index 28.89 (81.19 kg, 167.64 cm) ss NIH Stroke Scale Scores: 08:54 NIHSS Score: 1 mb8 MDM: 08:37 Patient medically screened. cp 11:40 Data reviewed: vital signs, nurses notes, lab test result(s), EKG, radiologic studies, cp plain films, ultrasound. 11:40 Test interpretation: by ED physician or midlevel provider: ECG. Counseling: I had a cp detailed discussion with the patient and/or guardian regarding: the historical points, exam findings, and any diagnostic results supporting the discharge/admit diagnosis, the presence of at least one elevated blood pressure reading (>120/80) during this emergency department visit, lab results, radiology results, the need for outpatient follow up, an coil winder, to return to the emergency department if symptoms worsen or persist or if there are any questions or concerns that arise at home. Response to treatment: the patient's symptoms have markedly improved after treatment, and as a result, I will discharge patient. 07/13 08:55 Order name: Basic Metabolic Panel; Complete Time: 10:13 cp 07/13 10:13 Interpretation: Normal except: CL 112; BUN 29; CRE 2.05; GFR 24. cp 07/13 08:55 Order name: CBC with Diff; Complete Time: 10:13 cp 07/13 08:55 Order name: Magnesium; Complete Time: 10:13 cp 07/13 08:55 Order name: PT-INR; Complete Time: 10:13 cp 07/13 08:55 Order name: XRAY Foot LEFT 3 View; Complete Time: 10:13 cp 07/13 11:20 Order name: Urine Dipstick-Ancillary; Complete Time: 11:32 EDMS 07/13 11:32 Interpretation: Reviewed. 07/13 08:55 Order name: EKG; Complete Time: 08:56 07/13 08:55 Order name: Cardiac monitoring; Complete Time: 09:22 07/13 08:55 Order name: EKG - Nurse/Tech; Complete Time: 09:22 07/13 08:55 Order name: IV Saline Lock; Complete Time: 09:22 07/13 08:55 Order name: CT Head Brain wo Cont; Complete Time: 10:13 07/13 09:23 Order name: US Extremity Venous Unilateral Ltd; Complete Time: 10:59 07/13 10:59 Interpretation: Report reviewed. 07/13 08:55 Order name: Labs collected and sent; Complete Time: 09:22 07/13 08:55 Order name: O2 Per Protocol; Complete Time: 09:22 07/13 08:55 Order name: O2 Sat Monitoring; Complete Time: 09:22 07/13 09:33 Order name: Labs - recollect needed: recollect blue and green top; Complete Time: 09:51 eb EC:17 Rate is 71 beats/min. Rhythm is regular. LA interval is normal. QRS interval is cp prolonged at 130 msec. QT interval is normal. T waves are Inverted in lead aVR. Interpreted by me. Reviewed by me. Administered Medications: 09:21 Not Given (Patient already took at home PREPPER): Tylenol 1000 mg PO once mb8 09:54 Drug: HYDROcodone-acetaminophen 5 mg-325 mg 1 tabs Route: PO; mb8 10:27 Follow up: Response: No adverse reaction; Pain is decreased; RASS: Alert and Calm (0) mb8 Disposition Summary: 07/13/22 11:40 Discharge Ordered Location: Home cp Problem: new cp Symptoms: have improved cp Condition: Stable cp Diagnosis - Pain in left foot cp - Hypertensive heart disease with heart failure cp - Chronic kidney disease, unspecified cp Followup: cp - With: Private Physician - When: 2 - 3 days - Reason: Recheck today's complaints Discharge Instructions: - Discharge Summary Sheet cp - Hypertension, Adult cp - How to Take Your Blood Pressure, Hiuz-sg-Wblx cp - Managing Your Hypertension cp - Foot Pain cp Forms: - Medication Reconciliation Form cp - Thank You Letter cp - Antibiotic Education cp - Prescription Opioid Use cp Prescriptions: - Tramadol 50 mg Oral Tablet - take 1 tablet by ORAL route every 8 hours as needed; 12 tablet; Refills: 0, cp Product Selection Permitted NIH Stroke Scale - NIH Stroke Score Date: 07/13/2022 Time: 08:54 Total Score = 1 1a. Level of Consciousness (LOC) - 0(Alert) 1b. Level of Consciousness (LOC) (Month \T\ Age) - 0(Both) 1c. LOC Commands (Open \T\ Closes Eyes/Remelt Furnace Expediter) - 0(Both) 2. Best Gaze (Lateral Gaze Paresis) - 0(Normal) 3. Visual Field Loss - 0(No visual loss) 4. Facial Palsy - 0(Normal) 5a. Left Arm: Motor (10-second hold) - 0(No drift) 5b. Right Arm: Motor (10-second hold) - 0(No drift) 6a. Left Leg: Motor (5-second hold - always test supine) - 0(No drift) 6b. Right Leg: Motor (5-second hold - always test supine) - 0(No drift) 7. Limb Ataxia (finger/nose \T\ heel/brice - test with eyes open) - 0(Absent) 8. Sensory Loss (pinprick arms/legs/face) - 1(Mild to moderate loss) 9. Best Language: Aphasia (description/naming/reading) - 0(No aphasia) 10. Dysarthria (speech clarity - read or repeat words) - 0(Normal) 11. Extinction and Inattention (visual/tactile/auditory/spatial/personal) - 0(No abnormality) Initials: mb8 Signatures: Dispatcher [employer] EDQuita Mccarthy RN RN ss Arturo Middleton PA PA cp Botello, Elizabeth eb Bates, Michael RN RN mb8 Corrections: (The following items were deleted from the chart) 08:34 08:34 Allergies: Lyrica; ss
--- NOTE | 2022-07-13 11:41 | ER ---
Nurse's Notes [facility] Name: Kylah Oliver Age: 77 yrs Sex: Female : 1945 Arrival Date: 07/13/2022 Time: 08:25 Bed 20 Private MD: Diagnosis: Pain in left foot;Hypertensive heart disease with heart failure;Chronic kidney disease, unspecified Presentation: 07/13 08:30 Chief complaint: Patient states: Pt reports pain to L 3rd, 4th and 5th toes that began ss yesterday evening. Pt reports that since her stroke 5 years ago that she has some residual numbness to that same foot, but since the pain began the numbness seems worse. Coronavirus screen: Client denies travel out of the [place] in the last 14 days. Ebola Screen: Patient denies exposure to infectious person. Patient denies travel to an Ebola-affected area in the 21 days before illness onset. No acute neurological deficit is noted. Pre-hospital glucose is not applicable to this patient. Initial Sepsis Screen: Does the patient meet any 2 criteria? No. Patient's initial sepsis screen is negative. Does the patient have a suspected source of infection? No. Patient's initial sepsis screen is negative. Risk Assessment: Do you want to hurt yourself or someone else? Patient reports no desire to harm self or others. Onset of symptoms was July 12, 2022. 08:30 Method Of Arrival: Ambulatory ss 08:30 Acuity: KAYLA 3 ss Triage Assessment: 09:00 General: Appears in no apparent distress. comfortable, Behavior is calm, cooperative, mb8 appropriate for age. 09:00 The onset of the patients symptoms was at an unknown time. mb8 09:00 Neuro: Reports headache weakness. mb8 12:04 The onset of the patients symptoms was at an unknown time. mb8 Stroke Activation: Symptom onset > 6 hours Physician: Stroke Attending; Name: ; Notified At: ; Arrived At: Physician: Chief Stroke Resident; Name: ; Notified At: ; Arrived At: Physician: Stroke Resident; Name: ; Notified At: ; Arrived At: Physician: ED Attending; Name: ; Notified At: ; Arrived At: Physician: ED Resident; Name: ; Notified At: ; Arrived At: Historical: - Allergies: 08:34 Codeine; ss 08:34 Imdur; ss - Home Meds: 08:45 hydralazine 50 mg Oral tab [Active]; olmesartan 40 mg oral tab 1 tab once daily ss [Active]; furosemide 20 mg Oral tab 1 tab once daily [Active]; Xarelto 15 mg oral tab 1 tab once daily [Active]; Flonase Nasal [Active]; metoprolol succinate 25 mg oral Tb24 1 tab twice a day [Active]; rosuvastatin 10 mg oral tab 1 tab once daily [Active]; losartan 100 mg oral tab 1 tab once daily [Active]; Albuterol Inhl [Active]; Zyrtec Oral [Active]; - PMHx: 08:34 Asthma; Atrial Fib; breast cancer; CHF; Hypertension; Thyroid problem; ss - Immunization history:: Client reports receiving the 2nd dose of the Covid vaccine. - Social history:: Smoking status: Patient denies any tobacco usage or history of. Screenin:54 Abuse screen: Denies threats or abuse. Denies injuries from another. Nutritional ss screening: No deficits noted. Tuberculosis screening: Never had TB. 09:00 Fall Risk No fall in past 12 months (0 pts). Secondary diagnosis (15 points) IV access mb8 (20 points). Ambulatory Aid- None/Bed Rest/Nurse Assist (0 pts). Gait- Normal/Bed Rest/Wheelchair (0 pts) Mental Status- Oriented to own ability (0 pts). Total Cody Fall Scale indicates No Risk (0-24 pts). Assessment: 08:53 Reassessment: PT reports that she has had COVID the past week and received an infusion ss of monoclonal antibodies. 08:54 VAN Scoring: Arm Drift: Patients demonstrates NO arm weakness. Patient is VAN Negative. mb8 TNKase (Tenecteplase) Screening: Contraindications: Rapidly improving condition or minor deficit: No. Pain: Complains of pain in left foot Pain currently is 4 out of 10 on a pain scale. Quality of pain is described as aching, Pain began. Neuro: No deficits noted. 09:30 Patient has been NPO before screening. The patient is alert, and able to follow mb8 commands. The patient does not exhibit slurred or garbled speech. The patient is not exhibiting difficulty speaking. The patient does not exhibit difficulty understanding words. The patient is able to swallow own secretions with no drooling or need for suction. Patient tolerated one teaspoon of water. No drooling, immediate coughing, gurgling, or clearing of the throat was noted. The patient tolerated 90mL of water. No drooling, immediate coughing, gurgling, or clearing of the throat was noted. The patient passed the bedside swallow screening. Oral medications may be given as ordered. Contact Physician for further diet orders. Provider notified of bedside swallow screening results: Arturo WILLARD. 09:53 Reassessment: Patient and/or family updated on plan of care and expected duration. Pain mb8 level reassessed. Patient is alert, oriented x 3, equal unlabored respirations, skin warm/dry/pink. Vital Signs: 08:30 BP 189 / 89; Pulse 72; Resp 16; Temp 98.6(O); Pulse Ox 100% on R/A; Weight 81.19 kg; ss Height 5 ft. 6 in. (167.64 cm); Pain 8/10; 09:53 BP 173 / 74; Pulse 80; Resp 16; mb8 10:12 BP 164 / 70; Pulse 60; Resp 16; Pulse Ox 100% ; mb8 08:30 Body Mass Index 28.89 (81.19 kg, 167.64 cm) NIH Stroke Scale Scores: 08:54 NIHSS Score: 1 mb8 ED Course: 08:25 Patient arrived in ED. am2 08:34 Triage completed. ss 08:34 Arm band placed on right wrist. ss 08:34 Patient has correct armband on for positive identification. mb8 08:36 Arturo Middleton PA is PHCP. cp 08:36 Arturo Perdue MD is Attending Physician. cp 08:38 Олег Barragan, RN is Primary Nurse. mb8 08:44 Primary Nurse role handed off by Олег Barragan, ESTRELLA eb 08:53 Олег Barragan, RN is Primary Nurse. mb8 09:[address] via stretcher. mb8 09:22 Basic Metabolic Panel Sent. mb8 09:22 CBC with Diff Sent. mb8 09:22 Magnesium Sent. mb8 09:22 PT-INR Sent. mb8 09:25 CT Head Brain wo Cont In Process Unspecified. EDMS 09:51 Inserted saline lock: 22 gauge in right antecubital area, using aseptic technique. ss Blood collected. 09:53 XRAY Foot LEFT 3 View In Process Unspecified. EDMS 10:26 Patient taken to ultrasound. via wheelchair. mb8 10:49 US Extremity Venous Unilateral Ltd In Process Unspecified. EDMS 12:03 No provider procedures requiring assistance completed. IV discontinued, intact, mb8 bleeding controlled, No redness/swelling at site. Pressure dressing applied. Administered Medications: 09:21 Not Given (Patient already took at home ACTIONSCRIPT DEVELOPER): Tylenol 1000 mg PO once mb8 09:54 Drug: HYDROcodone-acetaminophen 5 mg-325 mg 1 tabs Route: PO; mb8 10:27 Follow up: Response: No adverse reaction; Pain is decreased; RASS: Alert and Calm (0) mb8 Medication: 12:06 VIS not applicable for this client. mb8 Outcome: 11:40 Discharge ordered by . cp 12:03 Discharged to home ambulatory, with significant other. mb8 12:03 Condition: stable 12:03 Discharge instructions given to patient, Instructed on discharge instructions, follow up and referral plans. no drinking with medication, no driving heavy equipment, medication usage, Demonstrated understanding of instructions, follow-up care, medications, Prescriptions given X 1. 12:06 Patient left the ED. mb8 NIH Stroke Scale - NIH Stroke Score Date: 07/13/2022 Time: 08:54 Total Score = 1 1a. Level of Consciousness (LOC) - 0(Alert) 1b. Level of Consciousness (LOC) (Month \T\ Age) - 0(Both) 1c. LOC Commands (Open \T\ Closes Eyes/Metal Hanging Helper) - 0(Both) 2. Best Gaze (Lateral Gaze Paresis) - 0(Normal) 3. Visual Field Loss - 0(No visual loss) 4. Facial Palsy - 0(Normal) 5a. Left Arm: Motor (10-second hold) - 0(No drift) 5b. Right Arm: Motor (10-second hold) - 0(No drift) 6a. Left Leg: Motor (5-second hold - always test supine) - 0(No drift) 6b. Right Leg: Motor (5-second hold - always test supine) - 0(No drift) 7. Limb Ataxia (finger/nose \T\ heel/brice - test with eyes open) - 0(Absent) 8. Sensory Loss (pinprick arms/legs/face) - 1(Mild to moderate loss) 9. Best Language: Aphasia (description/naming/reading) - 0(No aphasia) 10. Dysarthria (speech clarity - read or repeat words) - 0(Normal) 11. Extinction and Inattention (visual/tactile/auditory/spatial/personal) - 0(No abnormality) Initials: mb8 Signatures: Dispatcher [employer] EDQuita Mccarthy RN RN ss Arturo Middleton PA PA cp Moreno, Amanda am2 Botello, Elizabeth eb Bates, Michael RN RN mb8 Corrections: (The following items were deleted from the chart) 08:34 08:34 Allergies: Lyrica; ss
[2022-07-13 12:46] VITALS: TEMP 98.6; O2SAT 100
[2022-07-13 12:50] VITALS: BP 164/70
--- NOTE | 2022-07-14 08:57 | EKG ---
Test Date: 2022-07-13 Test Time: 09:13:39 [place] Tender: MEASUREMENT RESULTS: Intervals: Rate: 71 MO: 122 QRSD: 130 QT: 432 QTc: 469 [place]: P: 74 MO: 122 QRS: 6 T: 11 INTERPRETIVE STATEMENTS: Sinus rhythm with premature supraventricular complexes Right bundle branch block Abnormal ECG Compared to ECG 06/29/2019 23:22:18 Atrial premature complex(es) now present Electronically Signed On 07-14-22 08:56:02 CDT by Roby Monte
== END 2022-07-13 12:06 | disposition home or self-care (01) ==
LOC: ER 08:24
DX: M79.672 Pain in left foot (principal); I13.10 Hypertensive heart and chronic kidney disease without heart failure, with stage 1 through stage 4 chronic kidney disease, or unspecified chronic kidney disease; N18.9 Chronic kidney disease, unspecified; I48.91 Unspecified atrial fibrillation; Z79.01 Long term (current) use of anticoagulants; J45.909 Unspecified asthma, uncomplicated; Z88.5 Allergy status to narcotic agent; Z88.8 Allergy status to other drugs, medicaments and biological substances
CPT/HCPCS: 36415; 70450; 80048; 81003; 83735; 85025; 85610; 93005; 93971; 99284

== ENCOUNTER 2023-06-09 10:38 | Emergency (ER) | payer OTHER ==
[2023-06-09 11:30] LABS: Absolute Lymphocytes (CBC) 0.3 K/uL (0.7-4.9); Hematocrit 32.1 % (36.0-45.0); MCV 80.8 fL (80-100); MPV 8.4 fL (7.6-11.3); RBC Red Blood Cell Count 3.98 M/uL (3.86-4.86)
[2023-06-09 11:47] LABS: Albumin 3.7 g/dL (3.4-5.0); Bilirubin Total 0.3 mg/dL (0.2-1.0); Magnesium 2.5 mg/dL (1.6-2.4); Potassium 4.1 mEq/L (3.5-5.1); Troponin High Sensitivity 23.2 pg/mL (<58.9)
--- NOTE | 2023-06-09 11:51 | RAD REPORT ---
EXAM DESCRIPTION: CT - Abdomen Pelvis Wo Contrast - 06/09/2023 11:19 am CLINICAL HISTORY: pain to buttock area from fall;Abd pain COMPARISON: Chest Single View dated 06/09/2023 TECHNIQUE: Thin cut axial CT imaging of the abdomen and pelvis was performed without IV contrast. Mu ltiplanar reformats were generated and reviewed. All CT scans are performed using dose optimization technique as appropriate and may include automated exposure control or mA/KV adjustment according to patient size. FINDINGS: No suspicious findings in the lung bases. The liver, spleen,, adrenal glands, and pancreas show no suspicious findings. Gallbladder and biliary tree are also without suspicious finding. Lobulated renal contour, with multiple cysts, the largest at the right superior pole measuring 2.4 ce ntimeter. No suspicious parenchymal findings within limits of noncontrast technique. No evidence of h ydroureteronephrosis. Bilateral superior pole nonobstructing calculi each measuring approximately 3 m illimeter. No dilated bowel loops or bowel wall thickening. Mild colonic diverticulosis. Appendix is not well vi sualized. No free air, free fluid or inflammatory stranding. No hernia, mass or bulky lymphadenopathy . The urinary bladder is without significant finding. No suspicious bony findings. Nonspecific skin thickening and appearance of fat stranding in the left breast which is incompletely imaged, could be chronic or related to cellulitis. Please correlate clinically. IMPRESSION: No acute intra-abdominal process. Nonobstructing bilateral renal calculi measuring approximately 3 millimeter. Lobulated appearance of the kidneys, favored to represent persistent lobulation. Nonspecific skin thickening and appearance of fat stranding in the left breast, could be chronic or r elated to cellulitis. Please correlate clinically.
--- NOTE | 2023-06-09 11:55 | RAD REPORT ---
EXAM DESCRIPTION: Dov Single View06/09/2023 11:35 am CLINICAL HISTORY: PAIN COMPARISON: Carotid Artery Bilateral dated 06/30/2019; Neck Angio dated 06/30/2019 TECHNIQUE: Portable AP view of the chest. FINDINGS: The lungs are clear. No pneumothorax or effusion. Heart is at the upper limit of normal. T he mediastinal contours are unchanged, with prominence of the superior mediastinum, probably relates to heterogeneous enlargement of both thyroid lobes with retrosternal extension, as noted on the prior CT. IMPRESSION: No acute cardiopulmonary process.
[2023-06-09 12:06] LABS: Blood Morphology Comment NOT SEEN (NOT SEEN); Platelet Estimate ADEQ; White Blood Cell Scan OK (OK)
[2023-06-09 12:10] LABS: Specific Gravity 1.008 (1.005-1.030); Urine Bacteria <20 /HPF (<20); Urine Bilirubin NEGATIVE (Negative); Urine Blood Negative (Negative); Urine Clarity Turbid (Clear); Urine Color Colorless (Yellow); Urine Glucose NEGATIVE (Negative); Urine Mucus Slight /HPF (None Seen); Urine Protein 1+ (Negative); Urine RBC <5 /HPF (None Seen); Urine Urobilinogen Normal (Normal); Urine pH 5.5 (5.0-7.0)
[2023-06-09 12:16] LABS: Protime INR 0.97
[2023-06-09] MEDS ORDERED: NA CHLORIDE 0.9% 500 ML ONE (12:57)
--- NOTE | 2023-06-09 13:44 | ER ---
Nurse's Notes [facility] Name: Kylah Oliver Age: 78 yrs Sex: Female : 1945 Arrival Date: 06/09/2023 Time: 10:38 Bed 8 Private MD: Diagnosis: Weakness;Fall on same level from slipping, tripping and stumbling without subsequent striking against object Presentation: 06/09 10:45 Chief complaint: EMS states: Toned out for lift assist, on arrival pt reported fall, jl7 did not hit head, reports right hip pain. Coronavirus screen: At this time, the client does not indicate any symptoms associated with coronavirus-19. Ebola Screen: No symptoms or risks identified at this time. Initial Sepsis Screen: Does the patient meet any 2 criteria? No. Patient's initial sepsis screen is negative. Does the patient have a suspected source of infection? No. Patient's initial sepsis screen is negative. Risk Assessment: Do you want to hurt yourself or someone else? Patient reports no desire to harm self or others. Onset of symptoms was June 09, 2023. Care prior to arrival: None. 10:45 Method Of Arrival: EMS: [facility] jl7 10:45 Acuity: KAYLA 3 jl7 Triage Assessment: 10:47 General: Appears in no apparent distress. uncomfortable, Behavior is calm, cooperative, jl7 appropriate for age. Pain: Complains of pain in right gluteus malachi Pain currently is 7 out of 10 on a pain scale. Neuro: Level of Consciousness is awake, alert, obeys commands, Oriented to person, place, time, situation. Cardiovascular: Patient's skin is warm and dry. Respiratory: Airway is patent Respiratory effort is even, unlabored, Respiratory pattern is regular, symmetrical. GI: Reports constipation. Derm: Skin is pink, warm \T\ dry. Historical: - Allergies: 10:47 Codeine; jl7 10:47 Imdur; jl7 - Home Meds: 10:47 Xarelto 15 mg Oral tab 1 tab once daily [Active]; rosuvastatin 10 mg Oral tab 1 tab jl7 once daily [Active]; metoprolol succinate 25 mg Oral Tb24 1 tab twice a day [Active]; amlodipine oral [Active]; 12:08 olmesartan 40 mg Oral tab 1 tab once daily [Active]; jl7 - PMHx: 10:47 Asthma; Atrial Fib; breast cancer; CHF; Hypertension; Thyroid problem; jl7 12:08 Chronic Kidney disease, stage 4; jl7 - Immunization history:: Adult Immunizations up to date. - Social history:: Smoking status: Patient denies any tobacco usage or history of. Screenin:08 [facility] ED Fall Risk Assessment (Adult) History of falling in the last 3 months, jl7 including since admission Yes- physiologic fall (2 pts) Confusion or Disorientation No (0 pts) Intoxicated or Sedated No (0 pts) Impaired Gait No (0 pts) Mobility Assist Device Used No (0 pt) Altered Elimination No (0 pt) Score/Fall Risk Level 0 - 2 = Low Risk Oriented to surroundings, Maintained a safe environment. Abuse screen: Denies threats or abuse. Denies injuries from another. Nutritional screening: No deficits noted. Tuberculosis screening: No symptoms or risk factors identified. Assessment: 11:00 General: See triage. 7 11:18 Reassessment: Pt to CT via stretcher. jl7 12:00 Reassessment: Patient appears in no apparent distress at this time. No changes from 7 previously documented assessment. Patient and/or family updated on plan of care and expected duration. Pain level reassessed. Patient is alert, oriented x 3, equal unlabored respirations, skin warm/dry/pink. 13:00 Reassessment: Patient appears in no apparent distress at this time. No changes from 7 previously documented assessment. Patient and/or family updated on plan of care and expected duration. Pain level reassessed. Patient is alert, oriented x 3, equal unlabored respirations, skin warm/dry/pink. 13:40 Reassessment: Pt ambulated around the bed and reports feeling strong enough to go home. jl7 ERP notified. 13:45 Reassessment: Patient appears in no apparent distress at this time. Patient and/or [facility] family updated on plan of care and expected duration. Pain level reassessed. Patient is alert, oriented x 3, equal unlabored respirations, skin warm/dry/pink. Patient states feeling better. Patient states symptoms have improved. Vital Signs: 10:45 BP 177 / 94; Pulse 76; Resp 17; Temp 97.9; Pulse Ox 100% ; Weight 69 kg; Pain 7/10; jl7 12:05 BP 172 / 94; Pulse 76; Resp 15; Pulse Ox 100% ; jl7 12:40 BP 170 / 113 Supine; Pulse 80; jl7 12:40 BP 174 / 114 Sitting; Pulse 78; jl7 12:40 BP 168 / 93 Standing; Pulse 81; jl7 13:43 BP 179 / 95; Pulse 74; Resp 15; Pulse Ox 100% ; jl7 10:45 Pain Scale: Adult jl7 ED Course: 10:45 Patient arrived in ED. jl7 10:46 Allison Rowley FNP-C is PHCP. kb 10:46 Arturo Perdue MD is Attending Physician. kb 10:47 Triage completed. jl7 10:47 Arm band placed on right wrist. jl7 11:00 Patient has correct armband on for positive identification. Bed in low position. Call jl7 light in reach. Side rails up X2. Client placed on continuous cardiac and pulse oximetry monitoring. NIBP monitoring applied. 11:17 Stu Lopez RN is Primary Nurse. jl7 11:17 Initial lab(s) drawn, by me, sent to lab. EKG done, by ED staff, reviewed by Arturo Perdue MD. Inserted saline lock: 22 gauge in right antecubital area, using aseptic technique. Blood collected. 11:21 Abdomen In Process Unspecified. EDMS 11:37 Chest Single View XRAY In Process Unspecified. EDMS 12:00 Lab(s) recollected, by me, sent to lab. jl7 14:21 No provider procedures requiring assistance completed. IV discontinued, intact, jl7 bleeding controlled, No redness/swelling at site. Pressure dressing applied. Administered Medications: 13:45 Discontinued: NS 0.9% IV 500 ml IV at bolus once jl7 12:50 Drug: NS 0.9% IV 500 ml Route: IV; Rate: bolus; Site: right antecubital; jl7 Medication: 12:08 VIS not applicable for this client. jl7 Outcome: 13:43 Discharge ordered by . kb 14:21 Discharged to home via wheelchair, with family. jl7 14:21 Condition: stable 14:21 Discharge instructions given to patient, family, Instructed on discharge instructions, follow up and referral plans. Demonstrated understanding of instructions, follow-up care. 14:22 Patient left the ED. jl7 Signatures: Dispatcher [employer] Allison Singh, AUTO GLASS WORKER-C AUTO GLASS WORKER-Stu Aguirre, RN RN jl7 Corrections: (The following items were deleted from the chart) 13:46 13:43 BP 179 / 95; Pulse 41bpm; Resp 15bpm; Pulse Ox 100%; ana jl7
--- NOTE | 2023-06-09 13:44 | EDPHYS ---
Physician Documentation [facility] Name: Kylah Oliver Age: 78 yrs Sex: Female : 1945 Arrival Date: 06/09/2023 Time: 10:38 Bed 8 Private MD: ED Physician Arturo Perdue HPI: 06/09 11:23 This 78 yrs old Black Female presents to ER via EMS with complaints of Hip Pain. kb 11:24 Details of fall: The patient fell from an upright position. Onset: The symptoms/episode kb began/occurred just prior to arrival. Associated injuries: The patient sustained right gluteus malachi, painful injury. Severity of symptoms: At their worst the symptoms were moderate, in the emergency department the symptoms are unchanged. The patient has not experienced similar symptoms in the past. The patient has not recently seen a physician. Patient reports she was recently diagnosed with fecal retention and started on lactulose, MiraLAX and Dulcolax. States she was up throughout the night having bowel movements and some diarrhea. Reports she started feeling weak around 4 AM. Had a fall from standing position when walking into the kitchen just prior to arrival. Reports pain to right buttock from fall. Reports slight lower abdominal pain that has been ongoing. Denies fever, nausea, vomiting. Full range of motion without pain of all extremities.. Historical: - Allergies: 10:47 Codeine; jl7 10:47 Imdur; jl7 - Home Meds: 10:47 Xarelto 15 mg Oral tab 1 tab once daily [Active]; rosuvastatin 10 mg Oral tab 1 tab jl7 once daily [Active]; metoprolol succinate 25 mg Oral Tb24 1 tab twice a day [Active]; amlodipine oral [Active]; 12:08 olmesartan 40 mg Oral tab 1 tab once daily [Active]; jl7 - PMHx: 10:47 Asthma; Atrial Fib; breast cancer; CHF; Hypertension; Thyroid problem; jl7 12:08 Chronic Kidney disease, stage 4; jl7 - Immunization history:: Adult Immunizations up to date. - Social history:: Smoking status: Patient denies any tobacco usage or history of. ROS: 11:23 Constitutional: Negative for fever, chills, and weight loss. kb 11:23 Abdomen/GI: Positive for abdominal pain, diarrhea, constipation. 11:23 MS/extremity: Positive for pain, of the right gluteus malachi. 11:23 All other systems are negative. Exam: 11:04 Constitutional: This is a well developed, well nourished patient who is awake, alert, kb and in no acute distress. Head/Face: Normocephalic, atraumatic. ENT: Moist Mucous membranes Cardiovascular: Regular rate and rhythm with a normal S1 and S2. No gallops, murmurs, or rubs. No pulse deficits. Respiratory: Respirations even and unlabored. No increased work of breathing. Talking in full sentences Abdomen/GI: Soft, non-tender. No distention Skin: Warm, dry with normal turgor. Normal color. MS/ Extremity: Pulses equal, no cyanosis. Neurovascular intact. Full, normal range of motion. Neuro: Awake and alert, GCS 15, oriented to person, place, time, and situation. Moves all extremities. Normal gait. 11:04 ECG was reviewed by the Attending Physician. Vital Signs: 10:45 BP 177 / 94; Pulse 76; Resp 17; Temp 97.9; Pulse Ox 100% ; Weight 69 kg; Pain 7/10; jl7 12:05 BP 172 / 94; Pulse 76; Resp 15; Pulse Ox 100% ; jl7 12:40 BP 170 / 113 Supine; Pulse 80; jl7 12:40 BP 174 / 114 Sitting; Pulse 78; jl7 12:40 BP 168 / 93 Standing; Pulse 81; jl7 13:43 BP 179 / 95; Pulse 74; Resp 15; Pulse Ox 100% ; jl7 10:45 Pain Scale: Adult jl7 MDM: 10:46 Patient medically screened. kb 11:24 Data reviewed: vital signs, nurses notes. kb 13:43 Counseling: I had a detailed discussion with the patient and/or guardian regarding: the kb historical points, exam findings, and any diagnostic results supporting the discharge/admit diagnosis, lab results, radiology results, the need for outpatient follow up, a family practitioner, to return to the emergency department if symptoms worsen or persist or if there are any questions or concerns that arise at home. 13:44 Differential diagnosis: contusion, fracture, strain. ED course: Pt ambulatory, states kb she feels comfortable going home. Pt asymptomatic of BP. States she didn't take her BP medication this morning, but will when she gets home. 06/09 10:47 Order name: Magnesium; Complete Time: 11:50 kb 06/09 10:47 Order name: Protime (+inr); Complete Time: 12:35 kb 06/09 10:47 Order name: Ptt, Activated; Complete Time: 12:35 kb 06/09 10:47 Order name: Troponin High Sensitivity; Complete Time: 11:50 kb 06/09 10:47 Order name: Urinalysis w/ reflexes; Complete Time: 12:13 kb 06/09 10:47 Order name: CBC with Diff; Complete Time: 12:13 kb 06/09 10:47 Order name: CMP; Complete Time: 11:50 kb 06/09 12:06 Order name: CBC Smear Scan; Complete Time: 12:13 EDMS 06/09 10:47 Order name: Chest Single View XRAY; Complete Time: 11:55 kb 06/09 11:01 Order name: Abdomen ; Complete Time: 11:54 EDMS 06/09 10:47 Order name: EKG; Complete Time: 10:48 kb 06/09 10:47 Order name: Cardiac monitoring; Complete Time: 11:17 kb 06/09 10:47 Order name: EKG - Nurse/Tech; Complete Time: 11:17 kb 06/09 10:47 Order name: IV Saline Lock; Complete Time: 11:17 kb 06/09 10:47 Order name: Labs collected and sent; Complete Time: 11:17 kb 06/09 10:47 Order name: NPO; Complete Time: 11:17 kb 06/09 10:47 Order name: O2 Per Protocol; Complete Time: 11:17 kb 06/09 10:47 Order name: O2 Sat Monitoring; Complete Time: 11:17 kb 06/09 10:47 Order name: Orthostatics; Complete Time: 12:39 kb EC:04 Rate is 74 beats/min. Rhythm is regular. QRS [place] is Normal. [place] interval is normal at kb 116 msec. QRS interval is normal at 128 msec. QT interval is normal at 486 msec. Administered Medications: 13:45 Discontinued: NS 0.9% IV 500 ml IV at bolus once jl7 12:50 Drug: NS 0.9% IV 500 ml Route: IV; Rate: bolus; Site: right antecubital; jl7 Disposition Summary: 06/09/23 13:43 Discharge Ordered Location: Home kb Condition: Stable kb Diagnosis - Weakness kb - Fall on same level from slipping, tripping and stumbling without subsequent kb striking against object Followup: kb - With: Emergency Department - When: As needed - Reason: Worsening of condition Followup: kb - With: Private Physician - When: 2 - 3 days - Reason: Recheck today's complaints, Continuance of care, Re-evaluation by your physician Discharge Instructions: - Discharge Summary Sheet kb - Weakness, [id number] kb Forms: - Medication Reconciliation Form kb - Thank You Letter kb - Antibiotic Education kb - Prescription Opioid Use kb - Patient Portal Instructions kb Signatures: Dispatcher [employer] EDAllison Campuzano FNP-C [employer]INE REPAIRER-Stu Aguirre RN RN jl7 Corrections: (The following items were deleted from the chart) 11:01 10:48 Abdomen Pelvis W Con+CT.RAD.BRZ ordered. EDMS EDMS
[2023-06-09 14:43] VITALS: TEMP 97.9; O2SAT 100
[2023-06-09 14:51] VITALS: BP 179/95
--- NOTE | 2023-06-10 11:45 | EKG ---
Test Date: 2023-06-09 Test Time: 10:57:31 Hog Worker: MAY MEASUREMENT RESULTS: Intervals: Rate: 74 PA: 116 QRSD: 128 QT: 438 QTc: 486 [place]: P: 69 PA: 116 QRS: -7 T: 19 INTERPRETIVE STATEMENTS: Normal sinus rhythm Right bundle branch block Abnormal ECG Compared to ECG 07/13/2022 09:13:39 Atrial premature complex(es) no longer present Electronically Signed On 06-10-23 11:43:50 CDT by Vaibhav Moreno
== END 2023-06-09 14:22 | disposition home or self-care (01) ==
LOC: ER 10:38
DX: R53.1 Weakness (principal); W01.0XXA Fall on same level from slipping, tripping and stumbling without subsequent striking against object, initial encounter; Z88.5 Allergy status to narcotic agent; Z88.8 Allergy status to other drugs, medicaments and biological substances; I13.0 Hypertensive heart and chronic kidney disease with heart failure and stage 1 through stage 4 chronic kidney disease, or unspecified chronic kidney disease; N18.4 Chronic kidney disease, stage 4 (severe); I50.9 Heart failure, unspecified; I48.91 Unspecified atrial fibrillation; Z79.01 Long term (current) use of anticoagulants
CPT/HCPCS: 93005; 85025; 81001; 36415; 83735; 85610; 85730; 84484; 80053; 74176; 71045; 99285; J7040

== ENCOUNTER 2023-06-27 14:56 | Emergency (ER) | payer OTHER ==
--- NOTE | 2023-06-27 16:39 | RAD REPORT ---
EXAM DESCRIPTION: CT - Abdomen Pelvis Wo Contrast - 06/27/2023 4:28 pm CLINICAL HISTORY: Abdominal pain. ABD PAIN COMPARISON: Abdomen Pelvis Wo Contrast dated 06/09/2023 TECHNIQUE: CT imaging of the abdomen and pelvis was performed without contrast. Solid organ, bowel a nd vascular assessment is limited due to lack of IV and oral contrast. All CT scans are performed using dose optimization technique as appropriate and may include automated exposure control or mA/KV adjustment according to patient size. FINDINGS: The lower lung price are clear. The liver, spleen, pancreas, adrenal glands are within normal limits for a limited non-contrast exami nation.Small calculi are present in both kidneys without hydronephrosis. Multiple cysts are present t hroughout both kidneys. No bowel obstruction, free air, free fluid or abscess. Moderate stool is present throughout the colon . The appendix is normal. Moderate lower lumbar spondylosis. IMPRESSION: No acute intra-abdominal or pelvic findings. Small calculi are present in both kidneys without hydronephrosis. A limited non-contrast examination was performed as detailed.
[2023-06-27 18:03] LABS: Absolute Lymphocytes (CBC) 0.3 K/uL (0.7-4.9); Hematocrit 32.3 % (36.0-45.0); Lymphocytes % 14.2 % (15.3-44.8); MCV 79.8 fL (80-100); MPV 7.1 fL (7.6-11.3); RBC Red Blood Cell Count 4.05 M/uL (3.86-4.86)
[2023-06-27 18:19] LABS: Albumin 3.6 g/dL (3.4-5.0); Bilirubin Total 0.3 mg/dL (0.2-1.0); Potassium 4.3 mEq/L (3.5-5.1)
[2023-06-27 18:24] LABS: Specific Gravity 1.017 (1.005-1.030); Urine Bacteria <20 /HPF (<20); Urine Bilirubin NEGATIVE (Negative); Urine Blood Negative (Negative); Urine Clarity Clear (Clear); Urine Color Light-Yellow (Yellow); Urine Glucose NEGATIVE (Negative); Urine Mucus Slight /HPF (None Seen); Urine Protein 2+ (Negative); Urine RBC <5 /HPF (None Seen); Urine Urobilinogen Normal (Normal)
--- NOTE | 2023-06-27 18:28 | EDPHYS ---
Physician Documentation [facility] Name: Kylah Oliver Age: 78 yrs Sex: Female : 1945 Arrival Date: 06/27/2023 Time: 14:56 Bed 20 Private MD: ED Physician Radha Barillas Historical: - Allergies: 06/27 15:02 Codeine; ll1 15:02 Imdur; ll1 - PMHx: 15:02 Atrial Fib; Asthma; CHF; Chronic Kidney disease, stage 4; breast cancer; Hypertension; ll1 Thyroid problem; - PSHx: 15:02 None; ll1 - Immunization history:: Client reports receiving the 2nd dose of the Covid vaccine. - Social history:: Smoking status: Patient denies any tobacco usage or history of. Vital Signs: 15:03 BP 129 / 74; Pulse 75; Resp 16; Temp 98.1; Pulse Ox 100% ; Weight 65.77 kg; Height 5 ll1 ft. 6 in. ; Pain 10/10; 18:51 BP 118 / 78; Pulse 71; Resp 18; Temp 98; Pulse Ox 99% on R/A; ph 15:03 Body Mass Index 23.40 (65.77 kg, 167.64 cm) ll1 15:03 Pain Scale: Adult ll1 MDM: 16:09 Patient medically screened. cp3 /03 16:05 Order name: CBC with Diff; Complete Time: 18:25 cp3 / 16:05 Order name: CMP; Complete Time: 18:25 cp3 06/27 16:05 Order name: Lipase; Complete Time: 18:25 cp3 06/27 16:05 Order name: Urinalysis w/ reflexes; Complete Time: 18:25 cp3 / 16:05 Order name: CT Abd/Pelvis - Without Contrast; Complete Time: 17:37 cp3 06/27 16:04 Order name: Labs collected and sent; Complete Time: 18:00 cp3 / 16:05 Order name: IV Saline Lock; Complete Time: 18:00 cp3 Administered Medications: 18:25 Drug: Diazepam PO 5 mg Route: PO; ph 18:53 Follow up: Response: No adverse reaction ph 18:25 Drug: Dicyclomine IM 20 mg Route: IM; Site: right gluteus; ph 18:53 Follow up: Response: No adverse reaction ph 18:25 Drug: NS 0.9% IV 250 ml Route: IV; Rate: bolus; Site: right antecubital; ph 18:52 Not Given (Patient Refused): Famotidine IVP 20 mg IVP once; dilute with 10 mL 0.9% ph NaCl; give over 2 minutes Disposition Summary: 06/27/23 18:27 Discharge Ordered Location: Home cp3 Problem: an acute exacerbation cp3 Symptoms: have improved cp3 Condition: Stable cp3 Diagnosis - Constipation cp3 - Lower abdominal pain, unspecified cp3 - Dehydration cp3 Followup: cp3 - With: Radha Barillas MD - When: - Reason: If symptoms return Discharge Instructions: - Discharge Summary Sheet cp3 Forms: - Medication Reconciliation Form cp3 - Thank You Letter cp3 - Antibiotic Education cp3 - Prescription Opioid Use cp3 - Patient Portal Instructions cp3 Prescriptions: - Reglan 10 mg Oral Tablet - take 1 tablet by ORAL route every 6 hours take 30 minutes before meals and at cp3 bedtime; 20 tablet; Refills: 0, Product Selection Permitted - Cyclobenzaprine 10 mg Oral Tablet - take 1 tablet by ORAL route every 8 hours As needed; 12 tablet; Refills: 0, cp3 Product Selection Permitted - dicyclomine 20 mg Oral Tablet - take 1 tablet by ORAL route 3 times per day; 21 tablet; Refills: 0, Product cp3 Selection Permitted Signatures: Dispatcher [employer] Radha Ma MD MD cp3 Natalia Leon RN RN ph Lewis, Lynsay, RN RN 1
--- NOTE | 2023-06-27 18:28 | ER ---
Nurse's Notes [facility] Name: Kylah Oliver Age: 78 yrs Sex: Female : 1945 Arrival Date: 06/27/2023 Time: 14:56 Bed 20 Private MD: Diagnosis: Constipation;Lower abdominal pain, unspecified;Dehydration Presentation: 06/27 15:03 Chief complaint: Patient states: Abdominal pain began last night. SOB started today. No ll1 N/V/D. No fever. Coronavirus screen: Vaccine status: Patient reports receiving the 2nd dose of the covid vaccine. Client denies travel out of the [place] in the last 14 days. At this time, the client does not indicate any symptoms associated with coronavirus-19. Ebola Screen: Patient denies travel to an Ebola-affected area in the 21 days before illness onset. Initial Sepsis Screen: Does the patient meet any 2 criteria? No. Patient's initial sepsis screen is negative. Does the patient have a suspected source of infection? Yes: Acute abdominal pain. Risk Assessment: Do you want to hurt yourself or someone else? Patient reports no desire to harm self or others. Onset of symptoms was June 26, 2023. 15:03 Method Of Arrival: Wheelchair ll1 15:03 Acuity: KAYLA 3 ll1 Triage Assessment: 15:04 General: Appears uncomfortable, Behavior is calm, cooperative, appropriate for age. ll1 Pain: Complains of pain in abdomen Quality of pain is described as aching, crampy. GI: Reports lower abdominal pain. 15:04 Respiratory: Reports shortness of breath. ll1 Historical: - Allergies: 15:02 Codeine; ll1 15:02 Imdur; ll1 - PMHx: 15:02 Atrial Fib; Asthma; CHF; Chronic Kidney disease, stage 4; breast cancer; Hypertension; ll1 Thyroid problem; - PSHx: 15:02 None; ll1 - Immunization history:: Client reports receiving the 2nd dose of the Covid vaccine. - Social history:: Smoking status: Patient denies any tobacco usage or history of. Screenin:51 [facility] ED Fall Risk Assessment (Adult) History of falling in the last 3 months, ph including since admission No falls in past 3 months (0 pts) Confusion or Disorientation No (0 pts) Intoxicated or Sedated No (0 pts) Impaired Gait No (0 pts) Mobility Assist Device Used No (0 pt) Altered Elimination No (0 pt) Score/Fall Risk Level 0 - 2 = Low Risk Oriented to surroundings, Maintained a safe environment, Hourly rounding (assess needs \T\ fall precautionary measures) done. Abuse screen: Denies threats or abuse. Denies injuries from another. Nutritional screening: No deficits noted. Tuberculosis screening: No symptoms or risk factors identified. Assessment: 18:07 General: Appears in no apparent distress. comfortable, Behavior is calm, cooperative, ph appropriate for age. Pain: Complains of pain in right lower quadrant and left lower quadrant. Neuro: Level of Consciousness is awake, alert, obeys commands, Oriented to person, place, time, situation. Cardiovascular: Capillary refill < 3 seconds in bilateral fingers. Respiratory: Airway is patent Respiratory effort is even, unlabored, Respiratory pattern is regular, symmetrical. GI: Abdomen is non-distended. Derm: Skin is pink, warm \T\ dry. Musculoskeletal: Circulation, motion, and sensation intact. Range of motion: intact in all extremities. 19:34 Reassessment: Patient and/or family updated on plan of care and expected duration. Pain ha1 level reassessed. Patient is alert, oriented x 3, equal unlabored respirations, skin warm/dry/pink. Patient denies pain at this time. 19:34 GI: Abdomen is non-distended, Bowel sounds present X 4 quads. Abd is soft and non ha1 tender X 4 quads. Reports constipation. Vital Signs: 15:03 BP 129 / 74; Pulse 75; Resp 16; Temp 98.1; Pulse Ox 100% ; Weight 65.77 kg; Height 5 ll1 ft. 6 in. ; Pain 10/10; 18:51 BP 118 / 78; Pulse 71; Resp 18; Temp 98; Pulse Ox 99% on R/A; ph 15:03 Body Mass Index 23.40 (65.77 kg, 167.64 cm) ll1 15:03 Pain Scale: Adult ll1 ED Course: 14:57 Patient arrived in ED. rg4 15:04 Triage completed. ll1 15:04 Arm band placed on. ll1 15:12 Radha Barillas MD is Attending Physician. cp3 16:30 CT Abd/Pelvis - Without Contrast In Process Unspecified. EDMS 16:51 Natalia Leon, RN is Primary Nurse. ph 16:52 Patient has correct armband on for positive identification. Bed in low position. Call ph light in reach. Pulse ox on. NIBP on. 17:59 Inserted saline lock: 20 gauge in right antecubital area, using aseptic technique. ss ,using aseptic technique. US guided. Blood collected. 18:00 Inserted saline lock: 22 gauge in left antecubital area, using aseptic technique. ph 18:26 Radha Barillas MD is Referral Physician. cp3 19:34 No provider procedures requiring assistance completed. IV discontinued, intact, ha1 bleeding controlled, No redness/swelling at site. Pressure dressing applied. 19:35 Provided Education on: follow ups . ha1 Administered Medications: 18:25 Drug: Diazepam PO 5 mg Route: PO; ph 18:53 Follow up: Response: No adverse reaction ph 18:25 Drug: Dicyclomine IM 20 mg Route: IM; Site: right gluteus; ph 18:53 Follow up: Response: No adverse reaction ph 18:25 Drug: NS 0.9% IV 250 ml Route: IV; Rate: bolus; Site: right antecubital; ph 18:52 Not Given (Patient Refused): Famotidine IVP 20 mg IVP once; dilute with 10 mL 0.9% ph NaCl; give over 2 minutes Medication: 18:51 VIS not applicable for this client. ph Outcome: 18:27 Discharge ordered by . cp3 19:34 Discharged to home via wheelchair, with family. ha1 19:34 Condition: stable 19:34 Discharge instructions given to patient, family, Instructed on discharge instructions, follow up and referral plans. medication usage, Demonstrated understanding of instructions, follow-up care, medications, Prescriptions given X 3. 19:36 Patient left the ED. ha1 Signatures: Dispatcher [employer] EDFL Radha Barillas MD MD cp3 Quita Love RN RN ss Hall, Patricia, RN RN Caroline Jung rg4 Rose Marie Beltran RN RN ll1 Enriqueta Vail RN RN ha1 Corrections: (The following items were deleted from the chart) 18:17 15:04 GI: Reports lower abdominal pain, ll1 ll1
[2023-06-27] MEDS ORDERED: NA CHLORIDE 0.9% 250 ML ONE (18:29)
[2023-06-27] MEDS ORDERED: DICYCLOMINE HCL 20 MG/2 ML AMP IM ONE (18:29)
[2023-06-27] MEDS ORDERED: DIAZEPAM 5 MG TABLET ONE (18:29)
[2023-06-27 20:09] VITALS: BP 118/78; TEMP 98; O2SAT 99
== END 2023-06-27 19:36 | disposition home or self-care (01) ==
LOC: ER 14:56
DX: K59.00 Constipation, unspecified (principal); E86.0 Dehydration; I13.0 Hypertensive heart and chronic kidney disease with heart failure and stage 1 through stage 4 chronic kidney disease, or unspecified chronic kidney disease; N18.4 Chronic kidney disease, stage 4 (severe); I50.9 Heart failure, unspecified; Z88.5 Allergy status to narcotic agent; Z88.8 Allergy status to other drugs, medicaments and biological substances
CPT/HCPCS: 85025; 81001; 36415; 83690; 80053; 74176; 96372; 96374; 99284; J0500; J7050

== ENCOUNTER 2023-07-18 09:24 | Emergency (ER) | payer OTHER ==
--- NOTE | 2023-07-18 09:57 | RAD REPORT ---
EXAM DESCRIPTION: RAD - Chest Single View - 07/18/2023 9:49 am CLINICAL HISTORY: weakness Chest pain. FINDINGS: Portable technique limits examination quality. Mild interstitial pulmonary edema is seen. The heart is moderately enlarged. No displaced fractures. IMPRESSION: Mild CHF.
[2023-07-18] MEDS ORDERED: ACETAMINOPHEN 500 MG TAB ONE (10:00)
[2023-07-18 10:17] LABS: Urine Bacteria None Seen /HPF (<20); Urine Bilirubin NEGATIVE (Negative); Urine Blood Negative (Negative); Urine Clarity Turbid (Clear); Urine Color Colorless (Yellow); Urine Glucose NEGATIVE (Negative); Urine Mucus Slight /HPF (None Seen); Urine Protein 1+ (Negative); Urine RBC <5 /HPF (None Seen); Urine Urobilinogen Normal (Normal); Urine pH 5.5 (5.0-7.0)
--- NOTE | 2023-07-18 11:17 | EDPHYS ---
Physician Documentation [facility] Name: Kylah Oliver Age: 78 yrs Sex: Female : 1945 Arrival Date: 07/18/2023 Time: 09:24 Bed 19 Private MD: ED Physician Giacomo Howard HPI: 07/18 10:48 This 78 yrs old Black Female presents to ER via EMS with complaints of Weakness. rt 10:48 Patient presents to the ED with generalized weakness. Patient states that for the past rt several months, she has been feeling weak when she has a bowel movement, states that she was feeling weak today without having a bowel movement. She states that she has had a right upper quadrant pain for several months, had a negative EGD, colonoscopy. States that she has not had any imaging for this. The patient states that she felt a palpitation earlier, denies other acute complaints, symptoms are moderate in severity, no other aggravating or alleviating factors.. Historical: - Allergies: 09:26 Codeine; ll1 09:26 Imdur; ll1 - PMHx: 09:26 Asthma; breast cancer; Hypertension; Chronic Kidney disease, stage 4; CHF; Atrial Fib; ll1 Thyroid problem; - Immunization history:: Adult Immunizations up to date. - Social history:: Smoking status: Patient denies any tobacco usage or history of. - Family history:: not pertinent. ROS: 10:48 Constitutional: Negative for fever, chills, and weight loss, Abdomen/GI: Negative for rt abdominal pain, nausea, vomiting, diarrhea, and constipation, MS/Extremity: Negative for injury and deformity, Skin: Negative for injury, rash, and discoloration, Neuro: Negative for headache, weakness, numbness, tingling, and seizure, Psych: Negative for depression, anxiety, suicide ideation, homicidal ideation, and hallucinations. 10:48 Cardiovascular: Positive for palpitations, Negative for chest pain. 10:48 Neuro: Positive for weakness, Negative for altered mental status. Exam: 10:48 ECG was reviewed by the Attending Physician. rt Vital Signs: 09:27 BP 156 / 93; Pulse 83; Resp 17; Temp 98.3(O); Pulse Ox 100% on R/A; ll1 11:25 BP 149 / 88; Pulse 79; Resp 16; Pulse Ox 100% on R/A; Pain 0/10; ll1 12:27 BP 158 / 86; Pulse 85; Resp 17; Pulse Ox 100% on R/A; me1 11:25 Pain Scale: Adult ll1 MDM: 09:31 Patient medically screened. rt 11:20 Differential Diagnosis UTI, electrolyte disturbance, acute coronary syndrome. Data rt reviewed: vital signs, nurses notes, EKG. Care significantly affected by the following chronic conditions: Hypertension, Congestive Heart Failure. Counseling: I had a detailed discussion with the patient and/or guardian regarding the historical points, exam findings, and any diagnostic results supporting the discharge/admit diagnosis, the need for outpatient follow up. ED course: Attempted multiple times to get IV, even blood work on the patient was unsuccessful in doing so. Patient states that she wishes to stop evaluation at this time, states that she feels normal and back to baseline. Vital signs are stable. Patient understands risks of not finishing work-up and has decision-making capacity. Patient will follow-up with primary care, return for any worsening symptoms or for further concerns. 07/18 10:00 Order name: UAM; Complete Time: 10:35 rt 07/18 09:32 Order name: XRAY Chest (1 view); Complete Time: 10:02 rt 07/18 09:32 Order name: Cardiac monitoring; Complete Time: 09:33 rt 07/18 09:32 Order name: EKG - Nurse/Tech; Complete Time: 09:33 rt 07/18 09:32 Order name: IV Saline Lock rt 07/18 09:32 Order name: Labs collected and sent rt 07/18 09:32 Order name: O2 Per Protocol; Complete Time: 09:33 rt 07/18 09:32 Order name: O2 Sat Monitoring; Complete Time: 09:33 rt EC:48 Rate is 75 beats/min. Rhythm is regular, Normal Sinus Rhythm with Occasional PVCs. QRS rt [place] is Normal. [place] interval is normal. QRS interval is normal. QT interval is normal. Interpreted by me. Administered Medications: 10:03 Drug: Acetaminophen PO 1000 mg Route: PO; ll1 11:26 Follow up: Response: No adverse reaction ll1 12:31 Follow up: Response: No adverse reaction; Pain is decreased me1 Disposition Summary: 07/18/23 11:16 Discharge Ordered Location: Home rt Problem: an ongoing problem rt Symptoms: are resolved rt Condition: Stable rt Diagnosis - Generalized weakness rt Followup: rt - With: Private Physician - When: 2 - 3 days - Reason: Followup: rt - With: Emergency Department - When: As needed - Reason: Worsening of condition Discharge Instructions: - Discharge Summary Sheet rt - Weakness rt Forms: - Medication Reconciliation Form rt - Thank You Letter rt - Antibiotic Education rt - Prescription Opioid Use rt - Patient Portal Instructions rt - Leadership Thank You Letter rt Signatures: Dispatcher [employer] Rose Marie Anaya RN RN ll1 Giacomo Howard MD MD rt Shirley Gonzalez RN me1
--- NOTE | 2023-07-18 11:17 | ER ---
Nurse's Notes [facility] Name: Kylah Oliver Age: 78 yrs Sex: Female : 1945 Arrival Date: 07/18/2023 Time: : Bed 19 Private MD: Diagnosis: Generalized weakness Presentation: 07/18 09:27 Chief complaint: Patient states: Weakness, not feeling well for 3 days. Sitting on the ll1 side of bed and slid to the floor. [place] like her heart was racing and some nausea. Weakness and shuffling gait when EMS got her up. R sided rib pain for months. Coronavirus screen: Vaccine status: Patient reports receiving the 2nd dose of the covid vaccine. Client denies travel out of the [place] in the last 14 days. fatigue, nausea, Client presents with at least one sign or symptom that may indicate coronavirus-19. Standard/surgical mask placed on the client. Ebola Screen: Patient denies travel to an Ebola-affected area in the 21 days before illness onset. Initial Sepsis Screen: Does the patient meet any 2 criteria? No. Patient's initial sepsis screen is negative. Does the patient have a suspected source of infection? No. Patient's initial sepsis screen is negative. Risk Assessment: Do you want to hurt yourself or someone else? Patient reports no desire to harm self or others. Onset of symptoms was July 16, 2023. 09: Method Of Arrival: EMS: [facility] 09:27 Acuity: KAYLA 3 ll1 Triage Assessment: 09:29 General: Appears in no apparent distress. Behavior is calm, cooperative, appropriate ll1 for age. Pain: Complains of pain in R ribs/trunk. Neuro: Reports weakness. GI: Reports nausea. Historical: - Allergies: 09:26 Codeine; ll1 09:26 Imdur; ll1 - PMHx: 09:26 Asthma; breast cancer; Hypertension; Chronic Kidney disease, stage 4; CHF; Atrial Fib; ll1 Thyroid problem; - Immunization history:: Adult Immunizations up to date. - Social history:: Smoking status: Patient denies any tobacco usage or history of. - Family history:: not pertinent. Screenin:30 [facility] ED Fall Risk Assessment (Adult) Impaired Gait Yes (1 pt) Mobility Assist ll1 Device Used Yes (1 pt) Score/Fall Risk Level 0 - 2 = Low Risk Oriented to surroundings, Maintained a safe environment, Educated pt \T\ family on fall prevention, incl call for assistance when getting out of bed, Hourly rounding (assess needs \T\ fall precautionary measures) done. Abuse screen: Denies threats or abuse. Nutritional screening: No deficits noted. Tuberculosis screening: No symptoms or risk factors identified. Assessment: 09:46 Reassessment: No changes from previously documented assessment. Slow but steady to BS ll1 commode. 10:05 Reassessment: No changes from previously documented assessment. Patient and/or family ll1 updated on plan of care and expected duration. Pain level reassessed. 11:23 Reassessment: No changes from previously documented assessment. Patient and/or family ll1 updated on plan of care and expected duration. Pain level reassessed. Patient is alert, oriented x 3, equal unlabored respirations, skin warm/dry/pink. 11:45 Reassessment: No changes from previously documented assessment. Dr. Howard informed ll1 she still has abdominal pain. Vital Signs: 09:27 BP 156 / 93; Pulse 83; Resp 17; Temp 98.3(O); Pulse Ox 100% on R/A; ll1 11:25 BP 149 / 88; Pulse 79; Resp 16; Pulse Ox 100% on R/A; Pain 0/10; ll1 12:27 BP 158 / 86; Pulse 85; Resp 17; Pulse Ox 100% on R/A; me1 11:25 Pain Scale: Adult ll1 ED Course: 09:25 Patient arrived in ED. sb4 09:26 Rose Marie Beltran, RN is Primary Nurse. ll1 09:26 Arm band placed on Patient placed in an exam room, on a stretcher. ll1 09:29 Triage completed. ll1 09:31 Giacomo Howard MD is Attending Physician. rt 09:51 XRAY Chest (1 view) In Process Unspecified. EDMS 09:58 Missed attempt(s): 22 gauge in right antecubital area. 24 gauge in right forearm. ds4 Bleeding controlled, band aid applied, catheter tip intact. 10:09 UAM Sent. ll1 11:25 No provider procedures requiring assistance completed. Patient did not have IV access ll1 during this emergency room visit. 11:26 Patient has correct armband on for positive identification. Bed in low position. Call ll1 light in reach. Provided Education on: n/a. Administered Medications: 10:03 Drug: Acetaminophen PO 1000 mg Route: PO; ll1 11:26 Follow up: Response: No adverse reaction ll1 12:31 Follow up: Response: No adverse reaction; Pain is decreased me1 Medication: 09:30 VIS not applicable for this client. ll1 Outcome: 11:16 Discharge ordered by MD. rt 11:25 Discharged to home via wheelchair. ll1 11:25 Condition: stable 11:25 Discharge instructions given to patient, family, Instructed on discharge instructions, follow up and referral plans. Demonstrated understanding of instructions, follow-up care. 12:30 Discharged to home via wheelchair, with significant other. me1 12:30 Condition: stable 12:30 Discharge instructions given to patient, significant other, Instructed on discharge instructions, follow up and referral plans. Demonstrated understanding of instructions, follow-up care. 12:31 Patient left the ED. me1 Signatures: Dispatcher [employer] EDMS Darrel Cuevas ds4 Rose Marie Beltran, RN RN ll1 Arline Lind, PA-C PA-C sb4 Giacomo Howard MD MD rt Shirley Gonzalez, RN RN me1 Corrections: (The following items were deleted from the chart) 10:09 09:27 BP 156 / 93; Pulse 83bpm; Resp 17bpm; Pulse Ox 100% RA; ll1 ll1
[2023-07-18 12:38] VITALS: TEMP 98.3; O2SAT 100
[2023-07-18 12:39] VITALS: BP 149/88
--- NOTE | 2023-07-22 12:18 | EKG ---
Test Date: 2023-07-18 Test Time: 09:58:12 Final Canoe Inspector: ROWENA MEASUREMENT RESULTS: Intervals: Rate: 75 GA: 92 QRSD: 150 QT: 464 QTc: 518 [place]: P: 79 GA: 92 QRS: -15 T: 21 INTERPRETIVE STATEMENTS: Sinus rhythm with short GA with premature supraventricular complexes and with occasional premature ventricular complexes Right bundle branch block Abnormal ECG Compared to ECG 06/09/2023 10:57:31 Atrial premature complex(es) now present Ventricular premature complex(es) now present Short GA interval now present Electronically Signed On 07-22-23 12:14:36 CDT by Vaibhav Moreno
== END 2023-07-18 12:31 | disposition home or self-care (01) ==
LOC: ER 09:24
DX: R53.1 Weakness (principal); R00.2 Palpitations; N18.4 Chronic kidney disease, stage 4 (severe); I13.0 Hypertensive heart and chronic kidney disease with heart failure and stage 1 through stage 4 chronic kidney disease, or unspecified chronic kidney disease; I50.9 Heart failure, unspecified; Z88.5 Allergy status to narcotic agent; Z88.8 Allergy status to other drugs, medicaments and biological substances
CPT/HCPCS: 71045; 81001; 93005; 99284

== ENCOUNTER 2023-11-02 07:10 | Emergency (ER) | payer OTHER ==
[2023-11-02 08:37] LABS: Specific Gravity 1.017 (1.005-1.030); Urine Bacteria 20-50 /HPF (<20); Urine Bilirubin NEGATIVE (Negative); Urine Blood Trace (Negative); Urine Clarity Extremely Turbid (Clear); Urine Color Light-Yellow (Yellow); Urine Glucose NEGATIVE (Negative); Urine Mucus Slight /HPF (None Seen); Urine Protein 2+ (Negative); Urine Urobilinogen Normal (Normal)
[2023-11-02 08:53] LABS: Absolute Lymphocytes (CBC) 0.3 K/uL (0.7-4.9); Hematocrit 31.4 % (36.0-45.0); Lymphocytes % 12.2 % (15.3-44.8); MCV 84.3 fL (80-100); MPV 7.9 fL (7.6-11.3); Platelets 107 thou/uL (152-406); RBC Red Blood Cell Count 3.73 M/uL (3.86-4.86)
[2023-11-02] MEDS ORDERED: FENTANYL CITR 100 MCG/2 ML ONE (09:03)
[2023-11-02 09:10] LABS: Albumin 3.5 g/dL (3.4-5.0); Bilirubin Total 0.5 mg/dL (0.2-1.0); Potassium 4.3 mEq/L (3.5-5.1); Protein, Total 6.6 g/dL (6.4-8.2)
--- NOTE | 2023-11-02 10:11 | RAD REPORT ---
EXAM DESCRIPTION: CT - Abdomen Pelvis Wo Contrast - 11/02/2023 9:22 am CLINICAL HISTORY: ABD PAIN COMPARISON: Abdomen Pelvis Wo Contrast dated 06/27/2023; Abdomen Pelvis Wo Contrast dated TECHNIQUE: Thin cut axial CT imaging of the abdomen and pelvis was performed without IV contrast. Mu ltiplanar reformats were generated and reviewed. All CT scans are performed using dose optimization technique as appropriate and may include automated exposure control or mA/KV adjustment according to patient size. FINDINGS: No suspicious findings in the lung bases. The liver, spleen, adrenal glands, and pancreas show no suspicious findings. Gallbladder is not visua lized, could be decompressed or surgically removed. Symmetric renal contour with persistent lobulations, with degrees of cortical thinning noted, without suspicious parenchymal findings within limits of noncontrast technique. There may be small parenchym al cysts, the most conspicuous cyst at the right upper pole measuring 2.5 cm. No evidence of hydroure teronephrosis. Nonobstructing bilateral small renal calculi not exceeding 3 mm. No dilated bowel loops or bowel wall thickening. No free air, free fluid or inflammatory stranding. N o hernia, mass or bulky lymphadenopathy. The urinary bladder is without significant finding. No suspicious bony findings. IMPRESSION: Bilateral nonobstructing renal calculi. No other acute intra-abdominal process.
--- NOTE | 2023-11-02 11:23 | EDPHYS ---
Physician Documentation [facility] Name: Kylah Oliver Age: 78 yrs Sex: Female : 1945 Arrival Date: 11/02/2023 Time: 07:10 Bed 20 Private MD: ED Physician Nicolasa Rausch HPI: 11/02 08:44 This 78 yrs old Black Female presents to ER via EMS with unknown complaint. ci 08:44 Patient is a 78-year-old female with PMH A-fib, asthma, CHF, CKD, hypertension, breast ci CA who presents to the ED with chief complaint of lower abdominal pain that has been ongoing for several months, got worse in the past 2 days. Pain is scattered to the left and lower abdomen, rated 10/10. She is taking Tylenol every 8 hours with no improvement. Patient reports she has seen GI and had 2 colonoscopies with no findings. Patient has also been seen in the ED and reports she has had CAT scans with no findings. She denies any diarrhea, constipation, LBM was yesterday. She denies nausea/vomiting, urinary symptoms. He does endorse recent weight loss, reports she weighed 190 pounds, currently weighing about 125 pounds. Patient has had cholecystectomy and hysterectomy.. Historical: - Allergies: 07:34 Codeine; nj1 07:34 GABAPENTIN; nj1 07:34 Imdur; nj1 - PMHx: 07:34 Asthma; Atrial Fib; breast cancer; CHF; Chronic Kidney disease; Hypertension; Thyroid nj1 problem; - PSHx: 07:34 Dialysis access, left arm; nj1 - Immunization history:: Client reports receiving the 2nd dose of the Covid vaccine. - Social history:: Smoking status: Patient denies any tobacco usage or history of. ROS: 08:44 Constitutional: Positive for weight loss, Negative for chills, fatigue, fever, ci 08:44 Cardiovascular: Negative for chest pain, edema, orthopnea, palpitations, 08:44 Respiratory: Negative for cough, sputum production, wheezing, 08:44 Abdomen/GI: Positive for abdominal pain, Negative for nausea and vomiting, diarrhea, constipation, 08:44 : Negative for hematuria, flank pain, burning with urination, Exam: 08:44 Constitutional: This is a chronically ill patient who is awake, alert, and in no acute ci distress. Head/Face: Normocephalic, atraumatic. Eyes: Pupils equal round and reactive to light, extra-ocular motions intact. Lids and lashes normal. Conjunctiva and sclera are non-icteric and not injected. Cornea within normal limits. Periorbital areas with no swelling, redness, or edema. ENT: Nares patent. No nasal discharge, no septal abnormalities noted. Tympanic membranes are normal and external auditory canals are clear. Oropharynx with no redness, swelling, or masses, exudates, or evidence of obstruction, uvula midline. Mucous membranes moist. Neck: Trachea midline, no thyromegaly or masses palpated, and no cervical lymphadenopathy. Supple, full range of motion without nuchal rigidity, or vertebral point tenderness. No Meningismus. Cardiovascular: Regular rate and rhythm with a normal S1 and S2. No gallops, murmurs, or rubs. No JVD. No pulse deficits. Respiratory: Lungs have equal breath sounds bilaterally, clear to auscultation and percussion. No rales, rhonchi or wheezes noted. No increased work of breathing, no retractions or nasal flaring. Abdomen/GI: Abdomen is soft, nondistended with mild tenderness to palpation in the left lower quadrant. No distension or tympany. No guarding or rebound. Skin: Warm, dry with normal turgor. Normal color with no rashes, no lesions, and no evidence of cellulitis. MS/ Extremity: Pulses equal, no cyanosis. Neurovascular intact. Full, normal range of motion. Neuro: Awake and alert, GCS 15, oriented to person, place, time, and situation. Cranial nerves II-XII grossly intact. Motor strength 5/5 in all extremities. Sensory grossly intact. Cerebellar exam normal. Normal gait. Psych: Awake, alert, with orientation to person, place and time. Behavior, mood, and affect are within normal limits. Vital Signs: 07:02 BP 172 / 80; Pulse 67; Resp 17; Temp 97.7(O); Pulse Ox 100% on R/A; Weight 56.7 kg; nj1 Height 5 ft. 6 in. ; Pain 10/10; 08:17 BP 150 / 82; Pulse 85; Resp 16; Pulse Ox 100% on R/A; Pain 10/10; nj1 09:34 Pulse 85; Resp 19; Pulse Ox 99% on R/A; Pain 2/10; nj1 10:30 BP 124 / 96; Pulse 80; Resp 17; Pulse Ox 100% on R/A; nj1 11:30 BP 158 / 87; Pulse 77; Resp 17; Pulse Ox 100% on R/A; nj1 07:02 Body Mass Index 20.18 (56.70 kg, 167.64 cm) nj1 07:02 Pain Scale: Adult nj1 08:17 Pain Scale: Adult nj1 09:34 Pain Scale: Adult nj1 MDM: 08:11 Patient medically screened. ci 08:44 Differential Diagnosis. Differential Diagnosis Diverticulitis, SBO, malignancy, UTI, ci IBS. Data reviewed: vital signs, nurses notes, old medical records. ED course: Patient presents for evaluation of worsening abdominal pain. She is chronically ill-appearing but overall nontoxic. She does have localized tenderness to the LLQ, possible diverticulitis, IBS. Will obtain labs and imaging. Administer pain meds.. 08:51 External Records Reviewed: Chart review shows last ED visit on 09/06/2023 for fall.. ci Care significantly affected by the following chronic conditions: Hypertension, Congestive Heart Failure, Chronic Kidney Disease. 11:19 ED course: DIRECTOR SOCIAL shows bilateral nonobstructing stones otherwise no acute abnormality. ci Work shows creatinine of 2.2, history of CKD, at her baseline. Patient was given fentanyl and Tylenol with improvement in pain. She is stable for discharge with close outpatient follow-up with gastroenterology and PCP.. 11/02 08:15 Order name: CBC with Diff; Complete Time: 09:44 ci 11/02 09:44 Interpretation: Abnormal: WBC 2.50; HGB 10.2. ci 11/02 08:15 Order name: CMP; Complete Time: 09:44 ci 11/02 09:45 Interpretation: Abnormal: CRE 2.08; GFR 24. ci 11/02 08:15 Order name: Lipase; Complete Time: 09:44 ci 11/02 08:15 Order name: Urinalysis w/ reflexes; Complete Time: 08:43 ci 11/02 08:43 Interpretation: Abnormal: [facility] Extremely Turbid; UBACT 20-50. ci 11/02 09:22 Order name: Abdomen ; Complete Time: 11:18 EDMS 11/02 11:18 Interpretation: No acute disease: Per Radiologist's finding(s): IMPRESSION: Bilateral ci nonobstructing renal calculi. No other acute intra-abdominal process. 11/02 08:15 Order name: IV Saline Lock; Complete Time: 08:52 ci 11/02 08:15 Order name: Labs collected and sent; Complete Time: 08:52 ci Administered Medications: 08:54 Drug: fentaNYL (PF) IVP 25 mcg IVP once Route: IVP; Site: right antecubital; wv1 09:35 Follow up: Response: No adverse reaction; Pain is decreased nj1 11:35 Drug: Acetaminophen PO 1000 mg PO once Route: PO; db 12:00 Follow up: Response: No adverse reaction nj1 11:35 Drug: Dicyclomine PO 20 mg PO once Route: PO; db 13:19 Follow up: Response: No adverse reaction nj1 Disposition Summary: 11/02/23 11:22 Discharge Ordered Notes: Location: Home ci Problem: chronic ci Symptoms: have improved ci Condition: Stable ci Diagnosis - Abdominal pain, unspecified ci Followup: ci - With: Private Physician - When: 1 - 2 days - Reason: Recheck today's complaints, Re-evaluation by your physician Discharge Instructions: - Discharge Summary Sheet ci - Abdominal Pain, Adult ci - Pain Without a Known Cause ci Forms: - Medication Reconciliation Form ci - Thank You Letter ci - Antibiotic Education ci - Prescription Opioid Use ci - Patient Portal Instructions ci - Leadership Thank You Letter ci Signatures: Dispatcher [employer] Brenda Hernandez RN RN Milly Mejias RN RN wv1 Nicolasa Rausch ci Corrections: (The following items were deleted from the chart) 07:36 07:34 PMHx: Chronic Kidney disease; nj1 nj1 09:22 08:16 Abdomen Pelvis W Con+CT.RAD.BRZ ordered. EDMS BIGGS
--- NOTE | 2023-11-02 11:23 | ER ---
Nurse's Notes [facility] Name: Kylah Oliver Age: 78 yrs Sex: Female : 1945 Arrival Date: 11/02/2023 Time: 07:10 Bed 20 Private MD: Diagnosis: Abdominal pain, unspecified Presentation: 11/02 07:02 Chief complaint: Patient states: Abdominal pain for a year, got worse 2 days ago. nj1 Denies diarrhea/vomiting. Slightly nauseous. 07:02 Coronavirus screen: Vaccine status: Patient reports receiving the 2nd dose of the covid nj1 vaccine. Ebola Screen: Patient denies travel to an Ebola-affected area in the 21 days before illness onset. Initial Sepsis Screen: Does the patient meet any 2 criteria? No. Patient's initial sepsis screen is negative. Does the patient have a suspected source of infection? No. Patient's initial sepsis screen is negative. Risk Assessment: Do you want to hurt yourself or someone else? Patient reports no desire to harm self or others. Onset of symptoms was October 31, 2023. 07:02 Method Of Arrival: EMS: [facility] 07:02 Acuity: KAYLA 3 nj1 Historical: - Allergies: 07:34 Codeine; nj1 07:34 GABAPENTIN; nj1 07:34 Imdur; nj1 - PMHx: 07:34 Asthma; Atrial Fib; breast cancer; CHF; Chronic Kidney disease; Hypertension; Thyroid nj1 problem; - PSHx: 07:34 Dialysis access, left arm; nj1 - Immunization history:: Client reports receiving the 2nd dose of the Covid vaccine. - Social history:: Smoking status: Patient denies any tobacco usage or history of. Screenin:40 [facility] ED Fall Risk Assessment (Adult) Score/Fall Risk Level 0 - 2 = Low Risk nj1 Oriented to surroundings, Maintained a safe environment, Hourly rounding (assess needs \T\ fall precautionary measures) done. Abuse screen: Denies threats or abuse. Denies injuries from another. Nutritional screening: No deficits noted. Tuberculosis screening: No symptoms or risk factors identified. Assessment: 07:20 General: Appears in no apparent distress. comfortable, Behavior is calm, cooperative, nj1 appropriate for age. 07:20 Pain: Complains of pain in abdomen Pain currently is 10 out of 10 on a pain scale. nj1 Neuro: Level of Consciousness is awake, alert, obeys commands, Oriented to person, place, situation, Gait is shuffling. Cardiovascular: Patient's skin is warm and dry. Rhythm is irregular. Respiratory: Airway is patent Respiratory effort is even, unlabored. GI: Reports upper abdominal pain, Patient currently denies diarrhea, vomiting. 08:15 Reassessment: Patient appears in no apparent distress at this time. Patient and/or nj1 family updated on plan of care and expected duration. Pain level reassessed. Patient is alert, oriented x 3, equal unlabored respirations, skin warm/dry/pink. Awaiting for orders. 09:23 Reassessment: Not in room, in imaging. nj1 09:35 Reassessment: Patient appears in no apparent distress at this time. Patient and/or nj1 family updated on plan of care and expected duration. Pain level reassessed. Patient is alert, oriented x 3, equal unlabored respirations, skin warm/dry/pink. Patient states feeling better. 10:30 Reassessment: Patient appears in no apparent distress at this time. Patient and/or nj1 family updated on plan of care and expected duration. Pain level reassessed. Patient is alert, oriented x 3, equal unlabored respirations, skin warm/dry/pink. 11:30 Reassessment: Patient appears in no apparent distress at this time. Patient and/or nj1 family updated on plan of care and expected duration. Pain level reassessed. Patient is alert, oriented x 3, equal unlabored respirations, skin warm/dry/pink. 11:41 Reassessment: CALLED PATIENT SON AT [phone] AND PT [phone] FOR RIDE db HOME. NO ANSWER. LEFT MESSAGE. WILL NOTIFY CHARGE. Vital Signs: 07:02 BP 172 / 80; Pulse 67; Resp 17; Temp 97.7(O); Pulse Ox 100% on R/A; Weight 56.7 kg; nj1 Height 5 ft. 6 in. ; Pain 10/10; 08:17 BP 150 / 82; Pulse 85; Resp 16; Pulse Ox 100% on R/A; Pain 10/10; nj1 09:34 Pulse 85; Resp 19; Pulse Ox 99% on R/A; Pain 2/10; nj1 10:30 BP 124 / 96; Pulse 80; Resp 17; Pulse Ox 100% on R/A; nj1 11:30 BP 158 / 87; Pulse 77; Resp 17; Pulse Ox 100% on R/A; nj1 07:02 Body Mass Index 20.18 (56.70 kg, 167.64 cm) nj1 07:02 Pain Scale: Adult nj1 08:17 Pain Scale: Adult nj1 09:34 Pain Scale: Adult nj1 ED Course: 07:17 Patient arrived in ED. eb 07:26 Milly Mejias, RN is Primary Nurse. nj1 07:30 Patient has correct armband on for positive identification. Bed in low position. Call nj1 light in reach. Side rails up X 1. Provided Education on: call light, fall precautions. 07:30 Client placed on continuous cardiac and pulse oximetry monitoring. NIBP monitoring nj1 applied. 07:34 Triage completed. nj1 07:36 Arm band placed on right wrist. nj1 08:00 Purewick applied per patient request. nj1 08:10 Nicolasa Rausch is Attending Physician. ci 08:38 Inserted saline lock: 20 gauge in right antecubital area, using aseptic technique. nj1 ,using aseptic technique. Ultrasound guided. Catheter tip well visualized within vasculature during placement. Blood collected. 08:45 Provided Education on: Pain medication. nj1 09:22 Abdomen In Process Unspecified. EDMS 12:04 No provider procedures requiring assistance completed. nj1 13:18 IV discontinued, intact, bleeding controlled. nj1 Administered Medications: 08:54 Drug: fentaNYL (PF) IVP 25 mcg IVP once Route: IVP; Site: right antecubital; nj1 09:35 Follow up: Response: No adverse reaction; Pain is decreased nj1 11:35 Drug: Acetaminophen PO 1000 mg PO once Route: PO; db 12:00 Follow up: Response: No adverse reaction nj1 11:35 Drug: Dicyclomine PO 20 mg PO once Route: PO; db 13:19 Follow up: Response: No adverse reaction nj1 Medication: 12:05 VIS not applicable for this client. nj1 Outcome: 11:22 Discharge ordered by . ci 12:04 Discharged to home nj1 12:04 Condition: stable 12:04 Discharge instructions given to patient, Instructed on discharge instructions, follow up and referral plans. Demonstrated understanding of instructions, follow-up care, 13:18 Discharged to home via wheelchair, with family, nj1 13:22 Patient left the ED. nj1 Signatures: Dispatcher [employer] Emily Lora Danielle, RN RN Milly Mejias RN RN nj1 Nicolasa Rausch Corrections: (The following items were deleted from the chart) 07:36 07:34 PMHx: Chronic Kidney disease; nj1 nj1
[2023-11-02] MEDS ORDERED: ACETAMINOPHEN 500 MG TAB ONE (11:46)
[2023-11-02] MEDS ORDERED: DICYCLOMINE HCL 10 MG CAP ONE (11:46)
[2023-11-02 13:33] VITALS: O2SAT 100
[2023-11-02 13:34] VITALS: BP 158/87
== END 2023-11-02 13:22 | disposition home or self-care (01) ==
LOC: ER 07:10
DX: R10.9 Unspecified abdominal pain (principal); I13.0 Hypertensive heart and chronic kidney disease with heart failure and stage 1 through stage 4 chronic kidney disease, or unspecified chronic kidney disease; N18.9 Chronic kidney disease, unspecified; I48.91 Unspecified atrial fibrillation; J45.909 Unspecified asthma, uncomplicated; Z88.5 Allergy status to narcotic agent; Z88.8 Allergy status to other drugs, medicaments and biological substances
CPT/HCPCS: 85025; 81001; 36415; 83690; 80053; 74176; 96374; 99284; J3010